=== PATIENT | male | born 1970 | race Caucasian/White ===

== ENCOUNTER 2020-05-23 10:49 | Inpatient (IN) | payer OTHER, SELFPAY ==
[2020-05-23] VITALS (24 sets, daily range): BP systolic 156–220; BP diastolic 112–150; PULSE 73–118; RESP 18–27; TEMP 35.9–36.8; O2SAT 90–99; BMI 27.8
--- NOTE | ~2020-05-23 | CT_ITS ---
EXAMINATION: CTA chest abdomen pelvis EXAM DATE: 05/23/2020 12:04 INDICATION: Shortness of breath for 7 months. Chest pain. TECHNIQUE: Spiral CTA of the chest (pulmonary arteries) was performed with 100 cc Omnipaque 350 intr avenous contrast injection. Images were acquired during the pulmonary arterial phase. Coronal maxi mum intensity projection 3D-reconstructions were created by the technologist on dedicated workstation . Axial, coronal and sagittal reformatted images were reviewed. Spiral CT of the abdomen and pelvis was then performed with the same intravenous contrast injection. Axial, coronal and sagittal reform atted images were reviewed. The dose-length product (DLP) for this examination was 922.81 mGy-cm. T he exposure was tailored according to patient size (auto mA exposure control), and iterative reconst ruction (ASIR) was used as additional dose reduction technique. Comparison is made to prior examinati on from 08/12/2007. FINDINGS: No aortic aneurysm or dissection. CHEST: There are no pulmonary emboli in the 1st through 3rd order (central and interlobar) pulmonary arteries. Some loss of attenuation in the segmental pulmonary arteries due to respiratory motion, b ut no intraluminal filling defects suspected. No thoracic aortic dissection. The lungs are clear. Small right pleural effusion and small pericardial effusion. Tracheobronchial tree is patent. Th ere is no mediastinal, hilar or axillary lymphadenopathy. There is no pneumothorax. There is card iomegaly. No evidence of coronary arterial calcification. ABDOMEN PELVIS: There is mild retroperitoneal nonspecific fat stranding, does not appear to be center ed around the pancreas. There is edema in the presacral fat. Gallbladder is contracted without calci fied cholelithiasis. Indistinct gallbladder wall, most likely part of the generalized fat stranding. Portal and splenic veins are patent. Kidneys enhance symmetrically. There is no hydronephrosis. The prostate is unremarkable. The bladder is unremarkable. There is no retroperitoneal or pelvic ly mphadenopathy. Small to moderate right inguinal fat-containing hernia. Small umbilical fat-containi ng hernia, mild edema surrounding this. The appendix is normal. The stomach and small bowel are unremarkable. There is expected amount of c olonic stool. No free intraperitoneal gas. The bones are unremarkable. IMPRESSION: 1. Cardiomegaly, small pericardial and right pleural effusions. 2. Mild nonspecific gallbladder fossa, retroperitoneal, presacral edema. Probably not cholecystitis given scope of fat stranding, and that gallbladder is contracted. 3. Right inguinal, umbilical fat-containing hernias. Reviewed, dictated and finalized at location B. IMPRESSION: 1. Cardiomegaly, small pericardial and right pleural effusions. 2. Mild nonspecific gallbladder fossa, retroperitoneal, presacral edema. Proba erica not cholecystitis given scope of fat stranding, and that gallbladder is con tracted. 3. Right inguinal, umbilical fat-containing hernias.
--- NOTE | ~2020-05-23 | XR_ITS ---
EXAMINATION: XR chest 1V 05/23/2020 12:13 INDICATION: Shortness of breath for 2 months. History of smoking. PROCEDURE: AP view of the chest COMPARISON: No prior studies for comparison. FINDINGS: The lungs are clear. Moderate cardiomegaly. There are no pleural effusions. There is no pn eumothorax suspected. IMPRESSION: 1: NO ACUTE CARDIOPULMONARY DISEASE. Reviewed, dictated and finalized at location A.
--- NOTE | 2020-05-23 11:05 | ECG_ITS ---
Measurements Intervals [place] Rate: 100 P: 48 VT: 150 QRS: -41 QRSD: 111 T: 137 QT: 370 QTc: 479 Interpretive Statements SINUS TACHYCARDIA ATRIAL AND VENTRICULAR PREMATURE COMPLEXES LEFT AXIS DEVIATION INTRAVENTRICULAR CONDUCTION DELAY DELAYED PRECORDIAL R/S TRANSITION LEFT VENTRICULAR HYPERTROPHY AND ST-T CHANGE ST-T WAVE ABNORMALITY IN LATERAL LEADS- CONSIDER ISCHEMIA BASELINE ARTIFACT- I, III, AVR, AVL, AVF, V1 ABNORMAL ECG Electronically Signed On 05-23-2020 12:09:16 CDT by Jun Clifford D.O.
[2020-05-23] MEDS: SODIUM CHLORIDE 0.9% IV 500 ML 999 ML IV CONT (11:13)
[2020-05-23] MEDS: FAMOTIDINE 20 MG/2 ML VIAL IV PUSH (11:13)
[2020-05-23] MEDS: METOPROLOL TARTRATE INJ 5 MG/5 ML VIAL IV PUSH (11:13)
--- NOTE | 2020-05-23 11:20 | ED.ABDPAIN ---
HPI - Abdominal Pain General Chief Complaint: Shortness of Breath/Dyspnea <Raymond Conrad PA-C Last Filed: 05/23/20 12:50> Stated Complaint: CP, SOB <Raymond Conrad PA-C Last Filed: 05/23/20 12:50> Time Seen by Provider: 05/23/20 11:01 <Raymond Conrad PA-C Last Filed: 05/23/20 12:50> Source: patient and family <KYAW Blanchard Last Filed: 05/23/20 12:50> Mode of arrival: ambulatory <KYAW Blanchard Last Filed: 05/23/20 12:50> Limitations: no limitations <Raymond Conrad PA-C Last Filed: 05/23/20 12:50> History of Present Illness HPI narrative: Patient is a 49-year-old male who presents to emergency department for evaluation of epigastric chest pain that occurs every day for the last 3 weeks patient notes aching pain and pressure states that last night the pain intensified and also noted swelling of the face patient has not taken anything for his symptoms nor is he been seen for this complaint. Patient presents per private vehicle in no distress. <Raymodn Conrad PA-C Last Filed: 05/23/20 12:50> Related Data Home Medications: Home Medications Medication Instructions Recorded Confirmed No Home Medications 05/23/20 05/23/20 <Raymond Conrad PA-C Last Filed: 05/23/20 12:50> Allergies/Adverse Reactions: Allergies Allergy/AdvReac Type Severity Reaction Status Date / Time No Known Allergies Allergy Verified 05/23/20 11:01 <Raymond Conrad PA-C Last Filed: 05/23/20 12:50> Review of Systems Review of Systems: All systems reviewed & are unremarkable except as noted in HPI and below <Raymond Conrad PA-C Last Filed: 05/23/20 12:50> [facility] Past Medical History Medical History: Medical History (Updated 05/23/20 @ 16:32 by Sanna Galvez NP) Myocardial infarction Tobacco abuse <KYAW Blanchard Last Filed: 05/23/20 12:50> Surgical History Surgical History: Surgical History (Updated 05/23/20 @ 16:32 by Sanna Galvez NP) H/O toe surgery The great toe on the right had been amputated 3 times and reattached. History of mandibular surgery <Raymond Conrad PA-C - Last Filed: 05/23/20 12:50> Family History Family History: Family History (Updated 05/23/20 @ 14:28 by Ayanna Clancy RN) Father Acute myocardial infarction Hypertension Mother Cerebrovascular accident <Raymond Conrad PA-C - Last Filed: 05/23/20 12:50> Social History Social History: Social History (Updated 05/23/20 @ 16:34 by Sanna Galvez NP) Social History: The patient stated that he quit smoking October 14, 2019. He does not use any alcohol but does occasionally smoke marijuana. No illicit drugs. He is is with his and 2 kids. His children are healthy. 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 Smoking packs per day: 1.5 Smoking cigarettes per day: 30.0 Years smoked: 30 Smoking pack-years: 45.00 Smoking status: Former smoker Tobacco type: cigarettes Additional smoking assessment comments: quit Sep 2019 Alcohol intake: never Substance use type: marijuana Gender identity (if verbalized by the patient): Male Spiritual care concerns: No <KYAW Blanchard Last Filed: 05/23/20 12:50> Exam Narrative: Exam Narrative: GENERAL: Well-appearing, well-nourished, and in no acute distress. HEAD: Normocephalic, atraumatic. EYES: PERRLA and EOMI. ENT: Nares clear, no rhinorrhea or epistaxis. Mucous membranes moist. Oropharynx without tonsillar hypertrophy exudate or other lesions. NECK: Supple. No adenopathy or masses. CHEST: Clear to auscultation. No respiratory distress. No wheezes rales or rhonchi HEART: Regular rate and rhythm. No murmur heard. Normal peripheral pulses. ABDOMEN: Soft, epigastric tenderness to palpation, nondistended EXTREMITIES: Normal range of mot
[2020-05-23 11:23] LABS: Basophils Percent Auto 0.3 % (0.2-1.2); Eosinophils Absolute Auto 0.1 K/mm3 (0-0.3); Eosinophils Percent Auto 0.6 % (0-4.4); Hematocrit 38.2 % (42.0-52.0); Hemoglobin 12.9 g/dL (14.0-18.0); Immature Granulocyte Absolute 0.03 K/mm3 (0.00-0.031); Immature Granulocyte Percent A 0.3 % (0-0.5); Lymphocytes Absolute Auto 1.35 K/mm3 (0.9-3.2); Lymphocytes Percent Auto 14.4 % (18.3-44.2); Mean Corpuscular HGB Conc 33.8 g/dl (32-36); Mean Corpuscular Hemoglobin 31.2 pg (26-34); Mean Corpuscular Volume 92.5 fl (80-100); Mean Platelet Volume 10.6 fl (7.4-10.4); Monocytes Absolute Auto 0.8 K/mm3 (0.1-0.6); Monocytes Percent Auto 8.6 % (2.6-8.5); Neutrophils Absolute Auto 7.1 K/mm3 (1.3-6.7); Neutrophils Percent Auto 75.8 % (45.5-73.1); Platelet Count Result 259 k/mm3 (150-375); Red Blood Count 4.13 M/mm3 (4.6-6.20); Red Cell Distribution Width 14.2 % (11.5-14.5); White Blood Count 9.4 K/mm3 (4.5-10.0)
[2020-05-23 11:36] LABS: Alanine Aminotransferase 46 U/L (4-50); Albumin Level 3.9 g/dL (3.5-5.1); Alkaline Phosphatase 148 U/L (38-126); Aspartate Amino Transferase 60 U/L (17-59); Bilirubin,Total 1.6 mg/dL (0.2-1.3); Blood Urea Nitrogen 32 mg/dL (9-20); Calcium 8.8 mg/dL (8.4-10.2); Carbon Dioxide 28 mmol/L (22-30); Chloride 101 mmol/L (98-107); Estimated CRCL calculation 44 ml/min; Estimated Glomerular Filt Rate 38; Glucose 227 mg/dL (75-110); INR 1.2; Lipase 173 U/L (23-300); Potassium 2.9 mmol/L (3.4-5.0); Prothrombin Time 14.5 Seconds (11.1-14.7); Sodium 139 mmol/L (137-145)
[2020-05-23 11:37] LABS: Partial Thromboplastin Time 27.5 SECONDS (22.3-36.8)
[2020-05-23 11:37] LABS: Lactic Acid Reflex 0.9 mmol/L (0.7-2.1)
[2020-05-23 11:39] LABS: D Dimer 2.04 ug/mL (<0.48)
[2020-05-23] MEDS: NITROGLYCERIN OINTMENT 1 INCH DOSE 0.5 INCH TRANSDERM (11:50)
[2020-05-23 11:51] LABS: NT Pro B Type Natriuretic Pept 16500 PG/ML (5-100); Troponin I 0.085 ng/mL (0.000-0.034)
[2020-05-23 11:54] LABS: Alveolar/Arterial O2 Gradient 36.4 mmHg; Fractional Inspired Oxygen 21 %; HCO3 ABG 23.3 mEq/l (22.0-26.0); Methemoglobin ABG 0.4 %THb (0-1.5); Oxygen Content ABG 17.9 %vol (16.0-22.0); Oxygen Saturation ABG 95.4 % (95.0-100.0); Oxyhemoglobin 92.7 % THb (90.0-100.0); PCO2 ABG 33.9 mmHg (35.0-45.0); PO2 ABG 72.7 mmHg (80.0-100.0); PO2 FiO2 Ratio Arterial Blood 3.46 %; Reduced Hemoglobin 5.9 %THb (0-5.0); Total Hemoglobin 13.7 g/dL (12.0-18.0); pH ABG 7.455 (7.350-7.450)
[2020-05-23 11:55] LABS: Modified Allen's Test Pass; Site Drawn LEFT RADIAL
[2020-05-23 12:40] LABS: Add Urine Microscopic? YES; Appearance Urine Clear (Clear); Bacteria Urine Trace /hpf; Bilirubin Urine Negative (Negative); Blood Urine 1+ (Negative); Color Urine Yellow (Yellow); Glucose Urine UA Negative (Negative); Ketones Urine Negative (Negative); Leukocyte Esterase Ur Negative LEU/UL (Negative); Mucus Urine Rare /lpf; Nitrate Urine Negative (Negative); Protein Urine 2+ mg/dL (Negative); RBC Urine 0-2 /hpf (0-2); Squamous Epithelial Cell Urine Rare /hpf (Few); Urobilinogen Urine Negative mg/dL (<2.0)
[2020-05-23] MEDS: MORPHINE SULFATE 2 MG/ML INJ IV PUSH (13:11)
[2020-05-23] MEDS: hydroCHLOROthiazide 25 MG TABLET PO (13:11)
[2020-05-23] MEDS: AMLODIPINE BESYLATE 5 MG TABLET 10 MG PO (13:11)
[2020-05-23] MEDS: ASPIRIN 81 MG CHEWABLE TABLET 324 MG PO (13:11)
[2020-05-23 13:14] LABS: Barbiturate Screen Urine Negative (Negative); Benzodiazepines Screen Urine Negative (Negative)
[2020-05-23 13:20] LABS: Hemoglobin A1C 6.4 % (<5.7)
[2020-05-23 13:25] LABS: Cannabinoid Screen Urine Negative (Negative); Cocaine Screen Urine Negative (Negative); Methadone Screen Urine Negative (Negative); Opiate Screen Urine Negative (Negative); Phencyclidine Screen Urine Negative (Negative)
[2020-05-23 13:30] LABS: Cholesterol 148 mg/dL (0-200); HDL Direct 31 mg/dL; Triglycerides 85 mg/dL (<150)
[2020-05-23 13:40] LABS: LDL Cholesterol Direct 105 mg/dL
[2020-05-23 13:40] LABS: Amphetamine Screen Urine Positive (Negative)
[2020-05-23 14:36] LABS: Troponin I 0.081 ng/mL (0.000-0.034)
--- NOTE | 2020-05-23 15:53 | ECG_ITS ---
Measurements Intervals [place] Rate: 81 P: 37 [place]: 144 QRS: -39 QRSD: 107 T: 158 QT: 410 QTc: 476 Interpretive Statements SINUS RHYTHM ATRIAL PREMATURE COMPLEX LEFT AXIS DEVIATION INTRAVENTRICULAR CONDUCTION DELAY LEFT VENTRICULAR HYPERTROPHY AND ST-T CHANGE DELAYED PRECORDIAL R/S TRANSITION ST-T WAVE ABNORMALITY IN LATERAL LEADS- CONSIDER ISCHEMIA ABNORMAL ECG Electronically Signed On 05-23-2020 13:59:17 CDT by Jun Clifford D.O.
--- NOTE | 2020-05-23 16:19 | PM.IMHP ---
H&P: HPI History of Present Illness Chief complaint: Hypertensive emergency/elevated troponin/acute kid Narrative: Gopi Viramontes is a 49 year old male who has a history of having myocardial infarction in the past. The patient stated that he did not have any cardiac catheterization or any interventions after his heart attack. That he has been having chest pain for about 3 months now. The patient stated that he has been short of breath as well. The patient stated that he has been remodeling a home since November. He stated his shortness of breath started this November when he was remarkably without a mask. He believes he was exposed to asbestos. He has not had any previous history of any congestive heart failure. The patient stated that his chest pain got worse last night. Said it was more of a pressure. He was also short of breath with this. Did not radiate anywhere in the patient has not become diaphoretic. He has had no fever or chills. The patient came to the emergency room for private vehicle the patient stated he is also feeling achy. Patient's blood pressure was noted to be 220/144. He was given nitro paste, morphine, Norvasc, hydralazine, aspirin, and normal saline IV fluids. Noted to be 0.085 and then 0.081. Potassium was found to be 2.9. I did order for him to have 40 mEq of potassium. Patient does not currently have any chest pain at this time. Was read as atrial premature complex left axis deviation and intraventricular conduction delay left ventricular hypertrophy and ST-T changes delayed precordial RS transition ST T-wave abnormality in lateral leads consider ischemia abnormal EKG. Cardiology has been consulted and an echo has been ordered. Date of service 05/23/2020 Review of Systems Review of Systems: All systems reviewed & are unremarkable except as noted in HPI and below Constitutional: Constitutional: Reports as per HPI and Reports no additional constitutional complaints Eyes: Eyes: Reports as per HPI and Reports no additional eye complaints ENT: Reports system reviewed and no additional complaints, except as documented and Reports Normal hearing present Cardiovascular: Cardiovascular: Reports no additional cardiovascular complaints Respiratory: Respiratory: Reports no additional respiratory complaints and Reports no additional respiratory complaints Gastrointestinal: Gastrointestinal: Reports as per HPI and Reports no additional gastrointestinal complaints Musculoskeletal: Musculoskeletal: Reports no additional musculoskeletal complaints Integumentary/Breasts: Skin/Breast: Reports system reviewed and no additional complaints, except as docu and Reports as per HPI Neurologic: Reports system reviewed and no additional complaints, except as documented, Reports as per HPI and Reports Normal hearing present Psychiatric: Psychiatric: Reports no additional psychiatric complaints and Reports as per HPI Endocrine: Endocrine: Reports no additional endocrine complaints Hematologic/Lymphatic: Hematologic/Lymphatic: Reports no additional hematologic/lymphatic complaints Allergic/Immunologic: Allergic/Immunologic: Reports no additional allergic/immunologic complaints PMFSH Past Medical History Medical History (Updated 05/23/20 @ 16:32 by Sanna Galvez NP) Myocardial infarction Tobacco abuse Surgical History Surgical History (Updated 05/23/20 @ 16:32 by Sanna Galvez NP) H/O toe surgery The great toe on the right had been amputated 3 times and reattached. History of mandibular surgery Family History Family History (Updated 05/23/20 @ 14:28 by Ayanna Clancy RN) Father Acute myocardial infarction Hypertension Mother Cerebrovascular accident Social History Social History (Updated 05/23/20 @ 16:34 by Sanna Galvez NP) Social History: The patient stated that he quit smoking October 14, 2019. He does not use any alcohol but does occasionally smoke marijuana. No illicit drugs. He is
[2020-05-23 17:03] LABS: Glucose Point of Care 124 (65-105)
[2020-05-23] MEDS: POTASSIUM CHLORIDE 20 MEQ PACKET (FOR LIQUID) 40 MEQ PO (17:15)
[2020-05-23 17:36] LABS: Troponin I 0.092 ng/mL (0.000-0.034)
--- NOTE | 2020-05-23 18:53 | ECG_ITS ---
Measurements Intervals [place] Rate: 62 P: -71 VA: 128 QRS: -40 QRSD: 110 T: 205 QT: 423 QTc: 430 Interpretive Statements ECTOPIC ATRIAL RHYTHM LEFT AXIS DEVIATION INTRAVENTRICULAR CONDUCTION DELAY DELAYED PRECORDIAL R/S TRANSITION ST-T WAVE ABNORMALITY IN LATERAL LEADS- CONSIDER ISCHEMIA BASELINE ARTIFACT- I, III, AVL, AVF, V4 ABNORMAL ECG Electronically Signed On 05-23-2020 20:07:33 CDT by Jun Clifford D.O.
[2020-05-23] MEDS: hydrALAZINE HCL 20 MG/ML VIAL 10 MG IV PUSH (18:57)
[2020-05-23] MEDS: METOPROLOL TARTRATE 12.5 MG TABLET PO (21:24)
[2020-05-23 21:33] LABS: Glucose Point of Care 81 (65-105)
[2020-05-24] VITALS (15 sets, daily range): BP systolic 142–166; BP diastolic 84–120; PULSE 69–98; RESP 14–16; TEMP 35.7–36.3; O2SAT 96–100
[2020-05-24 00:02] LABS: Blood Urea Nitrogen 33 mg/dL (9-20); Carbon Dioxide 32 mmol/L (22-30); Chloride 100 mmol/L (98-107); Estimated CRCL calculation 49 ml/min; Estimated Glomerular Filt Rate 43; Glucose 114 mg/dL (75-110); Potassium 2.9 mmol/L (3.4-5.0); Sodium 140 mmol/L (137-145)
[2020-05-24] MEDS: hydrALAZINE HCL 20 MG/ML VIAL 10 MG IV PUSH (05:08)
--- NOTE | 2020-05-24 06:00 | ECHO_ITS ---
Patient Info Name: Gopi Viramontse Age: 49 years : 1970 Gender: Male Ht: 70 in Wt: 194 lbs BSA: 2.10 m2 HR: 68 bpm BP: 151 / 84 mmHg Heart Rhythm: Sinus Rhythm Technical Quality: Good Exam Date: 05/24/2020 7:55 AM Exam Location: [facility] Pulmonary Exam Room: 231 Patient Status: Inpatient Admit Date: 05/24/2020 Staff Ordering Physician: Raymond Conrad PA-C Mail Opener: Cris Gonzalez RDCS Attending Provider: Josefina Pablo PA-C Referring Physician: Houston LAWSON; Exam Type: CA echo doppler color flow Study Info Indications - SOB WATTS CP ELEVATED TROPONINS Complete two-dimensional, color flow and Doppler transthoracic echocardiogram is performed. Summary 1. Left ventricular systolic function is low normal, estimated EF is 45-50%. 2. There is borderline increased left ventricular wall thickness. 3. Right ventricular systolic function is normal. 4. Left atrial chamber dimension is mildly enlarged. 5. There is mild aortic valve sclerosis. 6. There is no aortic valve stenosis. 7. There is trace mitral valve regurgitation. 8. There is mild tricuspid valve regurgitation. 9. Mild pulmonary hypertension, estimated pulmonary arterial systolic pressure is 45 mmHg. 10. There is trivial pericardial effusion. 11. Inferior vena cava is top normal in size and does not collpase by >50% upon inspiration. Left Ventricle Left ventricular chamber dimension is normal. Left ventricular systolic function is low normal, estimated EF is 45-50%. There is borderline increased left ventricular wall thickness. Left ventricular septal wall motion is normal. The left ventricular diastolic function is normal. Right Ventricle Right ventricular chamber dimension is normal. Right ventricular systolic function is normal. Left Atria Left atrial chamber dimension is mildly enlarged. Right Atria Right atrial chamber dimension is normal. Aortic Valve The aortic valve is trileaflet. There is mild aortic valve sclerosis. There is no aortic valve stenosis. There is no aortic valve regurgitation. Pulmonic Valve The pulmonic valve is normal. There is no pulmonic valve stenosis. There is no pulmonic regurgitation. Mitral Valve The mitral valve has thickened leaflets. There is no mitral valve stenosis. There is trace mitral valve regurgitation. Tricuspid Valve The tricuspid valve leaflets are normal. There is no significant tricuspid valve stenosis. There is mild tricuspid valve regurgitation. Mild pulmonary hypertension, estimated pulmonary arterial systolic pressure is 45 mmHg. Pericardium/Pleural The pericardium appears normal. There is trivial pericardial effusion. Inferior Vena Cava Inferior vena cava is top normal in size and does not collpase by >50% upon inspiration. Aorta The aortic root size at the sinus of Valsalva is normal. The prox ascending aorta size is normal. Left Ventricular Outflow Tract Name Value Normal LVOT 2D LVOT Diameter 2.0 cm LVOT Doppler LVOT Peak Gradient 8 mmHg LVOT Mean Gradient 5 mmHg
[2020-05-24 07:16] LABS: Basophils Percent Auto 0.3 % (0.2-1.2); Eosinophils Absolute Auto 0.1 K/mm3 (0-0.3); Eosinophils Percent Auto 0.8 % (0-4.4); Hematocrit 42.1 % (42.0-52.0); Hemoglobin 14.4 g/dL (14.0-18.0); Immature Granulocyte Absolute 0.03 K/mm3 (0.00-0.031); Immature Granulocyte Percent A 0.3 % (0-0.5); Mean Corpuscular HGB Conc 34.2 g/dl (32-36); Mean Corpuscular Hemoglobin 31.6 pg (26-34); Mean Corpuscular Volume 92.5 fl (80-100); Mean Platelet Volume 10.1 fl (7.4-10.4); Monocytes Absolute Auto 0.8 K/mm3 (0.1-0.6); Monocytes Percent Auto 7.9 % (2.6-8.5); Neutrophils Absolute Auto 7.4 K/mm3 (1.3-6.7); Neutrophils Percent Auto 73.7 % (45.5-73.1); Platelet Count Result 270 k/mm3 (150-375); Red Blood Count 4.55 M/mm3 (4.6-6.20); Red Cell Distribution Width 14.5 % (11.5-14.5)
[2020-05-24 07:35] LABS: Alanine Aminotransferase 56 U/L (4-50); Alkaline Phosphatase 149 U/L (38-126); Aspartate Amino Transferase 61 U/L (17-59); Bilirubin,Total 2.7 mg/dL (0.2-1.3); Blood Urea Nitrogen 25 mg/dL (9-20); Calcium 8.8 mg/dL (8.4-10.2); Carbon Dioxide 31 mmol/L (22-30); Chloride 98 mmol/L (98-107); Estimated CRCL calculation 59 ml/min; Estimated Glomerular Filt Rate 54; Glucose 113 mg/dL (75-110); Lipase 190 U/L (23-300); Magnesium 1.5 mg/dL (1.6-2.3); Phosphorus 3.2 mg/dL (2.5-4.5); Potassium 2.7 mmol/L (3.4-5.0); Sodium 138 mmol/L (137-145)
[2020-05-24 07:44] LABS: Troponin I 0.074 ng/mL (0.000-0.034)
[2020-05-24 08:08] LABS: Glucose Point of Care 106 (65-105)
[2020-05-24 08:12] LABS: Cholesterol 164 mg/dL (0-200); HDL Direct 36 mg/dL; Triglycerides 97 mg/dL (<150)
--- NOTE | 2020-05-24 08:15 | PM.CNCAR ---
Assessment and Plan Assessment and plan (1) Hypertensive emergency: Code(s): I16.1 - Hypertensive emergency Status: Acute Assessment and Plan: 49 y/o with no medical follow up for years who presented with SOB, chest pain in the setting of HTN emergency He has HTN emergency with evidence of end organ damage suggested by TABITHA and elevated troponin. His symptoms has improved since BP better controlled His echocardiogram shows low normal LV systolic function with EF ~45-50%. Will continue HCTZ started yesterday. Will d/c AMlodipine. Start Metoprolol given borderline LV dysfunction. Will plan starting MARY if creatinine continues to improve. (2) Elevated troponin: Code(s): R79.89 - Other specified abnormal findings of blood chemistry Status: Acute Assessment and Plan: Likely due to type II myocardial infarction in the setting of HTN emergency and amphetamine use echo with no regional wall motion changes rather global low normal systolic function. He has multiple cardiovascular risk factors including untreated HTN, DM for unknown time as well as prior tobacco abuse. He would benefit from ischemic evaluation at somepoint. Will consider that in outpatient settings once assure creatinine stable and BP well controlled. (3) Acute kidney injury: Code(s): N17.9 - Acute kidney failure, unspecified Status: Acute Assessment and Plan: Creatinine improving. Will start MARY tomorrow if creatinine remains stable (4) Chest pain: Code(s): R07.9 - Chest pain, unspecified Status: Acute Assessment and Plan: In the setting of HTN emergency. Chest pain resolved since BP better controlled. EKG with LVH and repolarization changes. Indeterminate trop elevation noted likely type II [place]. Stress testing not feasible due to holiday schedule (25 of May). Not ideal time for cath given TABITHA. Will plan ischemic evaluation in outpatient settings. History of Present Illness History of Present Illness Consult date/time: 05/24/20 08:15 49 year old male with no recent medical follow up who presented with chest pain and shortness of breath. He reports having symptoms for few months, started with dyspnea on exertion that gradually got worse and eventually started develoing chest pain. He had episode of chest pain that felt like elephant setting on his chest so decided to seek medical attention. In ER he was noted have BP as high as 220/145. Troponin was very mildly elevated and peaked at less than 0.1. He feels better since BP came down. He received HCTZ and Amlodipine. He also received nitro in ER. EKG showed normal sinus rhythm with LVH and repolarization changes. PACs also noted. Labs shows creatinine of 1.9, K of 2.9. He was also found to be diabetic and his HgA1c is 6.4. Urine toxicology is positive for amphetamine. He states that he had heart attack about 8 years ago and was in local hospital in [place] for few days but never had heart catheterization or never followed with cardiology. he has not been taking ASA or any meds. father of [place] in his late 60s. Reason For Visit: Hypertensive emergency/elevated troponin/acute kid Review of Systems Review of Systems: All systems reviewed & are unremarkable except as noted in HPI and below Constitutional: Constitutional: Denies fatigue and Denies headache(s) Eyes: Eyes: Denies blurry vision ENT: Reports Normal hearing present and Denies headache(s) Cardiovascular: Cardiovascular: Denies chest pain, Denies diaphoresis, Denies pedal edema, Denies leg edema, Denies lightheadedness, Denies palpitations and Denies dyspnea Respiratory: Respiratory: Denies cough and Denies dyspnea Gastrointestinal: Gastrointestinal: Denies abdominal pain Musculoskeletal: Musculoskeletal: Denies back pain Neurologic: Reports Normal hearing present and Denies headache(s) Psychiatric: Psychiatric: Denies anxiety Endocrine: Endocrine: Denies fatigue an
[2020-05-24 08:22] LABS: LDL Cholesterol Direct 115 mg/dL
[2020-05-24] MEDS: MAGNESIUM SULFATE 3GM/D5W100ML 3 GM/100 ML BAG IVPB (08:51)
[2020-05-24] MEDS: METOPROLOL TARTRATE 12.5 MG TABLET PO ×2 (08:52→23:28)
[2020-05-24] MEDS: PANTOPRAZOLE 40 MG TABLET PO (08:52)
[2020-05-24] MEDS: ASPIRIN 81 MG CHEWABLE TABLET PO (08:55)
[2020-05-24] MEDS: POTASSIUM CHLORIDE 20 MEQ TABLET 60 MEQ PO (08:55)
[2020-05-24] MEDS: lisinopriL 5 MG TABLET PO (09:31)
[2020-05-24] MEDS: hydroCHLOROthiazide 25 MG TABLET PO (09:31)
--- NOTE | 2020-05-24 10:13 | PM.IMPN ---
Progress Note: A&P Assessment and Plan (1) Hypertensive emergency: Code(s): I16.1 - Hypertensive emergency Status: Acute Assessment and Plan: Patient with poor medical follow up presents with chest pain x months and headaches; BP 220/144 on arrival, Cr 1.9. He was given Norvasc, HCTZ, Lopressor, and nitro in the ED. BPs now much improved, last 151/84. Today he remains on Lopressor, lisinopril, and HCTZ with PRN IV hydralazine if needed. Appreciate cardiology recommendations. Discussed case with Dr Michaels. Cardiology will plan for outpatient ischemic evaluation with stress testing and cath on an outpatient basis. Unable to perform stress echo today due to the holiday weekend. 2D echo report pending but Dr Michaels notes reduced LV function on his read. (2) Chest pain: Qualifiers: Chest pain type: unspecified Qualified Code(s): R07.9 - Chest pain, unspecified Code(s): R07.9 - Chest pain, unspecified Status: Acute Assessment and Plan: Now resolved with correction of BP. (3) Elevated troponin: Code(s): R79.89 - Other specified abnormal findings of blood chemistry Status: Acute Assessment and Plan: Minimally elevated flat troponin. 0.085 - 0.081 - 0.092 - 0.074. Likely type 2 [place] related to hypertensive emergency. Amphetamine use may contribute. See above. (4) Hypokalemia: Code(s): E87.6 - Hypokalemia Status: Acute Assessment and Plan: K still low at 2.7 this AM despite replacement yesterday. Correct hypomagnesemia and continue replacing potassium. Will monitor. (5) Acute kidney injury: Code(s): N17.9 - Acute kidney failure, unspecified Status: Acute Assessment and Plan: Cr 1.9 on arrival now improved to 1.4; unsure of chronicity with no previous labs for comparison. Will avoid nephrotoxic agents and monitor renal function. (6) Substance use disorder: Code(s): F19.90 - Other psychoactive substance use, unspecified, uncomplicated Status: Acute Assessment and Plan: Patient reports snorting methamphetamine on Wednesday over the weekend. He reports he does not use amphetamines on a regular basis. We discussed the importance of abstaining from drug use. (7) Acute hyperglycemia: Code(s): R73.9 - Hyperglycemia, unspecified Status: Acute Assessment and Plan: A1c 6.4. Continue to monitor Accu-cheks and cover with SSI. (8) Anemia: Qualifiers: Anemia type: unspecified type Qualified Code(s): D64.9 - Anemia, unspecified Code(s): D64.9 - Anemia, unspecified Status: Acute Assessment and Plan: Unsure of chronicity. H&H stable today. No evidence of acute bleeding. (9) Transaminitis: Code(s): R74.0 - Nonspecific elevation of levels of transaminase and lactic acid dehydrogenase [LDH] Status: Acute Assessment and Plan: Mild. Bili 2.7. No abdominal pain. CT abdomen reviewed. Trend hepatic function panel and consider RUQ US in AM or on outpatient basis. Subjective Date/time seen: 05/24/20 0950 Interval history: Mr. Viramontes is a 49 yo M admitted with hypertensive emergency. He reports feeling better this morning and was able to sleep well last night. He reports having intermittent chest pain over the last few months that became more persistent in the last few days. He is not having any chest pain this morning. He reports shortness of breath worse with lying flat at night and worse with exertion. He is not having shortness of breath resting in bed currently. He reports headaches lately and had one last night but this, too, has resolved this morning. He was able to tolerate some breakfast wit
[2020-05-24 10:30] LABS: Free T4 Free Thyroxine Reflex 1.46 ng/dL (0.78-2.19)
--- NOTE | 2020-05-24 13:40 | PC.NURSE ---
This patient, Gopi Viramontes, was transferred to [facility] on 05/24/20 at 1328. Personal belongings sent with patient.Report given to Kenzie. Appropriate documentation sent with patient.
[2020-05-24 16:29] LABS: Glucose Point of Care 124 (65-105)
[2020-05-24 17:13] LABS: Blood Urea Nitrogen 28 mg/dL (9-20); Calcium 8.3 mg/dL (8.4-10.2); Carbon Dioxide 30 mmol/L (22-30); Chloride 98 mmol/L (98-107); Estimated CRCL calculation 52 ml/min; Estimated Glomerular Filt Rate 46; Glucose 157 mg/dL (75-110); Magnesium 2.2 mg/dL (1.6-2.3); Potassium 3.7 mmol/L (3.4-5.0); Sodium 136 mmol/L (137-145)
[2020-05-24 23:44] LABS: Glucose Point of Care 134 (65-105)
[2020-05-25] VITALS (15 sets, daily range): BP systolic 150–164; BP diastolic 84–116; PULSE 65–97; RESP 14–18; TEMP 36.2–36.8; O2SAT 97–99
[2020-05-25 06:42] LABS: Basophils Percent Auto 0.3 % (0.2-1.2); Eosinophils Absolute Auto 0.1 K/mm3 (0-0.3); Eosinophils Percent Auto 1.1 % (0-4.4); Hematocrit 39.6 % (42.0-52.0); Hemoglobin 13.3 g/dL (14.0-18.0); Immature Granulocyte Absolute 0.05 K/mm3 (0.00-0.031); Immature Granulocyte Percent A 0.5 % (0-0.5); Lymphocytes Absolute Auto 1.82 K/mm3 (0.9-3.2); Lymphocytes Percent Auto 16.7 % (18.3-44.2); Mean Corpuscular HGB Conc 33.6 g/dl (32-36); Mean Corpuscular Hemoglobin 31.6 pg (26-34); Mean Corpuscular Volume 94.1 fl (80-100); Mean Platelet Volume 10.2 fl (7.4-10.4); Monocytes Percent Auto 9.2 % (2.6-8.5); Neutrophils Absolute Auto 7.9 K/mm3 (1.3-6.7); Neutrophils Percent Auto 72.2 % (45.5-73.1); Platelet Count Result 267 k/mm3 (150-375); Red Blood Count 4.21 M/mm3 (4.6-6.20); Red Cell Distribution Width 14.6 % (11.5-14.5); White Blood Count 10.9 K/mm3 (4.5-10.0)
[2020-05-25 06:54] LABS: Alanine Aminotransferase 41 U/L (4-50); Albumin Level 3.5 g/dL (3.5-5.1); Alkaline Phosphatase 119 U/L (38-126); Aspartate Amino Transferase 38 U/L (17-59); Blood Urea Nitrogen 36 mg/dL (9-20); Calcium 8.3 mg/dL (8.4-10.2); Carbon Dioxide 33 mmol/L (22-30); Chloride 98 mmol/L (98-107); Estimated CRCL calculation 52 ml/min; Estimated Glomerular Filt Rate 46; Glucose 120 mg/dL (75-110); Magnesium 1.9 mg/dL (1.6-2.3); Sodium 137 mmol/L (137-145)
[2020-05-25] MEDS: hydrALAZINE HCL 20 MG/ML VIAL 10 MG IV PUSH ×2 (07:42→16:48)
[2020-05-25 07:52] LABS: Glucose Point of Care 106 (65-105)
[2020-05-25] MEDS: METOPROLOL TARTRATE 12.5 MG TABLET PO (08:21)
[2020-05-25] MEDS: hydroCHLOROthiazide 25 MG TABLET PO (08:22)
[2020-05-25] MEDS: PANTOPRAZOLE 40 MG TABLET PO (08:22)
[2020-05-25] MEDS: lisinopriL 5 MG TABLET PO ×2 (08:22→12:24)
[2020-05-25] MEDS: ASPIRIN 81 MG CHEWABLE TABLET PO (09:29)
[2020-05-25] MEDS: POTASSIUM CHLORIDE 20 MEQ TABLET 60 MEQ PO (09:30)
--- NOTE | 2020-05-25 11:43 | PM.PNCARD ---
Progress Note: A&P Assessment and Plan (1) Hypertensive emergency: Code(s): I16.1 - Hypertensive emergency Status: Acute Assessment and Plan: 49 y/o with no medical follow up for years who presented with SOB, chest pain in the setting of HTN emergency He has HTN emergency with evidence of end organ damage suggested by TABITHA and mildly elevated troponin. His symptoms has improved since BP better controlled His echocardiogram shows low normal LV systolic function with EF ~45-50%. BP still elevated. Will increase Metoprolol dose to 50 mg daily. Increase Lisinopril dose to 10 mg daily. Will continue HCTZ . (2) Elevated troponin: Code(s): R79.89 - Other specified abnormal findings of blood chemistry Status: Acute Assessment and Plan: Likely due to type II myocardial infarction in the setting of HTN emergency and amphetamine use. Creatinine peaked at 0.09 echo with no regional wall motion changes rather global low normal systolic function. He has multiple cardiovascular risk factors including untreated HTN, DM for unknown time as well as prior tobacco abuse. He would benefit from ischemic evaluation at some point. Will plan that in outpatient settings once assure creatinine stable and BP well controlled.(creatinine 1.6 today) (3) Acute kidney injury: Code(s): N17.9 - Acute kidney failure, unspecified Status: Acute Assessment and Plan: Creatinine stable. Increase Lisinopril dose given mild LV dysfunction. (4) Chest pain: Qualifiers: Chest pain type: unspecified Qualified Code(s): R07.9 - Chest pain, unspecified Code(s): R07.9 - Chest pain, unspecified Status: Acute Assessment and Plan: In the setting of HTN emergency. Chest pain resolved since BP better controlled. EKG with LVH and repolarization changes. Indeterminate trop elevation noted likely type II CA. Stress testing not feasible due to holiday schedule (25 of May). Not ideal time for cath given TABITHA. Will plan ischemic evaluation in outpatient settings. Subjective Date/time seen: 05/25/20 11:43 He feels much better compared to . Tele reviewed. He has frequent PACs Review of Systems Review of Systems: All systems reviewed & are unremarkable except as noted in HPI and below Constitutional: Constitutional: Denies fatigue and Denies headache(s) Eyes: Eyes: Denies blurry vision ENT: Reports Normal hearing present and Denies headache(s) Cardiovascular: Cardiovascular: Denies chest pain, Denies diaphoresis, Denies pedal edema, Denies leg edema, Denies lightheadedness, Denies palpitations and Denies dyspnea Respiratory: Respiratory: Denies cough and Denies dyspnea Gastrointestinal: Gastrointestinal: Denies abdominal pain Musculoskeletal: Musculoskeletal: Denies back pain Neurologic: Reports Normal hearing present and Denies headache(s) Psychiatric: Psychiatric: Denies anxiety Endocrine: Endocrine: Denies fatigue and Denies palpitations Exam Const: General: no acute distress Eyes: Sclera: sclerae normal Neck: Neck: no JVD Carotids: no bruits Resp: Effort & Inspection: normal respiratory effort Auscultation: clear to auscultation bilaterally Cardio: Rate: regular rate and not tachycardic Rhythm: regular rhythm Heart sounds: no gallops, no murmurs and no rubs Skin: General skin exam: normal color Neuro: Cranial nerves: Yes Normal hearing present Speech: normal speech Extrem: General: normal to inspection and no edema Psych: Affect: normal affect Objective Data Vital Signs Vital Signs: Vital Signs - 24 hr 05/24/20 12:00 05/24/20 12:44 05/24/20 13:45 Temperature 35.7 C L 36.0 C L Pulse Rate 71 74 72 Respiratory Rate 16 16 Blood Pressure 166/99 H 142/92 H Pulse Oximetry 97 98 05/24/20 16:00 05/24/20 19:45 05/24/20 20:00 Temperature Pulse Rate 82 89 Respiratory Rate Blood Pressure Pulse Oximetry 99 07/
[2020-05-25 12:01] LABS: Glucose Point of Care 109 (65-105)
[2020-05-25] MEDS: METOPROLOL SUCCINATE EXT REL 12.5 MG, METOPROLOL SUCCINATE EXT REL 25 MG 37.5 MG PO (12:24)
--- NOTE | 2020-05-25 13:56 | PM.IMPN ---
Progress Note: A&P Assessment and Plan (1) Hypertensive emergency: Code(s): I16.1 - Hypertensive emergency Status: Acute Assessment and Plan: Patient with poor medical follow up presents with chest pain x months and headaches; BP 220/144 on arrival, with evidence end-organ damage by elevated creatinine and elevated troponins. BPs now improved. Today he remains on Lopressor, lisinopril, and HCTZ with PRN IV hydralazine if needed. Appreciate cardiology recommendations. Discussed case with Dr Michaels. Cardiology will plan for outpatient ischemic evaluation with stress testing and cath on an outpatient basis. Unable to perform stress echo inpatient due to the holiday weekend. 2D echo shows reduced LV funtion EF 40-45%. (2) Chest pain: Qualifiers: Chest pain type: unspecified Qualified Code(s): R07.9 - Chest pain, unspecified Code(s): R07.9 - Chest pain, unspecified Status: Acute Assessment and Plan: Now resolved with correction of BP. (3) Elevated troponin: Code(s): R79.89 - Other specified abnormal findings of blood chemistry Status: Acute Assessment and Plan: Minimally elevated flat troponin. 0.085 - 0.081 - 0.092 - 0.074. Likely type 2 NH related to hypertensive emergency. Amphetamine use may contribute. See above. (4) Hypokalemia: Code(s): E87.6 - Hypokalemia Status: Acute Assessment and Plan: K 3.0 this AM and replaced. Monitor K and magnesium, replace as needed. (5) Acute kidney injury: Code(s): N17.9 - Acute kidney failure, unspecified Status: Acute Assessment and Plan: Cr 1.9 on arrival now improved to 1.6; unsure of chronicity with no previous labs for comparison. Will avoid nephrotoxic agents and monitor renal function in AM. (6) Substance use disorder: Code(s): F19.90 - Other psychoactive substance use, unspecified, uncomplicated Status: Acute Assessment and Plan: Patient reports snorting methamphetamine on Wednesday over the weekend. He reports he does not use amphetamines on a regular basis. We discussed the importance of abstaining from drug use. (7) Acute hyperglycemia: Code(s): R73.9 - Hyperglycemia, unspecified Status: Acute Assessment and Plan: A1c 6.4. Continue to monitor Accu-cheks and cover with SSI. (8) Anemia: Qualifiers: Anemia type: unspecified type Qualified Code(s): D64.9 - Anemia, unspecified Code(s): D64.9 - Anemia, unspecified Status: Acute Assessment and Plan: Unsure of chronicity. H&H stable today. No evidence of acute bleeding. (9) Transaminitis: Code(s): R74.0 - Nonspecific elevation of levels of transaminase and lactic acid dehydrogenase [LDH] Status: Resolved Assessment and Plan: Mild and now resolved. LFTs and Bili within normal limits today. No abdominal pain. CT abdomen reviewed. Subjective Date/time seen: 05/25/20 1300 Interval history: Mr. Viramontes is a 49 yo M admitted with hypertensive emergency. He reports feeling better today. He still experiences shortness of breath with lying flat and some mild SOB walking to the restroom. He denies chest pain today. He has tolerated oral intake without nausea or vomiting. Denies abdominal pain. Headache resolved. Review of Systems Review of Systems: Narrative: Twelve systems were reviewed with pertinent positives and negatives as per HPI. Exam Narrative: Exam Narrative: General: Male resting supine in bed in no acute distress. HEENT: Normocephalic, EOMI, oral mucosa tacky, poor dentition. Cardiovascular: Rate and rhythm are regular. Telemetry review shows some bradycardia ov
[2020-05-25 16:41] LABS: Glucose Point of Care 88 (65-105)
[2020-05-25 21:46] LABS: Glucose Point of Care 96 (65-105)
[2020-05-26] VITALS (19 sets, daily range): BP systolic 138–167; BP diastolic 72–109; PULSE 61–94; RESP 16–20; TEMP 36.1–36.5; O2SAT 96–100
[2020-05-26] MEDS: hydrALAZINE HCL 20 MG/ML VIAL 10 MG IV PUSH ×2 (05:59→17:16)
[2020-05-26 06:37] LABS: Blood Urea Nitrogen 28 mg/dL (9-20); Calcium 8.3 mg/dL (8.4-10.2); Carbon Dioxide 30 mmol/L (22-30); Chloride 100 mmol/L (98-107); Estimated CRCL calculation 63 ml/min; Estimated Glomerular Filt Rate 58; Glucose 93 mg/dL (75-110); Magnesium 1.8 mg/dL (1.6-2.3); Sodium 137 mmol/L (137-145)
[2020-05-26 07:59] LABS: Glucose Point of Care 94 (65-105)
[2020-05-26] MEDS: PANTOPRAZOLE 40 MG TABLET PO (08:06)
[2020-05-26] MEDS: ASPIRIN 81 MG CHEWABLE TABLET PO (08:07)
[2020-05-26] MEDS: METOPROLOL SUCCINATE EXT REL 50 MG TABCR PO (08:07)
[2020-05-26] MEDS: lisinopriL 10 MG TABLET PO ×2 (08:08→10:54)
[2020-05-26] MEDS: hydroCHLOROthiazide 25 MG TABLET PO (08:08)
[2020-05-26] MEDS: MAGNESIUM OXIDE 400 MG TABLET PO (09:14)
[2020-05-26] MEDS: POTASSIUM CHLORIDE 20 MEQ TABLET 40 MEQ PO (09:14)
--- NOTE | 2020-05-26 09:58 | PM.PNCARD ---
Progress Note: A&P Assessment and Plan (1) Hypertensive emergency: Code(s): I16.1 - Hypertensive emergency Status: Acute Assessment and Plan: 49 y/o with no medical follow up for years who presented with SOB, chest pain in the setting of HTN emergency He has HTN emergency with evidence of end organ damage suggested by TABITHA and mildly elevated troponin. His symptoms has improved since BP better controlled His echocardiogram shows low normal LV systolic function with EF ~45-50%. BP still elevated. increased Metoprolol dose to 50 mg daily. Increase Lisinopril dose to 20 mg daily. Will continue HCTZ . (2) Elevated troponin: Code(s): R79.89 - Other specified abnormal findings of blood chemistry Status: Acute Assessment and Plan: Likely due to type II myocardial infarction in the setting of HTN emergency and amphetamine use. peaked at 0.09 echo with no regional wall motion changes rather global low normal systolic function. He has multiple cardiovascular risk factors including untreated HTN, DM for unknown time as well as prior tobacco abuse. He would benefit from ischemic evaluation at some point. Will plan cardiac catheterization at some point when he is otherwise stable (3) Acute kidney injury: Code(s): N17.9 - Acute kidney failure, unspecified Status: Acute Assessment and Plan: Creatinine stable. Increase Lisinopril dose given mild LV dysfunction. (4) Chest pain: Qualifiers: Chest pain type: unspecified Qualified Code(s): R07.9 - Chest pain, unspecified Code(s): R07.9 - Chest pain, unspecified Status: Acute Assessment and Plan: In the setting of HTN emergency. Chest pain resolved since BP better controlled. EKG with LVH and repolarization changes. Indeterminate trop elevation noted likely type II NH. Will plan cardiac catheterization whenever he is otherwise stable Subjective Date/time seen: 05/26/20 09:58 He feels somewhat better today no chest pain no significant shortness of breath Exam Const: General: no acute distress Eyes: Sclera: sclerae normal Neck: Neck: no JVD Carotids: no bruits Resp: Effort & Inspection: normal respiratory effort Auscultation: clear to auscultation bilaterally Cardio: Rate: regular rate and not tachycardic Rhythm: regular rhythm Heart sounds: no gallops, no murmurs and no rubs Skin: General skin exam: normal color Neuro: Cranial nerves: Yes Normal hearing present Speech: normal speech Extrem: General: normal to inspection and no edema Psych: Affect: normal affect Objective Data Vital Signs Vital Signs: Vital Signs - 24 hr 05/25/20 12:00 05/25/20 12:24 05/25/20 14:00 Temperature 36.8 C Pulse Rate 76 78 72 Respiratory Rate 14 Blood Pressure 162/84 H Pulse Oximetry 98 05/25/20 16:00 05/25/20 16:44 05/25/20 20:00 Temperature 36.3 C L Pulse Rate 68 65 79 Respiratory Rate 18 Blood Pressure 150/98 H Pulse Oximetry 97 05/25/20 21:12 05/25/20 23:25 05/26/20 00:00 Temperature 36.8 C Pulse Rate 75 84 Respiratory Rate 16 Blood Pressure 152/99 H Pulse Oximetry 99 98 05/26/20 04:00 05/26/20 05:57 05/26/20 06:46 Temperature 36.5 C Pulse Rate 82 65 68 Respiratory Rate 16 Blood Pressure 167/93 H 154/96 H Pulse Oximetry 96 05/26/20 08:00 05/26/20 08:07 05/26/20 09:14 Temperature Pulse Rate 94 83 84 Respiratory Rate 16 Blood Pressure Pulse Oximetry 96 Intake/Output Intake/Output: Intake & Output 05/23/20 05/24/20 05/25/20 05/26/20 23:59 23:59 23:59 23:59 Intake Total 1460 1980 2662 540 Output Total 8370 3703 6218 Balance -420 946 586 540 Meds/Results Medications: Active Medications Generic Name Dose Route Start Last Admin Trade Name Ezekielq PRN Reason Stop Dose Admin Acetaminophen 650 mg 05/23/20 12:53 Tylenol Tablet PO Q4H PRN Mild Pain (1-3) Al Hydrox/Mg Hydrox/Simethi
--- NOTE | 2020-05-26 10:29 | PM.IMPN ---
Progress Note: A&P Assessment and Plan (1) Hypertensive emergency: Code(s): I16.1 - Hypertensive emergency Status: Acute Assessment and Plan: Patient with poor medical follow up presents with chest pain x months and headaches; BP 220/144 on arrival, with evidence end-organ damage by elevated creatinine and elevated troponins. BPs now improved. Today he remains on Lopressor, lisinopril, and HCTZ with PRN IV hydralazine if needed. Appreciate cardiology recommendations. Discussed case with Dr Richardson. Plan is for cardiac catheterization tomorrow. 2D echo shows reduced LV funtion EF 40-45%. (2) Chest pain: Qualifiers: Chest pain type: unspecified Qualified Code(s): R07.9 - Chest pain, unspecified Code(s): R07.9 - Chest pain, unspecified Status: Acute Assessment and Plan: Now resolved with correction of BP. (3) Elevated troponin: Code(s): R79.89 - Other specified abnormal findings of blood chemistry Status: Acute Assessment and Plan: Minimally elevated flat troponin. 0.085 - 0.081 - 0.092 - 0.074. Likely type 2 [place] related to hypertensive emergency. Amphetamine use may contribute. See above. (4) Hypokalemia: Code(s): E87.6 - Hypokalemia Status: Acute Assessment and Plan: K 3.0 this AM and replaced. Monitor K and magnesium, replace as needed. (5) Acute kidney injury: Code(s): N17.9 - Acute kidney failure, unspecified Status: Acute Assessment and Plan: Cr 1.9 on arrival now improved to 1.3; unsure of chronicity with no previous labs for comparison. Will avoid nephrotoxic agents and monitor renal function. (6) Substance use disorder: Code(s): F19.90 - Other psychoactive substance use, unspecified, uncomplicated Status: Acute Assessment and Plan: Patient reports snorting methamphetamine on Wednesday over the weekend. He reports he does not use amphetamines on a regular basis. We discussed the importance of abstaining from drug use. (7) Acute hyperglycemia: Code(s): R73.9 - Hyperglycemia, unspecified Status: Acute Assessment and Plan: A1c 6.4. Continue to monitor Accu-cheks and cover with SSI. (8) Anemia: Qualifiers: Anemia type: unspecified type Qualified Code(s): D64.9 - Anemia, unspecified Code(s): D64.9 - Anemia, unspecified Status: Acute Assessment and Plan: Unsure of chronicity. No evidence of acute bleeding. (9) Transaminitis: Code(s): R74.0 - Nonspecific elevation of levels of transaminase and lactic acid dehydrogenase [LDH] Status: Resolved Assessment and Plan: Mild and now resolved. LFTs and Bili within normal limits /. No abdominal pain. CT abdomen reviewed. Subjective Date/time seen: 05/26/20 10:00 Interval history: Mr. Viramontes is a 49 yo M admitted with hypertensive emergency. He reports feeling a bit better today. No acute events overnight. He still experiences shortness of breath with lying flat and some mild SOB walking to the restroom. He denies chest pain today. He has tolerated oral intake without nausea or vomiting. Denies abdominal pain. Headache resolved. Review of Systems Review of Systems: Narrative: Twelve systems were reviewed with pertinent positives and negatives as per HPI. Exam Narrative: Exam Narrative: General: Male resting supine in bed in no acute distress. HEENT: Normocephalic, EOMI, oral mucosa tacky, poor dentition. Cardiovascular: Rate and rhythm are regular. Telemetry review shows some bradycardia overnight and frequent PACs, inverted T waves HR 72 at time of my encounter. Respiratory: Lungs clear to auscultation al
[2020-05-26 11:49] LABS: Glucose Point of Care 172 (65-105)
[2020-05-26 16:37] LABS: Glucose Point of Care 88 (65-105)
[2020-05-26] MEDS: NITROGLYCERIN SL 0.4 MG TABLET SUBLINGUAL ×2 (18:19→19:45)
--- NOTE | 2020-05-26 18:32 | ECG_ITS ---
Measurements Intervals [place] Rate: 68 P: [place]: 0 QRS: -45 QRSD: 108 T: 206 QT: 473 QTc: 505 Interpretive Statements SINUS RHYTHM ATRIAL PREMATURE COMPLEX LEFT ANTERIOR FASCICULAR BLOCK POSSIBLE LEFT VENTRICULAR HYPERTROPHY CANNOT RULE OUT SEPTAL INFARCT, AGE INDETERMINATE T WAVE ABNORMALITY IN ANTEROLATERAL LEADS- CONSIDER ISCHEMIA ABNORMAL ECG Electronically Signed On 05-26-2020 20:45:20 CDT by Jun Clifford D.O.
--- NOTE | 2020-05-26 19:38 | PM.EVENT ---
Event Note Event Note Event Note: I was called by nursing staff that the patient was having chest pain at around 6:30 pm. I ordered an EKG and I spoke with doctor Dr. hare read the EKG. I ordered serial troponins. Cardiology recommended nitro paste.
--- NOTE | 2020-05-26 19:59 | PC.NURSE ---
This patient, Gopi Viramontes, was transferred to [ IMU] on 05/26/20 at 2000. Personal belongings sent with patient. Belongings list checked and signed with receiving [ [id number]]. Report given to [ Antonietta]. Appropriate documentation sent with patient.
[2020-05-26 20:25] LABS: Glucose Point of Care 114 (65-105)
[2020-05-26 21:10] LABS: Basophils Percent Auto 0.3 % (0.2-1.2); Eosinophils Absolute Auto 0.1 K/mm3 (0-0.3); Hematocrit 41.3 % (42.0-52.0); Hemoglobin 13.6 g/dL (14.0-18.0); Immature Granulocyte Absolute 0.02 K/mm3 (0.00-0.031); Immature Granulocyte Percent A 0.3 % (0-0.5); Lymphocytes Absolute Auto 1.45 K/mm3 (0.9-3.2); Lymphocytes Percent Auto 18.1 % (18.3-44.2); Mean Corpuscular HGB Conc 32.9 g/dl (32-36); Mean Corpuscular Hemoglobin 31.9 pg (26-34); Mean Corpuscular Volume 96.7 fl (80-100); Mean Platelet Volume 10.3 fl (7.4-10.4); Monocytes Absolute Auto 0.8 K/mm3 (0.1-0.6); Monocytes Percent Auto 10.4 % (2.6-8.5); Neutrophils Absolute Auto 5.6 K/mm3 (1.3-6.7); Neutrophils Percent Auto 69.9 % (45.5-73.1); Platelet Count Result 271 k/mm3 (150-375); Red Blood Count 4.27 M/mm3 (4.6-6.20); Red Cell Distribution Width 14.7 % (11.5-14.5)
[2020-05-26] MEDS: HEPARIN SODIUM 5,000 UNITS/ML VIAL 4000 UNITS IV PUSH (21:18)
[2020-05-26] MEDS: HEPARIN SOD/D5W 100 UNITS/ML 25,000 UNITS/250 ML BAG 9 UNITS IV CONT (21:19)
[2020-05-26 21:20] LABS: INR 1.2; Prothrombin Time 14.5 Seconds (11.1-14.7)
[2020-05-26 21:21] LABS: Partial Thromboplastin Time 26.9 SECONDS (22.3-36.8)
[2020-05-26 21:39] LABS: Troponin I 0.044 ng/mL (0.000-0.034)
--- NOTE | 2020-05-26 21:54 | PC.NURSE ---
This patient, Gopi Viramontes, was received from [[id number] ] on 05/26/20 at 2017. Personal belongings list checked and signed. Patient/family oriented to unit policies and routines. Currently denies chest pain. Vital signs stable, NSR on the monitor without ectopy. Report received from Ewa SHEFFIELD.
--- NOTE | 2020-05-26 23:17 | ECG_ITS ---
Measurements Intervals [place] Rate: 68 P: 20 [place]: 148 QRS: -48 QRSD: 107 T: 171 QT: 427 QTc: 455 Interpretive Statements SINUS RHYTHM LEFT ANTERIOR FASCICULAR BLOCK LEFT VENTRICULAR HYPERTROPHY AND ST-T CHANGE CANNOT RULE OUT SEPTAL INFARCT, AGE INDETERMINATE T WAVE ABNORMALITY IN LATERAL LEADS- CONSIDER ISCHEMIA BASELINE ARTIFACT- II, III, AVF ABNORMAL ECG Electronically Signed On 05-27-2020 7:12:54 CDT by Jun Clifford D.O.
--- NOTE | 2020-05-26 23:33 | PC.NURSE ---
PATIENT C/O ONSET OF CHEST PRESSURE RATED 4-5/10 WITH SHORTNESS OF BREATH. DENIES PAIN RADIATION. SL NTG X 1 GIVEN WITH RELIEF IN PRESSURE AND SOB IN APPROX. 5 MINUTES. B/P 148/96. HEPARIN DRIP CONTINUES AT 900U/HR. EKG DONE AND EXAMINED BY JOY JACKSON WHO IS HERE TO SEE THE PATIENT. WILL CONTINUE TO FOLLOW CLOSELY.
--- NOTE | 2020-05-26 23:53 | PC.NURSE ---
05/26/[address] CARROLL HERE. ADVISED OF PATIENT HAVING CHEST PRESSURE WITH SOB, -03/31, RELIEVED WTH ONE NTG SL. WILL CALL AND UPDATE DR PIERRE.
--- NOTE | 2020-05-26 23:55 | PC.NURSE ---
05/26/[address] PIERRE NOTIFIED OF CHEST PRESSURE. RATED 4-5/10 WITH ASSOCIATED SHORTNESS OF BREATH, RELIEVED WITH ONE SL NTG. WILL APPLY NTG PASTE. PATIENT IS NPO FOR CARDIAC CATH IN THE AM.
[2020-05-27] VITALS (27 sets, daily range): BP systolic 140–167; BP diastolic 77–112; PULSE 58–87; RESP 14–22; TEMP 35.6–37.1; O2SAT 93–100
[2020-05-27] MEDS: NITROGLYCERIN OINTMENT 1 INCH DOSE TRANSDERM ×3 (00:09→12:08)
[2020-05-27 01:50] LABS: Troponin I 0.047 ng/mL (0.000-0.034)
[2020-05-27] MEDS: ACETAMINOPHEN 325 MG TABLET 650 MG PO ×2 (03:22→10:52)
[2020-05-27 03:36] LABS: Basophils Percent Auto 0.2 % (0.2-1.2); Eosinophils Absolute Auto 0.1 K/mm3 (0-0.3); Hematocrit 38.9 % (42.0-52.0); Hemoglobin 12.8 g/dL (14.0-18.0); Immature Granulocyte Absolute 0.03 K/mm3 (0.00-0.031); Immature Granulocyte Percent A 0.3 % (0-0.5); Lymphocytes Absolute Auto 1.64 K/mm3 (0.9-3.2); Lymphocytes Percent Auto 18.2 % (18.3-44.2); Mean Corpuscular HGB Conc 32.9 g/dl (32-36); Mean Corpuscular Hemoglobin 31.8 pg (26-34); Mean Corpuscular Volume 96.5 fl (80-100); Mean Platelet Volume 10.2 fl (7.4-10.4); Monocytes Absolute Auto 0.7 K/mm3 (0.1-0.6); Monocytes Percent Auto 8.1 % (2.6-8.5); Neutrophils Absolute Auto 6.5 K/mm3 (1.3-6.7); Neutrophils Percent Auto 72.2 % (45.5-73.1); Platelet Count Result 264 k/mm3 (150-375); Red Blood Count 4.03 M/mm3 (4.6-6.20); Red Cell Distribution Width 14.4 % (11.5-14.5)
[2020-05-27 03:47] LABS: Blood Urea Nitrogen 29 mg/dL (9-20); Calcium 8.5 mg/dL (8.4-10.2); Carbon Dioxide 30 mmol/L (22-30); Chloride 99 mmol/L (98-107); Estimated CRCL calculation 59 ml/min; Estimated Glomerular Filt Rate 54; Glucose 113 mg/dL (75-110); Magnesium 1.8 mg/dL (1.6-2.3); Potassium 3.6 mmol/L (3.4-5.0); Sodium 136 mmol/L (137-145)
[2020-05-27 03:52] LABS: INR 1.2; Prothrombin Time 15.1 Seconds (11.1-14.7)
[2020-05-27 03:53] LABS: Partial Thromboplastin Time 39.6 SECONDS (22.3-36.8)
[2020-05-27] MEDS: HEPARIN SODIUM 5,000 UNITS/ML VIAL 4000 UNITS IV PUSH (04:01)
[2020-05-27 07:51] LABS: Glucose Point of Care 95 (65-105)
--- NOTE | 2020-05-27 08:17 | PM.PNCARD ---
Progress Note: A&P Assessment and Plan (1) Elevated troponin: Code(s): R79.89 - Other specified abnormal findings of blood chemistry Status: Acute Assessment and Plan: 49 y/o with no medical follow up for years who presented with SOB, chest pain in the setting of HTN emergency. Due to ACS vs type II myocardial infarction in the setting of HTN emergency and amphetamine use Has more chest pain last night and trop still mildly elevated at 0.04 EKG with lateral T wave inversions echo with no regional wall motion changes rather global low normal systolic function. He has multiple cardiovascular risk factors including untreated HTN, DM (newly diagnosed this admission) for unknown time as well as prior tobacco abuse. Will plan [facility] this afternoon. Patient may have light breakfast. I explained procedure in details to the patient. He understands risks and benefits. He understands possibility of stent placement. He is willing to proceed. Creatinine 1.4, stable. Would not do LVgram with cath. (2) Hypertensive emergency: Code(s): I16.1 - Hypertensive emergency Status: Acute Assessment and Plan: He has HTN emergency with evidence of end organ damage suggested by TABITHA and mildly elevated troponin. His echocardiogram shows low normal LV systolic function with EF ~45-50%. BP better overall. Lisinopril dose was increased yesterday. He is also on Metoprolol and HCTZ. Will continue to monitor. He may need further up titration of his antihypertensives . (3) Acute kidney injury: Code(s): N17.9 - Acute kidney failure, unspecified Status: Acute Assessment and Plan: Creatinine stable. Increase Lisinopril dose given mild LV dysfunction. Will continue to monitor. Would avoid LV gram with cath today. (4) Chest pain: Qualifiers: Chest pain type: unspecified Qualified Code(s): R07.9 - Chest pain, unspecified Code(s): R07.9 - Chest pain, unspecified Status: Acute Assessment and Plan: In the setting of HTN emergency. Mildly elevated troponin Has recurrent episode yesterday with nitro responsiveness. Will plan cardiac catheterization today Subjective Date/time seen: 05/27/20 08:17 Event of chest pain last evening noted. He was transferred to [facility] unit. has nitro paste on. He feels better this morning. Denies chest pain or dyspnea. Review of Systems Review of Systems: All systems reviewed & are unremarkable except as noted in HPI and below Constitutional: Constitutional: Denies fatigue and Denies headache(s) Eyes: Eyes: Denies blurry vision ENT: Reports Normal hearing present and Denies headache(s) Cardiovascular: Cardiovascular: Denies chest pain, Denies diaphoresis, Denies pedal edema, Denies leg edema, Denies lightheadedness, Denies palpitations and Denies dyspnea Respiratory: Respiratory: Denies cough and Denies dyspnea Gastrointestinal: Gastrointestinal: Denies abdominal pain Musculoskeletal: Musculoskeletal: Denies back pain Neurologic: Reports Normal hearing present and Denies headache(s) Psychiatric: Psychiatric: Denies anxiety Endocrine: Endocrine: Denies fatigue and Denies palpitations Exam Const: General: no acute distress Eyes: Sclera: sclerae normal Neck: Neck: no JVD Carotids: no bruits Resp: Effort & Inspection: normal respiratory effort Auscultation: clear to auscultation bilaterally Cardio: Rate: regular rate and not tachycardic Rhythm: regular rhythm Heart sounds: no gallops, no murmurs and no rubs Skin: General skin exam: normal color Neuro: Cranial nerves: Yes Normal hearing present Speech: normal speech Extrem: General: normal to inspection and no edema Psych: Affect: normal affect Objective Data Vital Signs Vital Signs: Vital Signs - 24 hr 05/26/20 09:14 05/26/20 12:00 05/26/20 14:00 Temperature 36.4 C L Pulse Rate 84 64 61 Respiratory Rate 16 20 Blood Pressure 142/83 H Pulse
[2020-05-27] MEDS: MAGNESIUM OXIDE 400 MG TABLET PO (08:34)
[2020-05-27] MEDS: METOPROLOL SUCCINATE EXT REL 50 MG TABCR PO (08:34)
[2020-05-27] MEDS: hydroCHLOROthiazide 25 MG TABLET PO (08:34)
[2020-05-27] MEDS: ASPIRIN 81 MG CHEWABLE TABLET PO (08:34)
[2020-05-27] MEDS: lisinopriL 20 MG TABLET PO (08:34)
[2020-05-27] MEDS: PANTOPRAZOLE 40 MG TABLET PO (08:34)
--- NOTE | 2020-05-27 09:26 | PM.IMPN ---
Progress Note: A&P Assessment and Plan (1) Hypertensive emergency: Code(s): I16.1 - Hypertensive emergency Status: Acute Assessment and Plan: Patient with poor medical follow up presents with chest pain x months and headaches; BP 220/144 on arrival, with end-organ damage evident by elevated creatinine and elevated troponins. 2D echo shows reduced LV funtion EF 40-45%. Today he remains on Lopressor, lisinopril, and HCTZ with PRN IV hydralazine if needed. (2) Chest pain: Qualifiers: Chest pain type: unspecified Qualified Code(s): R07.9 - Chest pain, unspecified Code(s): R07.9 - Chest pain, unspecified Status: Acute Assessment and Plan: Recurrence of chest pain last night with mildly elevated flat trops. Heparin was initiated overnight. May be type 2 SC related to hypertensive emergency, recurrence of chest pain last night concerning for ACS. Multiple risk factors include HTN, A1c 6.4, tobacco and amphetamine use. Appreciate cardiology recommendations. Discussed case with Dr Michaels. Plan is for cardiac catheterization this afternoon. (3) Elevated troponin: Code(s): R79.89 - Other specified abnormal findings of blood chemistry Status: Acute Assessment and Plan: Minimally elevated flat troponin. 0.085 - 0.081 - 0.092 - 0.074. See above. (4) Hypokalemia: Code(s): E87.6 - Hypokalemia Status: Acute Assessment and Plan: K 3.6 this AM. Monitor K and magnesium, replace as needed. (5) Acute kidney injury: Code(s): N17.9 - Acute kidney failure, unspecified Status: Acute Assessment and Plan: Cr 1.9 on arrival now improved to 1.4; unsure of chronicity with no previous labs for comparison. Will avoid nephrotoxic agents and monitor renal function. (6) Substance use disorder: Code(s): F19.90 - Other psychoactive substance use, unspecified, uncomplicated Status: Acute Assessment and Plan: Patient reports snorting methamphetamine on Wednesday over the weekend. He reports he does not use amphetamines on a regular basis. We discussed the importance of abstaining from drug use. (7) Acute hyperglycemia: Code(s): R73.9 - Hyperglycemia, unspecified Status: Acute Assessment and Plan: A1c 6.4. Continue to monitor Accu-cheks and cover with SSI. Discussed lifestyle modifications and follow up with PCP. (8) Anemia: Qualifiers: Anemia type: unspecified type Qualified Code(s): D64.9 - Anemia, unspecified Code(s): D64.9 - Anemia, unspecified Status: Acute Assessment and Plan: Unsure of chronicity. No evidence of acute bleeding. Subjective Date/time seen: 05/27/20 0845 Interval history: Mr. Viramontes is a 49 yo M admitted with hypertensive emergency and chest pain. He had some chest pain again last night that he notes resolved with the nitro. He described being short of breath during the episode last night, denies diaphoresis or nausea. No chest pain this morning. Did not get much sleep. Ate a light breakfast with plans for cardiac cath later this afternoon. Review of Systems Review of Systems: Narrative: Twelve systems were reviewed with pertinent positives and negatives as per HPI. Exam Narrative: Exam Narrative: General: Male resting supine in bed in no acute distress. HEENT: Normocephalic, EOMI, oral mucosa tacky, poor dentition. Cardiovascular: Rate and rhythm are regular. Telemetry review shows some bradycardia overnight and frequent PACs, T wave inversion HR 82 at time of my encounter. Respiratory: Lungs clear to auscultation all avalos. Respirations even and nonlabored, tolerating room air. Abdomen: Soft, non-tender, non-distend
[2020-05-27] MEDS: hydrALAZINE HCL 20 MG/ML VIAL 10 MG IV PUSH (12:21)
[2020-05-27 13:04] LABS: Glucose Point of Care 120 (65-105)
--- NOTE | 2020-05-27 14:24 | WPDMODSED ---
Moderate Sedation Note-Pt Data Patient Data Allergies Allergy/AdvReac Type Severity Reaction Status Date / Time No Known Allergies Allergy Verified 05/23/20 11:01 Home Medications Medication Instructions Recorded Confirmed Type No Home Medications 05/23/20 05/23/20 History Current Medications: Active Medications Acetaminophen (Tylenol Tablet) 650 mg PO Q4H PRN PRN Reason: Mild Pain (1-3) Last Admin: 05/27/20 10:52 Dose: 650 mg Documented by: Al Hydrox/Mg Hydrox/Simethicone (Mylanta) 30 ml PO Q6H PRN PRN Reason: Indigestion Aspirin (Aspirin Chewable) 81 mg PO DAILY@0800 [facility] Last Admin: 05/27/20 08:34 Dose: 81 mg Documented by: Dextrose (Dextrose 50% Syringe) 12.5 gm IV PUSH PRN PRN; Protocol PRN Reason: Hypoglycemia Glucagon (Glucagon For Inj) 1 mg IM PRN PRN; Protocol PRN Reason: Hypoglycemia Glucose (Glutose 15) 15 gm PO PRN PRN; Protocol PRN Reason: Hypoglycemia Heparin Sodium (Porcine) (Heparin Sodium) 4,000 units IV PUSH PRN PRN PRN Reason: aPTT less than 55 seconds Last Admin: 05/27/20 04:01 Dose: 4,000 units Documented by: Heparin Sodium (Porcine) (Heparin Sodium) 3,000 units IV PUSH PRN PRN PRN Reason: aPTT 55 - 70 seconds Hydralazine HCl (Apresoline Hcl Inj) 10 mg IV PUSH Q8H PRN PRN Reason: Blood Pressure - High Last Admin: 05/27/20 12:21 Dose: 10 mg Documented by: Hydrochlorothiazide (Hydrochlorothiazide) 25 mg PO QAM [facility] Last Admin: 05/27/20 08:34 Dose: 25 mg Documented by: Dextrose (Dextrose 5% 1,000 Ml) 1,000 mls @ 100 mls/hr IVPB PRN PRN; Protocol PRN Reason: Hypoglycemia Heparin Sodium/Dextrose (Heparin Sodium/D5w 100 Units/Ml) 25,000 units in 250 mls @ 12 mls/hr IV CONT .[id number] [facility]; Protocol Last Titration: 05/27/20 10:06 Dose: 1,200 units/hr, 12 mls/hr Documented by: Insulin Aspart (Novolog) 2 - 5 units SUB-Q TIDWM [facility]; Protocol Last Admin: 05/27/20 12:10 Dose: Not Given Documented by: Lisinopril (Prinivil) 20 mg PO [facility] Last Admin: 05/27/20 08:34 Dose: 20 mg Documented by: Magnesium Oxide (Mag-Ox) 400 mg PO [facility] Last Admin: 05/27/20 08:34 Dose: 400 mg Documented by: Metoprolol Succinate (Toprol Xl) 50 mg PO [facility] Last Admin: 05/27/20 08:34 Dose: 50 mg Documented by: Morphine Sulfate (Morphine Sulfate Inj) 2 mg IV PUSH Q4H PRN PRN Reason: Pain Rated 7-10 Nitroglycerin (Nitrostat Subl 0.4 Mg (1/150)) 0.4 mg SUBLINGUAL Q5MIN PRN PRN Reason: Chest Pain Last Admin: 05/26/20 19:45 Dose: 0.4 mg Documented by: Nitroglycerin (Nitroglycerin Oint 1 Inch) 1 inch TRANSDERM Q6HR [facility] Last Admin: 05/27/20 12:08 Dose: 1 inch Documented by: Ondansetron HCl (Zofran Inj) 4 mg IV PUSH Q6H PRN PRN Reason: Nausea And Vomiting Pantoprazole Sodium (Protonix) 40 mg PO [facility] Last Admin: 05/27/20 08:34 Dose: 40 mg Documented by: Sedation/Anesthesia: No previous sedation/anesthesia problems (including family history). [facility] Past Medical History Medical History (Updated 05/25/20 @ 15:36 by Josefina Pablo PA-C) Myocardial infarction Tobacco abuse Surgical History Surgical History (Updated 05/23/20 @ 16:32 by Sanna Galvez NP) H/O toe surgery The great toe on the right had been amputated 3 times and reattached. History of mandibular surgery Family History Family History (Updated 05/23/20 @ 14:28 by Ayanna Clancy RN) Father Acute myocardial infarction Hypertension Mother Cerebrovascular accident Social History Social History (Updated 05/23/20 @ 16:34 by Sanna Galvez NP) Social History: The patient stated that he quit smoking October 14, 2019. He does not use any alcohol but does occasionally smoke marijuana. No illicit drugs. He is is with his and 2 kids. His children are healthy. He desires to be full code and his is the durable power tax attorney for healthcare. 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 Smoking packs per day: 1.5 Smoking cigarettes per day: 30.0 Years
--- NOTE | 2020-05-27 15:15 | PC.NURSE ---
Patient to cardiac laboratory mechanic helper. Report given to YOHANNES Saucedo.
--- NOTE | 2020-05-27 15:56 | P.PCNCC_ITS ---
Cardiac Cath Procedure Note Date of procedure:: 05/27/20 Performing physician:: Bobby Richardson MD Procedure: 1. Left heart catheterization, selective coronary angiogram. 2. Left ventricular angiogram. 3. Angio-Seal device for arterial hemostasis 4. Conscious sedation. using 2 mg of Versed 25 micro crown fentanyl starting time is 3:31 p.m. ending is 15:50 Psychiatric Technician Assistant: Dr. Bobby Richardson Complications: None. Sedation: Conscious sedation, local anesthesia, using 1 mg of Versed said, 25 mcg of fentanyl, and using 1% lidocaine for local anesthesia. Technique: After informed consent was obtained from patient, was brought to the woodworking shop laborer, put in the woodworking shop laborer table, prepped and draped in usual sterile fashion. Five Malawian sheath was inserted into the right common femoral artery, through the sheath 5 Malawian JL4 catheter inserted, advanced to the left coronary artery, left coronary artery angiogram was obtained. The catheter was exchanged over guidewire into a 5 [place]awian JR4 catheter, advanced to the right coronary artery, right coronary artery angiogram was obtained. The catheter then was exchanged over guidewire into this 5 [place]awian pigtail catheter, advanced to left ventricle, left ventricular angiogram was obtained. The catheter then was pulled, the sheath was pulled applying manual pressure for arterial hemostasis. Patient tolerated the procedure no complication, taken from the woodworking shop laborer to his room in stable condition stable vital signs. Hemodynamics: aortic pressure 124/60 . LV pressure 124/04 with LVEDP of 24 mmHg Angiographic findings: Left main: Medium size artery no significant disease or stenosis. Lad medium size artery showed mid LAD 40% narrowing followed by 50% narrowing in the mid section. Left circumflex artery, medium size artery, no significant disease or stenosis. RCA: Dominant vessel, showed mid RCA significant irregularity with a 75 % disease. right at the takeoff of large acute marginal LV: dilated left ventricle with severe left ventricular systolic dysfunction global hypokinesis. Summary: severe left ventricular systolic dysfunction with single-vessel coronary disease Recommendation: Maximum medical treatment. he would benefit from medical treatment improve his LV function and then subsequently consider angioplasty to the RCA when his LV function improves. For the time being with his LV size systolic dysfunction, makes it very high risk procedure with not much added benefit at this time
[2020-05-27 16:30] LABS: Partial Thromboplastin Time 41.6 SECONDS (22.3-36.8)
--- NOTE | 2020-05-27 17:15 | PC.NURSE ---
Patient returned to room following cardiac cath. Report received from YOHANNES Rodriguez.
[2020-05-27 17:43] LABS: Glucose Point of Care 115 (65-105)
[2020-05-27 20:52] LABS: Glucose Point of Care 183 (65-105)
[2020-05-28] VITALS (9 sets, daily range): BP systolic 146–148; BP diastolic 78–103; PULSE 64–90; RESP 14–20; TEMP 36.3–36.6; O2SAT 93–100
[2020-05-28 05:12] LABS: Hemoglobin 13.2 g/dL (14.0-18.0)
[2020-05-28 05:29] LABS: Blood Urea Nitrogen 25 mg/dL (9-20); Calcium 8.6 mg/dL (8.4-10.2); Carbon Dioxide 30 mmol/L (22-30); Chloride 99 mmol/L (98-107); Estimated CRCL calculation 59 ml/min; Estimated Glomerular Filt Rate 54; Glucose 100 mg/dL (75-110); Magnesium 1.8 mg/dL (1.6-2.3); Potassium 3.5 mmol/L (3.4-5.0); Sodium 137 mmol/L (137-145)
[2020-05-28 08:32] LABS: Glucose Point of Care 89 (65-105)
--- NOTE | 2020-05-28 08:39 | PM.PNCARD ---
Progress Note: A&P Assessment and Plan (1) Elevated troponin: Code(s): R79.89 - Other specified abnormal findings of blood chemistry Status: Acute Assessment and Plan: 49 y/o with no medical follow up for years who presented with SOB, chest pain in the setting of HTN emergency. Due to ACS vs type II myocardial infarction in the setting of HTN emergency and amphetamine use Underwent LHC yesterday with RCA disease with plan for medical therapy and potentially possibly PCI in outpatient settings (2) Cardiomyopathy: Code(s): I42.9 - Cardiomyopathy, unspecified Status: Acute Assessment and Plan: EF ~45% Mixed cardiomyopathy but likely mostly non ischemic due to amphetamine use (RCA disease is out of proportion to global LV dysfunction) Continue Metoprolol and Lisinopril. Will add Spironolactone for LV dysfunction, better BP control and persistent hypokalemia (3) Hypertensive emergency: Code(s): I16.1 - Hypertensive emergency Status: Acute Assessment and Plan: He has HTN emergency with evidence of end organ damage suggested by TABITHA and mildly elevated troponin. His echocardiogram shows low normal LV systolic function with EF ~45%. BP better compared to admission but still around 140s systolic. Continue HCTZ 25 , Metoprolol 50, Lisinopril 20 . WIll add Spironolactone 25 daily . (4) Acute kidney injury: Code(s): N17.9 - Acute kidney failure, unspecified Status: Acute Assessment and Plan: Creatinine stable ~ 1.4 (5) Chest pain: Qualifiers: Chest pain type: unspecified Qualified Code(s): R07.9 - Chest pain, unspecified Code(s): R07.9 - Chest pain, unspecified Status: Acute Assessment and Plan: LHC with LAD 40-50% disease, 75% RCA disease. COntinue Maximal medical therapy. Started on ASA and Atorvastatin Subjective Date/time seen: 05/28/20 08:39 He feels better. Tolerated LHC well yesterday. Review of Systems Review of Systems: All systems reviewed & are unremarkable except as noted in HPI and below Constitutional: Constitutional: Denies fatigue and Denies headache(s) Eyes: Eyes: Denies blurry vision ENT: Reports Normal hearing present and Denies headache(s) Cardiovascular: Cardiovascular: Denies chest pain, Denies diaphoresis, Denies pedal edema, Denies leg edema, Denies lightheadedness, Denies palpitations and Denies dyspnea Respiratory: Respiratory: Denies cough and Denies dyspnea Gastrointestinal: Gastrointestinal: Denies abdominal pain Musculoskeletal: Musculoskeletal: Denies back pain Neurologic: Reports Normal hearing present and Denies headache(s) Psychiatric: Psychiatric: Denies anxiety Endocrine: Endocrine: Denies fatigue and Denies palpitations Exam Const: General: no acute distress Eyes: Sclera: sclerae normal Neck: Neck: no JVD Carotids: no bruits Resp: Effort & Inspection: normal respiratory effort Auscultation: clear to auscultation bilaterally Cardio: Rate: regular rate and not tachycardic Rhythm: regular rhythm Heart sounds: no gallops, no murmurs and no rubs Skin: General skin exam: normal color Neuro: Cranial nerves: Yes Normal hearing present Speech: normal speech Extrem: General: normal to inspection and no edema Psych: Affect: normal affect Objective Data Vital Signs Vital Signs: Vital Signs - 24 hr 05/27/20 10:00 05/27/20 12:00 05/27/20 12:08 Temperature 35.7 C L Pulse Rate 81 66 58 L Respiratory Rate 22 H Blood Pressure 153/106 H Pulse Oximetry 98 05/27/20 14:00 05/27/20 15:55 05/27/20 16:15 Temperature 36.4 C L Pulse Rate 72 75 75 Respiratory Rate 18 15 Blood Pressure 158/78 H 145/104 H Pulse Oximetry 99 100 05/27/20 16:30 05/27/20 16:45 05/27/20 17:00 Temperature Pulse Rate 66 85 82 Respiratory Rate 14 14 14 Blood Pressure 159/112 H 167/106 H 156/109 H Pulse Oximetry 98 97 98 05/27/20 17:15
[2020-05-28] MEDS: PANTOPRAZOLE 40 MG TABLET PO (09:14)
[2020-05-28] MEDS: ASPIRIN 81 MG CHEWABLE TABLET PO (09:14)
[2020-05-28] MEDS: hydroCHLOROthiazide 25 MG TABLET PO (09:14)
[2020-05-28] MEDS: METOPROLOL SUCCINATE EXT REL 50 MG TABCR PO (09:14)
[2020-05-28] MEDS: ATORVASTATIN 20 MG TABLET PO (09:14)
[2020-05-28] MEDS: lisinopriL 20 MG TABLET PO (09:14)
[2020-05-28] MEDS: MAGNESIUM OXIDE 400 MG TABLET PO (09:15)
[2020-05-28] MEDS: SPIRONOLACTONE 25 MG TABLET PO (11:45)
--- NOTE | 2020-05-28 12:10 | PM.DS ---
DS: Admitting Diagnosis Admitting Diagnosis Admitting Diagnosis: Chest pain, unspecified DS: Discharge Diagnosis Discharge Diagnosis (1) NSTEMI (non-ST elevated myocardial infarction): Code(s): I21.4 - Non-ST elevation (NSTEMI) myocardial infarction Status: Acute Assessment and Plan: -----patient had chest pain x2 months and continued to have chest pain during hospitalization. He was given heparin and underwent a cardiac catheterization. Patient is going to be treated with medical management and follow-up with cardiology. See cath specifics below Angiographic findings: Left main: Medium size artery no significant disease or stenosis. Lad medium size artery showed mid LAD 40% narrowing followed by 50% narrowing in the mid section. Left circumflex artery, medium size artery, no significant disease or stenosis. RCA: Dominant vessel, showed mid RCA significant irregularity with a 75 % disease. right at the takeoff of large acute marginal LV: dilated left ventricle with severe left ventricular systolic dysfunction global hypokinesis. Summary: severe left ventricular systolic dysfunction with single-vessel coronary disease Recommendation: Maximum medical treatment. he would benefit from medical treatment improve his LV function and then subsequently consider angioplasty to the RCA when his LV function improves. For the time being with his LV size systolic dysfunction, makes it very high risk procedure with not much added benefit at this time (2) Hypertensive emergency: Code(s): I16.1 - Hypertensive emergency Status: Acute Assessment and Plan: Patient with poor medical follow up presents with chest pain x months and headaches; BP 220/144 on arrival, with end-organ damage evident by elevated creatinine and elevated troponins. 2D echo shows reduced LV funtion EF 40-45%. Discharged on Lopressor, lisinopril, spironolactone and HCTZ (3) Chest pain: Qualifiers: Chest pain type: unspecified Qualified Code(s): R07.9 - Chest pain, unspecified Code(s): R07.9 - Chest pain, unspecified Status: Acute (4) Elevated troponin: Code(s): R79.89 - Other specified abnormal findings of blood chemistry Status: Acute Assessment and Plan: Minimally elevated flat troponin. 0.085 - 0.081 - 0.092 - 0.074. See above. (5) Hypokalemia: Code(s): E87.6 - Hypokalemia Status: Acute Assessment and Plan: Resolved (6) Acute kidney injury: Code(s): N17.9 - Acute kidney failure, unspecified Status: Acute Assessment and Plan: Cr 1.9 on arrival now improved to 1.4; unsure of chronicity with no previous labs for comparison. Follow-up primary care physician (7) Substance use disorder: Code(s): F19.90 - Other psychoactive substance use, unspecified, uncomplicated Status: Acute Assessment and Plan: -----Patient reports snorting methamphetamine on Wednesday over the weekend. He reports he does not use amphetamines on a regular basis. We discussed the importance of abstaining from drug use including side effects such as . (8) Acute hyperglycemia: Code(s): R73.9 - Hyperglycemia, unspecified Status: Acute Assessment and Plan: A1c 6.4. Spoke with the patient about the findings. He states he would like to try diet control before medications. I believe this is resonable since the pt is unreliable and putting him on a glucose lowering medication can be risky because he would likely not check his glucose regularly. His Cr is boarderline and metformin may be a risk of causing acidosis as well. He should estabolish a primary care provider and follow with them. I had a long discussion with him about this and DM booklets provided. (9) Anemia: Qualifiers: Anemia type: unspecified type Qualified Code(s): D64.9 - Anemia, unspecified Code(s): D64.9 - Anemia, un
[2020-05-28 13:16] LABS: Glucose Point of Care 144 (65-105)
== END 2020-05-28 13:28 | disposition home or self-care (01) | DRG 192 ==
LOC: ANHED 12:50 → ANHIMU 13:33 → ANH3MED 05-25 22:36 → ANHIMU 05-27 07:19 → ANH3MED 05-30 13:14 → ANHIMU 05-30 13:14
PROVIDERS: Emergency Medicine Emergency Medical Services; Family Medicine; Internal Medicine; Physician Assistant; Specialist; Admitting Provider Internal Medicine; Emergency Provider General Practice; PCP Internal Medicine Infectious Disease; Visit Provider Nurse Practitioner
PROC: 4A023N7 Measurement of Cardiac Sampling and Pressure, Left Heart, Percutaneous Approach (ICD-10-PCS; CPT 93452; principal; 2020-05-27 14:30)
PROC: 4A023N7 Measurement of Cardiac Sampling and Pressure, Left Heart, Percutaneous Approach (ICD-10-PCS; 2020-05-27 14:30)
DX: I16.1 Hypertensive emergency (principal); I25.10 Atherosclerotic heart disease of native coronary artery without angina pectoris; I21.A1 Myocardial infarction type 2; F15.90 Other stimulant use, unspecified, uncomplicated; N17.9 Acute kidney failure, unspecified; I42.8 Other cardiomyopathies; R73.9 Hyperglycemia, unspecified; E87.6 Hypokalemia; D64.9 Anemia, unspecified; Z87.891 Personal history of nicotine dependence; I25.2 Old myocardial infarction
CPT/HCPCS: 36415; 36600; 71045; 71275; 74174; 80048; 80053; 80061; 80307; 81001; 82375; 82805; 83036; 83050; 83605; 83690; 83735; 83880; 84100; 84439; 84443; 84480; 84484; 85014; 85018; 85025; 85380; 85610; 85730; 87086; 93005; 93306; 93458; 94762; 96361; 96365; 96374; 96375; 99285; A9270; C1760; C1887; C1894; G0269; G0378; G0379; J0360; J1644; J2250; J2270; J3010; J3475; J3480; J7030; J7040; Q9967

== ENCOUNTER → 2021-05-19 02:01 | Outpatient (CLI) | payer OTHER, SELFPAY ==
[2021-05-19 18:16] LABS: SARS-CoV-2 RNA PCR Negative
== END ==
PROVIDERS: PCP Internal Medicine Infectious Disease; Visit Provider Internal Medicine Cardiovascular Disease
DX: Z01.812 Encounter for preprocedural laboratory examination (principal); Z20.822 Contact with and (suspected) exposure to COVID-19
CPT/HCPCS: C9803; U0003; U0005

== ENCOUNTER 2021-05-22 01:28 | Day surgery (SDC) | payer OTHER, SELFPAY ==
[2021-05-22] VITALS (15 sets, daily range): BP systolic 130–182; BP diastolic 50–115; PULSE 50–61; RESP 12–20; TEMP 36–36.6; O2SAT 98–100; BMI 26.7
[2021-05-22 08:45] LABS: Basophils Percent Auto 0.3 % (0.2-1.2); Eosinophils Absolute Auto 0.3 K/mm3 (0-0.3); Eosinophils Percent Auto 4.5 % (0-4.4); Hematocrit 38.6 % (42.0-52.0); Hemoglobin 13.2 g/dL (14.0-18.0); Immature Granulocyte Absolute 0.02 K/mm3 (0.00-0.031); Immature Granulocyte Percent A 0.3 % (0-0.5); Lymphocytes Absolute Auto 1.83 K/mm3 (0.9-3.2); Lymphocytes Percent Auto 25.5 % (18.3-44.2); Mean Corpuscular HGB Conc 34.2 g/dl (32-36); Mean Corpuscular Hemoglobin 31.3 pg (26-34); Mean Corpuscular Volume 91.5 fl (80-100); Monocytes Absolute Auto 0.8 K/mm3 (0.1-0.6); Monocytes Percent Auto 10.5 % (2.6-8.5); Neutrophils Absolute Auto 4.2 K/mm3 (1.3-6.7); Neutrophils Percent Auto 58.9 % (45.5-73.1); Platelet Count Result 232 k/mm3 (150-375); Red Blood Count 4.22 M/mm3 (4.6-6.20); White Blood Count 7.2 K/mm3 (4.5-10.0)
[2021-05-22 08:54] LABS: Anion Gap 10 mmol/L (8-16); Blood Urea Nitrogen 33 mg/dL (9-20); Calcium 9.1 mg/dL (8.4-10.2); Carbon Dioxide 27 mmol/L (22-30); Chloride 104 mmol/L (98-107); Estimated CRCL calculation 51 ml/min; Estimated Glomerular Filt Rate 46; Glucose 158 mg/dL (75-110); Potassium 3.2 mmol/L (3.4-5.0); Sodium 141 mmol/L (137-145)
--- NOTE | 2021-05-22 09:00 | WPDHPUPDATE1 ---
History and Physical Update Update Date/Time: 05/22/21 0900 am History and Physical has been reviewed, including an updated exam of the patient. There are NO changes in the patient's condition. Risks, benefits, and alternatives have been discussed and questions answered. Patient agrees to proceed with procedure.
--- NOTE | 2021-05-22 10:37 | WPDMODSED ---
Moderate Sedation Note-Pt Data Patient Data Allergies Allergy/AdvReac Type Severity Reaction Status Date / Time No Known Allergies Allergy Verified 05/22/21 08:43 Home Medications Medication Instructions Recorded Confirmed Type aspirin [Children's Aspirin] 81 mg PO DAILY@0800 #30 tablet 05/28/20 05/22/21 Rx atorvastatin 80 mg PO DAILY 05/22/21 05/22/21 History carvedilol 12.5 mg PO BID 05/22/21 05/22/21 History clonidine 0.1 mg TRANSDERMAL WEEKLY 05/22/21 05/22/21 History sennosides-docusate sodium [Senna 8.6 - 50 tab-cap PO BID 05/22/21 05/22/21 History with Docusate Sodium] Current Medications: Active Medications Sodium Chloride (Normal Saline Iv) 500 mls @ 100 mls/hr IV CONT .Q5H NOEMY Sedation/Anesthesia: No previous sedation/anesthesia problems (including family history). [facility] Past Medical History Medical History Myocardial infarction Tobacco abuse Surgical History Surgical History H/O toe surgery The great toe on the right had been amputated 3 times and reattached. History of mandibular surgery Family History Family History Father Acute myocardial infarction Hypertension Mother Cerebrovascular accident Social History Social History Social History: The patient stated that he quit smoking October 14, 2019. He does not use any alcohol but does occasionally smoke marijuana. No illicit drugs. He is is with his and 2 kids. His children are healthy. He desires to be full code and his is the durable power patent prosecution attorney for healthcare. 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 Smoking packs per day: 1.5 Smoking cigarettes per day: 30.0 Years smoked: 30 Smoking pack-years: 45.00 Smoking status: Former smoker Tobacco type: cigarettes Additional smoking assessment comments: quit Sep 2019 Alcohol intake: never Substance use type: marijuana Gender identity (if verbalized by the patient): Male Spiritual care concerns: No Mod Sed Physical Exam Physical Exam Pre Procedural Exam: Normal: Appearance, Eyes, Ears, Nose, Neck, Throat, Airway, Lungs, Heart Size, Heart Rate, Heart Rhythm, Neuro Exam, Abdomen, Liver, Kidneys, Spleen, Breasts, Genitalia, Extremities and Skin Hours since solid foods: 8 Hours since liquid intake: 8 Internal Medicine - PN: Obj Da Vital Signs Vital Signs: Vital Signs - 24 hr 05/22/21 08:50 Temperature 36.0 C L Pulse Rate 61 Respiratory Rate 18 Blood Pressure 161/103 H Pulse Oximetry 98 Meds/Results Medications: Active Medications Generic Name Dose Route Start Last Admin Trade Name Freq PRN Reason Stop Dose Admin Sodium Chloride 500 mls @ 100 mls/hr 05/22/21 08:20 Normal Saline Iv IV CONT .Q5H NOEMY Labs CBC & Chem 7: 05/22/21 08:27 05/22/21 08:27 Labs: Laboratory Results - last 24 hr 05/22/21 05/22/21 08:27 08:27 WBC 7.2 RBC 4.22 L Hgb 13.2 L Hct 38.6 L MCV 91.5 MCH 31.3 MCHC 34.2 RDW 13.0 Plt Count 232 MPV 10.0 Immature Gran % (Auto) 0.3 Neut % (Auto) 58.9 Lymph % (Auto) 25.5 Kemper % (Auto) 10.5 H Eos % (Auto) 4.5 H Baso % (Auto) 0.3 Lymph # (Auto) 1.83 Kemper # (Auto) 0.8 H Eos # (Auto) 0.3 Baso # (Auto) 0.0 Abs Immat Gran (auto) 0.02 Absolute Neuts (auto) 4.2 Absolute Nucleated RBC 0.0 Nucleated RBC % 0.0 Sodium 141 Potassium 3.2 L Chloride 104 Carbon Dioxide 27 Anion Gap 10 BUN 33 H Creatinine 1.60 H Estim Creat Clear Calc 51 Estimated GFR 46 L Glucose 158 H Calcium 9.1 ASA Classification/Sedation ASA Classification/Sedation ASA Class: I Emergent: No Risks: Risks, benefits and alternatives explained and patient/family accepted plan for sedation. Patient re-evaluated immedia
--- NOTE | 2021-05-22 10:38 | WPDCARDPROC ---
Cardiac Cath Procedure Note Date of procedure:: 05/22/21 Performing physician:: Nichelle Sherman MD Date of service 05/22/2021- Indication:: planned intervention for the right coronary artery. Brief clinical history:: this is 50-year-old patient who apparently was admitted to the hospital with shortness of breath and was found to have cardiomyopathy. at that time was taken to the dye lab technician that shows mid RCA 75%. He was managed medically with improvement of shortness of breath or CHF. He was brought in for elective intervention RCA. Procedure Procedure performed:: 1-Moderate sedation that started at 9:55 a.m. and ended at 1031using 2mg of Versed and 50mcg fentanyl. The registered nurse was lian harper. 2-Selective left and right coronary angiogram. 3-Left heart catheterization with measurement of LVEDP and measurement of gradient across aortic valve. 4- deployment of a drug-eluting stent ORSIRO 3.5x18 to mid right coronary artery. 5. LV angiogram 6-Right common femoral arterial angiogram. 7-Deployment of 6 Armenian Angio-Seal. Sedation/Medication given:: Moderate sedation. Access site:: Right common femoral artery. Estimated blood loss:: 10cc Procedure note:: After informed consent patient was brought in to dye lab technician with the was draped and prepped in usual manner. Moderate sedation was given and the right groin was infiltrated using 1% lidocaine. Five Armenian sheath was obtained using micropuncture needle and the modified Seldinger technique. Selective left coronary angiogram was done using JL4 catheter with the tip of the catheter placed in the left main coronary artery. Selective right coronary angiogram was done using JR4 catheter with the tip of the catheter placed to the right coronary artery. After that 5 Armenian pigtail catheter was advanced across the aortic valve into the left ventricle with measurement of LVEDP and measurement of gradient across aortic valve. LV angiogram was done . Right common femoral arterial angiogram was done. after the artery went and exchanged the right groin sheath for a 6 Armenian sheath. Then JR4 guide catheter was advanced over a wire And engaged the RCA but we know is dampening blood pressure. then we removed the guide catheter we took another guide catheter 6 Armenian JR4 with side holes. blood pressure was good. The coronary wire luge 0.014 was advanced to distal RCA. balloon angioplasty of the mid RCA done using 3 x 15 with inflation done on the 14 KARAN for 35 seconds. then deployed ORSIRO stent 3.5 x 18 to mid RCA mm pressure for 25 seconds. 6 [place] ANGIO-SEAL DEPLOYED Findings:: 1- left coronary artery is a large artery that divides into large LAD, large circumflex artery. Left main is FREE OF DISEASE. 2- left anterior descending artery is a large artery that runs and wraps around the apex. Has minimal irregularities. Large diagonal branch that has ostial 20%. 3- leftcircumflex artery is a large artery Has minimal irregularities. Large OM1 with minimal irregularities. 4- right coronary artery is Medium in size. Proximally and ostial the 40-50% and the mid segment 80% at the site were medium-size marginal branch takes off. 5- LVEDP was 10 mm Hg and no gradient across aortic valve. 6- LV angiogram shows ejection fraction 45-50%. 6- opening arterial pressure was 160/80and closing pressure was 130/80 7- right femoral artery angiogram shows no significant disease in the right common femoral artery. Conclusion:: successful stent to mid RCA. other minimal coronary irregularities. ejection fraction 45-50% Assessment and Plan Additional Plan 1- continue aspirin Brilinta . 2- continue risk factor modification for CAD
[2021-05-22] MEDS: hydrALAZINE HCL 20 MG/ML VIAL 10 MG IV PUSH (11:10)
--- NOTE | 2021-05-22 11:27 | ECG_ITS ---
Measurements Intervals [place] Rate: 54 P: 33 NE: 182 QRS: -31 QRSD: 120 T: 186 QT: 476 QTc: 452 Interpretive Statements SINUS BRADYCARDIA LEFT AXIS DEVIATION INTRAVENTRICULAR CONDUCTION DELAY LEFT VENTRICULAR HYPERTROPHY AND ST-T CHANGE BORDERLINE R WAVE PROGRESSION, ANTERIOR LEADS BORDERLINE ECG Electronically Signed On 05-22-2021 11:33:16 CDT by Jun Clifford D.O.
[2021-05-22] MEDS: SODIUM CHLORIDE 0.9% IV 1,000 ML 125 ML IV CONT (11:45)
--- NOTE | 2021-05-22 13:08 | SUR.PHASEII ---
Patient has been bradycardic with HR in 40s-50s throughout entire time in phase II recovery. Patient denies any pain, lightheadedness, or dizziness. TECTONOPHYSICIST Halley Gallego notified of patient's condition with no further orders at this time. Will continue to closely monitor patient.
--- NOTE | 2021-05-22 14:27 | ADMGEN ---
This patient, Gopi Viramontes, was admitted to IMU Room 210-01. Patient/family oriented to hospital policies and general routines including ID bracelet, bed and alarms, visiting hours, pain management, procedures, bathroom and other care routines, personal items, smoking policy, room service/diet, and visiting hours. Information on how to activate the Rapid Response Team has been discussed. Patient/Family are encouraged to report perceived risks to care and to ask questions if they do not understand what they are told or what they should do.
[2021-05-22 17:02] LABS: Glucose Point of Care 148 mg/dl (65-105)
[2021-05-22] MEDS: carvediloL 12.5 MG TABLET PO (17:31)
[2021-05-22] MEDS: TICAGRELOR 90 MG TABLET PO (19:57)
--- NOTE | 2021-05-22 20:32 | PC.NURSE ---
Spoke with Dr. Liu about pt BP being above 170. He currently has a clonidine patch on the left upper arm applied yesterday and good for 7 days. She said to leave patch and order a 1x dose of hydralazine po and prn IV Q6 for systolic above 170s
[2021-05-22] MEDS: hydrALAZINE HCL 25 MG TABLET PO (21:34)
[2021-05-23] VITALS (9 sets, daily range): BP systolic 131–162; BP diastolic 66–103; PULSE 49–67; RESP 12–18; TEMP 36.3–36.6; O2SAT 97–100
[2021-05-23 05:31] LABS: Anion Gap 7 mmol/L (8-16); Blood Urea Nitrogen 20 mg/dL (9-20); Calcium 8.7 mg/dL (8.4-10.2); Carbon Dioxide 27 mmol/L (22-30); Chloride 105 mmol/L (98-107); Estimated CRCL calculation 62 ml/min; Estimated Glomerular Filt Rate 58; Glucose 99 mg/dL (75-110); Sodium 139 mmol/L (137-145)
--- NOTE | 2021-05-23 07:00 | ECG_ITS ---
Measurements Intervals [place] Rate: 54 P: 23 [place]: 181 QRS: -40 QRSD: 115 T: 147 QT: 462 QTc: 438 Interpretive Statements SINUS BRADYCARDIA LEFT AXIS DEVIATION LEFT VENTRICULAR HYPERTROPHY AND ST-T CHANGE BASELINE ARTIFACT- I, II, AVR, AVL, AVF BORDERLINE ECG Electronically Signed On 05-23-2021 12:58:11 CDT by Jun Clifford D.O.
[2021-05-23] MEDS: ATORVASTATIN 40 MG TABLET 80 MG PO (08:07)
[2021-05-23] MEDS: ASPIRIN 81 MG CHEWABLE TABLET PO (08:07)
[2021-05-23] MEDS: carvediloL 12.5 MG TABLET PO (08:07)
[2021-05-23] MEDS: TICAGRELOR 90 MG TABLET PO (08:07)
--- NOTE | 2021-05-23 14:50 | PM.DS ---
DS: Admitting Diagnosis Admitting Diagnosis Admitting Diagnosis: Elective left heart catheterization/RCA stent placemet DS: Discharge Diagnosis Discharge Diagnosis (1) CAD (coronary artery disease): Code(s): I25.10 - Atherosclerotic heart disease of [place] coronary artery without angina pectoris Status: Acute Assessment and Plan: Patient was scheduled for an outpatient left heart catheterization yesterday during which a stent was placed in the mid RCA. All angiographic findings are below: 1- left coronary artery is a large artery that divides into large LAD, large circumflex artery. Left main is FREE OF DISEASE. 2- left anterior descending artery is a large artery that runs and wraps around the apex. Has minimal irregularities. Large diagonal branch that has ostial 20%. 3- left circumflex artery is a large artery Has minimal irregularities. Large OM1 with minimal irregularities. 4- right coronary artery is Medium in size. Proximally and ostial the 40-50% and the mid segment 80% at the site were medium-size marginal branch takes off. 5- LVEDP was 10 mm Hg and no gradient across aortic valve. 6- LV angiogram shows ejection fraction 45-50%. 7- opening arterial pressure was 160/80and closing pressure was 130/80 8- right femoral artery angiogram shows no significant disease in the right common femoral artery. Today, he is free of chest pain. He has been bradycardic since his procedure yesterday But does not have any symptoms. He states he has been out of bed and ambulating today and he did not experience any chest pain, shortness of breath, lightheadednes. he has been placed on appropriate medical therapy including aspirin, Brilinta, atorvastatin, carvedilol. DS: Summary Hospital Course Reason for hospitalization: Elective RCA intervention Hospital Course: This is a patient who is followed by Dr. Sherman as an outpatient who had an elective left heart catheterization for planned intervention of the RCA scheduled yesterday. Was found to have about 80% stenosis in mid RCA therefore a drug-eluting stent was placed. He was admitted for overnight observation. Following his procedure he developed some bradycardia but he remained asymptomatic. Today, he is feeling well status post PCI. He does not have any chest pain. His right groin left heart catheterization site is free from bleeding, hematoma, pain. Time Spent with Patient Time attestation: Total time spent providing and/or coordinating discharge services: Time spent: Greater than 30 minutes Exam Const: General: comfortable and no acute distress HENMT: Head: normal to inspection Eyes: General: appearance normal, both eyes and all related structures Pupils: Equal, round and reactive pupils present Neck: Neck: supple and no JVD Resp: Effort & Inspection: normal respiratory effort Auscultation: clear to auscultation bilaterally and diminished lung sounds (bases) bilateral Cardio: Rate: bradycardic Rhythm: regular rhythm GI: GI Palp: Yes Soft to palpation Auscultation: normal bowel sounds Skin: General skin exam: normal color Other: R groin [facility] site free from bleeding, hematoma, pain. No bruit. Neuro: General: patient oriented x3 Cognition (Neuro): normal cognition Extrem: General: normal to inspection, no edema and no pedal edema Psych: Mental Status: mental status grossly normal DS: Data Data Completed and Pending Labs on day of discharge: Labs from last 24 hours 05/23/21 05/22/21 04:52 16:13 Sodium 139 Potassium 3.0 L Chloride 105 Carbon Dioxide 27 Anion Gap 7 L BUN 20 D Creatinine 1.30 Estim Creat Clear Calc 62 Estimated GFR 58 L Glucose 99 POC Capillary Glucose 148 H Calcium 8.7 Discharge Plan Discharge Patient Disposition: Home, Self-Care Discharge Instructions: [facility]
== END 2021-05-23 16:26 | disposition home or self-care (01) ==
LOC: ANHCATHLAB 08:11 → ANHIMU 05-23 15:15
PROVIDERS: PCP Internal Medicine Infectious Disease; Visit Provider Internal Medicine Cardiovascular Disease
PROC: 4A023N7 Measurement of Cardiac Sampling and Pressure, Left Heart, Percutaneous Approach (ICD-10-PCS; CPT 93452; principal; 2021-05-22 09:00)
DX: I25.10 Atherosclerotic heart disease of native coronary artery without angina pectoris (principal); I42.9 Cardiomyopathy, unspecified; I25.2 Old myocardial infarction; Z79.82 Long term (current) use of aspirin; Z87.891 Personal history of nicotine dependence; F12.90 Cannabis use, unspecified, uncomplicated
CPT/HCPCS: 36415; 80048; 82948; 85025; 93005; 93458; A9270; C1725; C1760; C1769; C1874; C1887; C1894; C9600; G0269; J0360; J0461; J0583; J1644; J2250; J3010; J7030; J7040

== ENCOUNTER 2022-10-29 20:39 | Inpatient (IN) | payer OTHER, SELFPAY ==
[2022-10-29] VITALS (23 sets, daily range): BP systolic 150–188; BP diastolic 107–131; PULSE 92–162; RESP 13–35; TEMP 36.7–37.7; O2SAT 85–99
--- NOTE | ~2022-10-29 | XR_ITS ---
XR chest 1V portable 10/29/2022 21:15 Indication: Shortness of breath. A. fib. Hypertension. Procedure: AP portable chest Comparison: 05/23/2020 Findings: Cardiomegaly. Mild interstitial edema. No pleural effusion or pneumothorax. No acute osseou s abnormality. Impression: 1: Cardiomegaly with mild interstitial edema. Reviewed, dictated and finalized at location A. ATTACHER Impression: 1: Cardiomegaly with mild interstitial edema.
--- NOTE | 2022-10-29 20:41 | ECG_ITS ---
Measurements Intervals [place] Rate: 105 P: [place]: 0 QRS: -38 QRSD: 108 T: 137 QT: 367 QTc: 485 Interpretive Statements ATRIAL FIBRILLATION WITH RAPID VENTRICULAR RESPONSE MARKED LEFT AXIS DEVIATION [QRS AXIS < -30] ST DEVIATION AND MODERATE T-WAVE ABNORMALITY, CONSIDER LATERAL ISCHEMIA [-0.1+ mV T WAVE IN I/aVL/V5/V6] COMPARED TO ECG 05/23/2021 09:54:32 ATRIAL FIBRILLATION NOW PRESENT Electronically Signed On 10-30-2022 7:45:43 PSYCHIATRIC ARNP by Luis Miguel Molina M.D.
--- NOTE | 2022-10-29 20:57 | ED.SOB ---
HPI - SOB/Dyspnea General Chief Complaint: Shortness of Breath/Dyspnea <Hi Sanchez MD - Last Filed: 10/29/22 21:03> Stated Complaint: SOB, cough <Hi Sanchez MD - Last Filed: 10/29/22 21:03> Time Seen by Provider: 10/29/22 20:50 <Hi Sanchez MD - Last Filed: 10/29/22 21:03> Source: patient <Hi Sanchez MD - Last Filed: 10/29/22 21:03> Mode of arrival: ambulatory <Hi Sanchez MD - Last Filed: 10/29/22 21:03> Limitations: no limitations <Hi Sanchez MD - Last Filed: 10/29/22 21:03> History of Present Illness HPI Narrative: 52-year-old with a history of hypertension, hyperlipidemia, CAD s/p stents, AF on anticoagulation, diabetes here with complaints of shortness of breath for last 2 days. Also complains of chest pain on and off. Patient denies any fever or chills. Has occasional cough. Patient states he has been taking his medication as prescribed. He sees director on air at [facility] but he does not remember the name of the director on air. <Hi Sanchez MD - Last Filed: 10/29/22 21:03> MD elicited complaint: shortness of breath, cough and chest pain <Hi Sanchez MD - Last Filed: 10/29/22 21:03> Pertinent past history: diabetes <Hi Sanchez MD - Last Filed: 10/29/22 21:03> Onset (ago): day(s) (2) <Hi Sanchez MD - Last Filed: 10/29/22 21:03> Exacerbating factors: nothing <Hi Sanchez MD - Last Filed: 10/29/22 21:03> Relieving factors: nothing <Hi Sanchez MD - Last Filed: 10/29/22 21:03> Associated symptoms: denies other symptoms <Hi Sanchez MD - Last Filed: 10/29/22 21:03> Treatment prior to arrival: none <Hi Sanchez MD - Last Filed: 10/29/22 21:03> Related Data Home Medications: Home Medications Medication Instructions Recorded Confirmed atorvastatin 20 mg tablet 80 mg PO DAILY 05/22/21 05/22/21 carvedilol 12.5 mg tablet 12.5 mg PO BID 05/22/21 05/22/21 clonidine 0.1 mg/24 hr weekly 0.1 mg transdermal WEEKLY 05/22/21 05/22/21 transdermal patch sennosides 8.6 mg-docusate sodium 8.6 - 50 tab-cap PO BID 05/22/21 05/22/21 50 mg tablet (Senna with Docusate Sodium) <Hi Sanchez MD - Last Filed: 10/29/22 21:03> Allergies/Adverse Reactions: Allergies Allergy/AdvReac Type Severity Reaction Status Date / Time No Known Allergies Allergy Verified 05/22/21 08:43 <Hi Sanchez MD - Last Filed: 10/29/22 21:03> Review of Systems Review of Systems: All systems reviewed & are unremarkable except as noted in HPI and below <Hi Sanchez MD - Last Filed: 10/29/22 21:03> Constitutional: Constitutional: Reports no additional constitutional complaints <Hi Sanchez MD - Last Filed: 10/29/22 21:03> Eyes: Eyes: Reports no additional eye complaints <Hi Sanchez MD - Last Filed: 10/29/22 21:03> ENT: Reports system reviewed and no additional complaints, except as documented <Hi Sanchez MD - Last Filed: 10/29/22 21:03> Cardiovascular: Cardiovascular: Reports no additional cardiovascular complaints <Hi Sanchez MD - Last Filed: 10/29/22 21:03> Respiratory: Respiratory: Reports no additional respiratory complaints <Hi Sanchez MD - Last Filed: 10/29/22 21:03> Gastrointestinal: Gastrointestinal: Reports no additional gastrointestinal complaints <Hi Sanchez MD - Last Filed: 10/29/22 21:03> Musculoskeletal: Musculoskeletal: Reports no additional musculoskeletal complaints <Hi Sanchez MD - Last Filed: 10/29/22 21:03> PMFSH Past Medical History Medical History: Medical History Myocardial infarction Tobacco abuse <Hi Sanchez MD - Last Filed: 10/29/22 21:03> Surgical History Surgical History: Surgical History H/O toe surgery The great toe on the right had been amputated 3 times and reattached. His
[2022-10-29 21:03] LABS: Basophils Percent Auto 0.3 % (0.2-1.2); Eosinophils Absolute Auto 0.1 K/mm3 (0-0.3); Eosinophils Percent Auto 0.5 % (0-4.4); Hematocrit 34.5 % (42.0-52.0); Hemoglobin 11.6 g/dL (14.0-18.0); Immature Granulocyte Absolute 0.03 K/mm3 (0.00-0.031); Immature Granulocyte Percent A 0.3 % (0-0.5); Lymphocytes Absolute Auto 1.27 K/mm3 (0.9-3.2); Lymphocytes Percent Auto 13.8 % (18.3-44.2); Mean Corpuscular HGB Conc 33.6 g/dl (32-36); Mean Corpuscular Hemoglobin 32.1 pg (26-34); Mean Corpuscular Volume 95.6 fl (80-100); Mean Platelet Volume 10.2 fl (7.4-10.4); Monocytes Absolute Auto 0.9 K/mm3 (0.1-0.6); Monocytes Percent Auto 10.2 % (2.6-8.5); Neutrophils Absolute Auto 6.9 K/mm3 (1.3-6.7); Neutrophils Percent Auto 74.9 % (45.5-73.1); Platelet Count Result 268 k/mm3 (150-375); Red Blood Count 3.61 M/mm3 (4.6-6.20); Red Cell Distribution Width 14.1 % (11.5-14.5); White Blood Count 9.2 K/mm3 (4.5-10.0)
[2022-10-29] MEDS: SODIUM CHLORIDE 0.9% IV 1,000 ML 150 ML IV CONT (21:05)
[2022-10-29] MEDS: dilTIAZem HCl INJ 25 MG/5 ML VIAL 15 MG IV PUSH ×2 (21:06→22:24)
[2022-10-29] MEDS: dilTIAZem 100 MG/100 ML 100 MG/100 ML BAG IV CONT (21:09)
[2022-10-29 21:13] LABS: Alanine Aminotransferase 24 U/L (6-50); Albumin Level 3.9 g/dL (3.5-5.1); Alkaline Phosphatase 106 U/L (38-126); Anion Gap 6 mmol/L (8-16); Aspartate Amino Transferase 31 U/L (17-59); Bilirubin,Total 2.3 mg/dL (0.2-1.3); Blood Urea Nitrogen 27 mg/dL (9-20); Calcium 8.6 mg/dL (8.4-10.2); Carbon Dioxide 29 mmol/L (22-30); Chloride 104 mmol/L (98-107); Estimated CRCL calculation 57 ml/min; Estimated Glomerular Filt Rate 53; Glucose 142 mg/dL (65-110); Potassium 3.1 mmol/L (3.4-5.0); Sodium 139 mmol/L (137-145)
[2022-10-29 21:49] LABS: Influenza A QL RT-PCR Negative (Negative); Influenza B QL RT-PCR Negative (Negative); SARS-CoV-2 RNA PCR Negative
--- NOTE | 2022-10-29 22:36 | ECG_ITS ---
Measurements Intervals [place] Rate: 147 P: [place]: 0 QRS: -40 QRSD: 108 T: 145 QT: 300 QTc: 469 Interpretive Statements ATRIAL FIBRILLATION WITH RAPID VENTRICULAR RESPONSE MARKED LEFT AXIS DEVIATION [QRS AXIS < -30] ST DEVIATION AND MODERATE T-WAVE ABNORMALITY, CONSIDER LATERAL ISCHEMIA [-0.1+ mV T WAVE IN I/aVL/V5/V6] COMPARED TO ECG 05/23/2021 09:54:32 ATRIAL FIBRILLATION REPLACES SINUS RHYTHM Electronically Signed On 10-30-2022 17:12:08 ADMISSIONS CONSULTANT by Lusi Miguel Molina M.D.
[2022-10-30] VITALS (97 sets, daily range): BP systolic 93–173; BP diastolic 65–129; PULSE 47–126; RESP 11–28; TEMP 36.4–36.7; O2SAT 91–100; BMI 25.6; BMI 27.8
--- NOTE | 2022-10-30 | ECHO_ITS ---
Patient Info Name: Gopi Viramontes Age: 52 years : 1970 Gender: Male Ht: 70 in Wt: 178 lbs BSA: 2.01 m2 HR: 69 bpm BP: 96 / 68 mmHg Heart Rhythm: Atrial Fibrillation Technical Quality: Good Exam Date: 10/30/2022 2:50 PM Exam Location: [facility] Pulmonary Exam Room: ED1 Patient Status: Inpatient Admit Date: 10/29/2022 Staff Ordering Physician: Sergo Workman MD Inspecting Engineer: Cris Gonzalez RDCS Attending Provider: Isabel Carnes DO Exam Type: CA echo doppler color flow Study Info Indications - CHF AFIB RVR CAD STENTS Complete two-dimensional, color flow and Doppler transthoracic echocardiogram is performed. Summary 1. Complete two-dimensional, color flow and Doppler transthoracic echocardiogram is performed. 2. Left ventricular enlargement with severe global systolic dysfunction ejection fraction approximately 25%. 3. Biatrial dilation right greater than left. 4. Small amount of mitral regurgitation. 5. Moderate tricuspid insufficiency. 6. Atrial fibrillation. 7. Technically challenging exam with difficult patient cooperation. Left Ventricle Left ventricular chamber dimension is moderately enlarged. Left ventricular systolic function is severely reduced, estimated at 20-25%. The left ventricular diastolic function is grade I diastolic dysfunction. Right Ventricle Right ventricular chamber dimension is mildly enlarged. Left Atria Left atrial chamber dimension is moderately enlarged. Right Atria Right atrial chamber dimension is severely enlarged. Aortic Valve The aortic valve is normal. Pulmonic Valve The pulmonic valve is not well visualized. Mitral Valve The mitral valve has normal leaflets. There is trace mitral valve regurgitation. Tricuspid Valve The tricuspid valve leaflets are normal. There is moderate tricuspid valve regurgitation. Pericardium/Pleural The pericardium appears normal. Aorta The aortic root size at the sinus of Valsalva is normal. Left Ventricular Outflow Tract Name Value Normal LVOT 2D LVOT Diameter 2.1 cm LVOT Doppler LVOT Peak Gradient 4 mmHg LVOT Mean Gradient 3 mmHg LVOT VTI 17 cm LVOT VTI/AV VTI Ratio 0.8 LVOT Stroke Volume 58 ml LVOT CO 16.1 l/min LVOT CI 8.0 l/min/m2 Pulmonic Valve Name Value Normal PV Doppler PV Peak Gradient 1 mmHg Mitral Valve Name Value Normal MV Doppler MV Decel [place]
[2022-10-30] MEDS: POTASSIUM CHLORIDE 20 MEQ TABLET 40 MEQ PO ×2 (00:40→16:23)
[2022-10-30 01:36] LABS: Troponin I 0.077 ng/mL (0.000-0.034)
[2022-10-30] MEDS: FUROSEMIDE INJ 40 MG/4 ML VIAL IV PUSH ×2 (01:42→16:24)
[2022-10-30] MEDS: MAGNESIUM SULF 2 GM/WATER 50ML 2 GM/50 ML BAG IVPB (01:42)
[2022-10-30 05:59] LABS: Troponin I 0.074 ng/mL (0.000-0.034)
[2022-10-30] MEDS: dilTIAZem 100 MG/100 ML 100 MG/100 ML BAG 15 MG (07:22)
--- NOTE | 2022-10-30 07:27 | PC.NURSE ---
Report given to YOHANNES Farnsworth.
--- NOTE | 2022-10-30 09:36 | PC.NURSE ---
heart healthy breakfast tray ordered
[2022-10-30 11:59] LABS: Hematocrit 35.4 % (42.0-52.0); Hemoglobin 11.5 g/dL (14.0-18.0); Mean Corpuscular HGB Conc 32.5 g/dl (32-36); Mean Corpuscular Hemoglobin 31.5 pg (26-34); Mean Platelet Volume 11.1 fl (7.4-10.4); Platelet Count Result 282 k/mm3 (150-375); Red Blood Count 3.65 M/mm3 (4.6-6.20); Red Cell Distribution Width 13.9 % (11.5-14.5); White Blood Count 12.1 K/mm3 (4.5-10.0)
[2022-10-30 12:04] LABS: Anion Gap 8 mmol/L (8-16); Blood Urea Nitrogen 26 mg/dL (9-20); Calcium 8.6 mg/dL (8.4-10.2); Carbon Dioxide 30 mmol/L (22-30); Chloride 101 mmol/L (98-107); Estimated CRCL calculation 57 ml/min; Estimated Glomerular Filt Rate 53; Glucose 120 mg/dL (65-110); Potassium 3.1 mmol/L (3.4-5.0); Sodium 139 mmol/L (137-145)
--- NOTE | 2022-10-30 12:09 | PC.NURSE ---
Dr. Workman here to see pt. He states that he consulted with cardiology and they should be down to see pt. He states to keep pt on diltiazem until cardiology sees him
[2022-10-30] MEDS: TICAGRELOR 90 MG TABLET PO (12:42)
[2022-10-30] MEDS: carvediloL 12.5 MG TABLET PO ×2 (12:42→21:58)
[2022-10-30] MEDS: ASPIRIN 81 MG ENTERIC TABLET PO (12:42)
[2022-10-30] MEDS: dilTIAZem 100 MG/100 ML 100 MG/100 ML BAG 10 MG IV CONT (12:43)
--- NOTE | 2022-10-30 13:03 | PC.NURSE ---
standard heart healthy food tray ordered
--- NOTE | 2022-10-30 14:38 | PC.NURSE ---
Dr. Workman notified of Pt. stating feeling dizziness and lightheaded. Pt. HR is in between 55-70 on diltiazem. Diltiazem stopped via verbal order readback. Pt. BP is 98/[address] Workman is notified and aware. No new orders at this time. Per Dr. Workman via verbal order read back continue to monitor patient for improvement or change in condition at this time.
--- NOTE | 2022-10-30 15:15 | PC.NURSE ---
Dr. Workman notified of Pt. HR dropping into the 40s now. Dr. Workman notified Cardiology. Cardiology to see patient.
--- NOTE | 2022-10-30 15:37 | ECG_ITS ---
Measurements Intervals [place] Rate: 56 P: [place]: 0 QRS: -47 QRSD: 106 T: -75 QT: 491 QTc: 476 Interpretive Statements ATRIAL FIBRILLATION WITH SLOW VENTRICULAR RESPONSE LEFT ANTERIOR FASCICULAR BLOCK [QRS AXIS <= -45, QR IN I, RS IN II] ST DEVIATION AND MODERATE T-WAVE ABNORMALITY, CONSIDER LATERAL ISCHEMIA [-0.1+ mV T WAVE IN I/aVL/V5/V6] COMPARED TO ECG 10/29/2022 22:44:23 HEART RATE IS SIGNIFICANTLY REDUCED AND NONSPECIFIC PRECORDIAL T-WAVE ABNORMALITY IS SEEN Electronically Signed On 10-30-2022 17:26:19 FOLDING MACHINE OPERATOR by Luis Miguel Molina M.D.
--- NOTE | 2022-10-30 16:07 | PC.NURSE ---
heart healthy food tray ordered
--- NOTE | 2022-10-30 16:12 | PM.CNCAR ---
Assessment and Plan Assessment and plan (1) Atrial fibrillation with rapid ventricular response: Code(s): I48.91 - Unspecified atrial fibrillation Status: Acute (2) Congestive heart failure (CHF): Code(s): I50.9 - Heart failure, unspecified Status: Acute (3) CAD (coronary artery disease): Code(s): I25.10 - Atherosclerotic heart disease of [place] coronary artery without angina pectoris Status: Acute Plan this is a 52-year-old man we know has coronary artery disease with RCA intervention in May of 2021 at this hospital he also apparently has a history of atrial fibrillation. He presents to the hospital with shortness of breath and has a decompensation of left-sided heart failure. It is likely that he had a recurrence of atrial fibrillation within the last several days that resulted in this decompensation. We do know that he has some mild LV distal it dysfunction as well and his chest x-ray is consistent with that today. The patient needs to be anticoagulated with apixaban he does not need dual anti-platelet therapy which for some reason has been started earlier today. His PCI was year and half ago I will stop the Brilinta and start the apixaban. He is uncomfortable with CHF I will give him another dose of IV furosemide and start him on some oral amiodarone for his atrial fibrillation. His carvedilol and losartan are also appropriate for this and should be continued. We will follow him with you during this hospitalization. It would be better for this patient's care if he were seeking care where his physician practices rather than coming here however we will assist with his care while he is here at [facility] during this hospitalization Luis Miguel Molina MD [facility] History of Present Illness History of Present Illness Consult date/time: 10/30/22 16:12 Consult reason: atrial fibrillation and shortness of breath Reason For Visit: afib w/ rvr Narrative: This is a 52-year-old patient unknown to me prior to this encounter am seeing him in the emergency room because of atrial fibrillation and dyspnea. HisChart has been reviewed as in terms of what we have available here at [facility] and the patient has been seen in the ER. The patient has a history of coronary artery disease and atrial fibrillation and came to this hospital with a 2 day history of problematic shortness of breath as well as some chest discomfort. He describes the symptoms beginning about 2 or 3 days ago and despite the fact that his radiology therapist is not on staff at [facility] he came to this hospital for evaluation. The patient does have a history of coronary artery disease that we can see from reviewing [facility]'s chart. He was initially seen by another Cardiology practice here couple of years ago and underwent catheterization demonstrating significant stenosis in the right coronary artery that was treated medically. He then transitioned his care to our practice and my partner, Dr. Sherman treated the right coronary lesion here interventionally with PTCA and stenting using an [employer] Cuttersiro device May of 2021. He had an uncomplicated intervention and was discharged the following day. The patient following that has again switched his radiology therapist from our practice to the group in [place]. He states that the between then and now he has been found to have atrial fibrillation. He says he was placed on some medication for that but he can not tell me the identity of it. He says he is anticoagulated and has been compliant with his anticoagulation. he came into the hospital last evening he has been in the emergency room aborting following the decision to admit him to the hospital. He was placed on some intravenous diltiazem because his ventricular response was rapid earlier that has been stopped because his heart rate improved and he became more short of breath. His troponin levels are slightly elevated at 0.07 but flat. His ECG does not show any evidence o
--- NOTE | 2022-10-30 17:00 | PC.NURSE ---
Amiodarone dose not given at 1700 due to intermittent bradycardia
--- NOTE | 2022-10-30 17:51 | PM.IMHP ---
H&P: HPI History of Present Illness Date/Time: 10/30/22 17:51 Chief Complaint: shortness of breath palpitation Narrative: ED-HPI Narrative: ? ? ? 52-year-old with a history of hypertension, hyperlipidemia, CAD s/p stents, AF on anticoagulation, diabetes here with complaints of shortness of breath for last 2 days.? Also complains of chest pain on and off.? Patient denies any fever or chills.? Has occasional cough.? Patient states he has been taking his medication as prescribed.? He sees syrup mixer helper at [place] but he does not remember the name of the syrup mixer helper. upon arrival patient was found to be in atrial fibrillation with RVR and patient was started diltiazem drip and continue patient's home medication Coreg 12.5 mg b.i.d., patient with complaint of shortness breath and chest x-ray suspicious for pulmonary edema patient was given Lasix 40 mg IV, patient remains clinically stable will consult Cardiology for further recommendation. patient admitted as inpatient with a atrial fibrillation with RVR, STEMI patient will remain in the hospital for 2 midnights Review of Systems Constitutional: Constitutional: Reports no additional constitutional complaints PMFSH Past Medical History Medical History Myocardial infarction Tobacco abuse Surgical History Surgical History H/O toe surgery The great toe on the right had been amputated 3 times and reattached. History of mandibular surgery Family History Family History Father Acute myocardial infarction Hypertension Mother Cerebrovascular accident Social History Social History Social History: The patient stated that he quit smoking October 14, 2019. He does not use any alcohol but does occasionally smoke marijuana. No illicit drugs. He is is with his and 2 kids. His children are healthy. He desires to be full code and his is the durable power transactional attorney for healthcare. 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 Smoking packs per day: 1.5 Smoking cigarettes per day: 30.0 Years smoked: 30 Smoking pack-years: 45.00 Smoking status: Former smoker Tobacco type: cigarettes Smoking end date: 11/22/18 Additional smoking assessment comments: quit Sep 2019 Alcohol intake: never Substance use: former Substance use type: marijuana and crack/cocaine Other substance usage details: relapsed last week on cocaine when mother Last use: t-1 Lack of Transportation: No Lack of Food: Never True Current Housing: I Have Housing Concerned About Future Housing: No Difficulty Paying Gas/Electric Bills: No Difficulty Paying for Meds: No Currently Unemployed: No Education: Grade School Difficulty w/ Childcare or Family Care: No Gender identity (if verbalized by the patient): Male Spiritual care concerns: No Meds Home Medications and Allergies Home Medications Medication Instructions Recorded Confirmed Type aspirin 81 mg chewable tablet 81 mg PO DAILY@0800 #30 tabs 05/28/20 10/30/22 Rx ([facility] Aspirin) atorvastatin 20 mg tablet 80 mg PO DAILY 05/22/21 10/30/22 History carvedilol 12.5 mg tablet 12.5 mg PO BID 05/22/21 10/30/22 History apixaban 5 mg tablet (Eliquis) 5 mg PO DAILY 10/30/22 10/30/22 History bupropion HCl 100 mg tablet,12 hr 100 mg PO DAILY 10/30/22 10/30/22 History sustained-release clopidogrel 75 mg tablet 75 mg PO DAILY 10/30/22 10/30/22 History hydralazine 25 mg tablet 25 mg PO BID 10/30/22 10/30/22 History losartan 50 mg tablet 50 mg PO DAILY 10/30/22 10/30/22 History nifedipine 60 mg tablet,extended 60 mg PO DAILY 10/30/22 10/30/22 History release 24 hr sertraline 50 mg tablet 50 mg PO DAILY 10/30/22 10/30/22 History Allergies Allergy/AdvReac Type Severity Reaction Status Da
--- NOTE | 2022-10-30 18:08 | PC.NURSE ---
Dr. Workman notified about Pt. run of V tach and intermittent bradycardia. Dr. Workman advised consulting cardiology. Dr. Molina paged and notified. Per Dr. Molina via verbal order readback continue with 2100 dose of carvedilol and amiodarone.
--- NOTE | 2022-10-30 19:21 | PC.NURSE ---
Report received from YOHANNES Eid. Assumed care of patient at this time.
--- NOTE | 2022-10-30 20:21 | PC.NURSE ---
Patient stating he his having trouble breathing, hospitalist paged. Patient VS stable, informed him that have the hospitalist paged.
--- NOTE | 2022-10-30 20:42 | PC.NURSE ---
Deyvi, hospitalist calls back, states that need to contact cardiology.
--- NOTE | 2022-10-30 20:43 | PC.NURSE ---
Cardiology paged for patient, awaiting call back.
--- NOTE | 2022-10-30 21:14 | PC.NURSE ---
calls back, informed him of patients complaints of sob, cp and discomfort. Also informed him of patients HR dipping occassionally into the 40s, but does go back to afib in 80s. VORB to give ordered and prescribed amiodarone, apaxiban, and carvedilol. 2044 patients also calls back to get update, patient notified.
[2022-10-30] MEDS: AMIODARONE HCL 200 MG TABLET 400 MG PO (21:58)
[2022-10-30] MEDS: hydrALAZINE HCL 25 MG TABLET PO (21:59)
[2022-10-30] MEDS: APIXABAN 5 MG TABLET PO (22:29)
[2022-10-31] VITALS (13 sets, daily range): BP systolic 112–180; BP diastolic 84–92; PULSE 46–99; RESP 18–20; TEMP 35.9–36.2; O2SAT 93–100
[2022-10-31 07:48] LABS: Hematocrit 34.1 % (42.0-52.0); Hemoglobin 11.4 g/dL (14.0-18.0); Mean Corpuscular HGB Conc 33.4 g/dl (32-36); Mean Corpuscular Hemoglobin 31.7 pg (26-34); Mean Corpuscular Volume 94.7 fl (80-100); Mean Platelet Volume 10.8 fl (7.4-10.4); Platelet Count Result 266 k/mm3 (150-375); Red Cell Distribution Width 13.9 % (11.5-14.5); White Blood Count 9.9 K/mm3 (4.5-10.0)
[2022-10-31] MEDS: carvediloL 12.5 MG TABLET PO ×2 (08:11→21:17)
[2022-10-31] MEDS: buPROPion HCL SR (12HR) 100 MG TABCR PO (08:12)
[2022-10-31] MEDS: CLOPIDOGREL BISULFATE 75 MG TABLET PO (08:12)
[2022-10-31] MEDS: SERTRALINE HCL 50 MG TABLET PO (08:12)
[2022-10-31] MEDS: hydrALAZINE HCL 25 MG TABLET PO ×2 (08:12→21:17)
[2022-10-31] MEDS: AMIODARONE HCL 200 MG TABLET 400 MG PO ×2 (08:12→21:17)
[2022-10-31] MEDS: APIXABAN 5 MG TABLET PO ×2 (08:12→21:17)
[2022-10-31] MEDS: ATORVASTATIN 40 MG TABLET 80 MG PO (08:12)
[2022-10-31] MEDS: LOSARTAN POTASSIUM 50 MG TABLET PO (08:13)
[2022-10-31] MEDS: ASPIRIN 81 MG CHEWABLE TABLET PO (08:13)
[2022-10-31] MEDS: NIFEdipine 30 MG TAB.ER.24 60 MG PO (08:13)
[2022-10-31 08:25] LABS: Anion Gap 8 mmol/L (8-16); Blood Urea Nitrogen 38 mg/dL (9-20); Calcium 7.8 mg/dL (8.4-10.2); Carbon Dioxide 33 mmol/L (22-30); Chloride 99 mmol/L (98-107); Estimated CRCL calculation 46 ml/min; Estimated Glomerular Filt Rate 40; Glucose 108 mg/dL (65-110); Magnesium 1.9 mg/dL (1.6-2.3); Potassium 2.8 mmol/L (3.4-5.0); Sodium 140 mmol/L (137-145)
[2022-10-31] MEDS: POTASSIUM CHLORIDE 20 MEQ TABLET 40 MEQ PO (09:32)
[2022-10-31] MEDS: POTASSIUM CHLORIDE INJ 40 MEQ in SODIUM CHLORIDE 0.9% IV 500 ML 130 MEQ IVPB (09:32)
--- NOTE | 2022-10-31 12:28 | PM.IMPN ---
Progress Note: A&P Assessment and Plan (1) Atrial fibrillation with rapid ventricular response: Code(s): I48.91 - Unspecified atrial fibrillation Status: Acute Assessment and Plan: ED-HPI Narrative: ? ? ? 52-year-old with a history of hypertension, hyperlipidemia, CAD s/p stents, AF on anticoagulation, diabetes here with complaints of shortness of breath for last 2 days.? Also complains of chest pain on and off.? Patient denies any fever or chills.? Has occasional cough.? Patient states he has been taking his medication as prescribed.? He sees volunteer services coordinator at [facility] but he does not remember the name of the volunteer services coordinator. 10/31/2022 interval history: upon arrival patient was found to be in atrial fibrillation with RVR and patient was started diltiazem drip and continue patient's home medication Coreg 12.5 mg b.i.d., patient rate was trending down diltiazem drip was stopped and continued on Coreg 12.5 mg b.i.d. rate is controlled, patient with complaint of shortness breath and chest x-ray suspicious for pulmonary edema, cardiac echo was done it showed severe cardiomyopathy with ejection fraction of 25% and grade 1 diastolic dysfunction patient was given Lasix 40 mg IV, however patient BUN and creatinine is rising patient be seen by Cardiology and further recommendation to follow, patient will need life vest upon discharge, patient with elevated tropes flat, most likely demand ischemia due to exacerbation of CHF unlikely acute coronary sent patient be seen by volunteer services coordinator and further recommendation to follow, patient remains clinically stable, will have a PT OT evaluate the patient. (2) Congestive heart failure (CHF): Code(s): I50.9 - Heart failure, unspecified Status: Acute Assessment and Plan: to further evaluate patient will have a cardiac echo, continue to diurese and further recommendation to follow (3) Chest pain: Code(s): R07.9 - Chest pain, unspecified Status: Acute Assessment and Plan: patient with complaint of chest and elevated tropes patient is seen by volunteer services coordinator and further recommendation to (4) CAD (coronary artery disease): Code(s): I25.10 - Atherosclerotic heart disease of [place] coronary artery without angina pectoris Status: Acute (5) NSTEMI (non-ST elevated myocardial infarction): Code(s): I21.4 - Non-ST elevation (NSTEMI) myocardial infarction Status: Acute Assessment and Plan: patient with history of coronary artery disease with elevated troponin. patient be seen cardiology and further recommendation to Subjective Date/time seen: 10/31/22 12:28 ED-HPI Narrative: ? ? ? 52-year-old with a history of hypertension, hyperlipidemia, CAD s/p stents, AF on anticoagulation, diabetes here with complaints of shortness of breath for last 2 days.? Also complains of chest pain on and off.? Patient denies any fever or chills.? Has occasional cough.? Patient states he has been taking his medication as prescribed.? He sees volunteer services coordinator at [facility] but he does not remember the name of the volunteer services coordinator. 10/31/2022 interval history: upon arrival patient was found to be in atrial fibrillation with RVR and patient was started diltiazem drip and continue patient's home medication Coreg 12.5 mg b.i.d., patient rate was trending down diltiazem drip was stopped and continued on Coreg 12.5 mg b.i.d. rate is controlled, patient with complaint of shortness breath and chest x-ray suspicious for pulmonary edema, cardiac echo was done it showed severe cardiomyopathy with ejection fraction of 25% and grade 1 diastolic dysfunction patient was given Lasix 40 mg IV, however patient BUN and creatinine is rising patient be seen by Cardiology and further recommendation to follow, patient will need life vest upon discharge, patient with elevated tropes flat, most likely demand ischemia due to exacerbation of CHF unlikely acute coronary sent patient be se
--- NOTE | 2022-10-31 13:52 | PM.PNCARD ---
Progress Note: A&P Assessment and Plan (1) Congestive heart failure (CHF): Code(s): I50.9 - Heart failure, unspecified Status: Acute (2) Cardiomyopathy: Code(s): I42.9 - Cardiomyopathy, unspecified Status: Acute (3) Atrial fibrillation with rapid ventricular response: Code(s): I48.91 - Unspecified atrial fibrillation Status: Acute Plan 52-year-old man with coronary artery disease, status post revascularization of high-grade RCA lesion here by the year and a half ago. Been followed by Cardiology elsewhere since then. He now presents with some shortness of breath, decompensated heart failure and atrial fibrillation which appears to have begun recently and is persistent. Amiodarone has been started yesterday and hopefully this will convert him to sinus rhythm. He does not have significant volume overload at this time at least on physical exam. Will continue his current regimen and anticipate / consider DC cardioversion to try to restore sinus rhythm during this hospitalization. Luis Miguel Molina MD [facility] Subjective Date/time seen: date of service:10/31/22 13:52 Interval history: Follow-up visit in this 52-year-old man with: Coronary artery disease with previous PCI to his right coronary artery in the summer of 2020. He also has left ventricular systolic dysfunction and now his atrial fibrillation with decompensated CHF. Today the patient states that he does not feel much better than yesterday in the emergency room although he does not appear to be in any distress and his oxygenation objectively is normal. Discussed with the patient the echocardiographic findings which unfortunately demonstrate relatively severe systolic dysfunction. Possibly tachycardia mediated Exam Const: General: comfortable and no acute distress HENMT: Mouth: Yes moist mucous membranes Eyes: Sclera: sclerae normal Neck: Neck: supple Resp: Effort & Inspection: normal respiratory effort Auscultation: clear to auscultation bilaterally Other: breath sounds are diminished but essentially clear throughout I do not hear any pulmonary rales or wheezes at this time Cardio: Rhythm: abnormal rhythm irregularly irregular GI: GI Palp: Yes Soft to palpation Auscultation: normal bowel sounds Skin: General skin exam: normal color Neuro: Other: alert and oriented, blunted affect Extrem: Other: no pitting edema at this time Objective Data Vital Signs Vital Signs: Vital Signs - 24 hr 10/30/22 14:30 10/30/22 14:41 10/30/22 14:30 Temperature Pulse Rate 68 58 L 55 L Respiratory Rate 24 H Blood Pressure 136/72 99/68 L Pulse Oximetry 98 Oxygen Delivery 10/30/22 14:06 10/30/22 14:25 10/30/22 14:30 Temperature Pulse Rate 68 64 65 Respiratory Rate 12 19 14 Blood Pressure Pulse Oximetry 99 94 99 Oxygen Delivery 10/30/22 14:36 10/30/22 14:47 10/30/22 15:05 Temperature Pulse Rate 58 L 61 72 Respiratory Rate 12 18 15 Blood Pressure 98/65 L Pulse Oximetry 95 99 94 Oxygen Delivery 10/30/22 15:13 10/30/22 15:12 10/30/22 15:15 Temperature Pulse Rate 50 L 61 59 L Respiratory Rate 14 12 20 Blood Pressure 109/78 109/78 Pulse Oximetry 100 97 98 Oxygen Delivery 10/30/22 15:17 10/30/22 15:21 10/30/22 15:30 Temperature Pulse Rate 56 L 64 65 Respiratory Rate 20 13 20 Blood Pressure 108/92 H 95/84 L Pulse Oximetry 98 99 Oxygen Delivery 10/30/22 15:31 10/30/22 15:50 10/30/22 17:04 Temperature Pulse Rate 63 60 48 L Respiratory Rate 20 12 Blood Pressure 114/86 108/85 Pulse Oximetry 99 99 Oxygen Delivery 10/30/22 17:21 10/30/22 15:32 10/30/22 15:41 Temperature Pulse Rate 56 L 47 L Respiratory Rate 17 22 H Blood Pressure 108/85 Pulse Oximetry 98 97 Oxygen Delivery Room Air 10/30/22 15:45 10/30/22 15:51 10/30/22 16:01 Temperature Pulse Rate 63 61 63 Respiratory Rate 19 17 Blood Pressure 106/8
[2022-10-31] MEDS: ONDANSETRON INJ 4 MG/2 ML VIAL IV PUSH (15:41)
[2022-10-31 17:07] LABS: Potassium 3.6 mmol/L (3.4-5.0)
[2022-11-01] VITALS (12 sets, daily range): BP systolic 80–114; BP diastolic 60–90; PULSE 61–87; RESP 12–18; TEMP 36–36.1; O2SAT 95–100
[2022-11-01 07:53] LABS: Hematocrit 34.5 % (42.0-52.0); Hemoglobin 11.1 g/dL (14.0-18.0); Mean Corpuscular HGB Conc 32.2 g/dl (32-36); Mean Corpuscular Volume 99.4 fl (80-100); Mean Platelet Volume 10.6 fl (7.4-10.4); Platelet Count Result 277 k/mm3 (150-375); Red Blood Count 3.47 M/mm3 (4.6-6.20); Red Cell Distribution Width 13.9 % (11.5-14.5); White Blood Count 10.4 K/mm3 (4.5-10.0)
[2022-11-01 08:05] LABS: Anion Gap 7 mmol/L (8-16); Blood Urea Nitrogen 34 mg/dL (9-20); Calcium 8.1 mg/dL (8.4-10.2); Carbon Dioxide 28 mmol/L (22-30); Chloride 101 mmol/L (98-107); Estimated CRCL calculation 51 ml/min; Estimated Glomerular Filt Rate 45; Glucose 98 mg/dL (65-110); Potassium 3.3 mmol/L (3.4-5.0); Sodium 136 mmol/L (137-145)
[2022-11-01 08:16] LABS: Glucose Point of Care 107 mg/dl (65-105)
[2022-11-01] MEDS: buPROPion HCL SR (12HR) 100 MG TABCR PO (09:05)
[2022-11-01] MEDS: ATORVASTATIN 40 MG TABLET 80 MG PO (09:05)
[2022-11-01] MEDS: hydrALAZINE HCL 25 MG TABLET PO (09:05)
[2022-11-01] MEDS: LOSARTAN POTASSIUM 50 MG TABLET PO (09:05)
[2022-11-01] MEDS: ASPIRIN 81 MG CHEWABLE TABLET PO (09:05)
[2022-11-01] MEDS: carvediloL 12.5 MG TABLET PO ×2 (09:05→20:54)
[2022-11-01] MEDS: SERTRALINE HCL 50 MG TABLET PO (09:05)
[2022-11-01] MEDS: AMIODARONE HCL 200 MG TABLET 400 MG PO ×2 (09:05→20:53)
[2022-11-01] MEDS: NIFEdipine 30 MG TAB.ER.24 60 MG PO (09:05)
[2022-11-01] MEDS: APIXABAN 5 MG TABLET PO ×2 (09:05→20:53)
--- NOTE | 2022-11-01 10:54 | ECG_ITS ---
Measurements Intervals [place] Rate: 69 P: IA: 0 QRS: -50 QRSD: 116 T: 204 QT: 462 QTc: 497 Interpretive Statements ATRIAL FIBRILLATION LEFT ANTERIOR FASCICULAR BLOCK [QRS AXIS <= -45, QR IN I, RS IN II] ST DEVIATION AND MODERATE T-WAVE ABNORMALITY, CONSIDER LATERAL ISCHEMIA [-0.1+ mV T WAVE IN I/aVL/V5/V6] COMPARED TO ECG 10/30/2022 15:33:48 NO SIGNIFICANT CHANGES Electronically Signed On 11-02-2022 6:16:55 SALES CLERK [employer] by Luis Miguel Molina M.D.
--- NOTE | 2022-11-01 11:00 | PM.PNCARD ---
Progress Note: A&P Assessment and Plan (1) Atrial fibrillation with rapid ventricular response: Code(s): I48.91 - Unspecified atrial fibrillation Status: Acute (2) CAD (coronary artery disease): Code(s): I25.10 - Atherosclerotic heart disease of [place] coronary artery without angina pectoris Status: Acute (3) Cardiomyopathy: Code(s): I42.9 - Cardiomyopathy, unspecified Status: Acute Plan 52-year-old man with history of left ventricular systolic dysfunction, previous history of RCA intervention a year and a half ago. Presented with CHF decompensation coincident with going into a atrial fibrillation. He is on an oral loading dose of amiodarone. His heart rate is now very well controlled and he is symptomatic much improved. On some of the telemetry strips it looks like there might be some shallow P waves. To confirm persistence of atrial fib I am going to get a 12 lead ECG again this morning. If he converts medically he will be ready for discharge within the next 24-48 hours. If he persists in atrial fib I will try to get a DC cardioversion performed tomorrow. Luis Miguel Molina MD [facility] Subjective Date/time seen: date of service:11/01/22 11:00 Interval history: Follow-up visit in this 52-year-old man with coronary artery disease also significant left ventricular dysfunction with reduced ejection fraction. Presented to the hospital with shortness of breath some CHF decompensation and in that setting was found to be in atrial fibrillation. He says he is feeling much better this morning with diuresis his shortness of breath has essentially resolved he was resting /sleeping flat in bed when I entered the room to see him breath no distress breathing room air. Exam Const: General: comfortable and no acute distress HENMT: Mouth: Yes moist mucous membranes Eyes: Sclera: sclerae normal Neck: Neck: supple Resp: Effort & Inspection: normal respiratory effort Auscultation: clear to auscultation bilaterally Other: pulmonary rales have resolved Cardio: Rhythm: abnormal rhythm irregularly irregular GI: GI Palp: Yes Soft to palpation Auscultation: normal bowel sounds Skin: General skin exam: normal color Neuro: Other: alert and oriented Extrem: Other: no edema Objective Data Vital Signs Vital Signs: Vital Signs - 24 hr 10/31/22 12:00 10/31/22 12:00 10/31/22 14:45 Temperature 36.2 C L Pulse Rate 78 74 75 Respiratory Rate 18 Blood Pressure 112/84 Pulse Oximetry 98 99 Oxygen Delivery Room Air 10/31/22 16:00 10/31/22 16:00 10/31/22 21:17 Temperature Pulse Rate 46 L 99 Respiratory Rate Blood Pressure Pulse Oximetry Oxygen Delivery Room Air 10/31/22 21:17 10/31/22 20:00 10/31/22 22:00 Temperature 36.2 C L Pulse Rate 99 77 84 Respiratory Rate 18 Blood Pressure 115/92 H Pulse Oximetry 100 Oxygen Delivery 11/01/22 04:00 11/01/22 06:00 11/01/22 09:05 Temperature 36.1 C L Pulse Rate 87 75 86 Respiratory Rate 18 Blood Pressure 114/90 Pulse Oximetry 99 Oxygen Delivery 11/01/22 09:05 11/01/22 08:45 Temperature Pulse Rate 86 Respiratory Rate Blood Pressure Pulse Oximetry Oxygen Delivery Room Air Intake/Output Intake/Output: Intake & Output 10/29/22 10/30/22 10/31/22 11/01/22 23:59 23:59 23:59 23:59 Intake Total 1250 2330 Output Total 3800 Balance -2550 2330 Meds/Results Medications: Active Medications Generic Name Dose Route Start Last Admin Trade Name Ezekielq PRN Reason Stop Dose Admin Amiodarone HCl 400 mg 10/30/22 21:00 11/01/22 09:05 Amiodarone Hcl 200 Mg Tablet PO 400 mg Q12HR NOEMY Administration Apixaban 5 mg 10/30/22 21:00 11/01/22 09:05 Apixaban 5 Mg Tablet PO 5 mg Q12HR NOEMY Administration Aspirin 81 mg 10/31/22 08:00 11/01/22 09:05 Aspirin 81 Mg Chewable Tablet PO 81 mg DAILY@0800 NOEMY Administration Atorvas
[2022-11-01 12:03] LABS: Glucose Point of Care 302 mg/dl (65-105)
--- NOTE | 2022-11-01 12:03 | PM.IMPN ---
Progress Note: A&P Assessment and Plan (1) Atrial fibrillation with rapid ventricular response: Code(s): I48.91 - Unspecified atrial fibrillation Status: Acute Assessment and Plan: ED-HPI Narrative: ? ? ? 52-year-old with a history of hypertension, hyperlipidemia, CAD s/p stents, AF on anticoagulation, diabetes here with complaints of shortness of breath for last 2 days.? Also complains of chest pain on and off.? Patient denies any fever or chills.? Has occasional cough.? Patient states he has been taking his medication as prescribed.? He sees guide changer at [facility] but he does not remember the name of the guide changer. 11/01/2022 interval history: upon arrival patient was found to be in atrial fibrillation with RVR and patient was started diltiazem drip and continue patient's home medication Coreg 12.5 mg b.i.d., patient rate was trending down diltiazem drip was stopped and continued on Coreg 12.5 mg b.i.d. rate is controlled, cardiology added amiodarone 400 mg b.i.d. loading dose patient rate is trending patient will have EKG if AFib still persist patient may have cardioversion tomorrow, patient with complaint of shortness breath and chest x-ray suspicious for pulmonary edema, cardiac echo was done it showed severe cardiomyopathy with ejection fraction of 25% and grade 1 diastolic dysfunction patient was given Lasix 40 mg IV x1, however patient BUN and creatinine is rising patient was seen by Cardiology and further recommendation to follow, patient will need life vest upon discharge, patient with elevated tropes flat, most likely demand ischemia due to exacerbation of CHF AFib with RVR unlikely acute coronary sent patient is seen by guide changer and further recommendation to follow, patient remains clinically stable, today patient states is feeling much better compared to when he arrived, will have a PT OT evaluate the patient. (2) Congestive heart failure (CHF): Code(s): I50.9 - Heart failure, unspecified Status: Acute Assessment and Plan: to further evaluate patient will have a cardiac echo, continue to diurese and further recommendation to follow (3) Chest pain: Code(s): R07.9 - Chest pain, unspecified Status: Acute Assessment and Plan: patient with complaint of chest and elevated tropes patient is seen by guide changer and further recommendation to (4) CAD (coronary artery disease): Code(s): I25.10 - Atherosclerotic heart disease of [place] coronary artery without angina pectoris Status: Acute (5) NSTEMI (non-ST elevated myocardial infarction): Code(s): I21.4 - Non-ST elevation (NSTEMI) myocardial infarction Status: Acute Assessment and Plan: patient with history of coronary artery disease with elevated troponin. patient be seen cardiology and further recommendation to Subjective Date/time seen: 11/01/22 12:03 ED-HPI Narrative: ? ? ? 52-year-old with a history of hypertension, hyperlipidemia, CAD s/p stents, AF on anticoagulation, diabetes here with complaints of shortness of breath for last 2 days.? Also complains of chest pain on and off.? Patient denies any fever or chills.? Has occasional cough.? Patient states he has been taking his medication as prescribed.? He sees guide changer at [facility] but he does not remember the name of the guide changer. 11/01/2022 interval history: upon arrival patient was found to be in atrial fibrillation with RVR and patient was started diltiazem drip and continue patient's home medication Coreg 12.5 mg b.i.d., patient rate was trending down diltiazem drip was stopped and continued on Coreg 12.5 mg b.i.d. rate is controlled, cardiology added amiodarone 400 mg b.i.d. loading dose patient rate is trending patient will have EKG if AFib still persist patient may have cardioversion tomorrow, patient with complaint of shortness breath and chest x-ray suspicious for pulmonary edema, cardiac echo was done it
--- NOTE | 2022-11-01 14:12 | PC.NURSE ---
pt had c/o dizziness, nausea and weakness. fuel management handler was able to get vitals, with a manual blood pressure of 80/60. provider called, order for bolus of 250ml total for one time.
[2022-11-01] MEDS: SODIUM CHLORIDE 0.9% IV 250 ML 999 ML IV CONT (14:14)
[2022-11-02] VITALS (20 sets, daily range): BP systolic 84–121; BP diastolic 56–90; PULSE 46–92; RESP 14–22; TEMP 36.1–36.9; O2SAT 93–100
[2022-11-02 06:56] LABS: Hematocrit 34.1 % (42.0-52.0); Hemoglobin 11.2 g/dL (14.0-18.0); Mean Corpuscular HGB Conc 32.8 g/dl (32-36); Mean Corpuscular Hemoglobin 31.9 pg (26-34); Mean Corpuscular Volume 97.2 fl (80-100); Mean Platelet Volume 10.5 fl (7.4-10.4); Platelet Count Result 323 k/mm3 (150-375); Red Blood Count 3.51 M/mm3 (4.6-6.20); Red Cell Distribution Width 13.5 % (11.5-14.5); White Blood Count 10.5 K/mm3 (4.5-10.0)
[2022-11-02 07:01] LABS: Anion Gap 6 mmol/L (8-16); Blood Urea Nitrogen 45 mg/dL (9-20); Calcium 8.3 mg/dL (8.4-10.2); Carbon Dioxide 29 mmol/L (22-30); Chloride 99 mmol/L (98-107); Estimated CRCL calculation 35 ml/min; Estimated Glomerular Filt Rate 28; Glucose 98 mg/dL (65-110); Potassium 3.4 mmol/L (3.4-5.0); Sodium 134 mmol/L (137-145)
[2022-11-02] MEDS: ASPIRIN 81 MG CHEWABLE TABLET PO (08:24)
[2022-11-02] MEDS: APIXABAN 5 MG TABLET PO ×2 (08:24→21:09)
[2022-11-02] MEDS: POTASSIUM CHLORIDE 20 MEQ TABLET 40 MEQ PO (08:24)
[2022-11-02] MEDS: NIFEdipine 30 MG TAB.ER.24 60 MG PO (08:25)
[2022-11-02] MEDS: LOSARTAN POTASSIUM 50 MG TABLET PO (08:25)
[2022-11-02] MEDS: SERTRALINE HCL 50 MG TABLET PO (08:25)
[2022-11-02] MEDS: AMIODARONE HCL 200 MG TABLET 400 MG PO (08:25)
[2022-11-02] MEDS: buPROPion HCL SR (12HR) 100 MG TABCR PO (08:26)
[2022-11-02] MEDS: carvediloL 12.5 MG TABLET PO ×2 (08:26→21:09)
[2022-11-02] MEDS: ATORVASTATIN 40 MG TABLET 80 MG PO (08:26)
[2022-11-02] MEDS: hydrALAZINE HCL 25 MG TABLET PO ×2 (08:28→21:09)
--- NOTE | 2022-11-02 08:37 | ECG_ITS ---
Measurements Intervals [place] Rate: 47 P: 92 GA: 178 QRS: -36 QRSD: 116 T: 208 QT: 532 QTc: 472 Interpretive Statements SINUS BRADYCARDIA MARKED LEFT AXIS DEVIATION [QRS AXIS < -30] NONSPECIFIC T-WAVE ABNORMALITY ABNORMAL ECG COMPARED TO ECG 11/02/2022 08:50:36 COMPARED WITH EARLIER TODAY NORMAL SINUS RHYTHM HAS BEEN RESTORED T Electronically Signed On 11-02-2022 15:06:46 CERTIFIED ART THERAPIST by Luis Miguel Molina M.D.
--- NOTE | 2022-11-02 08:58 | WPDMODSED ---
Moderate Sedation Note-Pt Data Patient Data Diagnosis: Coronary artery disease with previous PCI to RCA cardiomyopathy out of proportion to CAD atrial fibrillation with CHF resulting from this. Persistent AFib despite amiodarone treatment Present Complaint: no complaints this more Procedure to be performed/Plan: DC cardioversion Allergies Allergy/AdvReac Type Severity Reaction Status Date / Time No Known Allergies Allergy Verified 10/30/22 16:01 Home Medications Medication Instructions Recorded Confirmed Type aspirin 81 mg chewable tablet 81 mg PO DAILY@0800 #30 tabs 05/28/20 10/30/22 Rx ([facility] Aspirin) atorvastatin 20 mg tablet 80 mg PO DAILY 05/22/21 10/30/22 History carvedilol 12.5 mg tablet 12.5 mg PO BID 05/22/21 10/30/22 History apixaban 5 mg tablet (Eliquis) 5 mg PO DAILY 10/30/22 10/30/22 History bupropion HCl 100 mg tablet,12 hr 100 mg PO DAILY 10/30/22 10/30/22 History sustained-release clopidogrel 75 mg tablet 75 mg PO DAILY 10/30/22 10/30/22 History hydralazine 25 mg tablet 25 mg PO BID 10/30/22 10/30/22 History losartan 50 mg tablet 50 mg PO DAILY 10/30/22 10/30/22 History nifedipine 60 mg tablet,extended 60 mg PO DAILY 10/30/22 10/30/22 History release 24 hr sertraline 50 mg tablet 50 mg PO DAILY 10/30/22 10/30/22 History Current Medications: Active Medications Amiodarone HCl (Amiodarone Hcl 200 Mg Tablet) 400 mg PO Q12HR [facility] Last Admin: 11/02/22 08:25 Dose: 400 mg Apixaban (Apixaban 5 Mg Tablet) 5 mg PO Q12HR [facility] Last Admin: 11/02/22 08:24 Dose: 5 mg Aspirin (Aspirin 81 Mg Chewable Tablet) 81 mg PO DAILY@0800 [facility] Last Admin: 11/02/22 08:24 Dose: 81 mg Atorvastatin Calcium (Atorvastatin 40 Mg Tablet) 80 mg PO DAILY [facility] Last Admin: 11/02/22 08:26 Dose: 80 mg Bupropion HCl (Bupropion Hcl Sr (12hr) 100 Mg Tabcr) 100 mg PO DAILY [facility] Last Admin: 11/02/22 08:26 Dose: 100 mg Carvedilol (Carvedilol 12.5 Mg Tablet) 12.5 mg PO Q12HR [facility] Last Admin: 11/02/22 08:26 Dose: 12.5 mg Hydralazine HCl (Hydralazine Hcl 25 Mg Tablet) 25 mg PO Q12HR [facility] Last Admin: 11/02/22 08:28 Dose: 25 mg Sodium Chloride (Normal Saline Iv) 1,000 mls @ 30 mls/hr IV CONT .Q24H [facility] Losartan Potassium (Losartan Potassium 50 Mg Tablet) 50 mg PO DAILY [facility] Last Admin: 11/02/22 08:25 Dose: 50 mg Nifedipine (Nifedipine 30 Mg Tab.Er.24) 60 mg PO DAILY [facility] Last Admin: 11/02/22 08:25 Dose: 60 mg Ondansetron HCl (Ondansetron Inj 4 Mg/2 Ml Vial) 4 mg IV PUSH Q6H PRN PRN Reason: nausea Last Admin: 10/31/22 15:41 Dose: 4 mg Sertraline HCl (Sertraline Hcl 50 Mg Tablet) 50 mg PO DAILY [facility] Last Admin: 11/02/22 08:25 Dose: 50 mg Sedation/Anesthesia: No previous sedation/anesthesia problems (including family history). [facility] Past Medical History Medical History Myocardial infarction Tobacco abuse Surgical History Surgical History H/O toe surgery The great toe on the right had been amputated 3 times and reattached. History of mandibular surgery Family History Family History Father Acute myocardial infarction Hypertension Mother Cerebrovascular accident Social History Social History Social History: The patient stated that he quit smoking October 14, 2019. He does not use any alcohol but does occasionally smoke marijuana. No illicit drugs. He is is with his and 2 kids. His children are healthy. He desires to be full code and his is the durable power banking attorney for healthcare. 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 Smoking packs per day: 1.5 Smoking cigarettes per day: 30.0 Years smoked: 30 Smoking pack-years: 45.00 Smoking status: Former smoker Tobacco type: cigarettes Smoking end date: 11/22/18 Additional smoking asse
--- NOTE | 2022-11-02 09:00 | ECG_ITS ---
Measurements Intervals [place] Rate: 83 P: MA: 0 QRS: -35 QRSD: 120 T: 141 QT: 444 QTc: 523 Interpretive Statements ATRIAL FIBRILLATION LEFT ANTERIOR SUPERIOR HEMIBLOCK NONSPECIFIC T-WAVE ABNORMALITY ABNORMAL ECG COMPARED TO ECG 11/01/2022 12:50:59 NO SIGNIFICANT DIFFERENCE Electronically Signed On 11-02-2022 15:05:49 MACHINE PRECISION ENGRAVER by Luis Miguel Molina M.D.
--- NOTE | 2022-11-02 09:15 | P.PCNCC_ITS ---
Cardiac Cath Procedure Note Date of procedure:: 11/02/22 Performing physician:: Luis Miguel Molina MD Indication:: persistent atrial fibrillation heart failure with reduced ejection fraction coronary disease with previous PCI Brief clinical history:: this is a 52-year-old gentleman with coronary artery disease previous PCI to the RCA and global left ventricular systolic dysfunction. He entered this [facility]ospi [facility] with decompensated heart failure coincident with developing atrial fibrillation. Despite amiodarone treatment he persists in AFib he is anticoagulated chronically with apixaban. Procedure Procedure performed:: DC cardioversion Sedation/Medication given:: intravenous propofol in aliquots total dosage of 70 mg Estimated blood loss:: no blood loss Procedure note:: patient was brought to the slab lifting engineer holding area in the postabsorptive state he had peripheral IV access placed in the right arm. Defibrillator patches were placed in the AP position. They were connected to the defibrillator synchronized 200 joules. He was sedated with propofol in aliquots total dosage is 70 mg provided excellent sedation. He was counter shocked with 200 joules in a synchronized fashion x1 shock restoring normal sinus rhythm/ sinus bradycardia Findings:: as above Conclusion:: successful uncomplicated DC cardioversion terminating atrial fibrillation restoring sinus rhythm / sinus bradycardia Luis Miguel Molina MD [facility]
--- NOTE | 2022-11-02 13:17 | PC.NURSE ---
Called Dr. Molina at 1315 about pt bp 88/62. Pt was cardioverted at 0930. recommended keeping and eye on pt especially when getting up. No orders at this time
--- NOTE | 2022-11-02 14:39 | PM.IMPN ---
Progress Note: A&P Assessment and Plan (1) Atrial fibrillation with rapid ventricular response: Code(s): I48.91 - Unspecified atrial fibrillation Status: Acute Assessment and Plan: ED-[facility] Narrative: ? ? ? 52-year-old with a history of hypertension, hyperlipidemia, CAD s/p stents, AF on anticoagulation, diabetes here with complaints of shortness of breath for last 2 days.? Also complains of chest pain on and off.? Patient denies any fever or chills.? Has occasional cough.? Patient states he has been taking his medication as prescribed.? He sees equal employment opportunity officer at [place] but he does not remember the name of the equal employment opportunity officer. 11/02/2022 interval history: upon arrival patient was found to be in atrial fibrillation with RVR and patient was started diltiazem drip and continue patient's home medication Coreg 12.5 mg b.i.d., patient rate was trending down diltiazem drip was stopped and continued on Coreg 12.5 mg b.i.d. rate is controlled, cardiology added amiodarone 400 mg b.i.d. loading dose patient rate is trending patient will have EKG if AFib still persist patient may have cardioversion, today patient is still in A. Fib, will have cardioversion later today, will follow up, patient with complaint of shortness breath and chest x-ray suspicious for pulmonary edema, cardiac echo was done it showed severe cardiomyopathy with ejection fraction of 25% and grade 1 diastolic dysfunction patient was given Lasix 40 mg IV x1, and blood pressure is soft, however patient BUN and creatinine is rising patient was seen by Cardiology and further recommendation to follow, patient will need life vest upon discharge, patient with elevated tropes flat, most likely demand ischemia due to exacerbation of CHF AFib with RVR unlikely acute coronary, patient is seen by equal employment opportunity officer and further recommendation to follow, patient remains clinically stable, today patient states is feeling much better compared to when he arrived, will have a PT OT evaluate the patient. (2) Congestive heart failure (CHF): Code(s): I50.9 - Heart failure, unspecified Status: Acute Assessment and Plan: to further evaluate patient will have a cardiac echo, continue to diurese and further recommendation to follow (3) Chest pain: Code(s): R07.9 - Chest pain, unspecified Status: Acute Assessment and Plan: patient with complaint of chest and elevated tropes patient is seen by equal employment opportunity officer and further recommendation to (4) CAD (coronary artery disease): Code(s): I25.10 - Atherosclerotic heart disease of [place] coronary artery without angina pectoris Status: Acute (5) NSTEMI (non-ST elevated myocardial infarction): Code(s): I21.4 - Non-ST elevation (NSTEMI) myocardial infarction Status: Acute Assessment and Plan: patient with history of coronary artery disease with elevated troponin. patient be seen cardiology and further recommendation to Subjective Date/time seen: 11/02/22 14:39 11/02/2022 interval history: upon arrival patient was found to be in atrial fibrillation with RVR and patient was started diltiazem drip and continue patient's home medication Coreg 12.5 mg b.i.d., patient rate was trending down diltiazem drip was stopped and continued on Coreg 12.5 mg b.i.d. rate is controlled, cardiology added amiodarone 400 mg b.i.d. loading dose patient rate is trending patient will have EKG if AFib still persist patient may have cardioversion, today patient is still in A. Fib, will have cardioversion later today, will follow up, patient with complaint of shortness breath and chest x-ray suspicious for pulmonary edema, cardiac echo was done it showed severe cardiomyopathy with ejection fraction of 25% and grade 1 diastolic dysfunction patient was given Lasix 40 mg IV x1, and blood pressure is soft, however patient BUN and creatinine is rising patient was seen by Cardiology and further recommendation to follow, p
[2022-11-03] VITALS (11 sets, daily range): BP systolic 91–135; BP diastolic 56–87; PULSE 45–58; RESP 14–20; TEMP 36–36.6; O2SAT 96–100
--- NOTE | 2022-11-03 03:55 | PCRCNOTE ---
pt refused to use our cpap it is in the room
[2022-11-03 06:43] LABS: Hematocrit 34.8 % (42.0-52.0); Hemoglobin 11.2 g/dL (14.0-18.0); Mean Corpuscular HGB Conc 32.2 g/dl (32-36); Mean Corpuscular Hemoglobin 31.5 pg (26-34); Mean Platelet Volume 10.4 fl (7.4-10.4); Platelet Count Result 311 k/mm3 (150-375); Red Blood Count 3.55 M/mm3 (4.6-6.20); Red Cell Distribution Width 13.7 % (11.5-14.5); White Blood Count 9.3 K/mm3 (4.5-10.0)
[2022-11-03 06:52] LABS: Anion Gap 7 mmol/L (8-16); Blood Urea Nitrogen 49 mg/dL (9-20); Calcium 8.2 mg/dL (8.4-10.2); Carbon Dioxide 28 mmol/L (22-30); Chloride 103 mmol/L (98-107); Estimated CRCL calculation 36 ml/min; Estimated Glomerular Filt Rate 30; Glucose 101 mg/dL (65-110); Magnesium 2.1 mg/dL (1.6-2.3); Potassium 3.3 mmol/L (3.4-5.0); Sodium 138 mmol/L (137-145)
[2022-11-03] MEDS: POTASSIUM CHLORIDE 20 MEQ TABLET 40 MEQ PO (07:59)
[2022-11-03] MEDS: SERTRALINE HCL 50 MG TABLET PO (08:01)
[2022-11-03] MEDS: NIFEdipine 30 MG TAB.ER.24 60 MG PO (08:01)
[2022-11-03] MEDS: ATORVASTATIN 40 MG TABLET 80 MG PO (08:02)
[2022-11-03] MEDS: APIXABAN 5 MG TABLET PO ×2 (08:02→20:36)
[2022-11-03] MEDS: buPROPion HCL SR (12HR) 100 MG TABCR PO (08:02)
[2022-11-03] MEDS: ASPIRIN 81 MG CHEWABLE TABLET PO (08:02)
[2022-11-03] MEDS: hydrALAZINE HCL 25 MG TABLET PO ×2 (08:02→20:36)
[2022-11-03] MEDS: AMIODARONE HCL 200 MG TABLET PO (08:03)
[2022-11-03] MEDS: carvediloL 12.5 MG TABLET PO (08:03)
[2022-11-03] MEDS: LOSARTAN POTASSIUM 50 MG TABLET PO (08:03)
--- NOTE | 2022-11-03 11:56 | PM.PNCARD ---
Progress Note: A&P Assessment and Plan (1) Acute systolic CHF (congestive heart failure): Code(s): I50.21 - Acute systolic (congestive) heart failure Status: Acute Assessment and Plan: patient presented with acute systolic CHF, a newly decline in heart function, and AFib RVR. Diuresed cardioverted improved hopefully home in the next 1-2 days, when the patient's renal function improves. (2) Cardiomyopathy: Code(s): I42.9 - Cardiomyopathy, unspecified Status: Acute Assessment and Plan: Worsening cardiomyopathy, EF 25% Due to AFib RVR superimposed on his mild cardiomyopathy. hopefully will improve over the next few weeks/ months on medical therapy, in sinus rhythm. continue carvedilol, hydralazine, losartan as blood pressure allows. Will hold nifedipine due to low blood pressure will reduce carvedilol from 12.5 to: 6.2 5 mg, due to low blood pressure and bradycardia. (3) Atrial fibrillation with rapid ventricular response: Code(s): I48.91 - Unspecified atrial fibrillation Status: Acute Assessment and Plan: Status post cardioversion on 11/02/2022, maintaining sinus rhythm continue Eliquis and amiodarone 200 mg daily. Carvedilol reduced due to bradycardia (4) Acute kidney injury: Code(s): N17.9 - Acute kidney failure, unspecified Status: Acute Assessment and Plan: Acute kidney injury noted, no recent diuretics given daily BMP (5) At risk for sudden cardiac : Code(s): Z91.89 - Other specified personal risk factors, not elsewhere classified Status: Acute Assessment and Plan: EF 25%, at risk for sudden cardiac . counseled patient about this risk. Discussed LifeVest patient interested in wearing a life vest until is left ventricular function improves. Will order (6) Hypokalemia: Code(s): E87.6 - Hypokalemia Status: Acute Assessment and Plan: Acute hypokalemia noted, will replete. (7) CAD (coronary artery disease): Code(s): I25.10 - Atherosclerotic heart disease of [place] coronary artery without angina pectoris Status: Acute Assessment and Plan: history of CAD and RCA stent in May 2021 stable, continue aspirin and atorvastatin. Subjective Date/time seen: 52-year-old male with a history of left ventricular systolic dysfunction and previous RCI intervention in May 2021 ( EF 45-50% at that time) , followed by Dr. Sherman. He presented 10/29/2022 with CHF, coincident with recurrent atrial fibrillation RVR. Chronically takes Eliquis, started on amiodarone. Diuresed. Patient was electrically cardioverted on 11/02/2022. Echo this admission shows his left ventricular function is 25%, mild MR, moderate TR. 11/03/22 11:56: Patient is feeling a lot better, near baseline, up about in his room, no distress. Telemetry shows sinus bradycardia heart rate in the upper 40s to low 50s. potassium 3.3, BUN up to 49, creatinine has increased from 1.4 now 2.3. Review of Systems Review of Systems: No WATTS, edema, lightheadedness, bleeding, stomach problems Exam Const: General: cooperative, healthy appearing and comfortable; No confusion Orientation/consciousness: oriented to person, patient oriented x3 and No confusion Other: looks a little tired but no distress Eyes: EOM: EOMs intact bilaterally Neck: Neck: supple Resp: Effort & Inspection: normal respiratory effort Auscultation: clear to auscultation bilaterally Cardio: Rate: regular rate Rhythm: regular rhythm Heart sounds: no murmurs GI: Inspection: normal to inspection GI Palp: No abdominal tenderness Skin: General skin exam: no rashes or lesions noted Neuro: General: oriented to person, patient oriented x3 and No confusion Extrem: Right lower extremity: no edema Left lower extremity: no edema Psych: Appearance: grossly normal Mental Status: mental sta
--- NOTE | 2022-11-03 14:02 | PM.IMPN ---
Progress Note: A&P Assessment and Plan (1) Atrial fibrillation with rapid ventricular response: Code(s): I48.91 - Unspecified atrial fibrillation Status: Acute Assessment and Plan: ED[facility] Narrative: ? ? ? 52-year-old with a history of hypertension, hyperlipidemia, CAD s/p stents, AF on anticoagulation, diabetes here with complaints of shortness of breath for last 2 days.? Also complains of chest pain on and off.? Patient denies any fever or chills.? Has occasional cough.? Patient states he has been taking his medication as prescribed.? He sees kayak maker at [place] but he does not remember the name of the kayak maker. 11/03/2022 interval history: upon arrival patient was found to be in atrial fibrillation with RVR and patient was started diltiazem drip and continue patient's home medication Coreg 12.5 mg b.i.d., patient rate was trending down diltiazem drip was stopped and continued on Coreg 12.5 mg b.i.d. rate is controlled, cardiology added amiodarone 400 mg b.i.d. loading dose patient rate is trending patient will have EKG if AFib still persist patient may have cardioversion, on 11/02 patient was still in A. Fib, and had cardioversion. patient with complaint of shortness breath and chest x-ray suspicious for pulmonary edema, cardiac echo was done it showed severe cardiomyopathy with ejection fraction of 25% and grade 1 diastolic dysfunction patient was given Lasix 40 mg IV x1, and blood pressure is soft, however patient BUN and creatinine is rising patient was seen by Cardiology and further recommendation to follow, patient will need life vest upon discharge, patient with elevated tropes flat, most likely demand ischemia due to exacerbation of CHF AFib with RVR unlikely acute coronary, patient is seen by kayak maker and further recommendation to follow, patient remains clinically stable, today patient states is feeling much better compared to when he arrived, will have a PT OT evaluate the patient. (2) Congestive heart failure (CHF): Code(s): I50.9 - Heart failure, unspecified Status: Acute Assessment and Plan: to further evaluate patient will have a cardiac echo, continue to diurese and further recommendation to follow (3) Chest pain: Code(s): R07.9 - Chest pain, unspecified Status: Acute Assessment and Plan: patient with complaint of chest and elevated tropes patient is seen by kayak maker and further recommendation to (4) CAD (coronary artery disease): Code(s): I25.10 - Atherosclerotic heart disease of [place] coronary artery without angina pectoris Status: Acute (5) NSTEMI (non-ST elevated myocardial infarction): Code(s): I21.4 - Non-ST elevation (NSTEMI) myocardial infarction Status: Acute Assessment and Plan: patient with history of coronary artery disease with elevated troponin. patient be seen cardiology and further recommendation to Subjective Date/time seen: 11/03/22 14:02 11/03/2022 interval history: upon arrival patient was found to be in atrial fibrillation with RVR and patient was started diltiazem drip and continue patient's home medication Coreg 12.5 mg b.i.d., patient rate was trending down diltiazem drip was stopped and continued on Coreg 12.5 mg b.i.d. rate is controlled, cardiology added amiodarone 400 mg b.i.d. loading dose patient rate is trending patient will have EKG if AFib still persist patient may have cardioversion, on 11/02 patient was still in A. Fib, and had cardioversion. patient with complaint of shortness breath and chest x-ray suspicious for pulmonary edema, cardiac echo was done it showed severe cardiomyopathy with ejection fraction of 25% and grade 1 diastolic dysfunction patient was given Lasix 40 mg IV x1, and blood pressure is soft, however patient BUN and creatinine is rising patient was seen by Cardiology and further recommendation to follow, patient will need life vest upon discharge, afshin
[2022-11-03 21:02] LABS: Glucose Point of Care 167 mg/dl (65-105)
[2022-11-04] VITALS (10 sets, daily range): BP systolic 111–127; BP diastolic 70–78; PULSE 44–61; RESP 14–20; TEMP 36.2–36.3; O2SAT 93–98
[2022-11-04 07:03] LABS: Hematocrit 35.6 % (42.0-52.0); Hemoglobin 11.5 g/dL (14.0-18.0); Mean Corpuscular HGB Conc 32.3 g/dl (32-36); Mean Corpuscular Hemoglobin 31.5 pg (26-34); Mean Corpuscular Volume 97.5 fl (80-100); Mean Platelet Volume 10.3 fl (7.4-10.4); Platelet Count Result 298 k/mm3 (150-375); Red Blood Count 3.65 M/mm3 (4.6-6.20); Red Cell Distribution Width 13.8 % (11.5-14.5)
[2022-11-04 07:20] LABS: Anion Gap 7 mmol/L (8-16); Blood Urea Nitrogen 41 mg/dL (9-20); Calcium 8.2 mg/dL (8.4-10.2); Carbon Dioxide 28 mmol/L (22-30); Chloride 101 mmol/L (98-107); Estimated CRCL calculation 41 ml/min; Estimated Glomerular Filt Rate 35; Glucose 93 mg/dL (65-110); Magnesium 2.1 mg/dL (1.6-2.3); Potassium 3.6 mmol/L (3.4-5.0); Sodium 136 mmol/L (137-145)
[2022-11-04] MEDS: APIXABAN 5 MG TABLET PO (08:43)
[2022-11-04] MEDS: buPROPion HCL SR (12HR) 100 MG TABCR PO (08:43)
[2022-11-04] MEDS: carvediloL 6.25 MG TABLET PO (08:43)
[2022-11-04] MEDS: SERTRALINE HCL 50 MG TABLET PO (08:43)
[2022-11-04] MEDS: ATORVASTATIN 40 MG TABLET 80 MG PO (08:43)
[2022-11-04] MEDS: hydrALAZINE HCL 25 MG TABLET PO (08:43)
[2022-11-04] MEDS: AMIODARONE HCL 200 MG TABLET PO (08:43)
[2022-11-04] MEDS: ASPIRIN 81 MG CHEWABLE TABLET PO (08:43)
[2022-11-04] MEDS: LOSARTAN POTASSIUM 50 MG TABLET PO (08:44)
--- NOTE | 2022-11-04 09:26 | PM.PNCARD ---
Progress Note: A&P Assessment and Plan (1) Acute systolic CHF (congestive heart failure): Code(s): I50.21 - Acute systolic (congestive) heart failure Status: Acute Assessment and Plan: patient presented with acute systolic CHF, a newly decline in heart function, and AFib RVR. Diuresed cardioverted improved hopefully home Today or tomorrow after being fitted for LifeVest. (2) Cardiomyopathy: Code(s): I42.9 - Cardiomyopathy, unspecified Status: Acute Assessment and Plan: Worsening cardiomyopathy, EF 25% Due to AFib RVR superimposed on his mild cardiomyopathy. hopefully will improve over the next few weeks/ months on medical therapy, in sinus rhythm. continue carvedilol, hydralazine, losartan as blood pressure allows. Discontinued nifedipine due to low blood pressure Reduced carvedilol from 12.5 to: 6.2 5 mg, due to low blood pressure and bradycardia, both improved. (3) Atrial fibrillation with rapid ventricular response: Code(s): I48.91 - Unspecified atrial fibrillation Status: Acute Assessment and Plan: Status post cardioversion on 11/02/2022, maintaining sinus rhythm continue Eliquis and amiodarone 200 mg daily. Carvedilol reduced due to bradycardia counseled patient about the long-term side effects of amiodarone and follow-up. (4) Acute kidney injury: Code(s): N17.9 - Acute kidney failure, unspecified Status: Acute Assessment and Plan: Acute kidney injury noted, no recent diuretics given daily BMP Improving (5) At risk for sudden cardiac : Code(s): Z91.89 - Other specified personal risk factors, not elsewhere classified Status: Acute Assessment and Plan: EF 25%, at risk for sudden cardiac . Reviewed risk, LifeVest Life Vest ordered (6) Hypokalemia: Code(s): E87.6 - Hypokalemia Status: Acute Assessment and Plan: Repleted. (7) CAD (coronary artery disease): Code(s): I25.10 - Atherosclerotic heart disease of [place] coronary artery without angina pectoris Status: Acute Assessment and Plan: history of CAD and RCA stent in May 2021 stable, continue aspirin and atorvastatin. Counseled patient regarding heart healthy diet and lifestyle, low sodium etc.. Subjective Date/time seen: 52-year-old male with a history of left ventricular systolic dysfunction and previous RCI intervention? in May 2021 ( EF 45-50% at that time) , followed by Dr. Sherman.? He presented 10/29/2022 with CHF, coincident with? recurrent atrial fibrillation RVR.? Chronically takes Eliquis, started on amiodarone.? Diuresed. Patient was electrically cardioverted on 11/02/2022. Echo this admission shows his left ventricular function is 25%, mild MR, moderate TR. 11/03/22? 11:56:? Patient is feeling a lot better, near baseline, up about in his room, no distress.? Carvedilol rate dose reduced to 6.25 mg b.i.d. and nifedipine held for low blood pressure. Patient interested in LifeVest. 11/04/22 09:26 Feels well, no shortness of breath when up and about in his room, no lightheadedness. Blood pressure better, in the 120s. Not yet fitted for the LifeVest. Renal function is improving. Telemetry shows heart rate is now in the upper 50s to low 60s on reduced carvedilol dose. Review of Systems Review of Systems: No shortness of breath, lightheadedness, chest pain, stomach problems, edema. Exam Const: General: cooperative, healthy appearing, comfortable, no acute distress and uncomfortable; No confusion Orientation/consciousness: oriented to person, patient oriented x3 and No confusion HENMT: Mouth: Yes moist mucous membranes Eyes: EOM: EOMs intact bilaterally Neck: Neck: supple Other: Resp: Effort & Inspection: normal respiratory effort Auscultation: clear to auscultation bilaterally Other: d Cardio: Rate: regular rate Rh
--- NOTE | 2022-11-04 10:19 | PM.IMPN ---
Progress Note: A&P Assessment and Plan (1) Atrial fibrillation with rapid ventricular response: Code(s): I48.91 - Unspecified atrial fibrillation Status: Acute Assessment and Plan: ED-HPI Narrative: ? ? ? 52-year-old with a history of hypertension, hyperlipidemia, CAD s/p stents, AF on anticoagulation, diabetes here with complaints of shortness of breath for last 2 days.? Also complains of chest pain on and off.? Patient denies any fever or chills.? Has occasional cough.? Patient states he has been taking his medication as prescribed.? He sees needle punch operator at [place] but he does not remember the name of the needle punch operator. 11/03/2022 interval history: upon arrival patient was found to be in atrial fibrillation with RVR and patient was started diltiazem drip and continue patient's home medication Coreg 12.5 mg b.i.d., patient rate was trending down diltiazem drip was stopped and continued on Coreg 12.5 mg b.i.d. rate is controlled, cardiology added amiodarone 400 mg b.i.d. loading dose patient rate is trending patient will have EKG if AFib still persist patient may have cardioversion, on 11/02 patient was still in A. Fib, and had cardioversion. patient with complaint of shortness breath and chest x-ray suspicious for pulmonary edema, cardiac echo was done it showed severe cardiomyopathy with ejection fraction of 25% and grade 1 diastolic dysfunction patient was given Lasix 40 mg IV x1, and blood pressure is soft, however patient BUN and creatinine is rising patient was seen by Cardiology and further recommendation to follow, patient will need life vest upon discharge, patient with elevated tropes flat, most likely demand ischemia due to exacerbation of CHF AFib with RVR unlikely acute coronary, patient is seen by needle punch operator and further recommendation to follow, patient remains clinically stable, today patient states is feeling much better compared to when he arrived, will have a PT OT evaluate the patient. 11/04/2022: Atrial fibrillation with rapid ventricular rate status post cardioversion. Started on amiodarone along with Coreg initially was on diltiazem drip which has now been stopped. Cardiology following Acute on chronic congestive heart failure ejection fraction noted to be at 25% grade 1 diastolic dysfunction. Chest x-ray with mild interstitial edema along with cardiomegaly. Diuresed with Lasix. Coreg hydralazine losartan suspected due to AFib with RVR treated for LifeVest was recommended Elevated troponin flat likely due to demand ischemia from CHF and AFib with RVR unlikely acute coronary syndrome TABITHA Cardiomyopathy ejection fraction 25% Coronary artery disease status post RCA stent in May 2021 on aspirin and atorvastatin. EF at that time was 45-50% Status post cardioversion 11/02/2022 Mild MR moderate TR Mild anemia TABITHA on CKD stage 3 baseline creatinine in mid 1s. Presented with creatinine 1.4 peaked to 2.4 now trending down. DVT prophylaxis # on apixaban (2) Congestive heart failure (CHF): Code(s): I50.9 - Heart failure, unspecified Status: Acute Assessment and Plan: to further evaluate patient will have a cardiac echo, continue to diurese and further recommendation to follow (3) Chest pain: Code(s): R07.9 - Chest pain, unspecified Status: Acute Assessment and Plan: patient with complaint of chest and elevated tropes patient is seen by needle punch operator and further recommendation to (4) CAD (coronary artery disease): Code(s): I25.10 - Atherosclerotic heart disease of [place] coronary artery without angina pectoris Status: Acute (5) NSTEMI (non-ST elevated myocardial infarction): Code(s): I21.4 - Non-ST elevation (NSTEMI) myocardial infarction Status: Acute Assessment and Plan: patient with history of coronary artery disease with elevated troponin. patient be seen cardiology and further recommendation to follow Subjective Date/time
--- NOTE | 2022-11-04 12:59 | PCPTNOTE ---
Addendum entered by Mili Caro, PT 11/04/22 13:00: both OK with discharge of therapy orders Original Note: Pt independent in the room per RN. Pt reports no therapy needs (PT or OT). Spoke with hospitalist and healthcare advisory services manager - both OK with discharge.
--- NOTE | 2022-11-04 13:06 | PCOTNOTE ---
Pt independent in the room per RN. Pt reports no therapy needs (PT or OT). Spoke with hospitalist and school child care attendant - both OK with discharge.
--- NOTE | 2022-11-04 18:24 | PM.DS ---
DS: Admitting Diagnosis Discharge Date 11/04/2022 Admitting Diagnosis chest pain DS: Discharge Diagnosis Discharge Diagnosis (1) Atrial fibrillation with rapid ventricular response: Code(s): I48.91 - Unspecified atrial fibrillation Status: Acute (2) Congestive heart failure (CHF): Code(s): I50.9 - Heart failure, unspecified Status: Acute (3) Chest pain: Code(s): R07.9 - Chest pain, unspecified Status: Acute (4) CAD (coronary artery disease): Code(s): I25.10 - Atherosclerotic heart disease of [place] coronary artery without angina pectoris Status: Acute (5) NSTEMI (non-ST elevated myocardial infarction): Code(s): I21.4 - Non-ST elevation (NSTEMI) myocardial infarction Status: Acute DS: Summary Hospital Course Hospital Course: # Atrial fibrillation with rapid ventricular response: initially treated with diltiazem drip which has subsequently been Stopped. status post cardioversion On 11/02/2022.? Started on amiodarone along with Coreg. Cardiology on board during the hospital stay. Remained in sinus rhythm post cardioversion. Follow-up with Cardiology on outpatient basis. #Acute on chronic congestive heart failure ejection fraction noted to be at 25% grade 1 diastolic dysfunction.? Chest x-ray with mild interstitial edema along with cardiomegaly.? Diuresed with Lasix.? Coreg hydralazine losartan suspected due to AFib with RVR treated for LifeVest was recommended and was fitted prior to the discharge #Elevated troponin flat likely due to demand ischemia from CHF and AFib with RVR unlikely acute coronary syndrome #Cardiomyopathy ejection fraction 25% #Coronary artery disease status post RCA stent in May 2021 on aspirin and atorvastatin.? EF at that time was 45-50% #Status post cardioversion 11/02/2022 #Mild MR moderate TR #Mild anemia #TABITHA on CKD stage 3 baseline creatinine in mid 1s.? Presented with creatinine 1.4 peaked to 2.4 now trending down. #DVT prophylaxis : on apixaban Time Spent with Patient Time attestation: Total time spent providing and/or coordinating discharge services: 45 minutes Exam Narrative: Patient is comfortable, NAD HEENT: eyes are clear and none icteric LUNGS: bilateral fair air entry with no crepts HEART: sinus bradycardia; S1; S2 ABD: BS+, Soft and nontender Lower extremities: no edema , cyanosis or clubbing SKIN: nonjaundiced Neuro: grossly intact. DS: Data Data Completed and Pending Completed studies during hospitalization: Exam Type: ? ? CA echo doppler color flow Study Info Indications ?? ? - CHF AFIB RVR CAD STENTS Complete two-dimensional, color flow and Doppler transthoracic echocardiogram is performed. Account #: ? ? [id number] Summary ? 1. Complete two-dimensional, color flow and Doppler transthoracic echocardiogram is performed. ? 2. Left ventricular enlargement with severe global systolic dysfunction ejection fraction approximately 25%. ? 3. Biatrial dilation right greater than left. ? 4. Small amount of mitral regurgitation. ? 5. Moderate tricuspid insufficiency. ? 6. Atrial fibrillation. ? 7. Technically challenging exam with difficult patient cooperation. Left Ventricle ? Left ventricular chamber dimension is moderately enlarged. ? Left ventricular systolic function is severely reduced, estimated at 20-25%. ? The left ventricular diastolic function is grade I diastolic dysfunction. Right Ventricle ? Right ventricular chamber dimension is mildly enlarged. Left Atria ? Left atrial chamber dimension is moderately enlarged. Right Atria ? Right atrial chamber dimension is severely enlarged. Aortic Valve ? The aortic valve is normal. Pulmonic Valve ? The pulmonic valve is not well visualized. Mitral Valve ? The mitral valve has normal leaflets. ? There is trace mitral valve regurgitation. Tricuspid Valve ? The tricuspid valve leaflets are normal. ? There is moderate tr
== END 2022-11-04 19:35 | disposition home or self-care (01) | DRG 201 ==
LOC: ANHED 22:58 → ANH3MEDSUR 10-30 16:33
PROVIDERS: Family Medicine; Internal Medicine Infectious Disease; Specialist; Admitting Provider Internal Medicine; Emergency Provider Emergency Medicine; Visit Provider Internal Medicine
PROC: 5A2204Z Restoration of Cardiac Rhythm, Single (ICD-10-PCS; principal; 2022-11-02 09:00)
DX: I48.20 Chronic atrial fibrillation, unspecified (principal); I50.43 Acute on chronic combined systolic (congestive) and diastolic (congestive) heart failure; N17.9 Acute kidney failure, unspecified; N18.30 Chronic kidney disease, stage 3 unspecified; E11.22 Type 2 diabetes mellitus with diabetic chronic kidney disease; I24.8 Other forms of acute ischemic heart disease; I13.0 Hypertensive heart and chronic kidney disease with heart failure and stage 1 through stage 4 chronic kidney disease, or unspecified chronic kidney disease; I42.9 Cardiomyopathy, unspecified; I25.10 Atherosclerotic heart disease of native coronary artery without angina pectoris; E87.6 Hypokalemia; E78.5 Hyperlipidemia, unspecified; Z20.822 Contact with and (suspected) exposure to COVID-19; I25.2 Old myocardial infarction; Z87.891 Personal history of nicotine dependence; Z79.01 Long term (current) use of anticoagulants
CPT/HCPCS: 36415; 71045; 80048; 80053; 82948; 83735; 84132; 84484; 85025; 85027; 87040; 87502; 92960; 93005; 93306; 96361; 96365; 96366; 96374; 96375; 99285; A9270; G0378; G0379; J1940; J2405; J2704; J3475; J3480; J7030; J7040; U0003; U0005

== ENCOUNTER 2023-10-30 10:48 | Observation (INO) | payer OTHER, SELFPAY ==
[2023-10-30] VITALS (18 sets, daily range): BP systolic 143–187; BP diastolic 63–114; PULSE 53–89; RESP 12–20; TEMP 36.6–36.8; O2SAT 90–100; BMI 28.9
--- NOTE | ~2023-10-30 | XR_ITS ---
EXAMINATION: XR chest 2V DATE: 10/30/2023 11:18 INDICATION: Chest pain and shortness of breath TECHNIQUE: AP and lateral views of the chest are obtained. COMPARISON: 10/29/2022 FINDINGS: There is a mild diffuse interstitial pattern. Cardiomegaly is noted. No pleural effusion or pneumothorax. There is mild thoracic spondylosis. IMPRESSION: 1. Cardiomegaly with probable mild pulmonary edema. Reviewed, dictated and finalized at location F. AREA NETWORK ENGINEER
--- NOTE | 2023-10-30 10:51 | ECG_ITS ---
Measurements Intervals [place] Rate: 85 P: 26 SD: 174 QRS: -38 QRSD: 124 T: 125 QT: 416 QTc: 496 Interpretive Statements SINUS RHYTHM WITH OCCASIONAL SUPRAVENTRICULAR PREMATURE COMPLEXES LEFT AXIS DEVIATION LEFT VENTRICULAR HYPERTROPHY AND ST-T CHANGE Electronically Signed On 10-31-2023 10:22:43 SURFACE LAY OUT TECHNICIAN by Nikita Mello M.D.
--- NOTE | 2023-10-30 10:54 | PC.NURSE ---
EMS gave patient 324 mg ASA HAND PRESSER.
[2023-10-30 11:12] LABS: Basophils Percent Auto 0.1 % (0.2-1.2); Eosinophils Absolute Auto 0.2 K/mm3 (0-0.3); Eosinophils Percent Auto 1.6 % (0-4.4); Hematocrit 34.3 % (42.0-52.0); Hemoglobin 11.2 g/dL (14.0-18.0); Immature Granulocyte Absolute 0.04 K/mm3 (0.00-0.031); Immature Granulocyte Percent A 0.4 % (0-0.5); Lymphocytes Absolute Auto 0.92 K/mm3 (0.9-3.2); Lymphocytes Percent Auto 9.5 % (18.3-44.2); Mean Corpuscular HGB Conc 32.7 g/dl (32-36); Mean Corpuscular Hemoglobin 31.8 pg (26-34); Mean Corpuscular Volume 97.4 fl (80-100); Mean Platelet Volume 10.1 fl (7.4-10.4); Monocytes Absolute Auto 0.9 K/mm3 (0.1-0.6); Neutrophils Absolute Auto 7.7 K/mm3 (1.3-6.7); Neutrophils Percent Auto 79.4 % (45.5-73.1); Platelet Count Result 254 k/mm3 (150-375); Red Blood Count 3.52 M/mm3 (4.6-6.20); Red Cell Distribution Width 14.4 % (11.5-14.5); White Blood Count 9.7 K/mm3 (4.5-10.0)
[2023-10-30 11:22] LABS: INR 1.2; Prothrombin Time 15.4 Seconds (11.1-14.7)
[2023-10-30 11:23] LABS: Partial Thromboplastin Time 36.6 SECONDS (22.3-36.8)
[2023-10-30 11:24] LABS: Alanine Aminotransferase 27 U/L (6-50); Albumin Level 3.9 g/dL (3.5-5.1); Alkaline Phosphatase 113 U/L (38-126); Anion Gap 10 mmol/L (8-16); Aspartate Amino Transferase 33 U/L (17-59); Bilirubin,Total 1.5 mg/dL (0.2-1.3); Blood Urea Nitrogen 19 mg/dL (9-20); Calcium 8.6 mg/dL (8.4-10.2); Carbon Dioxide 28 mmol/L (22-30); Chloride 101 mmol/L (98-107); Estimated CRCL calculation 60 ml/min; Estimated Glomerular Filt Rate 58; Glucose 138 mg/dL (65-110); Lipase 90 U/L (23-300); Potassium 2.9 mmol/L (3.4-5.0); Sodium 139 mmol/L (137-145)
[2023-10-30 11:46] LABS: Troponin I 0.066 ng/mL (0.000-0.034)
[2023-10-30 11:57] LABS: Influenza A QL RT-PCR Negative (Negative); Influenza B QL RT-PCR Negative (Negative); RSV RNA, RT-PCR Negative (Negative); SARS-CoV-2 RNA PCR Negative (Negative)
[2023-10-30] MEDS: MORPHINE SULFATE (*CRX) 4 MG/ML INJ IV PUSH (12:40)
--- NOTE | 2023-10-30 12:48 | ED.CHESTPAIN ---
HPI - Chest Pain General Chief Complaint: Chest Pain Stated Complaint: SOB/CP since Time Seen by Provider: 10/30/23 11:23 History of Present Illness HPI narrative: This is a 53-year-old male, with history of coronary artery disease status post stent in the 2021, who presents to the emergency department complaining of 10 days worth of midline chest pain, rated 8/10. The patient states this feels somewhat similar to previous episodes of chest pain. He denies aggravating alleviating factors aside from some cough. His cough has been productive of some mucus without blood. He denies abdominal melissa, shortness of breath or lower extremity swelling. Related Data Home Medications Medication Instructions Recorded Confirmed hydralazine 50 mg tablet 50 mg PO TID 10/30/23 10/30/23 losartan 100 mg tablet 100 mg PO DAILY 10/30/23 10/30/23 Allergies Allergy/AdvReac Type Severity Reaction Status Date / Time No Known Allergies Allergy Verified 10/30/22 16:01 Review of Systems Review of Systems: CONSTITUTIONAL: Denies fever, chills, or sweats. CARDIOVASCULAR: Chest pain Denies chest pain, palpitations, or edema. RESPIRATORY: cough productive of nobloody sputum Denies cough or dyspnea. GASTROINTESTINAL: Denies abdominal pain, nausea, vomiting, or diarrhea. GENITOURINARY: Denies dysuria or hematuria. SKIN: Denies rash or itching. MUSCULOSKELETAL: Denies back pain, joint pain, or myalgia. NEUROLOGIC: Denies headache, numbness, dizziness, or weakness. PSYCHIATRIC: Denies anxiety or depression. [facility] Past Medical History Medical History Anemia Atrial fibrillation with rapid ventricular response CAD (coronary artery disease) Congestive heart failure (CHF) Myocardial infarction Tobacco abuse Surgical History Surgical History H/O toe surgery The great toe on the right had been amputated 3 times and reattached. History of mandibular surgery Family History Family History Father Acute myocardial infarction Hypertension Mother Cerebrovascular accident Social History Social History Social History: The patient stated that he quit smoking October 14, 2019. He does not use any alcohol but does occasionally smoke marijuana. No illicit drugs. He is is with his and 2 kids. His children are healthy. He desires to be full code and his is the durable power workers compensation attorney for healthcare. 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 Smoking packs per day: 1.5 Smoking cigarettes per day: 30.0 Years smoked: 30 Smoking pack-years: 45.00 Smoking status: Never smoker Tobacco type: cigarettes Smoking end date: 11/22/18 Additional smoking assessment comments: quit Sep 2019 Alcohol intake: never Substance use: former Substance use type: marijuana and crack/cocaine Other substance usage details: relapsed last week on cocaine when mother Last use: t-1 Lack of Transportation: No Lack of Food: Never True Current Housing: I Have Housing Concerned About Future Housing: No Difficulty Paying Gas/Electric Bills: No Difficulty Paying for Meds: No Currently Unemployed: No Education: High School Diploma/GED Difficulty w/ Childcare or Family Care: No Living arrangements: with family Gender identity (if verbalized by the patient): Male Spiritual care concerns: No Exam Narrative: GENERAL: Well-appearing, well-nourished, and in no acute distress. HEAD: Normocephalic, atraumatic. EYES: PERRLA and EOMI. NECK: Supple. No adenopathy or masses. No carotid bruits or JVD CHEST: Clear to auscultation. No respiratory distress. No wheezes rales or rhonchi HEART: irregularly irregular. No murmur heard. Normal peripheral pulses. ABDOMEN: Soft, nontender, nondistended, nor
[2023-10-30] MEDS: POTASSIUM CHLORIDE INJ 40 MEQ in SODIUM CHLORIDE 0.9% IV 500 ML 130 MEQ IVPB ×2 (13:21→22:11)
--- NOTE | 2023-10-30 13:59 | ECG_ITS ---
Measurements Intervals [place] Rate: 65 P: [place]: 0 QRS: -39 QRSD: 126 T: 123 QT: 463 QTc: 483 Interpretive Statements SINUS RHYTHM WITH SUPRAVENTRICULAR PREMATURE COMPLEXES LEFT AXIS DEVIATION LEFT VENTRICULAR HYPERTROPHY AND ST-T CHANGE Electronically Signed On 10-31-2023 10:24:59 WHIP SAWYER by Nikita Mello M.D.
--- NOTE | 2023-10-30 14:25 | PM.IMHP ---
H&P: HPI History of Present Illness Date/Time: 10/30/23 14:25 Chief Complaint: Chest Pain Narrative: 53 y/o M presents here with chest pain and SOB with PMH of CHF, AFib RVR, cardiomyopathy, cardiac stent placement x2, and he is a former smoker. Patient presented here midsternal, nonradiating, and constant chest pain. 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 He has not identified any alleviating or aggravating factors. In transport with EMS, nitropaste applied with partial resolution chest pain. Given additional sublingual nitro x2 in ED with full resolution of chest pain. Endorses associated dizziness and lightheadedness. No nausea or diaphoresis. Also developed productive cough on Friday 10/26. Denies history of chronic cough, former smoker (smoked for 30 years, 2 ppd, with cessation in 2019). Has also had ongoing shortness of breath that does occasionally worsened with activity, most prominent when patient is work. Denies any swelling to his lower extremities or abdomen. Reported today symptoms were similar to his previous presentation on 10/29/22, where he was admitted and found to have new AFib w/RVR requiring cardioversion, acute on chronic HF with EF of 25%, mild anemia, and TABITHA on CKD. Was discharged with Plavix, nifedipine, Eliquis, carvedilol and was fitted for a LifeVest. Patient reports that he was compliant with the life vest for approximately 3 months, thin unclear if patient stopped wearing it (non-compliance) or if it was discontinued, patient unsure. States he has not followed up his chipping machine operator at all in the last 6-7 months. No other complaints or concerns. Review of Systems Review of Systems: All systems reviewed & are unremarkable except as noted in HPI and below [facility] Past Medical History Medical History (Updated 10/30/23 @ 20:25 by Dbe Sanon APRN) Anemia Atrial fibrillation with rapid ventricular response CAD (coronary artery disease) Cardiomyopathy Chronic kidney disease, stage 3a Congestive heart failure (CHF) Hypertension NSTEMI (non-ST elevated myocardial infarction) Tobacco abuse Surgical History Surgical History H/O toe surgery The great toe on the right had been amputated 3 times and reattached. History of mandibular surgery Family History Family History Father Acute myocardial infarction Hypertension Mother Cerebrovascular accident Social History Social History Social History: The patient stated that he quit smoking October 14, 2019. He does not use any alcohol but does occasionally smoke marijuana. No illicit drugs. He is is with his and 2 kids. His children are healthy. He desires to be full code and his is the durable power consumer attorney for healthcare. 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 Smoking packs per day: 1.5 Smoking cigarettes per day: 30.0 Years smoked: 30 Smoking pack-years: 45.00 Smoking status: Never smoker Tobacco type: cigarettes Smoking end date: 11/22/18 Additional smoking assessment comments: quit Sep 2019 Alcohol intake: never Substance use: former Substance use type: marijuana and crack/cocaine Other substance usage details: relapsed last week on cocaine when mother Last use: t-1 Lack of Transportation: No Lack of Food: Never True Current Housing: I Have Housing Concerned About Future Housing: No Difficulty Paying Gas/Electric Bills: No Difficulty Paying for Meds: No Currently Unemployed: No Education: High School Diploma/GED Difficulty w/ Childcare or Family Care: No Living arrangements: with family Gender identity (if verbalized by the patient): Male Spiritual care concerns: No Meds Home Medications and Allergies Home Medications Medication Instructions R
[2023-10-30] MEDS: hydrALAZINE HCL 20 MG/ML VIAL 10 MG IV PUSH (14:54)
[2023-10-30 14:59] LABS: Troponin I 0.063 ng/mL (0.000-0.034)
--- NOTE | 2023-10-30 15:31 | ADMGEN ---
This patient, Gopi Viramontes, was admitted to IMU Room 211-01. Patient/family oriented to hospital policies and general routines including ID bracelet, bed and alarms, visiting hours, pain management, procedures, bathroom and other care routines, personal items, smoking policy, room service/diet, and visiting hours. Information on how to activate the Rapid Response Team has been discussed. Patient/Family are encouraged to report perceived risks to care and to ask questions if they do not understand what they are told or what they should do.
[2023-10-30 16:28] LABS: Glucose Point of Care 116 mg/dl (65-105)
[2023-10-30 19:47] LABS: Troponin I 0.054 ng/mL (0.000-0.034)
[2023-10-30] MEDS: IPRATROPIUM BR 0.02% INH SOLN 0.5 MG/2.5 ML VIAL INHALATION (20:28)
[2023-10-30] MEDS: ALBUTEROL SULFATE NEB 2.5 MG/3 ML INH INHALATION (20:29)
[2023-10-30 21:01] LABS: NT Pro B Type Natriuretic Pept 9280 pg/mL (19.9-100)
[2023-10-30 21:06] LABS: Anion Gap 4 mmol/L (8-16); Blood Urea Nitrogen 17 mg/dL (9-20); Calcium 8.4 mg/dL (8.4-10.2); Carbon Dioxide 32 mmol/L (22-30); Chloride 103 mmol/L (98-107); Estimated CRCL calculation 56 ml/min; Estimated Glomerular Filt Rate 53; Glucose 136 mg/dL (65-110); Magnesium 1.9 mg/dL (1.6-2.3); Potassium 2.8 mmol/L (3.4-5.0); Sodium 139 mmol/L (137-145)
[2023-10-30] MEDS: FUROSEMIDE INJ 40 MG/4 ML VIAL 20 MG IV PUSH (21:10)
[2023-10-30] MEDS: NITROGLYCERIN SL 0.4 MG TABLET SUBLINGUAL ×2 (21:11→21:18)
--- NOTE | 2023-10-30 21:19 | ECG_ITS ---
Measurements Intervals [place] Rate: 81 P: OR: 0 QRS: -39 QRSD: 125 T: 150 QT: 421 QTc: 491 Interpretive Statements ECTOPIC ATRIAL RHYTHM LEFT AXIS DEVIATION LEFT VENTRICULAR HYPERTROPHY AND ST-T CHANGE Electronically Signed On 10-31-2023 10:28:56 KNOCKER OUT by Nikita Mello M.D.
[2023-10-30] MEDS: POTASSIUM CHLORIDE 20 MEQ PACKET (FOR LIQUID) 40 MEQ PO (21:29)
[2023-10-31] VITALS (27 sets, daily range): BP systolic 157–202; BP diastolic 83–111; PULSE 64–94; RESP 16–28; TEMP 36.6–37.1; O2SAT 93–97
[2023-10-31] MEDS: MORPHINE SULFATE (*CRX) 2 MG/ML INJ IV PUSH (01:34)
[2023-10-31] MEDS: NITROGLYCERIN SL 0.4 MG TABLET SUBLINGUAL (01:35)
[2023-10-31] MEDS: IPRATROPIUM BR 0.02% INH SOLN 0.5 MG/2.5 ML VIAL INHALATION ×4 (02:07→20:19)
[2023-10-31] MEDS: ALBUTEROL SULFATE NEB 2.5 MG/3 ML INH INHALATION ×4 (02:08→20:07)
[2023-10-31 04:50] LABS: Free T4 Free Thyroxine Reflex 1.51 ng/dL (0.78-2.19)
[2023-10-31 05:33] LABS: Basophils Percent Auto 0.4 % (0.2-1.2); Eosinophils Absolute Auto 0.1 K/mm3 (0-0.3); Eosinophils Percent Auto 1.2 % (0-4.4); Hematocrit 34.3 % (42.0-52.0); Hemoglobin 11.1 g/dL (14.0-18.0); Immature Granulocyte Absolute 0.03 K/mm3 (0.00-0.031); Immature Granulocyte Percent A 0.4 % (0-0.5); Lymphocytes Absolute Auto 1.04 K/mm3 (0.9-3.2); Lymphocytes Percent Auto 12.6 % (18.3-44.2); Mean Corpuscular HGB Conc 32.4 g/dl (32-36); Mean Corpuscular Hemoglobin 31.5 pg (26-34); Mean Corpuscular Volume 97.4 fl (80-100); Mean Platelet Volume 10.1 fl (7.4-10.4); Monocytes Absolute Auto 0.9 K/mm3 (0.1-0.6); Monocytes Percent Auto 10.7 % (2.6-8.5); Neutrophils Absolute Auto 6.2 K/mm3 (1.3-6.7); Neutrophils Percent Auto 74.7 % (45.5-73.1); Platelet Count Result 270 k/mm3 (150-375); Red Blood Count 3.52 M/mm3 (4.6-6.20); Red Cell Distribution Width 14.3 % (11.5-14.5); White Blood Count 8.3 K/mm3 (4.5-10.0)
[2023-10-31 05:41] LABS: Hemoglobin A1C 5.3 % (<5.7)
[2023-10-31 05:45] LABS: Alanine Aminotransferase 25 U/L (6-50); Albumin Level 3.8 g/dL (3.5-5.1); Alkaline Phosphatase 112 U/L (38-126); Anion Gap 8 mmol/L (8-16); Aspartate Amino Transferase 31 U/L (17-59); Bilirubin,Total 1.3 mg/dL (0.2-1.3); Blood Urea Nitrogen 16 mg/dL (9-20); Calcium 8.7 mg/dL (8.4-10.2); Carbon Dioxide 27 mmol/L (22-30); Chloride 105 mmol/L (98-107); Cholesterol 161 mg/dL (0-200); Estimated CRCL calculation 56 ml/min; Estimated Glomerular Filt Rate 53; Glucose 113 mg/dL (65-110); HDL Direct 27 mg/dL; Potassium 3.2 mmol/L (3.4-5.0); Sodium 140 mmol/L (137-145); Triglycerides 77 mg/dL (<150)
[2023-10-31] MEDS: hydrALAZINE HCL 50 MG TABLET PO ×3 (05:50→20:47)
[2023-10-31 05:52] LABS: Total Triiodothyronine (T3) 1.95 NG/ML (0.97-1.69)
[2023-10-31 05:56] LABS: LDL Cholesterol Direct 107 mg/dL
[2023-10-31] MEDS: AMIODARONE HCL 200 MG TABLET PO (09:37)
[2023-10-31] MEDS: ASPIRIN 81 MG ENTERIC TABLET PO (09:37)
[2023-10-31] MEDS: ENOXAPARIN 40 MG/0.4 ML SYRINGE SUB-Q (09:37)
[2023-10-31] MEDS: FUROSEMIDE INJ 40 MG/4 ML VIAL 20 MG IV PUSH (09:37)
[2023-10-31] MEDS: LOSARTAN POTASSIUM 100 MG TABLET PO (09:37)
--- NOTE | 2023-10-31 09:42 | PM.IMPN ---
Progress Note: A&P Assessment and Plan (1) Hypertension: Qualifiers: Hypertension type: primary hypertension Qualified Code(s): I10 - Essential (primary) hypertension Code(s): I10 - Essential (primary) hypertension Status: Acute (2) Atrial fibrillation: Qualifiers: Atrial fibrillation type: unspecified Qualified Code(s): I48.91 - Unspecified atrial fibrillation Code(s): I48.91 - Unspecified atrial fibrillation Status: Acute (3) Congestive heart failure (CHF): Qualifiers: Heart failure type: systolic Heart failure chronicity: chronic Qualified Code(s): I50.22 - Chronic systolic (congestive) heart failure Code(s): I50.9 - Heart failure, unspecified Status: Acute (4) Shortness of breath: Code(s): R06.02 - Shortness of breath Status: Acute (5) Chronic kidney disease, stage 3a: Code(s): N18.31 - Chronic kidney disease, stage 3a Status: Acute (6) Elevated troponin: Code(s): R79.89 - Other specified abnormal findings of blood chemistry Status: Acute (7) Chest pain: Qualifiers: Chest pain type: chest pain due to myocardial ischemia Ischemic chest pain type: unstable angina pectoris Qualified Code(s): I20.0 - Unstable angina Code(s): R07.9 - Chest pain, unspecified Status: Acute Plan pt gets his cardiology care in [place], unsure of the barkeep's name. his med list includes only hydralazine, losartan and amiodarone, reporting he was taken off all other meds from his barkeep. unclear why although. will allow cardiology consult to dictate next steps. replace hypokalemia and recheck in am concerning his chest pain, he is asymptomatic now. although his pain could have been related to a fib and/or decompensated heart failure, it was typical, so will defer next steps to cardiology. for now, continue lasix daily. he was placed on aspirin by admitting nurse practitioner, will continue that. his last stent was placed in 2020 and per the patient has not had stress test or cath since then. lovenox prophylaxis full code. Subjective Date/time seen: 10/31/23 09:42 Interval history: naoe. patient is asymptomatic, sleepy in bed. he denies chest pain, only mild wheeze and cough which might have been improved after neb treatment Review of Systems Review of Systems: All systems reviewed & are unremarkable except as noted in HPI and below Exam Const: General: comfortable and no acute distress Other: A&Ox3 Eyes: Pupils: Equal, round and reactive pupils present Resp: Effort & Inspection: normal respiratory effort Auscultation: crackles (mild, up to mid lungs) Cardio: Rate: regular rate Rhythm: abnormal rhythm Heart sounds: no gallops, no murmurs and no rubs GI: GI Palp: Yes Soft to palpation and No Tenderness to palpation present (GI) Extrem: General: no edema Objective Data Vital Signs Vital Signs: Vital Signs - 24 hr 10/30/23 10:46 10/30/23 10:52 10/30/23 12:53 Temperature 98 F Pulse Rate 89 68 Respiratory Rate 16 Blood Pressure 187/114 H Pulse Oximetry 90 95 Oxygen Delivery Room Air Nasal Cannula Oxygen Flow Rate 2 10/30/23 12:53 10/30/23 12:30 10/30/23 12:31 Temperature Pulse Rate 73 69 Respiratory Rate 16 15 Blood Pressure 169/105 H 185/97 H Pulse Oximetry 99 97 95 Oxygen Delivery Nasal Cannula Oxygen Flow Rate 2 10/30/23 13:01 10/30/23 13:31 10/30/23 14:31 Temperature Pulse Rate 64 63 67 Respiratory Rate 15 12 14 Blood Pressure 169/100 H 172/89 H 151/91 H Pulse Oximetry 97 100 97 Oxygen Delivery Oxygen Flow Rate 10/30/23 14:52 10/30/23 16:00 10/30/23 16:00 Temperature 97.8 F Pulse Rate 67 53 L 60 Respiratory Rate 14 20 Blood Pressure 170/109 H 143/68 H Pulse Oximetry 99 99 Oxygen Delivery Oxygen Flow Rate 10/30/23 18:00 10/30/23 16:00 10/30/23 19:56 Temperature 98.2
--- NOTE | 2023-10-31 11:18 | PM.CNCAR ---
Assessment and Plan Assessment and plan (1) Elevated troponin: Code(s): R79.89 - Other specified abnormal findings of blood chemistry Status: Acute Assessment and Plan: 53-year-old male with known CAD, history of PCI/Biotronik ORSIRO 3.5 x 18 mm sirolimus eluting stent to mid right coronary artery on 05/22/2021; paroxysmal atrial fibrillation, CKD. Patient presents with about a 10 day history of substernal chest discomfort associated with worsening shortness of breath. He has also been experiencing cough with expectoration and worsening of chest discomfort with cough, however, patient reports that chest pain preceded his symptoms of cough. Troponins minimally elevated. EKG shows sinus rhythm, LVH with ST-T abnormality, possible ischemia. Troponins minimally elevated and essentially flat. Presentation consistent with CHF with possible non ST elevation OR. - echocardiogram with Doppler to reassess LV function and wall motion. - continue aspirin; add low-dose beta-suzi, statin. Start low-molecular weight heparin, last dose to be given tonight, in case patient goes to matlab developer tomorrow. Apixaban on hold. Patient reports last apixaban dose couple of days ago. - keep NPO from midnight -continue to monitor on telemetry (2) Congestive heart failure (CHF): Qualifiers: Heart failure type: systolic Heart failure chronicity: chronic Qualified Code(s): I50.22 - Chronic systolic (congestive) heart failure Code(s): I50.9 - Heart failure, unspecified Status: Acute Assessment and Plan: - diuresis with furosemide. On ARB and beta-suzi. - Echo with Doppler (3) PAF (paroxysmal atrial fibrillation): Code(s): I48.0 - Paroxysmal atrial fibrillation Status: Acute Assessment and Plan: currently in sinus rhythm. Patient has been on amiodarone. TSH is elevated. Hold amiodarone for now. Anticoagulation with apixaban on hold in anticipation for possible invasive ischemic workup. (4) Hypothyroidism: Code(s): E03.9 - Hypothyroidism, unspecified Status: Acute Assessment and Plan: Hypothyroidism in the setting of amiodarone use. TSH elevated at 13.3. Check free T4. Management as per primary team. Amiodarone put on hold. History of Present Illness History of Present Illness Consult date/time: 10/31/23 11:18 Requesting physician: Jayce Bains MD Reason For Visit: Unstable Angina Narrative: DATE OF CONSULT: 10/31/2023 REASON FOR CONSULT: Angina REQUESTING PHYSICIAN:MD Herson CHIEF COMPLAINT: Chest pain HPI: 53-year-old male with known CAD, history of PCI/Biotronik ORSIRO 3.5x18 mm sirolimus eluting stent to mid right coronary artery on 05/22/2021; paroxysmal atrial fibrillation, CKD. Patient presented to [facility] Emergency Room on 10/30/2023 with about 10 day history of chest discomfort. Features similar to prior angina.He states that he has been coughing with scanty expectoration and chest pain gets worse with coughing however, he states that his chest pain started prior to cough. Symptom associated with dyspnea on mild exertion. He has occasional orthostatic dizziness without syncope. Patient states that he follows up with a accounting assistant at [facility], [place], does not recall the name of the accounting assistant. He has been compliant with medical regimen. EKG on my personal interpretation shows sinus rhythm, LVH with ST-T abnormality. Troponin minimally elevated at 0.06 which is trending downwards and essentially flat. Chest x-ray shows Cardiomegaly with mild interstitial edema. On telemetry, he has been in sinus rhythm. Review of Systems Review of Systems: General: Negative for fever, chills, fatigue Psychological: Negative for anxiety, depression Ophthalmic: negative for loss of vision ENT: Negative for epistaxis, headaches Allergy and immunology: Negative for hives, nasal congestion Hematologic and lymphatic: Negat
[2023-10-31 14:12] LABS: Free T4 Free Thyroxine 1.27 ng/mL (0.78-2.19)
[2023-10-31] MEDS: ENOXAPARIN 60 MG/0.6 ML SYRINGE 50 MG SUB-Q (17:53)
[2023-10-31] MEDS: POTASSIUM CHLORIDE 20 MEQ ER TABLET 40 MEQ PO (17:53)
[2023-10-31] MEDS: carvediloL 3.125 MG TABLET PO (20:47)
[2023-10-31] MEDS: ENOXAPARIN 100 MG/ML SYRINGE 90 MG SUB-Q (20:47)
[2023-11-01] VITALS (21 sets, daily range): BP systolic 158–177; BP diastolic 80–95; PULSE 70–90; RESP 18–20; TEMP 36.7–37.2; O2SAT 95–97
--- NOTE | 2023-11-01 | ECHO_ITS ---
Patient Info Name: Gopi Viramontes Age: 53 years : 1970 Gender: Male Ht: 70 in Wt: 201 lbs BSA: 2.14 m2 HR: 90 bpm BP: 177 / 94 mmHg Heart Rhythm: Sinus Rhythm Technical Quality: Fair Exam Date: 11/01/2023 11:07 AM Exam Location: Echo Lab Patient Status: Inpatient Admit Date: 10/30/2023 Staff Ordering Physician: Nikita Mello MD Branch Billing Payroll Clerk: Josie Adkins RDCS Attending Provider: Hakan Gilmore MD Exam Type: CA echo dop color flow w con Study Info Indications - NSTEMI Complete two-dimensional, color flow and Doppler transthoracic echocardiogram is performed with contrast to opacify the left ventricle and to improve the deliniation of the left ventricle endocardial borders. Contrast/Agitated Saline Contrast/Ag. Saline: Definity Amount: 2.00 ml Administered By: Josie Adkins RDCS Existing IV Access: Yes IV Access Condition: patent with no signs of infiltration Summary 1. The anterolateral wall, inferolateral wall, basal inferior wall, mid inferior wall, basal anterior wall, mid anterior wall, basal anteroseptal, and mid anteroseptal are hypokinetic. 2. Left ventricular chamber dimension is mildly enlarged. 3. Left ventricular systolic function is moderately reduced, estimated at 40-45%. 4. There is mildly increased left ventricular wall thickness. 5. The left ventricular diastolic function is grade II diastolic dysfunction. 6. Left atrial chamber dimension is mildly enlarged. 7. There is mild mitral valve regurgitation. 8. The mitral valve has thickened leaflets. 9. There is mild tricuspid valve regurgitation. 10. Moderate pulmonary hypertension, estimated pulmonary arterial systolic pressure is 56 mmHg. Left Ventricle Left ventricular chamber dimension is mildly enlarged. Left ventricular systolic function is moderately reduced, estimated at 40-45%. There is mildly increased left ventricular wall thickness. The left ventricular diastolic function is grade II diastolic dysfunction. The anterolateral wall, inferolateral wall, basal inferior wall, mid inferior wall, basal anterior wall, mid anterior wall, basal anteroseptal, and mid anteroseptal are hypokinetic. All other rodríguez appear normal. Right Ventricle Right ventricular chamber dimension is normal. Right ventricular systolic function is normal. Left Atria Left atrial chamber dimension is mildly enlarged. Right Atria Right atrial chamber dimension is normal. Atrial Septum Intact interatrial septum visualized by color flow imaging. Aortic Valve The aortic valve is trileaflet. There is mild aortic valve sclerosis. There is no aortic valve stenosis. There is trace aortic valve regurgitation. Pulmonic Valve The pulmonic valve is normal. There is no pulmonic valve stenosis. There is trace pulmonic regurgitation. Mitral Valve The mitral valve has thickened leaflets. There is no mitral valve stenosis. There is mild mitral valve regurgitation. Tricuspid Valve The tricuspid valve leaflets are normal. There is no significant tricuspid valve stenosis. There is mild tricuspid valve regurgitation. Moderate pulmonary hypertension, estimated pulmonary arterial systolic pressure is 56 mmHg. Pericardium/Pleural The pericardium appears normal. There is no pericardial effusion. Inferior Vena Cava Normal inferior vena cava with >50% collapse upon inspiration consistent with normal right atrial pressure, 10 mmHg. Aorta The aortic root size at the sinus of Valsalva is normal. Left Ventricular Outflow Tract ----
[2023-11-01] MEDS: ALBUTEROL SULFATE NEB 2.5 MG/3 ML INH INHALATION ×2 (01:51→19:35)
[2023-11-01] MEDS: IPRATROPIUM BR 0.02% INH SOLN 0.5 MG/2.5 ML VIAL INHALATION ×2 (01:51→19:34)
[2023-11-01 04:44] LABS: Hemoglobin 11.9 g/dL (14.0-18.0); Mean Corpuscular HGB Conc 33.1 g/dl (32-36); Mean Corpuscular Hemoglobin 31.8 pg (26-34); Mean Corpuscular Volume 96.3 fl (80-100); Platelet Count Result 324 k/mm3 (150-375); Red Blood Count 3.74 M/mm3 (4.6-6.20); Red Cell Distribution Width 13.8 % (11.5-14.5); White Blood Count 9.6 K/mm3 (4.5-10.0)
[2023-11-01 05:00] LABS: Anion Gap 7 mmol/L (8-16); Blood Urea Nitrogen 19 mg/dL (9-20); Calcium 8.9 mg/dL (8.4-10.2); Carbon Dioxide 28 mmol/L (22-30); Chloride 103 mmol/L (98-107); Estimated CRCL calculation 60 ml/min; Estimated Glomerular Filt Rate 58; Glucose 102 mg/dL (65-110); Magnesium 1.8 mg/dL (1.6-2.3); Potassium 3.2 mmol/L (3.4-5.0); Sodium 138 mmol/L (137-145)
[2023-11-01] MEDS: hydrALAZINE HCL 50 MG TABLET PO ×3 (06:37→22:18)
[2023-11-01] MEDS: ASPIRIN 81 MG ENTERIC TABLET PO (08:38)
[2023-11-01] MEDS: ATORVASTATIN 40 MG TABLET PO (08:38)
[2023-11-01] MEDS: carvediloL 3.125 MG TABLET PO ×2 (08:38→22:18)
[2023-11-01] MEDS: LOSARTAN POTASSIUM 100 MG TABLET PO (08:39)
[2023-11-01] MEDS: FUROSEMIDE INJ 40 MG/4 ML VIAL 20 MG IV PUSH (08:39)
[2023-11-01] MEDS: POTASSIUM CHLORIDE 20 MEQ ER TABLET 40 MEQ PO (10:39)
[2023-11-01] MEDS: ACETAMINOPHEN 325 MG TABLET 650 MG PO (11:05)
[2023-11-01] MEDS: PERFLUTREN LIPID MICROSPHERES 1.5 ML VIAL DILUTED TO 10 ML TOTAL VOLUME IV PUSH (11:29)
--- NOTE | 2023-11-01 12:17 | IVDEFINITY ---
Prior to administration of IV Definity the patient was educated on the risks and benefits of the imaging enhancing agent including potential adverse side effects. The patient verbalized understanding. Allergies were verified. No exclusion criteria were identified and at least one of the following inclusion criteria were met: 1) physician request, 2) patient technically difficult to image (per the [place] [employer] Echocardi[employer] guidelines of two or more segments not discernable within the apical view), or 3) questionable left ventricular function. ?
--- NOTE | 2023-11-01 16:18 | PM.PNCARD ---
Progress Note: A&P Assessment and Plan (1) Shortness of breath: Code(s): R06.02 - Shortness of breath Status: Acute (2) Elevated troponin: Code(s): R79.89 - Other specified abnormal findings of blood chemistry Status: Acute (3) Chest pain: Qualifiers: Chest pain type: chest pain due to myocardial ischemia Ischemic chest pain type: unstable angina pectoris Qualified Code(s): I20.0 - Unstable angina Code(s): R07.9 - Chest pain, unspecified Status: Acute Plan 53-year-old man with ischemic heart disease treated with right coronary stenting in the past also history of paroxysmal AFib and mild left ventricular systolic dysfunction. He enters the hospital with a 5-6 day history of chest pain associated with coughing. This is highly atypical and in my opinion not suggestive of ACS. This pain going on for a number of days with trivial elevation in his troponin level does not raise great concern regarding ACS. I am going to stop his Lovenox at this point I will add spironolactone to his medical regimen and expect to resume apixaban tomorrow. The remainder of his medical regimen is appropriate and consists of both losartan as well as hydralazine for vasodilators and a modest dose of carvedilol. Luis Miguel Molina MD [facility] Subjective Date/time seen: Date of service: 11/01/23 16:18 Interval history: Follow-up visit in this 53-year-old man with: History of coronary artery disease treated with PCI to the right coronary artery couple of years ago also history of paroxysmal atrial fibrillation. He presents to the hospital with a 5-6 day history of constant unremitting chest pain as well as some shortness of breath. Despite this type of pain for 4-5 days prior to admission his troponin levels are minimally elevated and flat. Echocardiogram does demonstrate mild left ventricular systolic dysfunction and he is maintaining sinus rhythm with maintenance dose of amiodarone. Exam Const: General: comfortable and no acute distress Other: Well-developed well-nourished white male watching television no significant complaint at the time of entering his room HENMT: Mouth: Yes moist mucous membranes Eyes: Sclera: sclerae normal Neck: Neck: supple and no JVD Resp: Effort & Inspection: normal respiratory effort Other: Course the breath sounds throughout both lung avalos centrally. Cardio: Rate: regular rate Rhythm: regular rhythm Other: Frequent extrasystoles, GI: GI Palp: Yes Soft to palpation Auscultation: normal bowel sounds Skin: General skin exam: normal color Neuro: Other: Alert and oriented x3 Extrem: Other: There is no edema distal pulses are brisk Objective Data Vital Signs Vital Signs: Vital Signs - 24 hr 10/31/23 18:00 10/31/23 19:40 10/31/23 19:46 Temperature 36.8 C Pulse Rate 80 82 Respiratory Rate 22 H Blood Pressure 202/111 H 187/104 H Pulse Oximetry 96 Oxygen Delivery 10/31/23 20:47 10/31/23 20:35 10/31/23 20:19 Temperature Pulse Rate 84 86 92 Respiratory Rate 18 18 Blood Pressure Pulse Oximetry Oxygen Delivery 10/31/23 21:16 10/31/23 20:00 10/31/23 23:54 Temperature 36.6 C Pulse Rate 86 90 Respiratory Rate 18 18 Blood Pressure 164/102 H Pulse Oximetry 94 94 97 Oxygen Delivery Room Air Room Air 11/01/23 00:00 11/01/23 01:51 11/01/23 02:01 Temperature Pulse Rate 90 88 89 Respiratory Rate 18 20 18 Blood Pressure Pulse Oximetry 97 Oxygen Delivery Room Air 11/01/23 04:00 11/01/23 04:00 10/31/23 20:00 Temperature 37.2 C Pulse Rate 89 82 89 Respiratory Rate 18 18 Blood Pressure 177/94 H Pulse Oximetry 97 97 Oxygen Delivery Room Air 10/31/23 22:00 11/01/23 00:00 11/01/23 02:00 Temperature Pulse Rate 76 74 86 Respiratory Rate Blood Pressure Pulse Oximetry Oxygen Delivery 11/01/23 04:00 11/01/23 06:00 11/01/23 07:33
--- NOTE | 2023-11-01 17:21 | PM.IMPN ---
Progress Note: A&P Assessment and Plan (1) Hypothyroidism: Code(s): E03.9 - Hypothyroidism, unspecified Status: Acute (2) PAF (paroxysmal atrial fibrillation): Code(s): I48.0 - Paroxysmal atrial fibrillation Status: Acute (3) Hypertension: Qualifiers: Hypertension type: primary hypertension Qualified Code(s): I10 - Essential (primary) hypertension Code(s): I10 - Essential (primary) hypertension Status: Acute (4) Congestive heart failure (CHF): Qualifiers: Heart failure type: systolic Heart failure chronicity: chronic Qualified Code(s): I50.22 - Chronic systolic (congestive) heart failure Code(s): I50.9 - Heart failure, unspecified Status: Acute Plan cont tele monitor in light of a fib and acute chf. spironolactone added, to restart eliquis tomorrow. replaced potassium, recheck in AM with magnesium. amiodarone dc'ed. will need f/u labs for TSH, free t4 and total t3 as outpatient. cardiology recs appreciated. Subjective Date/time seen: 11/01/23 17:21 Interval history: pt chest pain free. he denies other symptoms as well. Review of Systems Review of Systems: All systems reviewed & are unremarkable except as noted in HPI and below (subjective) Exam Const: General: comfortable and no acute distress Eyes: Pupils: Equal, round and reactive pupils present Neck: Neck: supple Resp: Effort & Inspection: normal respiratory effort Auscultation: crackles Cardio: Rate: regular rate Rhythm: regular rhythm Heart sounds: no gallops, no murmurs and no rubs GI: GI Palp: Yes Soft to palpation and No Tenderness to palpation present (GI) Extrem: General: no edema Objective Data Vital Signs Vital Signs: Vital Signs - 24 hr 10/31/23 18:00 10/31/23 19:40 10/31/23 19:46 Temperature 98.3 F Pulse Rate 80 82 Respiratory Rate 22 H Blood Pressure 202/111 H 187/104 H Pulse Oximetry 96 Oxygen Delivery 10/31/23 20:47 10/31/23 20:35 10/31/23 20:19 Temperature Pulse Rate 84 86 92 Respiratory Rate 18 18 Blood Pressure Pulse Oximetry Oxygen Delivery 10/31/23 21:16 10/31/23 20:00 10/31/23 23:54 Temperature 98 F Pulse Rate 86 90 Respiratory Rate 18 18 Blood Pressure 164/102 H Pulse Oximetry 94 94 97 Oxygen Delivery Room Air Room Air 11/01/23 00:00 11/01/23 01:51 11/01/23 02:01 Temperature Pulse Rate 90 88 89 Respiratory Rate 18 20 18 Blood Pressure Pulse Oximetry 97 Oxygen Delivery Room Air 11/01/23 04:00 11/01/23 04:00 10/31/23 20:00 Temperature 98.9 F Pulse Rate 89 82 89 Respiratory Rate 18 18 Blood Pressure 177/94 H Pulse Oximetry 97 97 Oxygen Delivery Room Air 10/31/23 22:00 11/01/23 00:00 11/01/23 02:00 Temperature Pulse Rate 76 74 86 Respiratory Rate Blood Pressure Pulse Oximetry Oxygen Delivery 11/01/23 04:00 11/01/23 06:00 11/01/23 07:33 Temperature 98.4 F Pulse Rate 70 90 89 Respiratory Rate 20 Blood Pressure 161/82 H Pulse Oximetry 95 Oxygen Delivery 11/01/23 09:02 11/01/23 08:00 11/01/23 12:00 Temperature 98.4 F Pulse Rate 81 Respiratory Rate 20 Blood Pressure 158/95 H Pulse Oximetry 95 95 95 Oxygen Delivery Room Air Room Air 11/01/23 13:50 11/01/23 14:06 11/01/23 12:00 Temperature Pulse Rate 82 85 Respiratory Rate 18 18 Blood Pressure Pulse Oximetry 95 Oxygen Delivery Room Air 11/01/23 08:00 11/01/23 12:00 11/01/23 14:00 Temperature Pulse Rate 78 78 72 Respiratory Rate Blood Pressure Pulse Oximetry Oxygen Delivery 11/01/23 10:00 11/01/23 15:34 Temperature 98.0 F Pulse Rate 77 76 Respiratory Rate 20 Blood Pressure 158/91 H Pulse Oximetry 95 Oxygen Delivery Intake/Output Intake/Output: Intake & Output 10/29/23 10/30/23 10/31/23 11/01/23 23:59 23:59 23:59 23:59 Intake Total 960 1650 Output Total 1430 2520 Balance -470
[2023-11-02] VITALS (19 sets, daily range): BP systolic 133–193; BP diastolic 74–105; PULSE 68–125; RESP 16–22; TEMP 36.1–37; O2SAT 94–97
[2023-11-02] MEDS: ALBUTEROL SULFATE NEB 2.5 MG/3 ML INH INHALATION ×3 (01:56→14:23)
[2023-11-02] MEDS: IPRATROPIUM BR 0.02% INH SOLN 0.5 MG/2.5 ML VIAL INHALATION ×3 (01:56→14:23)
[2023-11-02 05:41] LABS: Hematocrit 38.8 % (42.0-52.0); Hemoglobin 12.5 g/dL (14.0-18.0); Mean Corpuscular HGB Conc 32.2 g/dl (32-36); Mean Corpuscular Hemoglobin 31.4 pg (26-34); Mean Corpuscular Volume 97.5 fl (80-100); Mean Platelet Volume 9.8 fl (7.4-10.4); Platelet Count Result 397 k/mm3 (150-375); Red Blood Count 3.98 M/mm3 (4.6-6.20); Red Cell Distribution Width 13.5 % (11.5-14.5); White Blood Count 10.7 K/mm3 (4.5-10.0)
[2023-11-02 05:56] LABS: Anion Gap 6 mmol/L (8-16); Blood Urea Nitrogen 33 mg/dL (9-20); Calcium 8.8 mg/dL (8.4-10.2); Carbon Dioxide 29 mmol/L (22-30); Chloride 102 mmol/L (98-107); Estimated CRCL calculation 46 ml/min; Estimated Glomerular Filt Rate 42; Glucose 121 mg/dL (65-110); Magnesium 2.1 mg/dL (1.6-2.3); Potassium 3.4 mmol/L (3.4-5.0); Sodium 137 mmol/L (137-145)
[2023-11-02] MEDS: hydrALAZINE HCL 50 MG TABLET PO ×2 (06:40→14:33)
[2023-11-02] MEDS: carvediloL 3.125 MG TABLET PO (09:00)
[2023-11-02] MEDS: LOSARTAN POTASSIUM 100 MG TABLET PO (09:00)
[2023-11-02] MEDS: SPIRONOLACTONE 25 MG TABLET PO (09:00)
[2023-11-02] MEDS: ASPIRIN 81 MG ENTERIC TABLET PO (09:00)
[2023-11-02] MEDS: FUROSEMIDE INJ 40 MG/4 ML VIAL 20 MG IV PUSH (09:00)
[2023-11-02] MEDS: ATORVASTATIN 40 MG TABLET PO (09:00)
--- NOTE | 2023-11-02 12:36 | PM.IMPN ---
Progress Note: A&P Assessment and Plan (1) PAF (paroxysmal atrial fibrillation): Code(s): I48.0 - Paroxysmal atrial fibrillation Status: Acute (2) Congestive heart failure (CHF): Qualifiers: Heart failure type: systolic Heart failure chronicity: chronic Qualified Code(s): I50.22 - Chronic systolic (congestive) heart failure Code(s): I50.9 - Heart failure, unspecified Status: Acute Plan first two days of admission pt was 1300cc net negative. yesterday he had 6+ unmeasured voids. he has a creatinine bump today and although he does have CKD, it is a large enough delta we should monitor him another day. he also has leukcytosis and we can check procal in the morning to help assess if an infection is beginning. hold lasix, although he already received his AM dose, and allow cardiology to continue adjusted meds based on GDMT. full code. resume apixaban today for p a fib. cont tele monitoring. Subjective Date/time seen: 11/02/23 12:36 Interval history: naoe. pt lies in bed comfortably, awaking from his nap. he denies any symptoms. not very talkative Review of Systems Review of Systems: All systems reviewed & are unremarkable except as noted in HPI and below (subjective) Exam Const: General: comfortable and no acute distress Eyes: Pupils: Equal, round and reactive pupils present Resp: Effort & Inspection: normal respiratory effort Auscultation: crackles (scant, improved from day prior) and diminished lung sounds Cardio: Rate: regular rate Rhythm: regular rhythm Heart sounds: no gallops, no murmurs and no rubs GI: GI Palp: Yes Soft to palpation and No Tenderness to palpation present (GI) Extrem: General: no edema Objective Data Vital Signs Vital Signs: Vital Signs - 24 hr 11/01/23 13:50 11/01/23 14:06 11/01/23 14:00 Temperature Pulse Rate 82 85 72 Respiratory Rate 18 18 Blood Pressure Pulse Oximetry Oxygen Delivery Fraction of Inspired Oxygen 11/01/23 15:34 11/01/23 14:00 11/01/23 16:00 Temperature 98.0 F Pulse Rate 76 82 78 Respiratory Rate 20 Blood Pressure 158/91 H Pulse Oximetry 95 Oxygen Delivery Fraction of Inspired Oxygen 11/01/23 16:00 11/01/23 18:00 11/01/23 19:35 Temperature Pulse Rate 83 88 Respiratory Rate 18 Blood Pressure Pulse Oximetry 95 Oxygen Delivery Room Air Fraction of Inspired Oxygen 11/01/23 20:05 11/01/23 20:00 11/01/23 20:00 Temperature 98.8 F Pulse Rate 87 85 87 Respiratory Rate 18 18 18 Blood Pressure 159/80 H Pulse Oximetry 97 97 Oxygen Delivery Room Air Fraction of Inspired Oxygen 11/02/23 00:00 11/02/23 01:56 11/02/23 02:19 Temperature 98.6 F Pulse Rate 78 84 85 Respiratory Rate 16 18 18 Blood Pressure 133/74 Pulse Oximetry 97 Oxygen Delivery Fraction of Inspired Oxygen 11/02/23 04:00 11/02/23 05:00 11/02/23 00:00 Temperature 98 F Pulse Rate 87 87 Respiratory Rate 18 18 Blood Pressure 193/105 H 176/88 H Pulse Oximetry 96 96 Oxygen Delivery Room Air Fraction of Inspired Oxygen 11/02/23 04:00 11/01/23 20:00 11/01/23 22:00 Temperature Pulse Rate 87 87 81 Respiratory Rate 18 Blood Pressure Pulse Oximetry 96 Oxygen Delivery Room Air Fraction of Inspired Oxygen 11/02/23 00:00 11/02/23 02:00 11/02/23 04:00 Temperature Pulse Rate 76 79 81 Respiratory Rate Blood Pressure Pulse Oximetry Oxygen Delivery Fraction of Inspired Oxygen 11/02/23 06:00 11/02/23 08:17 11/02/23 08:40 Temperature 97.5 F L Pulse Rate 80 68 Respiratory Rate 22 H Blood Pressure 144/75 H Pulse Oximetry 95 94 Oxygen Delivery Room Air Fraction of Inspired Oxygen 21 11/02/23 08:40 11/02/23 08:56 11/02/23 09:00 Temperature Pulse Rate 77 74 86 Respiratory Rate 18 18 Blood Pressure Pulse Oximetry Oxygen Delivery Fraction of Inspired Oxygen 11/02/23 11:57 Tem
--- NOTE | 2023-11-02 18:18 | PC.NURSE ---
1734-Gave report to YOHANNES Coello on med-surg. Patients granddaughter arrived at this time. The community health advocate came to me to tell me that she brought clothes for the patient because he thought he was going home. I went to talk to him to tell him that he was going to a new room and that the doctor was wanting to keep him tonight to monitor his kidney function. Patient stated that he didn't care, he wanted to go home. I told him that I would call the doctor and talk to him but if he wouldn't discharge him that he would have to sign out against medical advice. Doctor was on the floor at this time and was not willing to discharge patient due to his condition. Patient stated he would then sign out AMA. IV removed, heart monitored removed and papers signed. Patient and family walked out.
--- NOTE | 2023-11-03 07:57 | P.DS_ITS ---
DS: Admitting Diagnosis Discharge Date 11/02/23 Admitting Diagnosis chest pain DS: Discharge Diagnosis Discharge Diagnosis (1) PAF (paroxysmal atrial fibrillation): Code(s): I48.0 - Paroxysmal atrial fibrillation Status: Acute (2) Congestive heart failure (CHF): Qualifiers: Heart failure type: systolic Heart failure chronicity: chronic Qualified Code(s): I50.22 - Chronic systolic (congestive) heart failure Code(s): I50.9 - Heart failure, unspecified Status: Acute Plan Mr Viramontes presented with chest pain and shortness of breath. His symptoms resolved after treatment of acutely decompensated heart failure with reduced ejection fraction. He was undergoing further monitoring and adjust of medication when he decided to leave AMA. He was counseled about the risks of leaving abruptly, including and not limited to worsening of his condition and . He understood the risks. DS: Summary Hospital Course Hospital Course: Mr Viramontes presented with chest pain and shortness of breath. His symptoms resolved after treatment of acutely decompensated heart failure with reduced ejection fraction. He was undergoing further monitoring and adjust of medication when he decided to leave AMA. He was counseled about the risks of leaving abruptly, including and not limited to worsening of his condition and . He understood the risks. Time Spent with Patient Time attestation: Total time spent providing and/or coordinating discharge services: Exam 2 Const: General: comfortable and no acute distress Resp: Effort & Inspection: normal respiratory effort Auscultation: crackles Cardio: Rate: regular rate Rhythm: regular rhythm Extrem: General: no edema Discharge Plan Discharge Consulting providers: Nikita Mello; Nelson Tate; Deb Sanon Matthew A.; Luis Miguel Molina Patient Disposition: Left Against Medical Advice Follow-up/Referrals: Nichelle Sherman MD [Physician] - 6 Weeks Discharge Medications: No Action amiodarone [Pacerone] 200 mg Tablet 200 mg PO DAILY@0800 Qty: 30 0RF hydralazine 50 mg tablet 50 mg PO TID losartan 100 mg tablet 100 mg PO DAILY Date of admission: 10/30/23 12:55 Primary Care Provider: Ben,[place] Admitting Provider: Hakan Gilmore Attending physician on admission: Susie Brooks Condition: Serious
== END 2023-11-02 17:55 | disposition left against medical advice (07) ==
LOC: ANHED 12:55 → ANHIMU 10-31 16:36
PROVIDERS: Internal Medicine Cardiovascular Disease; Student in an Organized Health Care Education/Training Program; Admitting Provider Internal Medicine; Emergency Provider Preventive Medicine Aerospace Medicine; PCP Internal Medicine Infectious Disease; Visit Provider General Practice
DX: I48.0 Paroxysmal atrial fibrillation (principal); I13.0 Hypertensive heart and chronic kidney disease with heart failure and stage 1 through stage 4 chronic kidney disease, or unspecified chronic kidney disease; I50.22 Chronic systolic (congestive) heart failure; N18.31 Chronic kidney disease, stage 3a; I25.110 Atherosclerotic heart disease of native coronary artery with unstable angina pectoris; Z95.5 Presence of coronary angioplasty implant and graft; J81.0 Acute pulmonary edema; I42.9 Cardiomyopathy, unspecified; R79.89 Other specified abnormal findings of blood chemistry; D64.9 Anemia, unspecified; Z20.822 Contact with and (suspected) exposure to COVID-19; I08.1 Rheumatic disorders of both mitral and tricuspid valves; I27.20 Pulmonary hypertension, unspecified; R94.31 Abnormal electrocardiogram [ECG] [EKG]; E87.6 Hypokalemia; E03.9 Hypothyroidism, unspecified; I25.2 Old myocardial infarction; F12.90 Cannabis use, unspecified, uncomplicated; Z79.899 Other long term (current) drug therapy; Z87.891 Personal history of nicotine dependence; Z82.49 Family history of ischemic heart disease and other diseases of the circulatory system
CPT/HCPCS: 36415; 71046; 80048; 80053; 80061; 82948; 83036; 83690; 83735; 83880; 84439; 84443; 84480; 84484; 85025; 85027; 85610; 85730; 87637; 93005; 94640; 96365; 96366; 96372; 96374; 96375; 99285; A9270; C8929; G0378; G0379; J0360; J1650; J1940; J2270; J3480; J7040; Q9957

== ENCOUNTER 2024-01-15 22:08 | Inpatient (IN) | payer OTHER, SELFPAY ==
--- NOTE | ~2024-01-15 | XR_ITS ---
XR chest 2V 01/15/2024 22:30 Indication: Shortness of breath and chest pain. History of myocardial infarction. Procedure: 2 view chest Comparison: Comparison to multiple prior studies sequentially, with oldest reviewed study dated 08/12. Findings: Cardiomegaly. No focal air space disease, pulmonary edema, pleural effusion or suspected pn eumothorax. No acute osseous abnormality. Impression: 1: No acute cardiopulmonary disease. Reviewed, dictated and finalized at location A. [facility] Impression: 1: No acute cardiopulmonary disease.
--- NOTE | ~2024-01-15 | XR_ITS ---
EXAMINATION: XR abdomen/kub 1V DATE: 01/19/2024 10:17 INDICATION: Bowel obstruction. TECHNIQUE: A supine view of the abdomen on 2 radiographs was obtained. COMPARISON: CT abdomen and pelvis 05/23/2020 FINDINGS: There are dilated loops of small bowel. The colon is normal in caliber. There is a phleboli th in left pelvis. IMPRESSION: 1. Dilated small bowel, consistent with adynamic ileus versus small bowel obstruction. Reviewed, dictated and finalized at location A. STRINGER IMPRESSION: 1. Dilated small bowel, consistent with adynamic ileus versus small bowel obstr uction.
--- NOTE | ~2024-01-15 | US_ITS ---
EXAMINATION: US abdomen limited DATE: 01/20/2024 09:00 INDICATION: Right upper quadrant abdominal tenderness. TECHNIQUE: Multiple grayscale and Doppler ultrasound images of the abdomen were obtained. COMPARISON: CT abdomen and pelvis 05/23/2020 FINDINGS: The visualized portions of the head and body of the pancreas are normal. The liver is ernst l without focal lesion. There is biphasic flow in main portal vein. The gallbladder is normal in size . No visible gallstones. Gallbladder wall thickening is noted. There was no sonographic Lebron sign. The common duct is normal and measures 2 mm. IMPRESSION: 1. Gallbladder wall thickening again seen. This finding may be seen with interstitial edema or chroni c liver disease. 2. Biphasic flow in main portal vein, likely secondary to increased right heart pressure and/or tricu spid regurgitation. Reviewed, dictated and finalized at location A. MIDDLE SCHOOL TEACHER IMPRESSION: 1. Gallbladder wall thickening again seen. This finding may be seen with inters titial edema or chronic liver disease. 2. Biphasic flow in main portal vein, likely secondary to increased right heart pressure and/or tricuspid regurgitation.
[2024-01-15 22:13] VITALS: BP 121/71; PULSE 57; RESP 15; O2SAT 94
--- NOTE | 2024-01-15 22:13 | ECG_ITS ---
Measurements Intervals [place] Rate: 53 P: -72 [place]: 140 QRS: -37 QRSD: 117 T: 190 QT: 503 QTc: 475 Interpretive Statements ECTOPIC ATRIAL RHYTHM LEFT AXIS DEVIATION [QRS AXIS < -30] LEFT VENTRICULAR HYPERTROPHY AND ST-T CHANGE , CONSIDER MYOCARDIAL ISCHEMIA ABNORMAL ECG COMPARED TO ECG 10/30/2023 21:27:14 NO SIGNIFICANT CHANGES Electronically Signed On 01-16-2024 18:17:07 CARBONATION EQUIPMENT OPERATOR by Raffy Mahmood M.D.
[2024-01-15 22:21] VITALS: PULSE 57; RESP 16; O2SAT 91
[2024-01-15 22:26] LABS: Basophils Percent Auto 0.4 % (0.2-1.2); Eosinophils Absolute Auto 0.2 K/mm3 (0-0.3); Eosinophils Percent Auto 2.9 % (0-4.4); Hematocrit 34.6 % (42.0-52.0); Hemoglobin 11.7 g/dL (14.0-18.0); Immature Granulocyte Absolute 0.02 K/mm3 (0.00-0.031); Immature Granulocyte Percent A 0.2 % (0-0.5); Lymphocytes Absolute Auto 0.98 K/mm3 (0.9-3.2); Lymphocytes Percent Auto 11.7 % (18.3-44.2); Mean Corpuscular HGB Conc 33.8 g/dl (32-36); Mean Corpuscular Hemoglobin 30.2 pg (26-34); Mean Corpuscular Volume 89.4 fl (80-100); Monocytes Absolute Auto 0.8 K/mm3 (0.1-0.6); Neutrophils Absolute Auto 6.3 K/mm3 (1.3-6.7); Neutrophils Percent Auto 75.8 % (45.5-73.1); Platelet Count Result 348 k/mm3 (150-375); Red Blood Count 3.87 M/mm3 (4.6-6.20); Red Cell Distribution Width 13.1 % (11.5-14.5); White Blood Count 8.4 K/mm3 (4.5-10.0)
[2024-01-15 22:42] LABS: INR 1.3; Prothrombin Time 17.1 Seconds (11.1-14.7)
[2024-01-15 22:49] LABS: Alanine Aminotransferase 20 U/L (6-50); Albumin Level 3.6 g/dL (3.5-5.1); Alkaline Phosphatase 109 U/L (38-126); Anion Gap 4 mmol/L (8-16); Aspartate Amino Transferase 24 U/L (17-59); Bilirubin,Total 1.3 mg/dL (0.2-1.3); Blood Urea Nitrogen 20 mg/dL (9-20); Calcium 8.8 mg/dL (8.4-10.2); Carbon Dioxide 30 mmol/L (22-30); Chloride 105 mmol/L (98-107); Estimated CRCL calculation 65 ml/min; Estimated Glomerular Filt Rate > 60; Glucose 117 mg/dL (65-110); Lipase 63 U/L (23-300); Potassium 3.4 mmol/L (3.4-5.0); Sodium 139 mmol/L (137-145)
--- NOTE | 2024-01-15 22:49 | ED.CHESTPAIN ---
HPI - Chest Pain General Chief Complaint: Chest Pain Stated Complaint: CHEST PRESSURE Time Seen by Provider: 01/15/24 22:38 History of Present Illness HPI narrative: 53-year-old male with history of hypothyroidism, paroxysmal AFib, hypertension, CHF, CAD, s/p cardiac catheterization in 2021 reports via EMS from home for evaluation for chest pain. Patient states his chest pain started yesterday morning while he was sitting down. He reports it is intermittent and occurs when he is exerting himself and is associated with exertional dyspnea. States he is currently not having chest pain while he was at rest. He reports the chest pain is substernal and radiates to his left arm when it occurs. Reports a mild cough. Denies fever, nausea vomiting, diaphoresis, lower extremity edema. He does report some urinary frequency as well. Patient states he has been compliant with his medications including Eliquis. His fruit loader is Dr. Danny Andrew at [facility]. Per chart review, patient was admitted on 10/30/2023 for chest pain and elevated troponins. Troponins were flat on admission and were plans to take him to cardiac catheterization, however he left AMA. States he is not currently having chest pain. Related Data Home Medications Medication Instructions Recorded Confirmed hydralazine 50 mg tablet 50 mg PO TID 10/30/23 10/30/23 losartan 100 mg tablet 100 mg PO DAILY 10/30/23 10/30/23 Allergies Allergy/AdvReac Type Severity Reaction Status Date / Time No Known Allergies Allergy Verified 10/30/22 16:01 Review of Systems Review of Systems: CONSTITUTIONAL: Denies fever, chills, or sweats. EYES: Denies visual changes, redness, or discharge. ENT: Denies rhinorrhea, congestion, sore throat, or otalgia. CARDIOVASCULAR: See HPI RESPIRATORY: See HPI GASTROINTESTINAL: Denies abdominal pain, nausea, vomiting, or diarrhea. GENITOURINARY: Denies dysuria or hematuria. SKIN: Denies rash or itching. MUSCULOSKELETAL: Denies back pain, joint pain, or myalgia. NEUROLOGIC: Denies headache, numbness, or weakness. PSYCHIATRIC: Denies anxiety or depression. [facility] Past Medical History Medical History Anemia Atrial fibrillation with rapid ventricular response CAD (coronary artery disease) Cardiomyopathy Chronic kidney disease, stage 3a Congestive heart failure (CHF) Hypertension NSTEMI (non-ST elevated myocardial infarction) Tobacco abuse Surgical History Surgical History H/O toe surgery The great toe on the right had been amputated 3 times and reattached. History of mandibular surgery Family History Family History Father Acute myocardial infarction Hypertension Mother Cerebrovascular accident Social History Social History Social History: The patient stated that he quit smoking October 14, 2019. He does not use any alcohol but does occasionally smoke marijuana. No illicit drugs. He is is with his and 2 kids. His children are healthy. He desires to be full code and his is the durable power shot polisher for healthcare. 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 Smoking packs per day: 1.5 Smoking cigarettes per day: 30.0 Years smoked: 30 Smoking pack-years: 45.00 Smoking status: Never smoker Tobacco type: cigarettes Smoking end date: 11/22/18 Additional smoking assessment comments: quit Sep 2019 Alcohol intake: never Substance use: former Substance use type: marijuana and crack/cocaine Other substance usage details: relapsed last week on cocaine when mother Last use: t-1 Do You Feel Safe in your Home?: Yes Lack of Transportation: No Lack of Food: Never True Current Housing: I Have Housing Concerned About Future Housing: No Difficulty Paying Gas/Electric Bills
[2024-01-15 22:51] LABS: Partial Thromboplastin Time 37.4 SECONDS (22.3-36.8)
[2024-01-15 23:06] LABS: Troponin I 0.045 ng/mL (0.000-0.034)
[2024-01-15 23:41] LABS: NT Pro B Type Natriuretic Pept 9120 pg/mL (19.9-100)
[2024-01-15 23:44] VITALS: PULSE 59; RESP 15; O2SAT 95
[2024-01-15 23:45] VITALS: BP 135/91; PULSE 58; RESP 22; O2SAT 95
[2024-01-15 23:46] VITALS: PULSE 57; RESP 24; O2SAT 96
[2024-01-15 23:47] VITALS: BP 138/85; PULSE 57; RESP 23; O2SAT 95
[2024-01-15 23:59] LABS: Influenza A QL RT-PCR Negative (Negative); Influenza B QL RT-PCR Negative (Negative); RSV RNA, RT-PCR Negative (Negative); SARS-CoV-2 RNA PCR Negative (Negative)
[2024-01-16] VITALS (56 sets, daily range): BP systolic 114–174; BP diastolic 66–116; PULSE 53–80; RESP 10–26; TEMP 36.6–37.1; O2SAT 88–100; BMI 27.0
[2024-01-16] MEDS: FUROSEMIDE INJ 40 MG/4 ML VIAL IV PUSH (00:53)
--- NOTE | 2024-01-16 01:17 | PM.IMHP ---
H&P: HPI History of Present Illness Date/Time: 01/16/24 01:17 Chief Complaint: Chest pain. This is a 53-year-old male patient with a past medical history of hypothyroidism paroxysmal atrial fibrillation on Eliquis chronic hypertension congestive heart failure coronary artery disease status post get the right revision in 2021 came to the emergency room complaining of chest pain. Patient said that he started having chest pain yesterday while he was sitting down the pain was intermittent and occurs when he is exerting himself and is appreciated with exertional dyspnea. Pain was substernal and radiated to his left when it occurred. Also reported mild cough. Patient is awake alert not in acute distress. Patient denies any fever chills dizziness lightheadedness no blurry vision no nausea no vomiting no diarrhea no dysuria no muscle and joint pains. Vital signs in the emergency room was stable. EKG showed junctional bradycardia. Chest x-ray showed cardiomegaly mild pulmonary vascular congestion. Cbc was maintaining range. CMP showed sodium 139 potassium 3.4 chloride 105 carbon dioxide 30 BUN 20 creatinine 1.20. Glucose 117. Troponin 0.45. ProBNP 9120. Lipase 63. COVID influenza and RSV negative. Patient was given aspirin in the emergency room. Review of Systems Review of Systems: A 12 point review of system is done and is only positive what is dictated in the history of present illness. Constitutional: Comments: Patient is awake alert not in acute distress. Psychiatric: Comments: Mood and behavior normal. [facility] Past Medical History Medical History Anemia Atrial fibrillation with rapid ventricular response CAD (coronary artery disease) Cardiomyopathy Chronic kidney disease, stage 3a Congestive heart failure (CHF) Hypertension NSTEMI (non-ST elevated myocardial infarction) Tobacco abuse Surgical History Surgical History H/O toe surgery The great toe on the right had been amputated 3 times and reattached. History of mandibular surgery Family History Family History Father Acute myocardial infarction Hypertension Mother Cerebrovascular accident Social History Social History Social History: The patient stated that he quit smoking October 14, 2019. He does not use any alcohol but does occasionally smoke marijuana. No illicit drugs. He is is with his and 2 kids. His children are healthy. He desires to be full code and his is the durable power disability attorney for healthcare. 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 Smoking packs per day: 1.5 Smoking cigarettes per day: 30.0 Years smoked: 30 Smoking pack-years: 45.00 Smoking status: Never smoker Tobacco type: cigarettes Smoking end date: 11/22/18 Additional smoking assessment comments: quit Sep 2019 Alcohol intake: never Substance use: former Substance use type: marijuana and crack/cocaine Other substance usage details: relapsed last week on cocaine when mother Last use: t-1 Do You Feel Safe in your Home?: Yes Lack of Transportation: No Lack of Food: Never True Current Housing: I Have Housing Concerned About Future Housing: No Difficulty Paying Gas/Electric Bills: No Difficulty Paying for Meds: No Currently Unemployed: No Education: High School Diploma/GED Difficulty w/ Childcare or Family Care: No Living arrangements: with family Gender identity (if verbalized by the patient): Male Spiritual care concerns: No Meds Home Medications and Allergies Home Medications Medication Instructions Recorded Confirmed Type amiodarone 200 mg tablet (Pacerone) 200 mg PO DAILY@0800 #30 tabs 11/04/22 10/30/23 Rx hydralazine 50 mg tablet 50 mg PO TID 10/30/23 10/30/23
[2024-01-16 01:43] LABS: Basophils Percent Auto 0.5 % (0.2-1.2); Eosinophils Absolute Auto 0.2 K/mm3 (0-0.3); Eosinophils Percent Auto 1.9 % (0-4.4); Hematocrit 36.9 % (42.0-52.0); Immature Granulocyte Absolute 0.03 K/mm3 (0.00-0.031); Immature Granulocyte Percent A 0.4 % (0-0.5); Lymphocytes Absolute Auto 0.93 K/mm3 (0.9-3.2); Lymphocytes Percent Auto 12.1 % (18.3-44.2); Mean Corpuscular HGB Conc 32.5 g/dl (32-36); Mean Corpuscular Hemoglobin 29.7 pg (26-34); Mean Corpuscular Volume 91.3 fl (80-100); Mean Platelet Volume 10.1 fl (7.4-10.4); Monocytes Absolute Auto 0.6 K/mm3 (0.1-0.6); Monocytes Percent Auto 7.9 % (2.6-8.5); Neutrophils Percent Auto 77.2 % (45.5-73.1); Platelet Count Result 371 k/mm3 (150-375); Red Blood Count 4.04 M/mm3 (4.6-6.20); Red Cell Distribution Width 13.2 % (11.5-14.5); White Blood Count 7.7 K/mm3 (4.5-10.0)
[2024-01-16 01:46] LABS: Appearance Urine Clear (Clear); Bacteria Urine None Seen /hpf; Bilirubin Urine Negative (Negative); Blood Urine Negative (Negative); Color Urine Yellow (Yellow); Glucose Urine UA Negative (Negative); Ketones Urine Negative (Negative); Leukocyte Esterase Ur Negative LEU/UL (Negative); Nitrate Urine Negative (Negative); Protein Urine 1+ mg/dL (Negative); Specific Grav Ur 1.015 (1.001-1.035); Squamous Epithelial Cell Urine Occasional /hpf (Few); WBC Urine 0-5 /hpf; pH Urine 5.5 (5.0-9.0)
[2024-01-16 01:47] LABS: Add Urine Microscopic? YES
[2024-01-16 02:05] LABS: Alanine Aminotransferase 20 U/L (6-50); Albumin Level 3.8 g/dL (3.5-5.1); Alkaline Phosphatase 108 U/L (38-126); Anion Gap 8 mmol/L (8-16); Aspartate Amino Transferase 23 U/L (17-59); Bilirubin,Total 1.4 mg/dL (0.2-1.3); Blood Urea Nitrogen 23 mg/dL (9-20); Calcium 9.1 mg/dL (8.4-10.2); Carbon Dioxide 28 mmol/L (22-30); Chloride 103 mmol/L (98-107); Estimated CRCL calculation 60 ml/min; Estimated Glomerular Filt Rate 58; Glucose 113 mg/dL (65-110); Potassium 3.7 mmol/L (3.4-5.0); Sodium 139 mmol/L (137-145)
[2024-01-16 02:24] LABS: Troponin I 0.042 ng/mL (0.000-0.034)
--- NOTE | 2024-01-16 04:40 | PC.NURSE ---
Pt boarded status, no current needs. Will continue to leave pt on performance tester.
[2024-01-16 05:39] LABS: Troponin I 0.043 ng/mL (0.000-0.034)
--- NOTE | 2024-01-16 09:14 | ADMGEN ---
This patient, Gopi Viramontes, was admitted to Intensive Care Unit-7 on 01/16/24 at 0745. Patient/family oriented to hospital policies and general routines including ID bracelet, bed and alarms, visiting hours, pain management, procedures, bathroom and other care routines, personal items, smoking policy, room service/diet, and visiting hours. Information on how to activate the Rapid Response Team has been discussed. Patient/Family are encouraged to report perceived risks to care and to ask questions if they do not understand what they are told or what they should do.
--- NOTE | 2024-01-16 09:57 | PM.CNCAR ---
Assessment and Plan Assessment and plan (1) Elevated troponin: Code(s): R79.89 - Other specified abnormal findings of blood chemistry Status: Acute Assessment and Plan: Mildly elevated flat troponin elevation with a history of chronic troponin elevation previously most likely consistent with myocardial ischemia due to patient known history of CAD and complaints of progressive exertional angina assisted taking readmission. Patient is currently chest pain-free. Patient has now had 2 admissions with past several months for chest pain with elevated troponin. At length we discussed options including medical management and ischemic workup. I have recommended invasive angiography for definitive evaluation over noninvasive assessment. Patient verbalized understanding and states he wishes to proceed with invasive angiography as well. However, patient has been compliant with Eliquis and his last dose was Wednesday evening prior to presentation. Therefore, ideally would recommend 48 hour washout prior to proceed with angiography, hence Wednesday. Hold off on systemic anticoagulation for now, DVT prophylaxis beginning this evening. Repeat troponin for trend. Repeat 12 lead ECG. (2) CAD (coronary artery disease): Qualifiers: Coronary Disease-Associated Artery/Lesion type: nikolai artery [place] vs. transplanted heart: nikolai heart Associated angina: with unstable angina Qualified Code(s): I25.110 - Atherosclerotic heart disease of nikolai coronary artery with unstable angina pectoris Code(s): I25.10 - Atherosclerotic heart disease of nikolai coronary artery without angina pectoris Status: Acute Assessment and Plan: Known history of drug-eluting stent 3.5 x 18 mm to mid RCA 05/2021 followed by [facility] as an outpatient. Resume aspirin 81 mg daily. It is unclear why patient is not management with a statin. Will initiate atorvastatin 40 mg at bedtime. 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 Unfortunately, despite leaving is medical vice he still lost his job. He states he did not want to leave against medical advice but felt he had no choice. He is adamant that he would be compliant with any recommendation and medication advised particularly additional antiplatelet therapy if percutaneous intervention and stent implantation is warranted. ECG with ST abnormalities consistent with ischemia. Discussed including but not limited risks, benefits and alternatives to coronary angiography. Patient verbalized understanding and agreed with plan of care. Risks including but not limited to bleeding, infection, renal insufficiency, stroke, myocardial infarction, and or , arrhythmia. Further recommendations after coronary angiography. (3) Ischemic cardiomyopathy: Code(s): I25.5 - Ischemic cardiomyopathy Status: Acute Assessment and Plan: Patient compensated at this time but did receive IV Lasix x1 in the ER due to pulmonary vascular congestion elevated BNP similar to prior levels. By echo 10/2023, moderate LV dysfunction EF 40-45% with hypokinesis of anterolateral/inferolateral, basal inferior, mid inferior, basal and mid anterior wall and basal and mid anteroseptal rodríguez. Resume losartan 100 mg daily, hydralazine 50 mg 3 times daily. Given ectopic atrial rhythm for now will hold coreg 6.25 mg twice daily. Continue telemetry. monitor volume status. (4) PAF (paroxysmal atrial fibrillation): Code(s): I48.0 - Paroxysmal atrial fibrillation Status: Acute Assessment and Plan: . Patient was maintained on amiodarone 200 mg daily as an outpatient as well as carvedilol 6.25 mg twice daily. Resume home medical therapy. Eliquis 5 mg twice daily held since admission. (5) Ectopic atrial rhythm: Code(s): I49.1 - Atrial premature depolarization Status: Acute A
[2024-01-16 17:13] LABS: Troponin I 0.045 ng/mL (0.000-0.034)
[2024-01-16] MEDS: ENOXAPARIN 40 MG/0.4 ML SYRINGE SUB-Q (17:44)
[2024-01-16] MEDS: hydrALAZINE HCL 50 MG TABLET PO (17:44)
--- NOTE | 2024-01-16 18:29 | PM.IMPN ---
Progress Note: A&P Assessment and Plan (1) Chest pain: Qualifiers: Chest pain type: unspecified Qualified Code(s): R07.9 - Chest pain, unspecified Code(s): R07.9 - Chest pain, unspecified Status: Acute (2) CAD (coronary artery disease): Qualifiers: Coronary Disease-Associated Artery/Lesion type: beaver artery [place] vs. transplanted heart: beaver heart Associated angina: with unstable angina Qualified Code(s): I25.110 - Atherosclerotic heart disease of beaver coronary artery with unstable angina pectoris Code(s): I25.10 - Atherosclerotic heart disease of beaver coronary artery without angina pectoris Status: Acute (3) Ischemic cardiomyopathy: Code(s): I25.5 - Ischemic cardiomyopathy Status: Acute (4) Hyperlipidemia: Code(s): E78.5 - Hyperlipidemia, unspecified Status: Acute (5) Hypothyroidism: Code(s): E03.9 - Hypothyroidism, unspecified Status: Acute (6) PAF (paroxysmal atrial fibrillation): Code(s): I48.0 - Paroxysmal atrial fibrillation Status: Acute (7) Hypertension: Qualifiers: Hypertension type: primary hypertension Qualified Code(s): I10 - Essential (primary) hypertension Code(s): I10 - Essential (primary) hypertension Status: Acute Plan Continue with current medications Continue with continuous cardiopulmonary tele monitoring Patient has minimally elevated troponins which are flat Cardiology consult given for evaluation and further treatment recommendations Continue with home meds Patient has been chronically anticoagulated on Eliquis Follow-up with Cardiology for further treatment recommendations ? Patient seen and examined at bedside during my morning rounds ? Collaborated with patient's nurse at the bedside in detail and addressed all concerns ? Labs, electrolytes, radiology, investigations and test results reviewed ? Consult/Nursing/Ancilliary notes on the chart reviewed and appreciated ? Spoke with patient/family at the bedside and answered all the questions that they had Repeat labs in a.m. Electrolyte replacement as per protocol. Patient will be monitored very closely on the floor. Further recommendations as per the hospital course. Time Spent With Patient Time with patient: 15 - 25 minutes Subjective Date/time seen: 01/16/24 18:29 Interval history: Patient seen and evaluated at bedside. Chest pain has resolved. Awaiting Cardiology consultation Review of Systems Review of Systems: 14 systems were reviewed with pertinent positives and negatives per HPI. Except as documented in the HPI/progress notes, all other systems were reviewed and are negative. All systems reviewed & are unremarkable except as noted in HPI and below Exam Narrative: PHYSICAL EXAMINATION: Vital signs: Please see the chart General physical exam: Patient lying in bed, pleasant and cooperative with exam, appears in no acute distress Head/eyes: Atraumatic, EOMI, PERRLA ENT: Moist mucous membranes, nasal passages clear Neck: Supple, full range of motion, trachea midline CVS: S1 + S2, regular rate and rhythm, no murmurs Respiratory: Bilaterally fair air entry in both lung avalos, mild B/L crackles, symmetric chest expansion, no distress Abdomen: Soft, non-tender, bowel sounds +ve, no organomegaly Extremities: No clubbing, no cyanosis, no edema, no calf tenderness Musculoskeletal: Moves all, adequate range of motion, no muscle spasms Skin: Warm, dry, no jaundice, no cyanosis Neurological: Awake, alert, oriented x 3, cranial nerves II-XII intact, no focal neurological deficits Psychiatric: Normal mood, non suicidal Objective Data Vital Signs Vital Signs: Vital Signs - 24 hr 01/15/24 22:13 01/15/24 22:17 01/15/24 22:21 Temperature Pulse Rate 57 L 57 L Respiratory Rate 15 16 Blood Pressure 121/71 Pulse Oximetry 94 91 Oxygen Delivery Room Air Room Air 01/15/24 23:4
[2024-01-17] VITALS (20 sets, daily range): BP systolic 123–167; BP diastolic 70–100; PULSE 45–85; RESP 14–20; TEMP 36.7–37; O2SAT 92–100
[2024-01-17] MEDS: hydrALAZINE HCL 20 MG/ML VIAL 10 MG IV PUSH (02:13)
[2024-01-17 04:43] LABS: Basophils Percent Auto 0.5 % (0.2-1.2); Eosinophils Absolute Auto 0.2 K/mm3 (0-0.3); Eosinophils Percent Auto 2.9 % (0-4.4); Hematocrit 40.9 % (42.0-52.0); Hemoglobin 12.9 g/dL (14.0-18.0); Immature Granulocyte Absolute 0.01 K/mm3 (0.00-0.031); Immature Granulocyte Percent A 0.1 % (0-0.5); Lymphocytes Absolute Auto 1.18 K/mm3 (0.9-3.2); Lymphocytes Percent Auto 15.4 % (18.3-44.2); Mean Corpuscular HGB Conc 31.5 g/dl (32-36); Mean Corpuscular Hemoglobin 29.6 pg (26-34); Mean Corpuscular Volume 93.8 fl (80-100); Mean Platelet Volume 10.4 fl (7.4-10.4); Monocytes Absolute Auto 0.8 K/mm3 (0.1-0.6); Monocytes Percent Auto 10.5 % (2.6-8.5); Neutrophils Absolute Auto 5.4 K/mm3 (1.3-6.7); Neutrophils Percent Auto 70.6 % (45.5-73.1); Platelet Count Result 383 k/mm3 (150-375); Red Blood Count 4.36 M/mm3 (4.6-6.20); Red Cell Distribution Width 13.1 % (11.5-14.5); White Blood Count 7.6 K/mm3 (4.5-10.0)
[2024-01-17 05:03] LABS: Anion Gap 7 mmol/L (8-16); Blood Urea Nitrogen 29 mg/dL (9-20); Calcium 9.2 mg/dL (8.4-10.2); Carbon Dioxide 34 mmol/L (22-30); Chloride 100 mmol/L (98-107); Cholesterol 194 mg/dL (0-200); Estimated CRCL calculation 52 ml/min; Estimated Glomerular Filt Rate 49; Glucose 129 mg/dL (65-110); HDL Direct 23 mg/dL; Phosphorus 3.1 mg/dL (2.5-4.5); Sodium 141 mmol/L (137-145); Triglycerides 176 mg/dL (<150)
[2024-01-17 05:13] LABS: LDL Cholesterol Direct 125 mg/dL
[2024-01-17 05:24] LABS: Troponin I 0.043 ng/mL (0.000-0.034)
[2024-01-17 05:54] LABS: Potassium 3.1 mmol/L (3.4-5.0)
--- NOTE | 2024-01-17 08:00 | ECG_ITS ---
Measurements Intervals [place] Rate: 76 P: -86 [place]: 134 QRS: -38 QRSD: 121 T: 152 QT: 442 QTc: 499 Interpretive Statements ECTOPIC, NON SINUS ATRIAL RHYTHM WITH PACS MARKED LEFT AXIS DEVIATION [QRS AXIS < -30] LEFT VENTRICULAR HYPERTROPHY AND ST-T CHANGE [VOLTAGE CRITERIA PLUS ST/T ABNORMALITY] ABNORMAL ECG COMPARED TO ECG 01/15/2024 22:13:28 ATRIAL ECTOPICS ARE NOTED IN ADDITION TO THE NON SINUS ATRIAL Electronically Signed On 01-17-2024 18:20:42 FILTER CLEANER by Luis Miguel Molina M.D.
[2024-01-17] MEDS: SERTRALINE HCL 50 MG TABLET PO (08:11)
[2024-01-17] MEDS: LOSARTAN POTASSIUM 100 MG TABLET PO (08:11)
[2024-01-17] MEDS: hydrALAZINE HCL 50 MG TABLET PO ×3 (08:11→16:38)
[2024-01-17] MEDS: ASPIRIN 81 MG ENTERIC TABLET PO (08:12)
[2024-01-17] MEDS: ATORVASTATIN 40 MG TABLET PO (08:12)
--- NOTE | 2024-01-17 10:14 | PM.PNCARD ---
Progress Note: A&P Assessment and Plan (1) Elevated troponin: Code(s): R79.89 - Other specified abnormal findings of blood chemistry Status: Acute Assessment and Plan: Mildly elevated flat troponin elevation with a history of chronic troponin elevation previously most likely consistent with myocardial ischemia due to patient known history of CAD and complaints of progressive exertional angina. Patient has now had 2 admissions with past several months for chest pain with elevated troponin. At length we discussed options including medical management and ischemic workup. Invasive angiography for definitive evaluation over noninvasive assessment has been recommended and will be done tomorrow (48 hour washout for DOAC). Continues to deny chest pain at this time. (2) CAD (coronary artery disease): Qualifiers: Associated angina: with unstable angina Coronary Disease-Associated Artery/Lesion type: augustine artery [place] vs. transplanted heart: augustine heart Qualified Code(s): I25.110 - Atherosclerotic heart disease of augustine coronary artery with unstable angina pectoris Code(s): I25.10 - Atherosclerotic heart disease of augustine coronary artery without angina pectoris Status: Acute Assessment and Plan: Known history of drug-eluting stent 3.5 x 18 mm to mid RCA 05/2021 followed by [facility] as an outpatient. Resume aspirin 81 mg daily. It is unclear why patient is not management with a statin. Will initiate atorvastatin 40 mg at bedtime. 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 Unfortunately, despite leaving is medical vice he still lost his job. He states he did not want to leave against medical advice but felt he had no choice. He is adamant that he would be compliant with any recommendation and medication advised particularly additional antiplatelet therapy if percutaneous intervention and stent implantation is warranted. ECG with ST abnormalities consistent with ischemia. As above, plan for [facility] tomorrow. (3) Ischemic cardiomyopathy: Code(s): I25.5 - Ischemic cardiomyopathy Status: Acute Assessment and Plan: Patient compensated at this time but did receive IV Lasix x1 in the ER due to pulmonary vascular congestion elevated BNP similar to prior levels. By echo 10/2023, moderate LV dysfunction EF 40-45% with hypokinesis of anterolateral/inferolateral, basal inferior, mid inferior, basal and mid anterior wall and basal and mid anteroseptal rodríguez. Resume losartan 100 mg daily, hydralazine 50 mg 3 times daily, coreg 6.25mg b.i.d. (4) PAF (paroxysmal atrial fibrillation): Code(s): I48.0 - Paroxysmal atrial fibrillation Status: Acute Assessment and Plan: . Patient was maintained on amiodarone 200 mg daily as an outpatient as well as carvedilol 6.25 mg twice daily. Resume home medical therapy. Eliquis 5 mg twice daily held since admission. (5) Ectopic atrial rhythm: Code(s): I49.1 - Atrial premature depolarization Status: Acute Assessment and Plan: Given controlled ventricular response with ectopic rhythm. Asymptomatic. Hold AV elva blocking agents and amiodarone for now. Continue telemetry. (6) Hypertension: Qualifiers: Hypertension type: primary hypertension Qualified Code(s): I10 - Essential (primary) hypertension Code(s): I10 - Essential (primary) hypertension Status: Acute Assessment and Plan: Patient has significant hypertensive yet his home medications have not been resumed for unclear reasons. Resume hydralazine 50 mg 3 times daily, losartan 100 mg daily, carvedilol 6.25 mg twice daily. (7) Chronic kidney disease, stage 3a: Code(s): N18.31 - Chronic kidney disease, stage 3a Status: Acute Assessment and Plan: Creatinine essentially baseline 1.3. Continue monitor renal function
[2024-01-17] MEDS: SODIUM CHLORIDE 0.9% IV 1,000 ML 100 ML IV CONT ×2 (10:26→20:42)
[2024-01-17 11:32] LABS: Glucose Point of Care 161 mg/dl (65-105)
[2024-01-17] MEDS: POTASSIUM CHLORIDE 20 MEQ ER TABLET 40 MEQ PO ×2 (12:55→16:37)
[2024-01-17] MEDS: carvediloL 6.25 MG TABLET PO ×2 (12:55→20:43)
--- NOTE | 2024-01-17 15:36 | ECG_ITS ---
Measurements Intervals [place] Rate: 50 P: 40 [place]: 166 QRS: -47 QRSD: 129 T: 158 QT: 497 QTc: 455 Interpretive Statements SINUS BRADYCARDIA LEFT ANTERIOR FASCICULAR BLOCK [QRS AXIS <= -45, QR IN I, RS IN II] MODERATE T-WAVE ABNORMALITY, CONSIDER LATERAL ISCHEMIA [-0.1+ mV T WAVE IN I/aVL/V5/V6 ABNORMAL ECG ] COMPARED TO ECG 01/17/2024 09:36:17 HEART RATE IS REDUCED, NO OTHER SIGNIFICANT CHANGE Electronically Signed On 01-17-2024 18:39:30 ORCHARD SPRAYER by Luis Miguel Molina M.D.
[2024-01-17 16:22] LABS: Glucose Point of Care 119 mg/dl (65-105)
[2024-01-17] MEDS: NITROGLYCERIN SL 0.4 MG TABLET SUBLINGUAL ×2 (16:25→16:31)
[2024-01-17] MEDS: HEPARIN SOD/D5W 100 UNITS/ML 25,000 UNITS/250 ML BAG 10 UNITS IV CONT (16:32)
[2024-01-17 17:02] LABS: Basophils Percent Auto 0.4 % (0.2-1.2); Eosinophils Absolute Auto 0.2 K/mm3 (0-0.3); Eosinophils Percent Auto 2.5 % (0-4.4); Hematocrit 35.5 % (42.0-52.0); Hemoglobin 11.1 g/dL (14.0-18.0); Immature Granulocyte Absolute 0.02 K/mm3 (0.00-0.031); Immature Granulocyte Percent A 0.3 % (0-0.5); Lymphocytes Absolute Auto 0.91 K/mm3 (0.9-3.2); Lymphocytes Percent Auto 12.5 % (18.3-44.2); Mean Corpuscular HGB Conc 31.3 g/dl (32-36); Mean Corpuscular Hemoglobin 29.4 pg (26-34); Mean Corpuscular Volume 93.9 fl (80-100); Mean Platelet Volume 9.9 fl (7.4-10.4); Monocytes Absolute Auto 0.8 K/mm3 (0.1-0.6); Monocytes Percent Auto 10.8 % (2.6-8.5); Neutrophils Absolute Auto 5.4 K/mm3 (1.3-6.7); Neutrophils Percent Auto 73.5 % (45.5-73.1); Platelet Count Result 332 k/mm3 (150-375); Red Blood Count 3.78 M/mm3 (4.6-6.20); Red Cell Distribution Width 13.2 % (11.5-14.5); White Blood Count 7.3 K/mm3 (4.5-10.0)
[2024-01-17 17:30] LABS: INR 1.1; Partial Thromboplastin Time 33.3 SECONDS (22.3-36.8); Prothrombin Time 15.1 Seconds (11.1-14.7)
[2024-01-17] MEDS: ENOXAPARIN 40 MG/0.4 ML SYRINGE SUB-Q (18:32)
--- NOTE | 2024-01-17 19:01 | PM.IMPN ---
Progress Note: A&P Assessment and Plan (1) Chest pain: Qualifiers: Chest pain type: unspecified Qualified Code(s): R07.9 - Chest pain, unspecified Code(s): R07.9 - Chest pain, unspecified Status: Acute (2) CAD (coronary artery disease): Qualifiers: Coronary Disease-Associated Artery/Lesion type: [place] artery [place] vs. transplanted heart: [place] heart Associated angina: with unstable angina Qualified Code(s): I25.110 - Atherosclerotic heart disease of [place] coronary artery with unstable angina pectoris Code(s): I25.10 - Atherosclerotic heart disease of [place] coronary artery without angina pectoris Status: Acute (3) Ischemic cardiomyopathy: Code(s): I25.5 - Ischemic cardiomyopathy Status: Acute (4) Hyperlipidemia: Code(s): E78.5 - Hyperlipidemia, unspecified Status: Acute (5) Hypothyroidism: Code(s): E03.9 - Hypothyroidism, unspecified Status: Acute (6) PAF (paroxysmal atrial fibrillation): Code(s): I48.0 - Paroxysmal atrial fibrillation Status: Acute (7) Hypertension: Qualifiers: Hypertension type: primary hypertension Qualified Code(s): I10 - Essential (primary) hypertension Code(s): I10 - Essential (primary) hypertension Status: Acute Plan Continue with current medications Continue with continuous cardiopulmonary tele monitoring Patient has minimally elevated troponins which are flat Cardiology consult given for evaluation and further treatment recommendations Continue with home meds Patient has been chronically anticoagulated on Eliquis... Which has been held since admission Cardiology planning cardiac catheterization in am after 48 hour washout period for DOAC ? Patient seen and examined at bedside during my morning rounds ? Collaborated with patient's nurse at the bedside in detail and addressed all concerns ? Labs, electrolytes, radiology, investigations and test results reviewed ? Consult/Nursing/Ancilliary notes on the chart reviewed and appreciated ? Spoke with patient/family at the bedside and answered all the questions that they had Repeat labs in a.m. Electrolyte replacement as per protocol. Patient will be monitored very closely on the floor. Further recommendations as per the hospital course. Time Spent With Patient Time with patient: 15 - 25 minutes Subjective Date/time seen: 01/17/24 19:01 Interval history: Patient lying in bed during my morning rounds. Chest pain has improved. Going for cardiac catheterization in a.m.. Review of Systems Review of Systems: 14 systems were reviewed with pertinent positives and negatives per HPI. Except as documented in the HPI/progress notes, all other systems were reviewed and are negative. All systems reviewed & are unremarkable except as noted in HPI and below Exam Narrative: PHYSICAL EXAMINATION: Vital signs: Please see the chart General physical exam: Patient lying in bed, pleasant and cooperative with exam, appears in no acute distress Head/eyes: Atraumatic, EOMI, PERRLA ENT: Moist mucous membranes, nasal passages clear Neck: Supple, full range of motion, trachea midline CVS: S1 + S2, regular rate and rhythm, no murmurs Respiratory: Bilaterally fair air entry in both lung avalos, mild B/L crackles, symmetric chest expansion, no distress Abdomen: Soft, non-tender, bowel sounds +ve, no organomegaly Extremities: No clubbing, no cyanosis, no edema, no calf tenderness Musculoskeletal: Moves all, adequate range of motion, no muscle spasms Skin: Warm, dry, no jaundice, no cyanosis Neurological: Awake, alert, oriented x 3, cranial nerves II-XII intact, no focal neurological deficits Psychiatric: Normal mood, non suicidal Objective Data Vital Signs Vital Signs: Vital Signs - 24 hr 01/16/24 19:16 01/16/24 19:19 01/16/24 20:00 Temperature 37.1 C Pulse Rate 60 60 60 Respiratory Rate 18 16 Blood Pressure
[2024-01-17 22:53] LABS: Partial Thromboplastin Time 51.1 SECONDS (22.3-36.8)
[2024-01-17] MEDS: HEPARIN SODIUM 5,000 UNITS/ML VIAL 4000 UNITS IV PUSH (23:16)
[2024-01-18] VITALS (30 sets, daily range): BP systolic 133–195; BP diastolic 77–113; PULSE 45–78; RESP 12–23; TEMP 36.6–36.9; O2SAT 93–97
[2024-01-18 05:31] LABS: Basophils Percent Auto 0.3 % (0.2-1.2); Eosinophils Absolute Auto 0.1 K/mm3 (0-0.3); Eosinophils Percent Auto 1.9 % (0-4.4); Hematocrit 35.9 % (42.0-52.0); Hemoglobin 11.5 g/dL (14.0-18.0); Immature Granulocyte Absolute 0.01 K/mm3 (0.00-0.031); Immature Granulocyte Percent A 0.2 % (0-0.5); Lymphocytes Percent Auto 15.7 % (18.3-44.2); Mean Corpuscular Hemoglobin 30.1 pg (26-34); Mean Platelet Volume 9.9 fl (7.4-10.4); Monocytes Absolute Auto 0.7 K/mm3 (0.1-0.6); Monocytes Percent Auto 10.5 % (2.6-8.5); Neutrophils Absolute Auto 4.6 K/mm3 (1.3-6.7); Neutrophils Percent Auto 71.4 % (45.5-73.1); Platelet Count Result 307 k/mm3 (150-375); Red Blood Count 3.82 M/mm3 (4.6-6.20); Red Cell Distribution Width 13.4 % (11.5-14.5); White Blood Count 6.4 K/mm3 (4.5-10.0)
[2024-01-18 05:43] LABS: Partial Thromboplastin Time 76.9 SECONDS (22.3-36.8)
[2024-01-18 05:53] LABS: Anion Gap 6 mmol/L (8-16); Blood Urea Nitrogen 23 mg/dL (9-20); Calcium 8.9 mg/dL (8.4-10.2); Carbon Dioxide 25 mmol/L (22-30); Chloride 109 mmol/L (98-107); Estimated CRCL calculation 70 ml/min; Estimated Glomerular Filt Rate > 60; Glucose 106 mg/dL (65-110); Sodium 140 mmol/L (137-145)
[2024-01-18] MEDS: SODIUM CHLORIDE 0.9% IV 1,000 ML 100 ML IV CONT (06:44)
[2024-01-18] MEDS: POTASSIUM CHLORIDE 20 MEQ ER TABLET 40 MEQ PO ×2 (08:40→16:54)
[2024-01-18] MEDS: ATORVASTATIN 40 MG TABLET PO (08:41)
[2024-01-18] MEDS: LOSARTAN POTASSIUM 100 MG TABLET PO (08:41)
[2024-01-18] MEDS: hydrALAZINE HCL 50 MG TABLET PO ×3 (08:41→16:54)
[2024-01-18] MEDS: carvediloL 6.25 MG TABLET PO (08:41)
[2024-01-18] MEDS: ASPIRIN 81 MG ENTERIC TABLET PO (08:41)
[2024-01-18] MEDS: SERTRALINE HCL 50 MG TABLET PO (08:42)
[2024-01-18] MEDS: NITROGLYCERIN SL 0.4 MG TABLET SUBLINGUAL ×2 (10:11→10:37)
--- NOTE | 2024-01-18 10:38 | ECG_ITS ---
Measurements Intervals [place] Rate: 60 P: 267 UT: 134 QRS: -39 QRSD: 120 T: 171 QT: 464 QTc: 464 Interpretive Statements PROBABLE SINUS RHYTHM WITH OCCASIONAL SUPRAVENTRICULAR PREMATURE COMPLEXES MARKED LEFT AXIS DEVIATION [QRS AXIS < -30] LEFT VENTRICULAR HYPERTROPHY AND ST-T CHANGE [VOLTAGE CRITERIA PLUS ST/T ABNORMALITY] COMPARED TO ECG 01/17/2024 15:38:00 NO CHANGE Electronically Signed On 01-18-2024 12:46:08 CERTIFIED PROCEDURAL CODER by Debbie Nunez M.D.
[2024-01-18 11:31] LABS: Glucose Point of Care 104 mg/dl (65-105)
[2024-01-18 12:45] LABS: Partial Thromboplastin Time 47.1 SECONDS (22.3-36.8)
[2024-01-18] MEDS: HEPARIN SOD/D5W 100 UNITS/ML 25,000 UNITS/250 ML BAG 16 UNITS IV CONT (12:52)
[2024-01-18] MEDS: HEPARIN SODIUM 5,000 UNITS/ML VIAL 4000 UNITS IV PUSH (12:55)
--- NOTE | 2024-01-18 15:14 | WPDCARDPROC ---
Cardiac Cath Procedure Note Date of procedure:: 01/18/24 Performing physician:: Luis Miguel Molina MD Indication:: chest pain abnormal troponin previous stent to RCA reported history of paroxysmal AFib, currently in sinus rhythm versus ectopic atrial rhythm Brief clinical history:: this is a 53-year-old man with history of coronary disease having received a stent to a right coronary artery 3 years ago. He has been hospitalized here twice recently with chest pain and modest troponin elevation. In this setting a follow-up angiogram has been recommended. Procedure Procedure performed:: Left ventriculogram coronary angiography Angio-Seal to right femoral artery Sedation/Medication given:: fentanyl 50 mg verses 2 mg case start time 2:49 p.m. sedation provided Ree Rushing RN trained observer Access site:: right femoral artery Estimated blood loss:: 30 cc Procedure note:: patient was brought to the cardiac catheterization lab in the postabsorptive state where the right femoral triangle was prepared. Anesthesia was provided with 1% lidocaine infiltrated locally. Using the modified Seldinger technique a 5 [place] sheath was placed in right common femoral artery after this left heart catheterization was carried out. I used a 5 [place] angled pigtail catheter to measure left-sided hemodynamics and to inject the left ventriculogram in the 30 degree CISNEROS projection. Following this I engaged and injected the left coronary artery in multiple projections using a 5 [place] FL4 catheter. The right coronary artery was then engaged and injected in orthogonal projections using the 5 [place] JR4 catheter. Following this the cineangiograms were reviewed and the case was not terminated. An angiogram was then done of the femoral artery through the sheath after which a 6 [place] Angio-Seal device was used to secure hemostasis. At the end of the procedure he was stable there were no signs of any procedural complications and no evidence of groin hematoma. Findings:: Hemodynamics: Central aortic pressure is 126 over 66 left ventricle 126 over 12 end-diastolic 22 there is no gradient on pullback across the aortic valve. Left ventricle: The LV is moderately dilated. There is moderate global systolic hypokinesia. The visually estimated left ventricular ejection fraction is 35% the left main coronary artery is large caliber and widely patent the left anterior descending is a large caliber artery extending down to the apex, around the apex and providing significant perfusion in the inferior wall as well. The LAD and its branches are smooth and angiographically free of disease. The circumflex is a very large caliber artery with several large marginal branches and 3 posterior branches as well. The majority of the circumflex is angiographically normal. There is a discrete 70-80% stenosis in the last posterior branch which is the terminal branch of the large circumflex. This is an angiographically small vessel less than 2 mm in diameter at the end of this large circumflex which otherwise is normal. Right coronary artery is medium in caliber proximally but otherwise is small and terminates in a very small RPDA. RPDA is correspondingly small as described above the LAD provides a significant amount of inferior perfusion as well. There is visible stent material in the proximal RCA is widely patent with no loss of lumen. There are no stenotic lesions in the RCA. Conclusion:: 1. Codominant coronary artery circulation with previously deployed stent in the RCA from 2020 which remains nicely patent. 2. Moderate stenosis of 70-80% and a small terminal posterior branch of the circumflex. The remainder of the left coronary artery is free of disease. 3. Left ventricular enlargement with global systolic dysfunction out of proportion to the coronary artery disease that is present. Luis Miguel Molina MD [facility]
[2024-01-18] MEDS: SODIUM CHLORIDE 0.9% IV 1,000 ML 125 ML IV CONT (16:58)
[2024-01-18 17:02] LABS: Glucose Point of Care 139 mg/dl (65-105)
[2024-01-18] MEDS: ENOXAPARIN 40 MG/0.4 ML SYRINGE SUB-Q (17:54)
--- NOTE | 2024-01-18 18:32 | PM.IMPN ---
Progress Note: A&P Assessment and Plan (1) Chest pain: Qualifiers: Chest pain type: unspecified Qualified Code(s): R07.9 - Chest pain, unspecified Code(s): R07.9 - Chest pain, unspecified Status: Acute (2) CAD (coronary artery disease): Qualifiers: Coronary Disease-Associated Artery/Lesion type: [place] artery [place] vs. transplanted heart: [place] heart Associated angina: with unstable angina Qualified Code(s): I25.110 - Atherosclerotic heart disease of [place] coronary artery with unstable angina pectoris Code(s): I25.10 - Atherosclerotic heart disease of [place] coronary artery without angina pectoris Status: Acute (3) Ischemic cardiomyopathy: Code(s): I25.5 - Ischemic cardiomyopathy Status: Acute (4) Hyperlipidemia: Code(s): E78.5 - Hyperlipidemia, unspecified Status: Acute (5) Hypothyroidism: Code(s): E03.9 - Hypothyroidism, unspecified Status: Acute (6) PAF (paroxysmal atrial fibrillation): Code(s): I48.0 - Paroxysmal atrial fibrillation Status: Acute (7) Hypertension: Qualifiers: Hypertension type: primary hypertension Qualified Code(s): I10 - Essential (primary) hypertension Code(s): I10 - Essential (primary) hypertension Status: Acute Plan Continue with current medications Continue with continuous cardiopulmonary tele monitoring Patient has minimally elevated troponins which are flat Cardiology consult given for evaluation and further treatment recommendations Continue with home meds Patient has been chronically anticoagulated on Eliquis... Which has been held since admission Cardiology planning cardiac catheterization in am after 48 hour washout period for DOAC Patient underwent cardiac catheterization late today which showed global systolic dysfunction out of proportion to the coronary artery disease that is present No cardiac stents inserted during cardiac catheterization Continue with medical management for his CAD DC home in a.m. once cleared by Cardiology ? Patient seen and examined at bedside during my morning rounds ? Collaborated with patient's nurse at the bedside in detail and addressed all concerns ? Labs, electrolytes, radiology, investigations and test results reviewed ? Consult/Nursing/Ancilliary notes on the chart reviewed and appreciated ? Spoke with patient/family at the bedside and answered all the questions that they had Repeat labs in a.m. Electrolyte replacement as per protocol. Patient will be monitored very closely on the floor. Further recommendations as per the hospital course. Time Spent With Patient Time with patient: 15 - 25 minutes Subjective Date/time seen: 01/18/24 18:32 Interval history: Patient NPO during my morning rounds. Going for cardiac catheterization later on today. Review of Systems Review of Systems: 14 systems were reviewed with pertinent positives and negatives per HPI. Except as documented in the HPI/progress notes, all other systems were reviewed and are negative. All systems reviewed & are unremarkable except as noted in HPI and below Exam Narrative: PHYSICAL EXAMINATION: Vital signs: Please see the chart General physical exam: Patient lying in bed, pleasant and cooperative with exam, appears in no acute distress Head/eyes: Atraumatic, EOMI, PERRLA ENT: Moist mucous membranes, nasal passages clear Neck: Supple, full range of motion, trachea midline CVS: S1 + S2, regular rate and rhythm, no murmurs Respiratory: Bilaterally fair air entry in both lung avalos, mild B/L crackles, symmetric chest expansion, no distress Abdomen: Soft, non-tender, bowel sounds +ve, no organomegaly Extremities: No clubbing, no cyanosis, no edema, no calf tenderness Musculoskeletal: Moves all, adequate range of motion, no muscle spasms Skin: Warm, dry, no jaundice, no cyanosis Neurological: Awake, alert, oriented x 3, cranial nerves II-XII int
[2024-01-19] VITALS (16 sets, daily range): BP systolic 119–187; BP diastolic 73–117; PULSE 47–77; RESP 16–21; TEMP 36.6–36.8; O2SAT 93–98
--- NOTE | 2024-01-19 | ECHOL_ITS ---
Patient Info Name: Gopi Viramontes Age: 53 years : 1970 Gender: Male Ht: 70 in Wt: 189 lbs BSA: 2.07 m2 HR: 62 bpm BP: 187 / 117 mmHg Heart Rhythm: Sinus Rhythm Technical Quality: Fair Exam Date: 01/19/2024 9:57 AM Exam Location: Echo Lab Exam Room: ICU 7 Patient Status: Inpatient Admit Date: 01/17/2024 Staff Ordering Physician: Debbie Nunez MD Academic Services Coordinator: Cris Gonzalez RDCS Attending Provider: Juni Jackson MD Referring Physician: Mayra MEDINA; Exam Type: CA echo limited Study Info Indications - CARDIOMYOPATHY CHEST PAIN CAD S/P STENT Limited two-dimensional transthoracic echocardiogram is performed. Summary 1. Limited echo study to re-evaluate ejection fraction and LV function. 2. Mild left ventricular enlargement with moderate concentric hypertrophy. Moderate global hypokinesis, ejection fraction 41%. 3. Left atrial chamber dimension is mildly enlarged. 4. Normal sinus rhythm. Left Ventricle Left ventricular chamber dimension is mildly enlarged. Left ventricular systolic function is normal, estimated at Empty. There is mildly increased left ventricular wall thickness. Left ventricular septal wall motion is normal. The left ventricular diastolic function is normal. Right Ventricle Right ventricular chamber dimension is normal. Right ventricular systolic function is normal. Left Atria Left atrial chamber dimension is mildly enlarged. Right Atria Right atrial chamber dimension is normal. Aortic Valve The aortic valve is normal. There is no aortic valve sclerosis. There is no aortic valve stenosis. There is no aortic valve regurgitation. Pulmonic Valve The pulmonic valve is not well visualized. There is no pulmonic valve stenosis. There is no pulmonic regurgitation. Mitral Valve The mitral valve has normal leaflets. There is no mitral valve stenosis. There is no mitral valve regurgitation. Tricuspid Valve The tricuspid valve leaflets are not well visualized. There is no significant tricuspid valve stenosis. There is no tricuspid valve regurgitation. No pulmonary hypertension, estimated pulmonary arterial systolic pressure is Empty. Pericardium/Pleural The pericardium appears normal. There is no pericardial effusion. Inferior Vena Cava Not well visualized inferior vena cava with >50% collapse upon inspiration consistent with Empty right atrial pressure, Empty. Aorta The aortic root size at the sinus of Valsalva is normal. The prox ascending aorta size is normal. The aorta arch size is not well visualized measuring Empty. The abdominal aorta size is not well visualized. Ventricles Name Value Normal LV Dimensions 2D/MM IVS Diastolic Thickness (2D) 1.2 cm 0.6-1.0 LVID Diastole (2D) 5.7 cm 4.2-5.8 LVIW Diastolic Thickness (2D) 1.2 cm 0.6-1.0 LVID Systole (2D) 4.6 cm 2.5-4.0 LV Mass (2D Cubed) 287.21 g 88.00-224.00 LV Mass Index (2D Cubed) 139 g/m2 49-115 Relative Wall Thickness (2D) 0.42 LV Fractional Shortening/Ejection Fraction 2D/MM LV Fractional Shortening (2D) 21 % 25-43 LV EF (2D
[2024-01-19 03:54] LABS: Basophils Percent Auto 0.4 % (0.2-1.2); Eosinophils Absolute Auto 0.1 K/mm3 (0-0.3); Eosinophils Percent Auto 1.1 % (0-4.4); Hematocrit 37.2 % (42.0-52.0); Hemoglobin 11.6 g/dL (14.0-18.0); Immature Granulocyte Absolute 0.02 K/mm3 (0.00-0.031); Immature Granulocyte Percent A 0.3 % (0-0.5); Lymphocytes Absolute Auto 0.83 K/mm3 (0.9-3.2); Lymphocytes Percent Auto 11.8 % (18.3-44.2); Mean Corpuscular HGB Conc 31.2 g/dl (32-36); Mean Corpuscular Hemoglobin 29.9 pg (26-34); Mean Corpuscular Volume 95.9 fl (80-100); Monocytes Absolute Auto 0.5 K/mm3 (0.1-0.6); Monocytes Percent Auto 7.4 % (2.6-8.5); Neutrophils Absolute Auto 5.6 K/mm3 (1.3-6.7); Platelet Count Result 313 k/mm3 (150-375); Red Blood Count 3.88 M/mm3 (4.6-6.20); Red Cell Distribution Width 13.5 % (11.5-14.5)
[2024-01-19 04:08] LABS: Anion Gap 6 mmol/L (8-16); Blood Urea Nitrogen 19 mg/dL (9-20); Calcium 9.1 mg/dL (8.4-10.2); Carbon Dioxide 25 mmol/L (22-30); Chloride 109 mmol/L (98-107); Estimated CRCL calculation 70 ml/min; Estimated Glomerular Filt Rate > 60; Glucose 107 mg/dL (65-110); Potassium 4.2 mmol/L (3.4-5.0); Sodium 140 mmol/L (137-145)
[2024-01-19] MEDS: hydrALAZINE HCL 20 MG/ML VIAL 10 MG IV PUSH (05:18)
[2024-01-19] MEDS: NITROGLYCERIN SL 0.4 MG TABLET SUBLINGUAL ×3 (06:22→08:08)
--- NOTE | 2024-01-19 06:25 | PC.NURSE ---
pt c/o epigastric pain 6/10 given nitro pain decreased to 3/10
--- NOTE | 2024-01-19 06:25 | ECG_ITS ---
Measurements Intervals [place] Rate: 62 P: [place]: 0 QRS: -45 QRSD: 122 T: 152 QT: 440 QTc: 448 Interpretive Statements SINUS RHYTHM VS ECTOPIC ATRIAL RHYTHM WITH PREMATURE ATRIAL COMPLEXES LEFT ANTERIOR FASCICULAR BLOCK [QRS AXIS <= -45, QR IN I, RS IN II] MINIMAL VOLTAGE CRITERIA FOR LVH, CONSIDER NORMAL VARIANT [MEETS CRITERIA IN ONE OF: R(aVL), S(V1), R(V5), R(V5/V6)+S(V1)] SEPTAL MYOCARDIAL INFARCTION [40+ ms Q WAVE IN V1/V2], PROBABLY OLD MODERATE T-WAVE ABNORMALITY, CONSIDER LATERAL ISCHEMIA [-0.1+ mV T WAVE IN I/aVL/V5/V6] COMPARED TO ECG 01/18/2024 10:54:48 NO SIGNIFICANT CHANGES Electronically Signed On 01-19-2024 16:32:02 ECOMMERCE MARKETING SPECIALIST by Alon Johnson M.D.
[2024-01-19 07:44] LABS: Glucose Point of Care 139 mg/dl (65-105)
--- NOTE | 2024-01-19 08:00 | ECG_ITS ---
Measurements Intervals [place] Rate: 68 P: 73 [place]: 173 QRS: -28 QRSD: 120 T: 128 QT: 435 QTc: 465 Interpretive Statements SINUS RHYTHM WITH OCCASIONAL VENTRICULAR PREMATURE COMPLEXES WITH OCCASIONAL SUPRAVENTRICULAR PREMATURE COMPLEXES CANNOT RULE OUT SEPTAL INFARCT COMPARED TO ECG 01/19/2024 06:36:08 NO SIGNIFICANT CHANGES Electronically Signed On 01-19-2024 16:35:34 CONCIERGE by Alon Johnson M.D.
[2024-01-19] MEDS: carvediloL 6.25 MG TABLET PO ×2 (08:20→10:32)
[2024-01-19] MEDS: POTASSIUM CHLORIDE 20 MEQ ER TABLET 40 MEQ PO (08:21)
[2024-01-19] MEDS: hydrALAZINE HCL 50 MG TABLET PO (08:21)
[2024-01-19] MEDS: ATORVASTATIN 40 MG TABLET PO (08:21)
[2024-01-19] MEDS: ASPIRIN 81 MG ENTERIC TABLET PO (08:21)
[2024-01-19] MEDS: ONDANSETRON INJ 4 MG/2 ML VIAL IV PUSH (08:21)
[2024-01-19] MEDS: SERTRALINE HCL 50 MG TABLET PO (08:21)
[2024-01-19] MEDS: PANTOPRAZOLE 40 MG TABLET PO ×2 (08:23→19:55)
[2024-01-19] MEDS: LOSARTAN POTASSIUM 100 MG TABLET PO (08:23)
[2024-01-19] MEDS: HYDROcodone/acetaminophen (*CRX) 5-325 MG TABLET 1 TAB PO (08:23)
--- NOTE | 2024-01-19 09:06 | PM.PNCARD ---
Progress Note: A&P Assessment and Plan (1) Elevated troponin: Code(s): R79.89 - Other specified abnormal findings of blood chemistry Status: Acute Assessment and Plan: Mildly elevated flat troponin elevation with a history of chronic troponin elevation, history of CAD and complaints of progressive exertional angina. Patient has now had 2 admissions with past several months for chest pain with elevated troponin. Appears to have had a non-STEMI with lateral T-wave inversion. Cardiac catheterization showed 70-80% stenosis of a small terminal branch of the circumflex and medical therapy recommended. --EKG today: Read as acute lateral NV, but on my personal review shows he has NSR, left axis deviation, PVC, and nonspecific ST-T changes which actually have improved since admission. --I think the epigastric discomfort he experienced today was GI in origin not cardiac --continue medical therapy for CAD with aspirin, atorvastatin, carvedilol --Up and ambulate, prob discharge in a.m. (2) CAD (coronary artery disease): Qualifiers: Coronary Disease-Associated Artery/Lesion type: [place] artery [place] vs. transplanted heart: [place] heart Associated angina: with unstable angina Qualified Code(s): I25.110 - Atherosclerotic heart disease of [place] coronary artery with unstable angina pectoris Code(s): I25.10 - Atherosclerotic heart disease of [place] coronary artery without angina pectoris Status: Acute Assessment and Plan: Known history of drug-eluting stent 3.5 x 18 mm to mid RCA 05/2021 followed by [facility] as an outpatient. --continue aspirin, atorvastatin resumed. (3) Dilated cardiomyopathy: Code(s): I42.0 - Dilated cardiomyopathy Status: Acute Assessment and Plan: Patient compensated at this time but did receive IV Lasix x1 in the ER due to pulmonary vascular congestion elevated BNP similar to prior levels. By echo 10/2023, moderate LV dysfunction EF 40-45% with hypokinesis of anterolateral/inferolateral, basal inferior, mid inferior, basal and mid anterior wall and basal and mid anteroseptal rodríguez. EF by catheterization was about 35%. -- Resume losartan 100 mg daily, hydralazine 50 mg 3 times daily, --increase coreg to 12.5 mg mg b.i.d. --Add spironolactone --Limited echo to check EF (4) Hypertension: Qualifiers: Hypertension type: primary hypertension Qualified Code(s): I10 - Essential (primary) hypertension Code(s): I10 - Essential (primary) hypertension Status: Acute Assessment and Plan: BP has been significantly elevated this admission --continue losartan, --Increase hydralazine --increase carvedilol --add spironolactone for hypertension cardiomyopathy --PRN IV labetolol --Runs a low K+; wonder if he has been checked for hyperaldosteronism in the past? FU w/ PMD. (5) PAF (paroxysmal atrial fibrillation): Code(s): I48.0 - Paroxysmal atrial fibrillation Status: Acute Assessment and Plan: Patient was maintained on amiodarone 200 mg daily as an outpatient as well as carvedilol 6.25 mg twice daily. No AFib this admission. --Cont carvedilol; amio still on hold. --Eliquis 5 mg twice daily held since admission, resume prior to discharge. (6) Ectopic atrial rhythm: Code(s): I49.1 - Atrial premature depolarization Status: Acute Assessment and Plan: Given controlled ventricular response with ectopic rhythm. Asymptomatic. --Held amiodarone for now. Continue telemetry. (7) Chronic kidney disease, stage 3a: Code(s): N18.31 - Chronic kidney disease, stage 3a Status: Acute Assessment and Plan: Stable. continue monitor renal function closely. Monitor electrolytes. (8) Hyperlipidemia: Code(s): E78.5 - Hyperlipidemia, unspecified Status: Acute Assessment and Plan: Resume statin therapy given CAD, goal LDL less than 70. --Sta
[2024-01-19] MEDS: SPIRONOLACTONE 25 MG TABLET PO (10:31)
[2024-01-19 12:06] LABS: Glucose Point of Care 132 mg/dl (65-105)
[2024-01-19] MEDS: hydrALAZINE HCL 25 MG TABLET 75 MG PO ×2 (12:59→16:31)
--- NOTE | 2024-01-19 13:55 | PM.CNGS ---
Assessment and Plan Assessment and plan (1) Ileus: Code(s): K56.7 - Ileus, unspecified Status: Acute Assessment and Plan: Patient with an episode of epigastric pain, nausea, and vomiting this morning after having diarrhea yesterday and through the night. KUB done this morning and showed ileus versus small bowel obstruction. He has never had any previous abdominal surgeries. His epigastric pain and nausea had resolved by the time I saw the patient. No more vomiting after the one episode this morning. His abdomen is soft with only some mild RUQ tenderness. No diffuse peritoneal signs. No indication for any surgical intervention at this time. We will start stimulating his bowels with laxatives and advance his diet as tolerated. (2) Epigastric pain: Code(s): R10.13 - Epigastric pain Status: Acute Assessment and Plan: Patient is complaining of epigastric pain that started after admission and has been intermittent for the past few days. He reports that his pain is aggravated by meals and he is tender in the RUQ on exam. At this time, his abdominal pain has resolved and nausea improved. There is no recent imaging of his gallbladder in review of his chart, which is another possible etiology for his symptoms. Will order a RUQ abdominal ultrasound for tomorrow morning to further evaluate. If he has gallstones, then he could follow-up as an outpatient for further workup regarding his gallbladder. (3) NSTEMI (non-ST elevated myocardial infarction): Code(s): I21.4 - Non-ST elevation (NSTEMI) myocardial infarction Status: Acute (4) Dilated cardiomyopathy: Code(s): I42.0 - Dilated cardiomyopathy Status: Acute (5) CAD (coronary artery disease): Qualifiers: Coronary Disease-Associated Artery/Lesion type: [place] artery [place] vs. transplanted heart: [place] heart Associated angina: with unstable angina Qualified Code(s): I25.110 - Atherosclerotic heart disease of [place] coronary artery with unstable angina pectoris Code(s): I25.10 - Atherosclerotic heart disease of [place] coronary artery without angina pectoris Status: Acute (6) PAF (paroxysmal atrial fibrillation): Code(s): I48.0 - Paroxysmal atrial fibrillation Status: Acute (7) Chronic kidney disease, stage 3a: Code(s): N18.31 - Chronic kidney disease, stage 3a Status: Acute (8) Ectopic atrial rhythm: Code(s): I49.1 - Atrial premature depolarization Status: Acute (9) Hypertension: Qualifiers: Hypertension type: primary hypertension Qualified Code(s): I10 - Essential (primary) hypertension Code(s): I10 - Essential (primary) hypertension Status: Acute Plan I have discussed the patient's case and plan of care with Dr. Dockery. Thank you for allowing us to see the patient in consultation and we will continue to follow along with you. History of Present Illness Consult details Consult date: 01/19/24 Reason for consult: other (Ileus vs small bowel obstruction) Requesting physician: Juni Jackson MD Narrative: This is a 53-year-old man with a history of coronary artery disease s/p cardiac stent placement in 2020, ischemic cardiomyopathy, paroxysmal atrial fibrillation, and other medical problems, who presented to the ER on 01/15/24 for complaints of substernal chest pain. His pain was intermittent and occurred when exerting himself, and he had exertional dyspnea. He also had a recent hospitalization in October 2023 for chest pain and elevated troponins as well. Workup in the ER revealed mildly elevated troponin and he was admitted for Cardiology evaluation. He underwent cardiac catheterization yesterday that showed a patent stent in the RCA and 70-80% stenosis of a terminal branch of the circumflex. Medical therapy was recommended. He then had an episode of epigastric pain, nausea, and one episode of vomiting early this morning that prompted a KUB, which showed dila
--- NOTE | 2024-01-19 14:27 | PM.IMPN ---
Progress Note: A&P Assessment and Plan (1) Chest pain: Qualifiers: Chest pain type: unspecified Qualified Code(s): R07.9 - Chest pain, unspecified Code(s): R07.9 - Chest pain, unspecified Status: Acute (2) CAD (coronary artery disease): Qualifiers: Coronary Disease-Associated Artery/Lesion type: [place] artery [place] vs. transplanted heart: [place] heart Associated angina: with unstable angina Qualified Code(s): I25.110 - Atherosclerotic heart disease of [place] coronary artery with unstable angina pectoris Code(s): I25.10 - Atherosclerotic heart disease of [place] coronary artery without angina pectoris Status: Acute (3) Ischemic cardiomyopathy: Code(s): I25.5 - Ischemic cardiomyopathy Status: Acute (4) Hyperlipidemia: Code(s): E78.5 - Hyperlipidemia, unspecified Status: Acute (5) Hypothyroidism: Code(s): E03.9 - Hypothyroidism, unspecified Status: Acute (6) PAF (paroxysmal atrial fibrillation): Code(s): I48.0 - Paroxysmal atrial fibrillation Status: Acute (7) Hypertension: Qualifiers: Hypertension type: primary hypertension Qualified Code(s): I10 - Essential (primary) hypertension Code(s): I10 - Essential (primary) hypertension Status: Acute Plan Continue with current medications Continue with continuous cardiopulmonary tele monitoring Patient has minimally elevated troponins which are flat Patient has been chronically anticoagulated on Eliquis... Which was held on admission Cardiology planning cardiac catheterization in am after 48 hour washout period for DOAC 01/18/2024: Patient underwent cardiac catheterization late today which showed global systolic dysfunction out of proportion to the coronary artery disease that is present No cardiac stents inserted during cardiac catheterization Continue with medical management for his CAD Adjust cardiac meds for elevated blood pressure as per Cardiology KUB ordered for patient's abdominal distension which showed dilated small bowel consistent with adynamic Ileus versus small-bowel obstruction Patient NPO except meds General surgery consult ordered for evaluation and further recommendations Would restart Eliquis upon discharge once we are reassured patient would not need any surgical intervention DC home in a.m. once cleared by Cardiology and General surgery ? Patient seen and examined at bedside during my morning rounds ? Collaborated with patient's nurse at the bedside in detail and addressed all concerns ? Labs, electrolytes, radiology, investigations and test results reviewed ? Consult/Nursing/Ancilliary notes on the chart reviewed and appreciated ? Spoke with patient/family at the bedside and answered all the questions that they had Repeat labs in a.m. Electrolyte replacement as per protocol. Patient will be monitored very closely on the floor. Further recommendations as per the hospital course. Time Spent With Patient Time with patient: 25 - 35 minutes Subjective Date/time seen: 01/19/24 14:27 Interval history: Patient seen and evaluated at bedside. Complains of abdominal distension with mild abdominal pain. His systolic blood pressure remained above 160 overnight. Review of Systems Review of Systems: 14 systems were reviewed with pertinent positives and negatives per HPI. Except as documented in the HPI/progress notes, all other systems were reviewed and are negative. All systems reviewed & are unremarkable except as noted in HPI and below Exam Narrative: PHYSICAL EXAMINATION: Vital signs: Please see the chart General physical exam: Patient lying in bed, pleasant and cooperative with exam, appears in no acute distress Head/eyes: Atraumatic, EOMI, PERRLA ENT: Moist mucous membranes, nasal passages clear Neck: Supple, full range of motion, trachea midline CVS: S1 + S2, regular rate and rhythm, no murmurs Respiratory: Bilaterall
[2024-01-19] MEDS: polyethylene glycoL 3350 17 GM POWD.PACK PO (16:31)
[2024-01-19] MEDS: BISACODYL 10 MG SUPPOSITORY RECTAL (16:31)
[2024-01-19 16:50] LABS: Glucose Point of Care 156 mg/dl (65-105)
[2024-01-19] MEDS: ENOXAPARIN 40 MG/0.4 ML SYRINGE SUB-Q (17:13)
[2024-01-19 19:57] LABS: Glucose Point of Care 182 mg/dl (65-105)
[2024-01-20] VITALS (10 sets, daily range): BP systolic 133–178; BP diastolic 77–103; PULSE 46–81; RESP 15–24; TEMP 36.8; O2SAT 93–98
[2024-01-20] MEDS: ASPIRIN 81 MG ENTERIC TABLET PO (07:31)
[2024-01-20] MEDS: LOSARTAN POTASSIUM 100 MG TABLET PO (07:31)
[2024-01-20] MEDS: ATORVASTATIN 40 MG TABLET PO (07:31)
[2024-01-20] MEDS: SERTRALINE HCL 50 MG TABLET PO (07:31)
[2024-01-20] MEDS: polyethylene glycoL 3350 17 GM POWD.PACK PO (07:31)
[2024-01-20] MEDS: PANTOPRAZOLE 40 MG TABLET PO (07:31)
[2024-01-20] MEDS: carvediloL 12.5 MG TABLET PO (07:32)
[2024-01-20] MEDS: hydrALAZINE HCL 25 MG TABLET 75 MG PO ×2 (07:32→12:16)
[2024-01-20] MEDS: SPIRONOLACTONE 25 MG TABLET PO (07:32)
[2024-01-20 07:41] LABS: Glucose Point of Care 99 mg/dl (65-105)
--- NOTE | 2024-01-20 08:00 | WPDPN ---
Progress Note: A&P Assessment and Plan (1) Epigastric pain: Code(s): R10.13 - Epigastric pain Status: Acute Assessment and Plan: Patient's epigastric pain could have been to his cardiac event however he is mildly tender in the right upper quadrant on initial evaluation and so a abdominal ultrasound to evaluate gallbladder to see if he has any cholelithiasis is being performed today. If he has gallstones and he can certainly be having symptoms from his gallstones. Today he is not have any symptoms and I think he could be discharged home for follow-up see me in the office in a couple weeks. (2) NSTEMI (non-ST elevated myocardial infarction): Code(s): I21.4 - Non-ST elevation (NSTEMI) myocardial infarction Status: Acute Assessment and Plan: Being treated and followed by the keysmith. No intervention at this time is planned. Subjective Date/time seen: 01/20/24 08:00 Interval history: Pretty well this morning. Denies any upper abdominal pain or any nausea. NPO this morning because is going to get an ultrasound today was gallbladder but otherwise would feel okay eating. No fever. No chest pain. Patient was given a suppository yesterday and some MiraLax. He had a small bowel movement this more which was partially formed. Exam Const: General: comfortable and no acute distress Eyes: General: appearance normal, both eyes and all related structures Sclera: sclerae normal Resp: Effort & Inspection: normal respiratory effort Auscultation: clear to auscultation bilaterally GI: Other: Abdomen is soft and obese. Minimal tenderness palpation epigastric right upper quadrant. No masses. No peritoneal signs. Skin: General skin exam: normal color and no rashes or lesions noted Neuro: Speech: normal speech Psych: Mental Status: mental status grossly normal Objective Data Vital Signs Vital Signs: Vital Signs - 24 hr 01/19/24 08:20 01/19/24 10:00 01/19/24 10:32 Temperature Pulse Rate 71 66 65 Pulse Rate [Bilateral Pedal (Dorsalis Pedis) Palpation] Respiratory Rate Blood Pressure Pulse Oximetry Oxygen Delivery 01/19/24 08:30 01/19/24 10:34 01/19/24 12:00 Temperature Pulse Rate 74 Pulse Rate [Bilateral Pedal (Dorsalis Pedis) Palpation] Respiratory Rate 17 Blood Pressure 167/103 H 149/96 H Pulse Oximetry 93 95 Oxygen Delivery Room Air 01/19/24 12:00 01/19/24 12:00 01/19/24 14:00 Temperature Pulse Rate 50 L 54 L Pulse Rate [Bilateral Pedal (Dorsalis Pedis) Palpation] 52 L Respiratory Rate Blood Pressure Pulse Oximetry Oxygen Delivery 01/19/24 14:00 01/19/24 16:00 01/19/24 12:00 Temperature Pulse Rate 54 L 50 L 56 L Pulse Rate [Bilateral Pedal (Dorsalis Pedis) Palpation] Respiratory Rate 21 H 17 Blood Pressure 121/73 149/88 H Pulse Oximetry 98 97 Oxygen Delivery 01/19/24 18:00 01/19/24 20:00 01/19/24 20:00 Temperature Pulse Rate 52 L 47 L Pulse Rate [Bilateral Pedal (Dorsalis Pedis) Palpation] Respiratory Rate Blood Pressure Pulse Oximetry Oxygen Delivery Room Air 01/19/24 20:00 01/19/24 23:48 01/20/24 00:00 Temperature 36.6 C 36.8 C Pulse Rate 47 L 64 Pulse Rate [Bilateral Pedal (Dorsalis Pedis) Palpation] Respiratory Rate 16 15 Blood Pressure 119/74 149/77 H Pulse Oximetry 93 94 Oxygen Delivery Room Air 01/20/24 00:00 01/20/24 04:00 01/20/24 04:00 Temperature Pulse Rate 46 L 47 L Pulse Rate [Bilateral Pedal (Dorsalis Pedis) Palpation] Respiratory Rate Blood Pressure Pulse Oximetry Oxygen Delivery Room Air 01/20/24 04:00 01/20/24 05:23 01/20/24 07:32 Temperature 36.8 C Pulse Rate 53 L 53 L 75 Pulse Rate [Bilateral Pedal (Dorsalis Pedis) Palpation] Respiratory Rate 16 Blood Pressure 166/91 H Pulse Oximetry 93 Oxygen Delivery 01/20/24 07:48 Temperature 36.8 C Pulse Rate 81 Pulse Rate [Bilateral
--- NOTE | 2024-01-20 10:34 | PM.PNCARD ---
Progress Note: A&P Assessment and Plan (1) Elevated troponin: Code(s): R79.89 - Other specified abnormal findings of blood chemistry Status: Acute Assessment and Plan: Mildly elevated flat troponin elevation with a history of chronic troponin elevation, history of CAD and complaints of progressive exertional angina. Patient has now had 2 admissions with past several months for chest pain with elevated troponin. Appears to have had a non-STEMI with lateral T-wave inversion. Cardiac catheterization showed 70-80% stenosis of a small terminal branch of the circumflex and medical therapy recommended. --No chest pain today --continue medical therapy for CAD with aspirin, atorvastatin, carvedilol --Ok for discharge from cardiac standpoint. He previously followed with a steward/stewardess dining room at [facility], but would like to be established with our practice. I will arrange for follow up. (2) CAD (coronary artery disease): Qualifiers: Associated angina: with unstable angina Coronary Disease-Associated Artery/Lesion type: [place] artery [place] vs. transplanted heart: [place] heart Qualified Code(s): I25.110 - Atherosclerotic heart disease of [place] coronary artery with unstable angina pectoris Code(s): I25.10 - Atherosclerotic heart disease of [place] coronary artery without angina pectoris Status: Acute Assessment and Plan: Known history of drug-eluting stent 3.5 x 18 mm to mid RCA 05/2021 followed by [facility] as an outpatient. --continue aspirin, atorvastatin resumed. (3) Dilated cardiomyopathy: Code(s): I42.0 - Dilated cardiomyopathy Status: Acute Assessment and Plan: Patient compensated at this time but did receive IV Lasix x1 in the ER due to pulmonary vascular congestion elevated BNP similar to prior levels. By echo 10/2023, moderate LV dysfunction EF 40-45% with hypokinesis of anterolateral/inferolateral, basal inferior, mid inferior, basal and mid anterior wall and basal and mid anteroseptal rodríguez. EF by catheterization was about 35%. --Resume losartan 100 mg daily, hydralazine 50 mg 3 times daily, --increase coreg to 12.5 mg mg b.i.d. --Add spironolactone --EF 41%, unchanged from previous echo in 2022. (4) Hypertension: Qualifiers: Hypertension type: primary hypertension Qualified Code(s): I10 - Essential (primary) hypertension Code(s): I10 - Essential (primary) hypertension Status: Acute Assessment and Plan: BP has been significantly elevated this admission --continue losartan --Increase hydralazine --increase carvedilol --add spironolactone for hypertension cardiomyopathy --Added amlodipine today as well - BP 153/88 following first administration and after receiving all the above. Outpatient adjustments. Recommend keping BP --Runs a low K+; wonder if he has been checked for hyperaldosteronism in the past? FU w/ PMD. (5) PAF (paroxysmal atrial fibrillation): Code(s): I48.0 - Paroxysmal atrial fibrillation Status: Acute Assessment and Plan: Patient was maintained on amiodarone 200 mg daily as an outpatient as well as carvedilol 6.25 mg twice daily. No AFib this admission. --Cont carvedilol; amio still on hold. --Eliquis 5 mg twice daily held since admission, resume prior to discharge. (6) Ectopic atrial rhythm: Code(s): I49.1 - Atrial premature depolarization Status: Acute Assessment and Plan: Given controlled ventricular response with ectopic rhythm. Asymptomatic. --Hold amiodarone (7) Chronic kidney disease, stage 3a: Code(s): N18.31 - Chronic kidney disease, stage 3a Status: Acute Assessment and Plan: Stable. continue monitor renal function closely. Monitor electrolytes. (8) Hyperlipidemia: Code(s): E78.5 - Hyperlipidemia, unspecified Status: Acute Assessment and Plan: Resume statin therapy given CAD, goal LDL less th
[2024-01-20] MEDS: amLODIPine BESYLATE 5 MG TABLET PO (11:26)
[2024-01-20 12:00] LABS: Glucose Point of Care 194 mg/dl (65-105)
--- NOTE | 2024-01-20 13:50 | PM.DS ---
DS: Admitting Diagnosis Discharge Date 01/20/2024: Admitting Diagnosis Chest pain Paroxysmal AFib DS: Summary Hospital Course Hospital Course: H&P: HPI History of Present Illness Date/Time: 01/16/24? 01:17 Chief Complaint: Chest pain. This is a 53-year-old male patient with a past medical history of hypothyroidism paroxysmal atrial fibrillation on Eliquis chronic hypertension congestive heart failure coronary artery disease status post get the right revision in 2021 came to the emergency room complaining of chest pain.? Patient said that he started having chest pain yesterday while he was sitting down the pain was intermittent and occurs when he is exerting himself and is appreciated with exertional dyspnea.? Pain was substernal and radiated to his left when it occurred.? Also reported mild cough.? Patient is awake alert not in acute distress.? Patient denies any fever chills dizziness lightheadedness no blurry vision no nausea no vomiting no diarrhea no dysuria no muscle and joint pains.? Vital signs in the emergency room was stable.? EKG showed junctional bradycardia.? Chest x-ray showed cardiomegaly mild pulmonary vascular congestion.? Cbc was maintaining range.? CMP showed sodium 139 potassium 3.4 chloride 105 carbon dioxide 30 BUN 20 creatinine 1.20.? Glucose 117.? Troponin 0.45.? ProBNP 9120.? Lipase 63.? COVID influenza and RSV negative.? Patient was given aspirin in the emergency room. HOSPITAL COURSE ... Date of Admission - 01/19/2024: (1) Chest pain: ?Qualifiers: ?Chest pain type:?unspecified? Qualified Code(s):?R07.9 - Chest pain, unspecified ?Code(s): R07.9 - Chest pain, unspecified ?Status:?Acute (2) CAD (coronary artery disease): ?Qualifiers: ?Coronary Disease-Associated Artery/Lesion type:?[place] artery??[place] vs. transplanted heart:?[place] heart??Associated angina:?with unstable angina? Qualified Code(s):?I25.110 - Atherosclerotic heart disease of [place] coronary artery with unstable angina pectoris ?Code(s): I25.10 - Atherosclerotic heart disease of [place] coronary artery without angina pectoris ?Status:?Acute (3) Ischemic cardiomyopathy: ?Code(s): I25.5 - Ischemic cardiomyopathy ?Status:?Acute (4) Hyperlipidemia: ?Code(s): E78.5 - Hyperlipidemia, unspecified ?Status:?Acute (5) Hypothyroidism: ?Code(s): E03.9 - Hypothyroidism, unspecified ?Status:?Acute (6) PAF (paroxysmal atrial fibrillation): ?Code(s): I48.0 - Paroxysmal atrial fibrillation ?Status:?Acute (7) Hypertension: ?Qualifiers: ?Hypertension type:?primary hypertension? Qualified Code(s):?I10 - Essential (primary) hypertension ?Code(s): I10 - Essential (primary) hypertension ?Status:?Acute Plan Continue with current medications Continue with continuous cardiopulmonary tele monitoring Patient has minimally elevated troponins which are flat Patient has been chronically anticoagulated on Eliquis...? Which was held on admission Cardiology planning cardiac catheterization in am after 48 hour washout period for DOAC 01/18/2024:? Patient underwent cardiac catheterization late today which showed?global systolic dysfunction out of proportion to the coronary artery disease that is present No cardiac stents inserted during cardiac catheterization Continue with medical management for his CAD Adjust cardiac meds for elevated blood pressure as per Cardiology KUB ordered for patient's abdominal distension which showed dilated small bowel consistent with adynamic Ileus versus small-bowel obstruction Patient NPO except meds General surgery consult ordered for evaluation and further recommendations Would restart Eliquis upon discharge once we are reassured patient would not need any surgical intervention DC home in a.m. once cleared by Cardiology and General surgery 01/20/2024: Patient is feeling better today. He had 2-3 small bowel movements since last night and his ab
== END 2024-01-20 14:31 | disposition home or self-care (01) | DRG 191 ==
LOC: ANHED 01-16 01:29 → ANH3MEDSUR 01-16 04:54 → ANHICU 01-16 06:59
PROVIDERS: Emergency Medicine; Internal Medicine Cardiovascular Disease; Nurse Practitioner; Specialist; Admitting Provider Internal Medicine Infectious Disease; Emergency Provider Physician Assistant; PCP Internal Medicine Infectious Disease; Visit Provider Family Medicine
PROC: 4A023N7 Measurement of Cardiac Sampling and Pressure, Left Heart, Percutaneous Approach (ICD-10-PCS; CPT 93452; principal; 2024-01-18 10:00)
PROC: 4A023N7 Measurement of Cardiac Sampling and Pressure, Left Heart, Percutaneous Approach (ICD-10-PCS; 2024-01-18 10:00)
DX: I25.110 Atherosclerotic heart disease of native coronary artery with unstable angina pectoris (principal); I50.23 Acute on chronic systolic (congestive) heart failure; I48.0 Paroxysmal atrial fibrillation; I13.0 Hypertensive heart and chronic kidney disease with heart failure and stage 1 through stage 4 chronic kidney disease, or unspecified chronic kidney disease; I25.5 Ischemic cardiomyopathy; I49.1 Atrial premature depolarization; N18.31 Chronic kidney disease, stage 3a; K56.7 Ileus, unspecified; E03.9 Hypothyroidism, unspecified; R79.89 Other specified abnormal findings of blood chemistry; I25.2 Old myocardial infarction; Z20.822 Contact with and (suspected) exposure to COVID-19; Z79.01 Long term (current) use of anticoagulants; Z95.5 Presence of coronary angioplasty implant and graft
CPT/HCPCS: 36415; 71046; 74018; 76705; 80048; 80053; 80061; 81001; 82948; 83690; 83880; 84100; 84484; 85025; 85610; 85730; 87637; 93005; 93308; 93458; 96372; 96374; 99285; A9270; C1760; C1887; C1894; G0269; G0378; G0379; J0360; J1644; J1650; J1940; J2250; J2405; J3010; J7030; J7040

== ENCOUNTER 2024-07-30 11:52 | Observation (INO) | payer OTHER, SELFPAY ==
[2024-07-30] VITALS (19 sets, daily range): BP systolic 124–157; BP diastolic 72–123; PULSE 87–127; RESP 18–25; TEMP 36.1–36.6; O2SAT 93–100; BMI 28.6
--- NOTE | ~2024-07-30 | US_ITS ---
EXAMINATION: US thyroid DATE: 07/31/2024 15:02 INDICATION: Subclinical hyperthyroidism, new diagnosis. TECHNIQUE: Multiple ultrasound images of the thyroid were obtained. COMPARISON: None. FINDINGS: The right thyroid lobe measures 5.0 x 2.5 x 2.3 cm. The left thyroid lobe measures 4.8 x 2.0 x 2.9 c m. There is a 4 mm nodule in right thyroid lobe. The thyroid demonstrates coarsened echotexture. Vas cularity is normal. IMPRESSION: 1. Coarsened echotexture of the thyroid, which may be seen with chronic lymphocytic (Ruth's) thy roiditis. Reviewed, dictated and finalized at location A. IMPRESSION: 1. Coarsened echotexture of the thyroid, which may be seen with chronic lymphoc ytic (Ruth's) thyroiditis.
--- NOTE | ~2024-07-30 | CT_ITS ---
EXAMINATION:CT diagnostic chest wo con DATE: 08/01/2024 10:04 INDICATION: Pneumonia. TECHNIQUE: Computed tomography (CT) of the chest was performed without intravenous contrast. Automate d exposure control and iterative reconstruction technique were employed. The dose-length product (DLP ) was 297.60 mGy-cm. COMPARISON: Chest CT 05/23/2020, chest 2 views 07/30/2024 FINDINGS: There is septal thickening lungs, consistent with mild pulmonary edema. There is mild emphy sema. No pleural effusion. There are nodules in the thyroid measuring up to 11 mm, likely not clinica lly significant. Cardiomegaly is noted. There are coronary artery calcifications. No pericardial effu junior. There is mild mediastinal lymphadenopathy, likely reactive. There is mild thoracic spondylosis. IMPRESSION: 1. Mild pulmonary edema. 2. Mild emphysema. 3. Cardiomegaly. 4. Mild mediastinal lymphadenopathy, likely reactive. Reviewed, dictated and finalized at location A.
--- NOTE | ~2024-07-30 | XR_ITS ---
Clinical Indication: Cough PA and lateral views of the chest: Comparison: 01/15/2024 Findings: The lungs are clear, without evidence of focal consolidation or pleural effusion. Cardiome diastinal silhouette is stable. Bones and soft tissues are unremarkable. Impression: Clear lungs. Reviewed, dictated and finalized at location . Impression: Clear lungs.
--- NOTE | 2024-07-30 11:57 | ECG_ITS ---
Test Date: 2024-07-30 11:59:27 Measurements Intervals [place] Rate: 116 P: 0 SC: 0 QRS: -36 QRSD: 121 T: 116 QT: 345 QTc: 480 Interpretive Statements ATRIAL FIBRILLATION WITH RAPID VENTRICULAR RESPONSE LEFT AXIS DEVIATION INTRAVENTRICULAR CONDUCTION DELAY ST-T WAVE ABNORMALITY IN HIGH LATERAL LEADS- CONSIDER ISCHEMIA BASELINE ARTIFACT- I, II No previous ECG available for comparison Electronically Signed On 07-30-2024 15:15:55 CDT by Jun Clifford D.O.
[2024-07-30 12:14] LABS: Basophils Percent Auto 0.2 % (0.2-1.2); Eosinophils Absolute Auto 0.1 K/mm3 (0-0.3); Eosinophils Percent Auto 0.8 % (0-4.4); Hematocrit 37.7 % (42.0-52.0); Hemoglobin 12.6 g/dL (14.0-18.0); Immature Granulocyte Absolute 0.06 K/mm3 (0.00-0.031); Immature Granulocyte Percent A 0.4 % (0-0.5); Lymphocytes Absolute Auto 0.76 K/mm3 (0.9-3.2); Lymphocytes Percent Auto 5.2 % (18.3-44.2); Mean Corpuscular HGB Conc 33.4 g/dl (32-36); Mean Corpuscular Hemoglobin 32.4 pg (26-34); Mean Corpuscular Volume 96.9 fl (80-100); Mean Platelet Volume 10.4 fl (7.4-10.4); Monocytes Percent Auto 6.7 % (2.6-8.5); Neutrophils Absolute Auto 12.8 K/mm3 (1.3-6.7); Neutrophils Percent Auto 86.7 % (45.5-73.1); Platelet Count Result 273 k/mm3 (150-375); Red Blood Count 3.89 M/mm3 (4.6-6.20); Red Cell Distribution Width 12.8 % (11.5-14.5); White Blood Count 14.7 K/mm3 (4.5-10.0)
[2024-07-30 12:23] LABS: INR 1.4; Prothrombin Time 17.9 Seconds (11.1-14.7)
[2024-07-30 12:24] LABS: Partial Thromboplastin Time 33.1 Seconds (22.3-36.8)
[2024-07-30 12:25] LABS: Alanine Aminotransferase 33 U/L (6-50); Albumin Level 4.1 g/dL (3.5-5.1); Alkaline Phosphatase 107 U/L (38-126); Anion Gap 10 mmol/L (4-12); Aspartate Amino Transferase 40 U/L (17-59); Bilirubin,Total 2.6 mg/dL (0.2-1.3); Blood Urea Nitrogen 37 mg/dL (9-20); Calcium 8.9 mg/dL (8.4-10.2); Carbon Dioxide 26 mmol/L (22-30); Chloride 102 mmol/L (98-107); Estimated Glomerular Filt Rate 42; Glucose 121 mg/dL (65-110); Lipase 64 U/L (23-300); Potassium 4.2 mmol/L (3.4-5.0); Sodium 138 mmol/L (137-145)
[2024-07-30 12:38] LABS: Troponin I 0.065 ng/mL (0.000-0.034)
--- NOTE | 2024-07-30 13:26 | ED.SOB ---
HPI - SOB/Dyspnea General Chief Complaint: Shortness of Breath/Dyspnea Stated Complaint: sob Time Seen by Provider: 07/30/24 12:45 Source: patient History of Present Illness HPI Narrative: Patient presents with shortness of breath of 4 days duration. Had recently been admitted at [facility] though he doesn't know why. Feels he is getting worse despite this. Presents with chest pain that is present currently and worse with cough. He has had a productive cough. No fever. Denies history of COPD. Has a history of atrial fibrillation, heart failure, HTN, and diabetes. He wears a LifeVest due to the severity of his heart failure. Medications include Elliquis, atorvastatin, losartan, and carvedilol. Possibly also on a diuretic but he doesn't know; he knows he was on one while hospitalized. Most recent cardiac catheterization was when he was hospitalized last week; right radial access for the procedure which was reportedly normal . Does not wear supplemental O2 at baseline. Has previously required BiPap but states he didn't tolerate it. Quit smoking 5-6 years ago. Lives with who is not sick. No lower extremity edema. Subjective fevers. 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 Related Data Home Medications Medication Instructions Recorded Confirmed apixaban 5 mg tablet (Eliquis) 5 mg PO Q12H 01/16/24 07/30/24 atorvastatin 40 mg tablet 80 mg PO DAILY 07/30/24 07/30/24 Allergies Allergy/AdvReac Type Severity Reaction Status Date / Time No Known Allergies Allergy Verified 01/16/24 09:38 [facility] Past Medical History Medical History (Updated 07/30/24 @ 23:58 by Debra Puentes MD) Chronic anemia Chronic anticoagulation Chronic kidney disease, stage 3a Coronary artery disease Dilated cardiomyopathy Heart failure with reduced ejection fraction Hyperlipidemia Hypertension Paroxysmal atrial fibrillation Tobacco abuse Type 2 diabetes mellitus Surgical History Surgical History (Updated 07/30/24 @ 23:50 by Debra Puentes MD) History of cardiac catheterization [facility] July 2024 History of coronary artery stent placement History of mandibular surgery Repair drop fracture. History of toe surgery Repair right great toe amputation. Family History Family History Father Acute myocardial infarction Hypertension Mother Cerebrovascular accident Social History Social History (Updated 07/30/24 @ 22:43 by Hiral Edouard PA-C) Social History: Surrogate medical decision maker: Kathy Viramontes, spouse. Code status: Full code. Smoking packs per day: 2 Smoking cigarettes per day: 40.0 Years smoked: 30 Smoking pack-years: 60.00 Smoking status: Former smoker Tobacco type: cigarettes Smoking end date: 10/14/18 Alcohol intake: never Substance use: current Substance use type: marijuana Other substance usage details: History cocaine use years ago. 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 Spiritual care concerns: Yes Exam Narrative: GENERAL: Well-appearing, well-nourished, and in no acute distress. HEAD: Normocephalic, atraumatic. EYES: Non injected, non icteric ENT: Nares clear, no rhinorrhea or epistaxis. Moist mucous membranes. NECK: Supple. CHEST: Increased work of breathing, labored. Expiratory wheezes. HEART: Irregularly IRegular rate and rhythm. . ABDOMEN: Soft, nondistended. EXTREMITIES: Normal range of motion. No lower extremity edema. SKIN: Warm,
[2024-07-30] MEDS: ALBUTEROL SULFATE NEB 2.5 MG/3 ML INH INHALATION ×2 (13:35→14:30)
[2024-07-30] MEDS: IPRATROPIUM 0.5 MG/ALBUTEROL SULFATE 2.5 MG AMPUL.NEB 3 ML INHALATION (13:35)
[2024-07-30] MEDS: ASPIRIN 81 MG CHEWABLE TABLET 324 MG PO (13:54)
[2024-07-30 14:01] LABS: D Dimer 0.31 ug/mL (<0.48)
[2024-07-30 14:16] LABS: Lactic Acid Reflex 1.2 mmol/L (0.7-2.0)
[2024-07-30 14:25] LABS: NT Pro B Type Natriuretic Pept 14900 pg/mL (19.9-100)
[2024-07-30] MEDS: predniSONE 20 MG TABLET 60 MG PO (14:33)
[2024-07-30] MEDS: MAGNESIUM SULF 1 GM/D5W 100 ML 1 GM/100 ML BAG IVPB (14:33)
[2024-07-30] MEDS: AZITHROMYCIN 250 MG TABLET 500 MG PO (14:33)
[2024-07-30 14:41] LABS: Influenza A QL RT-PCR Negative (Negative); Influenza B QL RT-PCR Negative (Negative); RSV RNA, RT-PCR Negative (Negative); SARS-CoV-2 RNA PCR Negative (Negative)
--- NOTE | 2024-07-30 14:55 | ECG_ITS ---
Test Date: 2024-07-30 15:00:51 Measurements Intervals [place] Rate: 110 P: 0 MA: 0 QRS: -44 QRSD: 119 T: 135 QT: 386 QTc: 522 Interpretive Statements ATRIAL FIBRILLATION WITH RAPID VENTRICULAR RESPONSE LEFT AXIS DEVIATION INTRAVENTRICULAR CONDUCTION DELAY LEFT VENTRICULAR HYPERTROPHY WITH ST-T CHANGE CANNOT R/O SEPTAL INFARCT, AGE INDETERMINATE ABNORMAL ECG Compared to ECG 07/30/2024 11:59:27 NO SIGNIFICANT CHANGE Electronically Signed On 07-30-2024 15:10:46 CDT by Jun Clifford D.O.
[2024-07-30 15:44] LABS: Troponin I 0.059 ng/mL (0.000-0.034)
[2024-07-30] MEDS: FUROSEMIDE INJ 40 MG/4 ML VIAL IV PUSH (16:01)
--- NOTE | 2024-07-30 16:15 | PM.IMHP ---
H&P: HPI History of Present Illness Date/Time: 07/30/24 16:35 Chief Complaint: Shortness of breath. Narrative: This is a pleasant 53-year-old male with history of coronary artery disease, ischemic cardiomyopathy on LifeVest, hypertension, atrial fibrillation on chronic anticoagulation, hyperlipidemia, chronic kidney disease, and anemia who presented to the emergency department via private vehicle for evaluation of shortness of breath. The patient provides the following history. He was discharged from [facility] 4 days ago after being admitted with chest pain. Cardiac catheterization at that time reportedly showed a patent stent which was placed several years ago with no significant coronary artery disease. His ejection fraction was significantly low at 15% and he was placed on a LifeVest. Since discharge he continues to have intermittent chest pain but he has also developed cough productive of occasionally thick creamy mucus, wheezing, mild sore throat, and shortness of breath. He admits that he has been fatigued and short of breath for awhile however the shortness of breath has been worse for a couple of days. He has had several episodes of posttussive emesis. He lives with his and family friends who have several grade school age children who have had some respiratory symptoms. He denies fever, sinus congestion, hemoptysis, orthopnea, nausea, diarrhea, lower extremity edema, and calf pain. In the ED: He was in rapid atrial fibrillation on arrival with a blood pressure of 154/123 and and SpO2 99% room air. Labs were significant for a WBC count of 14.7, hemoglobin 12.6, D-dimer 0.31, BUN 37, creatinine 1.70, lactic acid 1.2, total bilirubin 2.6, troponin 0.065, proBNP 51314. He tested negative for influenza, RSV, and COVID. Chest x-ray showed clear lungs. EKG showed rapid atrial fibrillation with left axis deviation, intraventricular conduction delay, and ST T-wave abnormalities in the high lateral leads. He was given a DuoNeb, furosemide 40 mg IV, magnesium sulfate 1 g IV, prednisone 60 mg p.o., aspirin 324 mg p.o., and azithromycin 500 mg p.o.. Initially he felt better after receiving the DuoNeb however on re-evaluation he was once again feeling increasingly short of breath and wheezing and he is being admitted in this setting. Review of Systems Review of Systems: 12 systems were reviewed and are negative except for as per HPI. [facility] Past Medical History Medical History (Updated 07/30/24 @ 22:45 by Hiral Edouard PA-C) Chronic anemia Chronic anticoagulation Chronic kidney disease, stage 3a Coronary artery disease Dilated cardiomyopathy Heart failure with reduced ejection fraction Hyperlipidemia Hypertension Paroxysmal atrial fibrillation Tobacco abuse Type 2 diabetes mellitus Surgical History Surgical History (Updated 07/30/24 @ 16:29 by Hiral Edouard PA-C) History of cardiac catheterization History of coronary artery stent placement History of mandibular surgery Repair drop fracture. History of toe surgery Repair right great toe amputation. Family History Family History Father Acute myocardial infarction Hypertension Mother Cerebrovascular accident Social History Social History (Updated 07/30/24 @ 22:43 by Hiral Edouard PA-C) Social History: Surrogate medical decision maker: Kathy Mckeonon, spouse. Code status: Full code. Smoking packs per day: 2 Smoking cigarettes per day: 40.0 Years smoked: 30 Smoking pack-years: 60.00 Smoking status: Former smoker Tobacco type: cigarettes Smoking end date: 10/14/18 Alcohol intake: never Substance use: current Substance use type: marijuana Other substance usage details: History cocaine use years ago. Do You Feel Safe in your Home?: Yes Lack of Transportation: No Lack of Food: Never True Current Housing: I Have Housing Concerned About Future [place]
--- NOTE | 2024-07-30 17:59 | ADMGEN ---
This patient, Gpoi Viramontes, was admitted to IMU Room 204-01. Patient/family oriented to hospital policies and general routines including ID bracelet, bed and alarms, visiting hours, pain management, procedures, bathroom and other care routines, personal items, smoking policy, room service/diet, and visiting hours. Information on how to activate the Rapid Response Team has been discussed. Patient/Family are encouraged to report perceived risks to care and to ask questions if they do not understand what they are told or what they should do.
[2024-07-30 19:25] LABS: Iron 46 ug/dL (49-181)
[2024-07-30 19:35] LABS: Percent Iron Saturation 15 % (20-50)
[2024-07-30 19:58] LABS: Thyroid Stimulating Hormone Reflex 0.409 uIU/mL (0.465-4.68)
[2024-07-30 21:53] LABS: Bilirubin Indirect 2.5 mg/dL (0-1.1)
[2024-07-30] MEDS: HYDROcodone/acetaminophen (*CRX) 5-325 MG TABLET 1 TAB PO (22:06)
[2024-07-30] MEDS: IPRATROPIUM BR 0.02% INH SOLN 0.5 MG/2.5 ML VIAL INHALATION (22:32)
[2024-07-30] MEDS: LEVALBUTEROL NEB 1.25 MG/3 ML INHALATION (22:32)
[2024-07-30] MEDS: APIXABAN 5 MG TABLET PO (23:29)
[2024-07-30] MEDS: DOXYCYCLINE HYCLATE 100 MG TABLET PO (23:29)
[2024-07-30] MEDS: carvediloL 12.5 MG TABLET PO (23:32)
[2024-07-31] VITALS (26 sets, daily range): BP systolic 100–149; BP diastolic 72–98; PULSE 63–128; RESP 16–20; TEMP 36.4–36.9; O2SAT 94–100
[2024-07-31] MEDS: IPRATROPIUM BR 0.02% INH SOLN 0.5 MG/2.5 ML VIAL INHALATION ×4 (02:25→20:15)
[2024-07-31] MEDS: LEVALBUTEROL NEB 1.25 MG/3 ML INHALATION ×4 (02:25→20:15)
[2024-07-31 03:17] LABS: Free T4 Free Thyroxine Reflex 1.73 ng/dL (0.78-2.19)
[2024-07-31 04:15] LABS: Total Triiodothyronine (T3) 1.44 NG/ML (0.97-1.69)
[2024-07-31 05:12] LABS: Basophils Percent Auto 0.1 % (0.2-1.2); Hematocrit 38.1 % (42.0-52.0); Hemoglobin 12.5 g/dL (14.0-18.0); Immature Granulocyte Absolute 0.02 K/mm3 (0.00-0.031); Immature Granulocyte Percent A 0.3 % (0-0.5); Lymphocytes Percent Auto 5.7 % (18.3-44.2); Mean Corpuscular HGB Conc 32.8 g/dl (32-36); Mean Corpuscular Volume 97.4 fl (80-100); Mean Platelet Volume 10.9 fl (7.4-10.4); Monocytes Absolute Auto 0.5 K/mm3 (0.1-0.6); Monocytes Percent Auto 7.2 % (2.6-8.5); Neutrophils Absolute Auto 6.1 K/mm3 (1.3-6.7); Neutrophils Percent Auto 86.7 % (45.5-73.1); Platelet Count Result 285 k/mm3 (150-375); Red Blood Count 3.91 M/mm3 (4.6-6.20); Red Cell Distribution Width 12.4 % (11.5-14.5); White Blood Count 7.1 K/mm3 (4.5-10.0)
[2024-07-31 05:23] LABS: Alanine Aminotransferase 32 U/L (6-50); Albumin Level 4.1 g/dL (3.5-5.1); Alkaline Phosphatase 103 U/L (38-126); Anion Gap 13 mmol/L (4-12); Aspartate Amino Transferase 34 U/L (17-59); Bilirubin,Total 1.5 mg/dL (0.2-1.3); Blood Urea Nitrogen 43 mg/dL (9-20); Calcium 8.6 mg/dL (8.4-10.2); Carbon Dioxide 24 mmol/L (22-30); Chloride 98 mmol/L (98-107); Estimated CRCL calculation 40 ml/min; Estimated Glomerular Filt Rate 35; Glucose 268 mg/dL (65-110); Magnesium 2.3 mg/dL (1.6-2.3); Potassium 4.1 mmol/L (3.4-5.0); Sodium 135 mmol/L (137-145)
[2024-07-31] MEDS: DOXYCYCLINE HYCLATE 100 MG TABLET PO (08:19)
[2024-07-31] MEDS: amLODIPine BESYLATE 5 MG TABLET PO (08:19)
[2024-07-31] MEDS: APIXABAN 5 MG TABLET PO ×2 (08:19→20:43)
[2024-07-31] MEDS: ATORVASTATIN 40 MG TABLET 80 MG PO (08:19)
[2024-07-31] MEDS: carvediloL 12.5 MG TABLET PO (08:19)
[2024-07-31] MEDS: guaiFENesin 12 HR 600 MG TABCR 1200 MG PO ×2 (08:19→20:43)
[2024-07-31] MEDS: LOSARTAN POTASSIUM 100 MG TABLET PO (08:19)
--- NOTE | 2024-07-31 09:19 | PM.CNCAR ---
Assessment and Plan Assessment and plan (1) Dilated cardiomyopathy: Code(s): I42.0 - Dilated cardiomyopathy Status: Acute Assessment and Plan: Reportedly severely dilated. Will request records from [facility] regarding most recent echocardiogram which reportedly showed an ejection fraction of 15%. Continue carvedilol. Would like to transition to Entresto if cost effective. In the meantime continue losartan. Discontinue amlodipine. (2) CAD (coronary artery disease): Qualifiers: Coronary Disease-Associated Artery/Lesion type: [place] artery [place] vs. transplanted heart: viejas heart Associated angina: with unstable angina Qualified Code(s): I25.110 - Atherosclerotic heart disease of [place] coronary artery with unstable angina pectoris Code(s): I25.10 - Atherosclerotic heart disease of [place] coronary artery without angina pectoris Status: Acute Assessment and Plan: No obstructive disease. Will request most recent angiogram from [facility]. Continue statin no other medical regimen (3) Paroxysmal atrial fibrillation: Code(s): I48.0 - Paroxysmal atrial fibrillation Status: Acute Assessment and Plan: Continue carvedilol and Eliquis. Monitor heart rate control. May need to add amiodarone for rate control (4) Chronic anticoagulation: Code(s): Z79.01 - [facility] (current) use of anticoagulants Status: Acute Assessment and Plan: Continue Eliquis (5) Elevated troponin: Code(s): R79.89 - Other specified abnormal findings of blood chemistry Status: Acute Assessment and Plan: Not related you acute coronary syndrome. This is secondary to heart and renal failure (6) Acute on chronic systolic (congestive) heart failure: Code(s): I50.23 - Acute on chronic systolic (congestive) heart failure Status: Acute Assessment and Plan: Probably worsened by AFib with RVR. Continue carvedilol, losartan. Start furosemide 40 mg p.o. daily and follow renal function History of Present Illness History of Present Illness Consult date/time: 07/31/24 09:19 Requesting physician: Debra Puentes MD Consult reason: atrial fibrillation, congestive heart failure and Other (Non-STEMI) Reason For Visit: intermittent hypoxia,nstemi Narrative: Date of service 07/31/2024 Reason for consultation ?non-STEMI ?CHF Requesting provider: Dr. Puentes History patient is a 53-year-old male who has a known history of cardiomyopathy. Also has known CAD via catheterization performed earlier this year showed branch vessel disease but no interventions performed. Was recently hospitalized at [facility]. Primary cardiologists is Dr. Andrew. Will patient states that he had another coronary angiogram performed moderate [facility] in no stents were placed. He went to the hospital because of worsening shortness of breath and chest pain. He states that his ejection fraction was 15% and was discharged home with a Life Vest. He states he was compliant with his medications. He states though that since being discharged she has been progressively more short of breath and did not feel that he get significantly better while at [facility]. He also had constant chest pain and decided to come to this hospital further workup and evaluation. Troponins were minimally elevated better chronically elevated without significant rise or fall. With diuresis and nebulizers, he feels much better today. He is in atrial fibrillation with rapid ventricular response. Currently denies any chest pain, syncope, presyncope, paroxysmal nocturnal dyspnea, orthopnea, edema or palpitations Review of Systems Review of Systems: All systems reviewed & are unremarkable except as noted in HPI and below Constitutional: Constitutional: Denies body ache(s) Eyes: Eyes: Denies blurry vision ENT: Reports Normal hearing present Cardiovascular: Cardiovascular: Reports chest pain Respiratory:
--- NOTE | 2024-07-31 10:44 | P.PNIM_ITS ---
Progress Note: A&P Assessment and Plan (1) Atrial fibrillation with rapid ventricular response: Code(s): I48.91 - Unspecified atrial fibrillation Status: Inactive Assessment and Plan: 07/31/24: * EKG showing AFib RVR * continue carvedilol and Eliquis * cardiology consulted (2) Elevated troponin: Code(s): R79.89 - Other specified abnormal findings of blood chemistry Status: Acute Assessment and Plan: 07/31/24: * likely demand ischemia * troponin 0.059< 0.050 (3) Bronchitis: Code(s): J40 - Bronchitis, not specified as acute or chronic Status: Acute Assessment and Plan: 07/31/24: * Will continue Azithromycin and Augmentin for 5 days, considering elevated WBC on admission and patient symptoms * CXR negative for pneumonia * Still reporting shortness of breath * Will get CT of chest now (4) Heart failure with reduced ejection fraction: Code(s): I50.20 - Unspecified systolic (congestive) heart failure Status: Acute Assessment and Plan: 07/31/24: * was recently at [facility] for chest pain and was found to have an ejection fraction of 15%. While there he did have a cardiac catheterization which shown a patent stent according to the patient. He was placed in a LifeVest * cardiology consulted * amlodipine discontinued * Lasix 40 mg p.o. daily ordered, however he has not made much urine since getting his 1st dose. We will hold for now considering his kidney function. * continue losartan * continuous telemetry monitoring * proBNP 14,900 * will keep in IMU for now (5) Hypertension: Qualifiers: Hypertension type: primary hypertension Qualified Code(s): I10 - Essential (primary) hypertension Code(s): I10 - Essential (primary) hypertension Status: Chronic Assessment and Plan: 07/31/24: * blood pressures ranging 129/85 to 150/117 * continue losartan (6) Chronic kidney disease, stage 3a: Code(s): N18.31 - Chronic kidney disease, stage 3a Status: Acute Assessment and Plan: 07/31/24: * initial creatinine 1.7 now up to 2.0 * EGFR 35 * baseline creatinine 1.1-1.3, baseline EGFR 49 to greater than 60 * continue to trend (7) Chronic anemia: Code(s): D64.9 - Anemia, unspecified Status: Acute Assessment and Plan: 07/31/24: * hemoglobin 12.5 * iron 46, ferritin 115 * Will continue to monitor (8) Elevated bilirubin: Code(s): R17 - Unspecified jaundice Status: Acute Assessment and Plan: 07/31/24: * total bilirubin 2.6 now down to 1.5 * will check hepatitis panel (9) Hyperthyroidism: Code(s): E05.90 - Thyrotoxicosis, unspecified without thyrotoxic crisis or storm Status: Acute Assessment and Plan: 07/31/24: * TSH 0.409, free T4 1.73, total T3 1.44, subclinical hyperthyroidism could be secondary to severe cardiomyopathy * will obtain thyroid ultrasound * start methimazole 10 mg daily Time Spent With Patient Time with patient: Greater than 35 minutes Subjective Date/time seen: 07/31/24 10:44 Interval history: Interval history: This is a 53-year-old male who presented to the hospital on 07/30/2024 with complaints of shortness a breath. He was recently discharged from [facility] 4 days ago after being admitted with chest pain. He had a cardiac catheterization at that time which shown a stent that was patent. His ejection fraction was significantly low at 15% and he was placed on
--- NOTE | 2024-07-31 10:44 | PM.IMPN ---
Progress Note: A&P Assessment and Plan (1) Atrial fibrillation with rapid ventricular response: Code(s): I48.91 - Unspecified atrial fibrillation Status: Inactive Assessment and Plan: 07/31/24: EKG showing AFib RVR continue carvedilol and Eliquis cardiology consulted (2) Elevated troponin: Code(s): R79.89 - Other specified abnormal findings of blood chemistry Status: Acute Assessment and Plan: 07/31/24: likely demand ischemia troponin 0.059< 0.050 (3) Bronchitis: Code(s): J40 - Bronchitis, not specified as acute or chronic Status: Acute Assessment and Plan: 07/31/24: Will continue Azithromycin and Augmentin for 5 days, considering elevated WBC on admission and patient symptoms CXR negative for pneumonia Still reporting shortness of breath Will get CT of chest now (4) Heart failure with reduced ejection fraction: Code(s): I50.20 - Unspecified systolic (congestive) heart failure Status: Acute Assessment and Plan: 07/31/24: was recently at [facility] for chest pain and was found to have an ejection fraction of 15%. While there he did have a cardiac catheterization which shown a patent stent according to the patient. He was placed in a LifeVest cardiology consulted amlodipine discontinued Lasix 40 mg p.o. daily ordered, however he has not made much urine since getting his 1st dose. We will hold for now considering his kidney function. continue losartan continuous telemetry monitoring proBNP 14,900 will keep in IMU for now (5) Hypertension: Qualifiers: Hypertension type: primary hypertension Qualified Code(s): I10 - Essential (primary) hypertension Code(s): I10 - Essential (primary) hypertension Status: Chronic Assessment and Plan: 07/31/24: blood pressures ranging 129/85 to 150/117 continue losartan (6) Chronic kidney disease, stage 3a: Code(s): N18.31 - Chronic kidney disease, stage 3a Status: Acute Assessment and Plan: 07/31/24: initial creatinine 1.7 now up to 2.0 EGFR 35 baseline creatinine 1.1-1.3, baseline EGFR 49 to greater than 60 continue to trend (7) Chronic anemia: Code(s): D64.9 - Anemia, unspecified Status: Acute Assessment and Plan: 07/31/24: hemoglobin 12.5 iron 46, ferritin 115 Will continue to monitor (8) Elevated bilirubin: Code(s): R17 - Unspecified jaundice Status: Acute Assessment and Plan: 07/31/24: total bilirubin 2.6 now down to 1.5 will check hepatitis panel (9) Hyperthyroidism: Code(s): E05.90 - Thyrotoxicosis, unspecified without thyrotoxic crisis or storm Status: Acute Assessment and Plan: 07/31/24: TSH 0.409, free T4 1.73, total T3 1.44, subclinical hyperthyroidism could be secondary to severe cardiomyopathy will obtain thyroid ultrasound start methimazole 10 mg daily Time Spent With Patient Time with patient: Greater than 35 minutes Subjective Date/time seen: 07/31/24 10:44 Interval history: Interval history: This is a 53-year-old male who presented to the hospital on 07/30/2024 with complaints of shortness a breath. He was recently discharged from [facility] 4 days ago after being admitted with chest pain. He had a cardiac catheterization at that time which shown a stent that was patent. His ejection fraction was significantly low at 15% and he was placed on a LifeVest. since discharge he has been having intermittent chest pain but then started developing a cough with sputum production and wheezing. Workup in the hospital included a chest x-ray which was negative. Initial labs showed a white blood cell count of 14.7, RBC 3.89, hemoglobin 12.6, INR 1.4, creatinine 1.7, EGFR 42, lactic acid was normal at 1.2, total bili 2.6, iron 46, ferritin 115, indirect bili 2.5, troponin 0.059< 0.050, proBNP 94709, lipase was ernst
[2024-07-31] MEDS: FUROSEMIDE 40 MG TABLET PO (11:12)
[2024-07-31] MEDS: AZITHROMYCIN 250 MG TABLET 500 MG PO (11:12)
[2024-07-31] MEDS: CALCIUM CARBONATE (TUMS) 500 MG (200 MG ELEMENTAL) PO (11:39)
[2024-07-31] MEDS: PANTOPRAZOLE 40 MG TABLET PO ×2 (11:39→20:43)
[2024-07-31 11:57] LABS: Hepatitis B Surface Antigen Negative (Negative)
[2024-07-31 12:03] LABS: HAV RESULT Negative (Negative); Hepatitis B Core IgM Result Negative (Negative)
[2024-07-31 12:14] LABS: Hepatitis C Virus Antibody Negative (Negative)
--- NOTE | 2024-07-31 14:02 | PC.NURSE ---
Addendum entered by Vesta Cornell RN 07/31/24 14:09: Denies chest pain. Original Note: Pt reports I feel like I'm having a panic attack. I feel real restless when I lay down. RR 22, O2 94% on RA. HR 101. Lung sounds clear diminished. Sitting up on side of bed with life vest on. Respiratory therapist at bedside. Reports pt just received atrovent and Xopenex neb tx. JAKE Cruz made aware. Pt placed on 2L NC for comfort. Nancy reports she will be in to assess pt.
[2024-07-31 16:10] LABS: Alanine Aminotransferase 29 U/L (6-50); Albumin Level 3.6 g/dL (3.5-5.1); Alkaline Phosphatase 82 U/L (38-126); Anion Gap 9 mmol/L (4-12); Aspartate Amino Transferase 30 U/L (17-59); Blood Urea Nitrogen 47 mg/dL (9-20); Calcium 8.7 mg/dL (8.4-10.2); Carbon Dioxide 28 mmol/L (22-30); Chloride 99 mmol/L (98-107); Estimated CRCL calculation 40 ml/min; Estimated Glomerular Filt Rate 35; Glucose 143 mg/dL (65-110); Potassium 3.5 mmol/L (3.4-5.0); Sodium 136 mmol/L (137-145)
--- NOTE | 2024-07-31 17:50 | PC.NURSE ---
Telemetry shows 5.75 second pause. Followed by a heart rate of 30 unsustained. BP 149/98. Cardiology paged.
--- NOTE | 2024-07-31 18:10 | PC.NURSE ---
Dr. Mello updated on pts status. Pt denies CP,palpitations, dizziness, or lightheadedness. Continues to have mild anxiety. Repeated episode of bradycardia with a unsustained HR of 27. Coreg placed on hold. Atropine to be placed at bedside. Life vest removed. JAKE Cruz also notified. Advised to place pacer pads on pt.
[2024-07-31 18:37] LABS: Magnesium 2.2 mg/dL (1.6-2.3)
--- NOTE | 2024-07-31 18:47 | PC.NURSE ---
Patient sleeping in bed with pacer pads on. No further episodes at this time.
[2024-07-31] MEDS: AMOXICILLIN/CLAVULANATE K 875-125 MG TAB 1 TABLET PO (20:43)
[2024-07-31] MEDS: ACETAMINOPHEN 325 MG TABLET 650 MG PO (22:41)
[2024-08-01] VITALS (23 sets, daily range): BP systolic 130–163; BP diastolic 90–128; PULSE 86–126; RESP 16–22; TEMP 36.1–36.9; O2SAT 93–100
--- NOTE | 2024-08-01 00:07 | PC.NURSE ---
This RN assumed care of patient 08/01 2026. Report recieved from Opal SHEFFIELD
[2024-08-01] MEDS: ACETAMINOPHEN 325 MG TABLET 650 MG PO (03:18)
[2024-08-01] MEDS: IPRATROPIUM BR 0.02% INH SOLN 0.5 MG/2.5 ML VIAL INHALATION ×3 (07:19→19:25)
[2024-08-01] MEDS: LEVALBUTEROL NEB 1.25 MG/3 ML INHALATION ×3 (07:20→19:26)
[2024-08-01] MEDS: APIXABAN 5 MG TABLET PO ×2 (08:14→20:02)
[2024-08-01] MEDS: AZITHROMYCIN 250 MG TABLET 500 MG PO (08:14)
[2024-08-01] MEDS: LOSARTAN POTASSIUM 100 MG TABLET PO (08:14)
[2024-08-01] MEDS: guaiFENesin 12 HR 600 MG TABCR 1200 MG PO ×2 (08:14→20:02)
[2024-08-01] MEDS: AMOXICILLIN/CLAVULANATE K 875-125 MG TAB 1 TABLET PO ×2 (08:14→20:02)
[2024-08-01] MEDS: ATORVASTATIN 40 MG TABLET 80 MG PO (08:14)
[2024-08-01] MEDS: HYDROcodone/acetaminophen (*CRX) 5-325 MG TABLET 1 TAB PO (08:15)
[2024-08-01] MEDS: PANTOPRAZOLE 40 MG TABLET PO ×2 (08:15→20:02)
[2024-08-01] MEDS: methiMAzole 10 MG TAB PO (08:15)
--- NOTE | 2024-08-01 09:41 | PM.PNCARD ---
Progress Note: A&P Assessment and Plan (1) Tachy-augie syndrome: Code(s): I49.5 - Sick sinus syndrome Status: Acute Assessment and Plan: Overnight, he was noted to have pauses of up to 5.5 seconds - 5.75 seconds (asymptomatic), heart rates would drop down to the 30s (again asymptomatic). His Coreg was placed on hold. He was given a one time dose of Atropine with improvement. He was on Coreg 12.5mg BID here, however, his pill bottles that he brought with him show Coreg 6.25mg BID. When he was recently at [facility], his Coreg was switched to Metoprolol. Patient tells me that he was not discharged with medications from [facility] and went back to taking his home medications that he was taking before he was admitted at [facility]. This morning, he is in AFIB with RVR. He may need to be considered for an ICD (given LVEF 15%). We do not do ICD placements here at this institution, so he would need to be transferred to another hospital. However, his UDS at [facility] a few days ago was positive for amphetamine which complicates the situation as he may not be a candidate for a device due to active drug use. He is also being treated for subclinical hyperthyroidism with Methimazole, which may be contributing to his arrhythmias as well (TSH level is low, however T3 and T4 are WNL). Given this tachy-augie syndrome, recommend Electrophysiology evaluation. Recommend transferring to 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 (2) Heart failure with reduced ejection fraction: Code(s): I50.20 - Unspecified systolic (congestive) heart failure Status: Acute Assessment and Plan: Echocardiogram 07/25/2024 showed: LVEF of 15% with mildly enlarged RV, moderate enlargement of left atrium, severe enlargement of right atrium, moderate MR, severe TR with an RVSP of 59mmHg He clinically appears euvolemic. Agree with holding Lasix given TABITHA on CKD. Continue Losartan. Off of beta blockers now due to tachy-augie syndrome. He was discharged from [facility] with a Life Vest. (3) Paroxysmal atrial fibrillation: Code(s): I48.0 - Paroxysmal atrial fibrillation Status: Acute Assessment and Plan: As above. (4) Chronic anticoagulation: Code(s): Z79.01 - [facility] (current) use of anticoagulants Status: Acute Assessment and Plan: On Eliquis. (5) Hyperlipidemia: Code(s): E78.5 - Hyperlipidemia, unspecified Status: Acute Assessment and Plan: Continue high intensity statin. (6) CAD (coronary artery disease): Code(s): I25.10 - Atherosclerotic heart disease of [place] coronary artery without angina pectoris Status: Acute Assessment and Plan: [facility] 07/27/2024 showed: 1. Patent stent in the RCA with a 30% stenosis beyond the stent 2. 70% stenosis at the distal end of the LCX before a small posterolateral branch 3. Normal LAD 4. Increased left ventricular end-diastolic pressure of 28mmHg Continue high intensity statin (7) Elevated troponin: Code(s): R79.89 - Other specified abnormal findings of blood chemistry Status: Acute Assessment and Plan: Not an acute coronary syndrome. 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 Check UDS here. Plan Recommendations and plan discussed with Hospitalist. Subjective Date/time seen: 08/01/24 09:41 Interval history: Reason for visit: Acute on chronic HFrEF, Elevated troponin HPI: Patient is a 53-year-old male who has a known history of cardiomyopathy. Also has known CAD via catheterization performed earlier this year showed branch vessel disease but no interventions performed. Was recently hospitalized at [facility]. 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 Andrew. The patient states that he had another coronary angiogram
[2024-08-01 11:33] LABS: Basophils Percent Auto 0.4 % (0.2-1.2); Eosinophils Absolute Auto 0.2 K/mm3 (0-0.3); Eosinophils Percent Auto 2.2 % (0-4.4); Hematocrit 35.7 % (42.0-52.0); Hemoglobin 12.1 g/dL (14.0-18.0); Immature Granulocyte Absolute 0.03 K/mm3 (0.00-0.031); Immature Granulocyte Percent A 0.4 % (0-0.5); Lymphocytes Absolute Auto 1.65 K/mm3 (0.9-3.2); Lymphocytes Percent Auto 19.5 % (18.3-44.2); Mean Corpuscular HGB Conc 33.9 g/dl (32-36); Mean Corpuscular Volume 97.3 fl (80-100); Mean Platelet Volume 10.2 fl (7.4-10.4); Monocytes Percent Auto 12.1 % (2.6-8.5); Neutrophils Absolute Auto 5.6 K/mm3 (1.3-6.7); Neutrophils Percent Auto 65.4 % (45.5-73.1); Platelet Count Result 292 k/mm3 (150-375); Red Blood Count 3.67 M/mm3 (4.6-6.20); Red Cell Distribution Width 12.9 % (11.5-14.5); White Blood Count 8.5 K/mm3 (4.5-10.0)
[2024-08-01 12:08] LABS: Alanine Aminotransferase 31 U/L (6-50); Albumin Level 3.8 g/dL (3.5-5.1); Alkaline Phosphatase 79 U/L (38-126); Anion Gap 10 mmol/L (4-12); Aspartate Amino Transferase 28 U/L (17-59); Bilirubin,Total 1.2 mg/dL (0.2-1.3); Blood Urea Nitrogen 43 mg/dL (9-20); Calcium 8.5 mg/dL (8.4-10.2); Carbon Dioxide 28 mmol/L (22-30); Chloride 100 mmol/L (98-107); Estimated CRCL calculation 40 ml/min; Estimated Glomerular Filt Rate 35; Glucose 150 mg/dL (65-110); Potassium 3.5 mmol/L (3.4-5.0); Sodium 138 mmol/L (137-145)
[2024-08-01 13:52] LABS: Amphetamine Screen Urine Negative (Negative); Barbiturate Screen Urine Negative (Negative); Benzodiazepines Screen Urine Negative (Negative); Cannabinoid Screen Urine Positive (Negative); Cocaine Screen Urine Negative (Negative); Methadone Screen Urine Negative (Negative); Opiate Screen Urine Positive (Negative); Phencyclidine Screen Urine Negative (Negative)
--- NOTE | 2024-08-01 17:29 | PM.TDS ---
Transfer Discharge Sum: Prov Provider Date of admission: 07/30/24 16:44 Primary care physician: Marietta FunesGénesis Admitting clinician: Jadiel Sarmiento MD Consults: 07/30/24 16:46 Consult to Physician Routine Comment: Consulting Provider: Alon Johnson Reason for consultation: NSTEMI (chronic); recent cath at [place] Has provider been notified: Yes Attending physician on discharge: Nancy Cadena Discharging clinician: Nancy Cadena Anticipated date of transfer: 08/01/24 Receiving physician/facility: [place] Dr. Brandon Gupta accepted DS: Admitting Diagnosis Discharge Date 07/30/24 Admitting Diagnosis Elevated troponin Atrial fibrillation with RVR Bronchitis Shortness of breath Heart failure with reduced EF Ischemic cardiomyopathy Hypertension Chronic kidney disease stage 3 a Chronic anemia Chronic anticoagulation DS: Discharge Diagnosis Discharge Diagnosis (1) Atrial fibrillation with rapid ventricular response: Code(s): I48.91 - Unspecified atrial fibrillation Status: Inactive (2) Elevated troponin: Code(s): R79.89 - Other specified abnormal findings of blood chemistry Status: Acute (3) Bronchitis: Code(s): J40 - Bronchitis, not specified as acute or chronic Status: Acute (4) Heart failure with reduced ejection fraction: Code(s): I50.20 - Unspecified systolic (congestive) heart failure Status: Acute (5) Hypertension: Qualifiers: Hypertension type: primary hypertension Qualified Code(s): I10 - Essential (primary) hypertension Code(s): I10 - Essential (primary) hypertension Status: Chronic (6) Chronic kidney disease, stage 3a: Code(s): N18.31 - Chronic kidney disease, stage 3a Status: Acute (7) Chronic anemia: Code(s): D64.9 - Anemia, unspecified Status: Acute (8) Elevated bilirubin: Code(s): R17 - Unspecified jaundice Status: Acute (9) Hyperthyroidism: Code(s): E05.90 - Thyrotoxicosis, unspecified without thyrotoxic crisis or storm Status: Acute Transfer Discharge Sum: Med Medications Active and Home Medications: Home Medications apixaban 5 mg tablet (Eliquis) 5 mg PO Q12H 01/16/24 [History Confirmed 07/30/24] amlodipine 5 mg tablet (Norvasc) 5 mg PO QAM #30 tabs 01/20/24 [Rx Confirmed 07/30/24] carvedilol 12.5 mg tablet (Coreg) 12.5 mg PO Q12HR #60 tabs 01/20/24 [Rx Confirmed 07/30/24] losartan 100 mg tablet 100 mg PO DAILY #30 tabs 01/20/24 [Rx Confirmed 07/30/24] nitroglycerin 0.4 mg sublingual tablet (Nitrostat) 0.4 mg sublingual Q5MIN PRN Chest Pain #25 tabs 01/20/24 [Rx Confirmed 07/30/24] atorvastatin 40 mg tablet 80 mg PO DAILY 07/30/24 [History Confirmed 07/30/24] Active Medications Acetaminophen (Acetaminophen 325 Mg Tablet) 650 mg PO Q4H PRN PRN Reason: Mild Pain (1-3) or Fever Last Admin: 08/01/24 03:18 Dose: 650 mg Hydrocodone Bitart/Acetaminophen (Hydrocodone/Acetaminophen (*Crx) 5-325 Mg Tablet) 1 tab PO Q6H PRN PRN Reason: Pain Rated 4-6 Last Admin: 08/01/24 08:15 Dose: 1 tab Amoxicillin/Clavulanate Potassium (Amoxicillin/Clavulanate K 875-125 Mg Tab) 1 tablet PO Q12HR [facility] Last Admin: 08/01/24 08:14 Dose: 1 tablet Apixaban (Apixaban 5 Mg Tablet) 5 mg PO Q12HR [facility] Last Admin: 08/01/24 08:14 Dose: 5 mg Atorvastatin Calcium (Atorvastatin 40 Mg Tablet) 80 mg PO DAILY [facility] Last Admin: 08/01/24 08:14 Dose: 80 mg Azithromycin (Azithromycin 250 Mg Tablet) 500 mg PO DAILY [facility] Last Admin: 08/01/24 08:14 Dose: 500 mg Calcium Carbonate (Calcium Carbonate (Tums) 500 Mg (200 Mg Elemental)) 200 mg PO Q6H PRN PRN Reason: Indigestion Last Admin: 07/31/24 11:39 Dose: 200 mg Furosemide (Furosemide 40 Mg Tablet) 40 mg PO DAILY [facility] Last Admin: 07/31/24 11:12 Dose: 40 mg Guaifenesin (Guaifenesin 12 Hr 600 Mg Tabcr) 1,200 mg PO Q12HR [facility] Last Admin: 08/01/24 08:14 Dose: 1,200 mg Ipratropium Bromi
[2024-08-02] VITALS: PULSE 96; O2SAT 97
[2024-08-02] MEDS: IPRATROPIUM BR 0.02% INH SOLN 0.5 MG/2.5 ML VIAL INHALATION (00:18)
[2024-08-02] MEDS: LEVALBUTEROL NEB 1.25 MG/3 ML INHALATION (00:21)
[2024-08-02 00:23] VITALS: PULSE 63; RESP 20
[2024-08-02] MEDS: hydrALAZINE HCL 20 MG/ML VIAL 10 MG IV PUSH (00:23)
[2024-08-02 00:24] VITALS: BP 167/112; PULSE 118; RESP 28; O2SAT 97
--- NOTE | 2024-08-02 00:33 | PC.NURSE ---
0005: Patient call light answered. Patient stated he woke up feeling short of breath. RN and CCT to bedside. Patients' pulse oximetry was 97% but was tachypneic and breathing was shallow. Upon further assessment the patient's lung sounds were more coarse than they were during his 1999 assessment. TICK INSPECTOR was called and administered the patients' 0200 breathing treatment early. After receiving treatment the patient stated he is feeling better. 0035: SpO2 100% RR 20 HR: 114 BP:146/106
[2024-08-02 00:35] VITALS: PULSE 115; RESP 20
[2024-08-02] MEDS: HYDROcodone/acetaminophen (*CRX) 5-325 MG TABLET 1 TAB PO (00:46)
[2024-08-02 00:53] VITALS: BP 151/89; PULSE 94; RESP 24; TEMP 36.5; O2SAT 95
--- NOTE | 2024-08-02 01:12 | PC.NURSE ---
0059: Report called to YOHANNES Delaney at [facility]
--- NOTE | 2024-08-02 01:42 | PC.NURSE ---
0142: Care transferred to [facility]. YOHANNES Delaney at [facility] notified of departure.
== END 2024-08-02 01:42 | disposition short-term general hospital (02) ==
LOC: ANHED 17:34 → ANHIMU 17:39
PROVIDERS: Emergency Medicine; Internal Medicine; Nurse Practitioner Acute Care; Physician Assistant; Admitting Provider Internal Medicine; Emergency Provider Student in an Organized Health Care Education/Training Program; PCP Internal Medicine Infectious Disease; Visit Provider Internal Medicine
DX: I49.5 Sick sinus syndrome (principal); I48.0 Paroxysmal atrial fibrillation; R06.02 Shortness of breath; R79.89 Other specified abnormal findings of blood chemistry; J40 Bronchitis, not specified as acute or chronic; R17 Unspecified jaundice; E05.90 Thyrotoxicosis, unspecified without thyrotoxic crisis or storm; I25.5 Ischemic cardiomyopathy; I13.0 Hypertensive heart and chronic kidney disease with heart failure and stage 1 through stage 4 chronic kidney disease, or unspecified chronic kidney disease; I50.20 Unspecified systolic (congestive) heart failure; E11.22 Type 2 diabetes mellitus with diabetic chronic kidney disease; N18.31 Chronic kidney disease, stage 3a; D64.9 Anemia, unspecified; I25.10 Atherosclerotic heart disease of native coronary artery without angina pectoris; I42.0 Dilated cardiomyopathy; E78.5 Hyperlipidemia, unspecified; Z79.01 Long term (current) use of anticoagulants; Z95.5 Presence of coronary angioplasty implant and graft; Z87.891 Personal history of nicotine dependence; F12.90 Cannabis use, unspecified, uncomplicated; F15.90 Other stimulant use, unspecified, uncomplicated; Z79.899 Other long term (current) drug therapy; Z20.822 Contact with and (suspected) exposure to COVID-19
CPT/HCPCS: 36415; 71046; 71250; 76536; 80053; 80074; 80307; 82248; 82607; 82728; 82746; 83540; 83550; 83605; 83690; 83735; 83880; 84439; 84443; 84480; 84484; 85025; 85380; 85610; 85730; 87040; 87637; 93005; 94640; 94667; 96365; 96374; 96375; 99285; A9270; G0378; J0360; J1940; J3475; J7512

== ENCOUNTER 2024-08-14 20:40 | Observation (INO) | payer OTHER, MEDICAID, SELFPAY ==
[2024-08-14] VITALS (11 sets, daily range): BP systolic 124–158; BP diastolic 85–98; PULSE 100–128; RESP 15–28; TEMP 36.8; O2SAT 92–97
--- NOTE | ~2024-08-14 | CT_ITS ---
EXAMINATION: CTA chest PE protocol DATE: 08/14/2024 22:55 INDICATION: Shortness of breath and rib pain. TECHNIQUE: Computed tomography (CT) pulmonary angiogram of the chest was performed with 100 mL Omnipa que-350 intravenous contrast. Additional 3D reconstructions utilizing coronal maximum intensity proje ction (MIP) were performed. Automated exposure control and iterative reconstruction technique were em ployed. The dose-length product was 612.59 mGy-cm. COMPARISON: 08/01/2024 FINDINGS: No pulmonary embolism. Evaluation mildly limited in the midlung zone due to prominent streak artifact from multiple echogenic devices external to the patient. Mild emphysema. No pneumonia, pulmonary sulaiman ma, pleural effusion or pneumothorax. Cardiomegaly. Atherosclerotic coronary artery calcification is. No pericardial effusion. Thoracic aorta is normal in caliber with no dissection. No interval change in mild recent lymphadenopathy which is likely reactive.. Visualized upper abdomen is unremarkable. M ild thoracic spondylosis. IMPRESSION: 1. No pulmonary embolism with evaluation mildly limited in the midlung zone due to streak artifact. 2. Cardiomegaly. 3. Mild emphysema. 4. Unchanged mild mediastinal lymphadenopathy which is likely reactive. Reviewed, dictated and finalized at location A.
--- NOTE | ~2024-08-14 | XR_ITS ---
EXAMINATION: XR chest 1V portable DATE: 08/14/2024 21:29 INDICATION: Shortness of breath and cough TECHNIQUE: frontal view of the chest was obtained. COMPARISON: Chest radiograph dated 08/09/24 FINDINGS: Cardiomegaly with pulmonary vascular congestion. No or airspace opacities, pulmonary edema, pleural e ffusion or pneumothorax. IMPRESSION: 1. Cardiomegaly with pulmonary vascular congestion but without jay pulmonary edema. Reviewed, dictated and finalized at location A.
--- NOTE | 2024-08-14 20:45 | ECG_ITS ---
Test Date: 2024-08-14 20:48:05 Measurements Intervals [place] Rate: 112 P: 0 NC: 0 QRS: -44 QRSD: 121 T: 121 QT: 366 QTc: 500 Interpretive Statements ATRIAL FIBRILLATION WITH RAPID VENTRICULAR RESPONSE LEFT AXIS DEVIATION INTRAVENTRICULAR CONDUCTION DELAY CANNOT R/O SEPTAL INFARCT, AGE INDETERMINATE ST-T WAVE ABNORMALITY IN HIGH LATERAL LEADS- CONSIDER ISCHEMIA BASELINE ARTIFACT- I, II, III, AVR, AVL, AVF, V4-V6 ABNORMAL ECG Compared to ECG 07/30/2024 15:00:51 ST-T WAVE ABNORMALITY NOW PRESENT Electronically Signed On 08-15-2024 06:24:41 CDT by Jun Clifford D.O.
[2024-08-14 20:54] LABS: Basophils Percent Auto 0.3 % (0.2-1.2); Eosinophils Absolute Auto 0.3 K/mm3 (0-0.3); Eosinophils Percent Auto 3.1 % (0-4.4); Hematocrit 36.4 % (42.0-52.0); Immature Granulocyte Absolute 0.02 K/mm3 (0.00-0.031); Immature Granulocyte Percent A 0.2 % (0-0.5); Lymphocytes Absolute Auto 0.77 K/mm3 (0.9-3.2); Lymphocytes Percent Auto 8.4 % (18.3-44.2); Mean Corpuscular Hemoglobin 32.6 pg (26-34); Mean Corpuscular Volume 98.9 fl (80-100); Mean Platelet Volume 9.9 fl (7.4-10.4); Monocytes Percent Auto 10.8 % (2.6-8.5); Neutrophils Absolute Auto 7.1 K/mm3 (1.3-6.7); Neutrophils Percent Auto 77.2 % (45.5-73.1); Platelet Count Result 270 k/mm3 (150-375); Red Blood Count 3.68 M/mm3 (4.6-6.20); White Blood Count 9.2 K/mm3 (4.5-10.0)
[2024-08-14 21:12] LABS: Alanine Aminotransferase 29 U/L (6-50); Albumin Level 4.3 g/dL (3.5-5.1); Alkaline Phosphatase 103 U/L (38-126); Anion Gap 9 mmol/L (4-12); Aspartate Amino Transferase 36 U/L (17-59); Bilirubin,Total 2.5 mg/dL (0.2-1.3); Blood Urea Nitrogen 25 mg/dL (9-20); Calcium 9.4 mg/dL (8.4-10.2); Carbon Dioxide 30 mmol/L (22-30); Chloride 103 mmol/L (98-107); Estimated CRCL calculation 56 ml/min; Estimated Glomerular Filt Rate 45; Glucose 116 mg/dL (65-110); Potassium 3.5 mmol/L (3.4-5.0); Sodium 142 mmol/L (137-145)
--- NOTE | 2024-08-14 21:13 | ED.SOB ---
HPI - SOB/Dyspnea General Chief Complaint: Shortness of Breath/Dyspnea <Yi Staples PA-C - Last Filed: 08/15/24 00:33> Stated Complaint: short of breath <Yi Staples PA-C - Last Filed: 08/15/24 00:33> Time Seen by Provider: 08/14/24 20:46 <Yi Staples PA-C - Last Filed: 08/15/24 00:33> History of Present Illness HPI Narrative: 53-year-old male with history of tachy-augie syndrome, hyperthyroidism, AFib chronically anticoagulated on Eliquis, type 2 diabetes, hyperlipidemia, COPD, CAD, CHF with an EF of 15% with a LifeVest in place presents to the ED for shortness of breath for couple days with a productive cough for the past 2 days. Patient states he is coughing up clear sputum which is new. States he is coughing so hard it is making him gag. He reports he has been told he has early stages of emphysema. He has not smoked for 6 years. He denies lower extremity edema, fever. He is reporting pain to his ribs from coughing. He states he has been taking his medications as directed. Per chart review, patient was recently transferred to [facility] on 08/01/2024 from our hospital for sick sinus syndrome with AFib with concerns that the patient when he had an AICD to control his AFib. Patient states while at [facility] they ?did not do much?. States he never had an AICD in place. He states he has been wearing his LifeVest as directed. His housing inspector is at [facility] He is unsure of his name. <Yi Staples PA-C - Last Filed: 08/15/24 00:33> Related Data Home Medications: Home Medications Medication Instructions Recorded Confirmed apixaban 5 mg tablet (Eliquis) 5 mg PO Q12H 01/16/24 07/30/24 atorvastatin 40 mg tablet 80 mg PO DAILY 07/30/24 07/30/24 <KYAW Howard Last Filed: 08/15/24 00:33> Allergies/Adverse Reactions: Allergies Allergy/AdvReac Type Severity Reaction Status Date / Time No Known Allergies Allergy Verified 08/14/24 20:52 <Yi Staples PA-C - Last Filed: 08/15/24 00:33> Review of Systems Review of Systems: All systems reviewed & are unremarkable except as noted in HPI and below <Yi Staples PA-C - Last Filed: 08/15/24 00:33> [facility] Past Medical History Medical History: Medical History Chronic anemia Chronic anticoagulation Chronic kidney disease, stage 3a Coronary artery disease Dilated cardiomyopathy Heart failure with reduced ejection fraction Hyperlipidemia Hypertension Paroxysmal atrial fibrillation Tobacco abuse Type 2 diabetes mellitus <Yi Staples PA-C - Last Filed: 08/15/24 00:33> Surgical History Surgical History: Surgical History History of cardiac catheterization [place] July 2024 History of coronary artery stent placement History of mandibular surgery Repair drop fracture. History of toe surgery Repair right great toe amputation. <Yi Staples PA-C - Last Filed: 08/15/24 00:33> Family History Family History: Family History Father Acute myocardial infarction Hypertension Mother Cerebrovascular accident <Yi Staples PA-C - Last Filed: 08/15/24 00:33> Social History Social History: Social History Social History: Surrogate medical decision maker: Kathy Viramontes, spouse. Code status: Full code. Smoking packs per day: 2 Smoking cigarettes per day: 40.0 Years smoked: 30 Smoking pack-years: 60.00 Smoking status: Former smoker Tobacco type: cigarettes Smoking end date: 10/14/18 Alcohol intake: never Substance use: current Substance use type: marijuana Other substance usage details: History cocaine use years ago. Do You Feel Safe in your Home?: Yes Lack of Transportation
[2024-08-14] MEDS: methylPREDNISolone SOD SUCC 125 MG VIAL IV PUSH (21:16)
[2024-08-14] MEDS: ONDANSETRON INJ 4 MG/2 ML VIAL IV PUSH (21:31)
[2024-08-14 21:33] LABS: INR 1.4; Partial Thromboplastin Time 33.6 Seconds (22.3-36.8); Prothrombin Time 17.3 Seconds (11.1-14.7)
[2024-08-14] MEDS: BENZONATATE 100 MG CAPSULE PO (21:35)
[2024-08-14 21:42] LABS: D Dimer 0.77 ug/mL (<0.48)
[2024-08-14] MEDS: IPRATROPIUM 0.5 MG/ALBUTEROL SULFATE 2.5 MG AMPUL.NEB 3 ML INHALATION ×3 (21:42→21:55)
[2024-08-14 21:48] LABS: NT Pro B Type Natriuretic Pept 7820 pg/mL (19.9-100); Troponin I 0.059 ng/mL (0.000-0.034)
[2024-08-14 21:48] LABS: Alveolar/Arterial O2 Gradient 44.7 mmHg; Base Excess ABG 3.2 mEq/l (+/-2.0); Fractional Inspired Oxygen 21 %; HCO3 ABG 26.9 mEq/l (22.0-26.0); Oxygen Content ABG 15.7 %vol (16.0-22.0); Oxygen Saturation ABG 92.4 % (95.0-100.0); Oxyhemoglobin 90.8 % THb (90.0-100.0); PCO2 ABG 37.9 mmHg (35.0-45.0); PO2 ABG 59.6 mmHg (80.0-100.0); PO2 FiO2 Ratio Arterial Blood 2.84 %; Total Hemoglobin 12.3 g/dL (12.0-18.0); pH ABG 7.469 (7.350-7.450)
[2024-08-14 21:49] LABS: Modified Allen's Test Pass; Site Drawn RIGHT RADIAL
[2024-08-14] MEDS: FUROSEMIDE INJ 40 MG/4 ML VIAL IV PUSH (21:52)
[2024-08-14 22:08] LABS: Influenza A QL RT-PCR Negative (Negative); Influenza B QL RT-PCR Negative (Negative); RSV RNA, RT-PCR Negative (Negative); SARS-CoV-2 RNA PCR Negative (Negative)
[2024-08-15] VITALS (22 sets, daily range): BP systolic 128–152; BP diastolic 79–102; PULSE 97–125; RESP 16–24; TEMP 36.3–37; O2SAT 91–98
[2024-08-15 00:14] LABS: Troponin I 0.053 ng/mL (0.000-0.034)
[2024-08-15] MEDS: AZITHROMYCIN 500 MG/NS 250 ML 500 MG/250 ML BAG 250 MG IVPB (00:38)
[2024-08-15] MEDS: ASPIRIN 81 MG CHEWABLE TABLET 324 MG PO (00:40)
--- NOTE | 2024-08-15 02:01 | ADMGEN ---
This patient, Gopi Viramontes, was admitted to IMU Room 212-01. Patient/family oriented to hospital policies and general routines including ID bracelet, bed and alarms, visiting hours, pain management, procedures, bathroom and other care routines, personal items, smoking policy, room service/diet, and visiting hours. Information on how to activate the Rapid Response Team has been discussed. Patient/Family are encouraged to report perceived risks to care and to ask questions if they do not understand what they are told or what they should do.
[2024-08-15] MEDS: HYDROcodone/acetaminophen (*CRX) 5-325 MG TABLET 1 TAB PO (02:21)
[2024-08-15 03:41] LABS: Troponin I 0.047 ng/mL (0.000-0.034)
[2024-08-15] MEDS: methylPREDNISolone SOD SUCC 125 MG VIAL 60 MG IV PUSH ×3 (05:29→17:05)
[2024-08-15] MEDS: IPRATROPIUM 0.5 MG/ALBUTEROL SULFATE 2.5 MG AMPUL.NEB 3 ML INHALATION ×3 (08:13→20:03)
--- NOTE | 2024-08-15 08:49 | PM.IMHP ---
H&P: HPI History of Present Illness Date/Time: 08/15/24 08:49 Chief Complaint: cough, shortness of breath Narrative: This is a 53-year-old male with a past medical history significant for coronary artery disease, ischemic cardiomyopathy on LifeVest, hypertension, atrial fibrillation on chronic anticoagulation, hyperlipidemia, chronic kidney disease, and anemia who presented to the emergency department with complaints of shortness of breath. The patient was recently transferred from this facility on 08/01 to [facility] for electrophysiology consult and consideration of AICD. He says he had a short stay at [facility] during which they started him on hydralazine. He says they did not think he was a good candidate for AICD because he does not follow-up with his doctor. Records have been requested from this recent admission. The patient states he came overnight to the emergency room with increased shortness of breath and expiratory wheeze. He has a productive cough of clear sputum. He denies fever, chills. He does have dizziness when he is coughing. He chronically has shortness of breath with exertion but it was worsened from baseline. He reports abdominal pain secondary to cough. He denies nausea, vomiting, constipation, or diarrhea. The patient states he does not use illicit street drugs other than marijuana. I question him regarding UDS positive for amphetamines which he says he sometimes gets his marijuana off of the streets and is unsure wanted is laced with. He denies amphetamine use. In the emergency room his labs actually looked better than when he was discharged on 08/01. White count was normal at 9.2, hemoglobin 12.0, PT 17.3, D-dimer 0.77, creatinine 1.6, T bili 2.5, and BNP 7820. Blood gas showed pH 7.46, pCO2 37.5, PO2 59.6, HC03 26.9 and oxyhemoglobin 90.8 on room air. Hemoglobin A1c was 6 3%. He did have an elevated troponin at 0.053 which down trended to 0.047. CTA showed no pulmonary embolism with cardiomegaly, mild emphysema, and mediastinal lymphadenopathy. EKG on admission showed atrial fibrillation with RVR rate 112. The patient was started on azithromycin, Rocephin, and IV steroids. He also receive aspirin 325 mg x 1, 40 of Lasix IV, and DuoNeb. He was admitted in this setting for further evaluation and workup of presumed COPD exacerbation. Review of Systems Review of Systems: All systems reviewed & are unremarkable except as noted in HPI and below PMFSH Past Medical History Medical History (Updated 08/15/24 @ 16:09 by Kaitlyn Parker APRN) Chronic anemia Chronic anticoagulation Chronic kidney disease, stage 3a Coronary artery disease Dilated cardiomyopathy EF 15%, life vest Heart failure with reduced ejection fraction Hyperlipidemia Hypertension Paroxysmal atrial fibrillation Tobacco abuse Type 2 diabetes mellitus Surgical History Surgical History History of cardiac catheterization [place] July 2024 History of coronary artery stent placement History of mandibular surgery Repair drop fracture. History of toe surgery Repair right great toe amputation. Family History Family History Father Acute myocardial infarction Hypertension Mother Cerebrovascular accident Social History Social History Social History: Surrogate medical decision maker: Kathy Mckeonon, spouse. Code status: Full code. Smoking packs per day: 2 Smoking cigarettes per day: 40.0 Years smoked: 30 Smoking pack-years: 60.00 Smoking status: Former smoker Alcohol intake: never Substance use: current Substance use type: marijuana Other substance usage details: History cocaine use years ago. Do You Feel Safe in your Home?: Yes Lack of Transportation: No Lack of Food: Never True Current Housing: I Have Housing Concerned About [facility]
[2024-08-15 10:47] LABS: Hemoglobin A1C 6.3 % (<5.7)
[2024-08-15 11:56] LABS: Glucose Point of Care 290 mg/dl (65-105)
[2024-08-15] MEDS: INSULIN ASPART (*BKC) 100 UNITS/ML SUB-Q ×2 (12:09→17:05)
[2024-08-15] MEDS: APIXABAN 5 MG TABLET PO ×2 (12:09→20:05)
[2024-08-15] MEDS: hydrALAZINE HCL 50 MG TABLET PO ×2 (12:09→17:05)
[2024-08-15] MEDS: amLODIPine BESYLATE 5 MG TABLET PO (12:09)
[2024-08-15] MEDS: ATORVASTATIN 40 MG TABLET 80 MG PO (12:09)
[2024-08-15 16:41] LABS: Glucose Point of Care 214 mg/dl (65-105)
[2024-08-15 18:35] LABS: T4 Thyroxine 7.81 ug/dL (5.53-11.0)
[2024-08-15 20:41] LABS: Glucose Point of Care 124 mg/dl (65-105)
[2024-08-16] VITALS (10 sets, daily range): BP systolic 132–138; BP diastolic 82–95; PULSE 97–129; RESP 18–24; TEMP 36.6; O2SAT 97–98
[2024-08-16] MEDS: methylPREDNISolone SOD SUCC 125 MG VIAL 60 MG IV PUSH ×2 (00:41→06:04)
[2024-08-16 05:52] LABS: Hematocrit 32.6 % (42.0-52.0); Hemoglobin 10.7 g/dL (14.0-18.0); Mean Corpuscular HGB Conc 32.8 g/dl (32-36); Mean Corpuscular Hemoglobin 31.9 pg (26-34); Mean Corpuscular Volume 97.3 fl (80-100); Mean Platelet Volume 9.8 fl (7.4-10.4); Platelet Count Result 232 k/mm3 (150-375); Red Blood Count 3.35 M/mm3 (4.6-6.20); Red Cell Distribution Width 12.8 % (11.5-14.5); White Blood Count 12.3 K/mm3 (4.5-10.0)
[2024-08-16 06:07] LABS: Alanine Aminotransferase 27 U/L (6-50); Alkaline Phosphatase 91 U/L (38-126); Anion Gap 12 mmol/L (4-12); Aspartate Amino Transferase 28 U/L (17-59); Bilirubin,Total 0.8 mg/dL (0.2-1.3); Blood Urea Nitrogen 38 mg/dL (9-20); Calcium 8.5 mg/dL (8.4-10.2); Carbon Dioxide 26 mmol/L (22-30); Chloride 98 mmol/L (98-107); Estimated CRCL calculation 46 ml/min; Estimated Glomerular Filt Rate 42; Glucose 188 mg/dL (65-110); Sodium 136 mmol/L (137-145)
--- NOTE | 2024-08-16 06:28 | PCRCNOTE ---
0200 neb tx was omitted due to oximetry study
[2024-08-16 06:34] LABS: Potassium 3.7 mmol/L (3.4-5.0)
[2024-08-16] MEDS: IPRATROPIUM 0.5 MG/ALBUTEROL SULFATE 2.5 MG AMPUL.NEB 3 ML INHALATION ×2 (07:01→12:51)
[2024-08-16 07:58] LABS: Glucose Point of Care 192 mg/dl (65-105)
[2024-08-16] MEDS: hydrALAZINE HCL 50 MG TABLET PO ×2 (08:07→11:41)
[2024-08-16] MEDS: ATORVASTATIN 40 MG TABLET 80 MG PO (08:07)
[2024-08-16] MEDS: APIXABAN 5 MG TABLET PO (08:07)
[2024-08-16] MEDS: amLODIPine BESYLATE 5 MG TABLET PO (08:07)
[2024-08-16] MEDS: AZITHROMYCIN 250 MG TABLET PO (08:07)
[2024-08-16 11:37] LABS: Glucose Point of Care 239 mg/dl (65-105)
[2024-08-16] MEDS: INSULIN ASPART (*BKC) 100 UNITS/ML SUB-Q (11:41)
[2024-08-16] MEDS: AMIODARONE HCL 200 MG TABLET 400 MG PO (12:30)
--- NOTE | 2024-08-16 13:32 | PM.DS ---
DS: Admitting Diagnosis Discharge Date 08/16/2024 Admitting Diagnosis Cardiomyopathy/COPD exacerbation DS: Discharge Diagnosis Discharge Diagnosis (1) Atrial fibrillation with RVR: Code(s): I48.91 - Unspecified atrial fibrillation Status: Acute (2) COPD exacerbation: Code(s): J44.1 - Chronic obstructive pulmonary disease with (acute) exacerbation Status: Acute (3) Acute on chronic systolic (congestive) heart failure: Code(s): I50.23 - Acute on chronic systolic (congestive) heart failure Status: Acute (4) Type 2 diabetes mellitus: Code(s): E11.9 - Type 2 diabetes mellitus without complications Status: Acute (5) Elevated troponin level: Code(s): R79.89 - Other specified abnormal findings of blood chemistry Status: Acute (6) Hyperthyroidism: Code(s): E05.90 - Thyrotoxicosis, unspecified without thyrotoxic crisis or storm Status: Acute DS: Summary Hospital Course Reason for hospitalization: Cardiomyopathy/COPD exacerbation Hospital Course: Admission: Medical Chart Patient was a 53-year-old male with a past medical history significant for coronary artery disease, ischemic cardiomyopathy on LifeVest, hypertension, atrial fibrillation on chronic anticoagulation, hyperlipidemia, chronic kidney disease, and anemia who presented to the emergency department with complaints of shortness of breath. The patient was recently transferred from this facility on 08/01 to [facility] for electrophysiology consult and consideration of AICD. He says he had a short stay at [facility] during which they started him on hydralazine. He says they did not think he was a good candidate for AICD because he does not follow-up with his doctor. Records have been requested from this recent admission. The patient states he came overnight to the emergency room with increased shortness of breath and expiratory wheeze. He has a productive cough of clear sputum. He denies fever, chills. He does have dizziness when he is coughing. He chronically has shortness of breath with exertion but it was worsened from baseline. He reports abdominal pain secondary to cough. He denies nausea, vomiting, constipation, or diarrhea. The patient states he does not use illicit street drugs other than marijuana. I question him regarding UDS positive for amphetamines which he says he sometimes gets his marijuana off of the streets and is unsure wanted is laced with. He denies amphetamine use. 08/16/24: DISCHARGED Patient was admitted to the medical unit and treated for COPD exacerbation as well as his heart failure was given steroids azithromycin, DuoNebs, Rocephin and 40 of Lasix IV x1. Patient with overall improvement the following day. Patient currently has lifevest due to EF of 15%, he reported they did not place a AICD due to his drug use and he would follow-up with his product controller. He had been started on amiodarone but never picked up the prescription resumed inpatient and educated pateint on the need of medication compliance. Patient was discharged to home and has scheduled follow-up with his Photographer [employer] Dr. Andrew to discuss options of AICD. Encourage immediate drug cessation. Status at Discharge Functional status at discharge: independent ambulation Overall status at discharge: patient is progressing back to baseline Time Spent with Patient Time attestation: Total time spent providing and/or coordinating discharge services: Exam Narrative: General: appears comfortable, in no acute distress Respiratory: breathing is unlabored with even chest rise/fall, lungs are clear + expiratory wheezing. No rhonchi, and crackles Cardiovascular: Rate and rhythm irregular, normal s1s2, no murmur Abdomen: Soft, round, non-tender, active bowel sounds Extremities: No cyanosis, edema, clubbing. Pulses 2/2 Neuro: A&O x 4, withdrawn Skin: Warm, dry, intact. Dry flaky skin. DS: Data Data Complete
[2024-08-17 05:29] LABS: T3 Free 2.7 pg/mL (2.3-4.2)
== END 2024-08-16 15:05 | disposition home or self-care (01) ==
LOC: ANHED 08-15 00:33 → ANHIMU 08-15 01:13
PROVIDERS: Emergency Medicine; Nurse Practitioner Acute Care; Admitting Provider Internal Medicine; Emergency Provider Physician Assistant; PCP Internal Medicine Infectious Disease; Visit Provider Nurse Practitioner Family
DX: J44.1 Chronic obstructive pulmonary disease with (acute) exacerbation (principal); J43.9 Emphysema, unspecified; I48.91 Unspecified atrial fibrillation; R79.89 Other specified abnormal findings of blood chemistry; I25.10 Atherosclerotic heart disease of native coronary artery without angina pectoris; E11.22 Type 2 diabetes mellitus with diabetic chronic kidney disease; I13.0 Hypertensive heart and chronic kidney disease with heart failure and stage 1 through stage 4 chronic kidney disease, or unspecified chronic kidney disease; N18.31 Chronic kidney disease, stage 3a; I50.23 Acute on chronic systolic (congestive) heart failure; I25.5 Ischemic cardiomyopathy; E05.90 Thyrotoxicosis, unspecified without thyrotoxic crisis or storm; E78.5 Hyperlipidemia, unspecified; F19.90 Other psychoactive substance use, unspecified, uncomplicated; D64.9 Anemia, unspecified; Z20.822 Contact with and (suspected) exposure to COVID-19; Z79.01 Long term (current) use of anticoagulants; Z87.891 Personal history of nicotine dependence; Z95.5 Presence of coronary angioplasty implant and graft
CPT/HCPCS: 36415; 36600; 71045; 71275; 80053; 82805; 82810; 82948; 83036; 83735; 83880; 84436; 84443; 84480; 84484; 85025; 85027; 85380; 85610; 85730; 87637; 93005; 94640; 94762; 96365; 96374; 96375; 96376; 99285; A9270; G0378; J0456; J0696; J1815; J1940; J2405; J2919; Q9967

== ENCOUNTER 2024-09-02 22:44 | Observation (INO) | payer MEDICAID, SELFPAY ==
--- NOTE | ~2024-09-02 | XR_ITS ---
EXAMINATION: XR chest 1V portable DATE: 09/03/2024 01:39 INDICATION: Congestive heart failure. TECHNIQUE: A single frontal view of the chest was obtained. COMPARISON: Chest single view 08/14/2024, chest CT 08/14/2024 FINDINGS: There is no pneumonia, pleural effusion, or pneumothorax. Cardiomegaly is noted. IMPRESSION: 1. Cardiomegaly. Reviewed, dictated and finalized at location A. IMPRESSION: 1. Cardiomegaly.
[2024-09-02 22:47] VITALS: BP 137/90; PULSE 94; RESP 20; TEMP 36.2; O2SAT 97
[2024-09-03] VITALS (13 sets, daily range): BP systolic 116–150; BP diastolic 70–104; PULSE 79–96; RESP 16–18; TEMP 36.5–36.6; O2SAT 97–100
--- NOTE | 2024-09-03 01:24 | ECG_ITS ---
Test Date: 2024-09-03 03:24:04 Measurements Intervals [place] Rate: 79 P: 0 RI: 0 QRS: -26 QRSD: 128 T: 148 QT: 431 QTc: 496 Interpretive Statements ATRIAL FIBRILLATION BORDERLINE LEFT AXIS DEVIATION [QRS AXIS < -20] INTRAVENTRICULAR CONDUCTION DELAY POSSIBLE LEFT VENTRICULAR HYPERTROPHY [VOLTAGE CRITERIA PLUS LAE OR QRS WIDENING] ST DEVIATION AND MODERATE T-WAVE ABNORMALITY, CONSIDER LATERAL ISCHEMIA [-0.1+ mV T WAVE IN I/aVL/V5/V6] Compared to ECG 08/14/2024 20:48:05 Myocardial infarct finding no longer present T-wave abnormality still present Possible ischemia still present Electronically Signed On 09-03-2024 10:56:52 CDT by Nichelle Sherman M.D.
--- NOTE | 2024-09-03 01:27 | ED.GENADULT ---
HPI - General Adult General Chief complaint: Unspecified Stated complaint: multiple complaints, leg swelling Time Seen by Provider: 09/03/24 01:05 History of Present Illness HPI narrative: 53-year-old male with a past medical history of extensive cardiac disease including ischemic cardiomyopathy with an EF of 10-15% presently on a LifeVest. He also has a history of hypertension, atrial fibrillation on chronic Eliquis, hyperlipidemia, CKD, anemia. He presents to the emergency room with chief complaint of bilateral leg swelling and mild shortness of breath. He states that he is not on any diuretic or water pill and has been having increased swelling in his legs over last few days. He was recently discharged from the hospital about 3 weeks prior from similar admission of difficulty breathing and CHF exacerbation. Reports he has otherwise been in his normal state of health except these last few days were his legs have been swelling up more. He states he is having decreased urinary output only gone to the bathroom several times in last 3 days in total. Denies any headache, vision changes, chest pain, nausea, vomiting, abdominal pain, back pain. States he has mild dyspnea at this time. States he follows up with his guard rail installer and states that he is getting an AICD placed at [facility] eventually. Related Data Home Medications Medication Instructions Recorded Confirmed apixaban 5 mg tablet (Eliquis) 5 mg PO Q12H 01/16/24 08/15/24 atorvastatin 40 mg tablet 80 mg PO DAILY 07/30/24 08/15/24 clopidogrel 75 mg tablet 75 mg PO DAILY 08/15/24 08/15/24 hydralazine 50 mg tablet 50 mg PO TID 08/15/24 08/15/24 Allergies Allergy/AdvReac Type Severity Reaction Status Date / Time No Known Allergies Allergy Verified 08/15/24 01:33 Review of Systems Review of Systems: as reviewed above in the HPI [facility] Past Medical History Medical History Chronic anemia Chronic anticoagulation Chronic kidney disease, stage 3a Coronary artery disease Dilated cardiomyopathy EF 15%, life vest Heart failure with reduced ejection fraction Hyperlipidemia Hypertension Paroxysmal atrial fibrillation Tobacco abuse Type 2 diabetes mellitus Surgical History Surgical History History of cardiac catheterization [place] July 2024 History of coronary artery stent placement History of mandibular surgery Repair drop fracture. History of toe surgery Repair right great toe amputation. Family History Family History Father Acute myocardial infarction Hypertension Mother Cerebrovascular accident Social History Social History Social History: Surrogate medical decision maker: Kathy Viramontes, spouse. Code status: Full code. Smoking packs per day: 2 Smoking cigarettes per day: 40.0 Years smoked: 30 Smoking pack-years: 60.00 Smoking status: Former smoker Alcohol intake: never Substance use: current Substance use type: marijuana Other substance usage details: History cocaine use years ago. 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 Spiritual care concerns: Yes Exam Narrative: GENERAL: Chronically ill-appearing, not in any acute distress, answering all my questions appropriately, awake alert oriented. HEAD: [Normocephalic, atra
[2024-09-03] MEDS: FUROSEMIDE INJ 40 MG/4 ML VIAL 60 MG IV PUSH (02:01)
[2024-09-03 02:09] LABS: Basophils Percent Auto 0.3 % (0.2-1.2); Eosinophils Absolute Auto 0.1 K/mm3 (0-0.3); Eosinophils Percent Auto 1.9 % (0-4.4); Hemoglobin 10.3 g/dL (14.0-18.0); Immature Granulocyte Absolute 0.01 K/mm3 (0.00-0.031); Immature Granulocyte Percent A 0.2 % (0-0.5); Lymphocytes Absolute Auto 1.17 K/mm3 (0.9-3.2); Mean Corpuscular HGB Conc 33.2 g/dl (32-36); Mean Corpuscular Hemoglobin 32.1 pg (26-34); Mean Corpuscular Volume 96.6 fl (80-100); Mean Platelet Volume 10.2 fl (7.4-10.4); Monocytes Absolute Auto 0.7 K/mm3 (0.1-0.6); Monocytes Percent Auto 12.5 % (2.6-8.5); Neutrophils Absolute Auto 3.8 K/mm3 (1.3-6.7); Neutrophils Percent Auto 65.1 % (45.5-73.1); Platelet Count Result 168 k/mm3 (150-375); Red Blood Count 3.21 M/mm3 (4.6-6.20); Red Cell Distribution Width 13.4 % (11.5-14.5); White Blood Count 5.8 K/mm3 (4.5-10.0)
[2024-09-03 02:20] LABS: INR 1.4
[2024-09-03 02:21] LABS: Partial Thromboplastin Time 33.6 Seconds (22.3-36.8)
[2024-09-03 02:26] LABS: Anion Gap 9 mmol/L (4-12); Blood Urea Nitrogen 33 mg/dL (9-20); Calcium 8.5 mg/dL (8.4-10.2); Carbon Dioxide 26 mmol/L (22-30); Chloride 103 mmol/L (98-107); Estimated CRCL calculation 43 ml/min; Estimated Glomerular Filt Rate 33; Glucose 98 mg/dL (65-110); Sodium 138 mmol/L (137-145)
[2024-09-03 02:40] LABS: NT Pro B Type Natriuretic Pept 4490 pg/mL (19.9-100); Troponin I 0.042 ng/mL (0.000-0.034)
[2024-09-03] MEDS: POTASSIUM CHLORIDE INJ 40 MEQ in SODIUM CHLORIDE 0.9% IV 500 ML 130 MEQ IVPB (04:09)
[2024-09-03] MEDS: POTASSIUM CHLORIDE 20 MEQ ER TABLET 40 MEQ PO ×3 (04:09→18:20)
--- NOTE | 2024-09-03 04:36 | ECG_ITS ---
Test Date: 2024-09-03 04:39:52 Measurements Intervals [place] Rate: 90 P: 0 [place]: 0 QRS: -48 QRSD: 134 T: 129 QT: 428 QTc: 526 Interpretive Statements ATRIAL FIBRILLATION WITH ABERRANT CONDUCTION OR VENTRICULAR PREMATURE COMPLEXES INTRAVENTRICULAR CONDUCTION DELAY [130+ ms QRS DURATION] POSSIBLE LEFT VENTRICULAR HYPERTROPHY [VOLTAGE CRITERIA PLUS LAE OR QRS WIDENING] ST DEVIATION AND MODERATE T-WAVE ABNORMALITY, CONSIDER LATERAL ISCHEMIA Compared to ECG 09/03/2024 03:24:04 Ventricular premature complex(es) now present Aberrant conduction of supraventricular beat(s) now present Possible ischemia no longer present Electronically Signed On 09-03-2024 10:58:02 CDT by Nichelle Sherman M.D.
[2024-09-03 05:05] LABS: Troponin I 0.034 ng/mL (0.000-0.034)
[2024-09-03 05:55] LABS: Magnesium 1.8 mg/dL (1.6-2.3)
[2024-09-03 07:28] LABS: Glucose Point of Care 89 mg/dl (65-105)
--- NOTE | 2024-09-03 07:45 | ADMGEN ---
This patient, Gopi Viramontes, was admitted to Medical Room 261-01. Patient/family oriented to hospital policies and general routines including ID bracelet, bed and alarms, visiting hours, pain management, procedures, bathroom and other care routines, personal items, smoking policy, room service/diet, and visiting hours. Information on how to activate the Rapid Response Team has been discussed. Patient/Family are encouraged to report perceived risks to care and to ask questions if they do not understand what they are told or what they should do.
[2024-09-03 08:10] LABS: Glucose Point of Care 97 mg/dl (65-105)
--- NOTE | 2024-09-03 09:59 | PM.IMHP ---
H&P: HPI History of Present Illness Date/Time: 09/03/24 09:59 Chief Complaint: 53-year-old male with a past medical history of extensive cardiac disease including ischemic cardiomyopathy with an EF of 10-15% presently on a LifeVest. He also has a history of hypertension, atrial fibrillation on chronic Eliquis, hyperlipidemia, CKD, anemia. He presents to the emergency room with chief complaint of bilateral leg swelling and mild shortness of breath. He states that he is not on any diuretic or water pill and has been having increased swelling in his legs over last few days. He was recently discharged from the hospital about 3 weeks prior from similar admission of difficulty breathing and CHF exacerbation. Reports he has otherwise been in his normal state of health except these last few days were his legs have been swelling up more. He states he is having decreased urinary output only gone to the bathroom several times in last 3 days in total. Denies any headache, vision changes, chest pain, nausea, vomiting, abdominal pain, back pain. States he has mild dyspnea at this time. States he follows up with his control clerk and states that he is getting an AICD placed at [facility] eventually. Patient denies chest pain, palpitations, headaches, or dizziness. Patient reports occasional shortness of breath. Patient reports that he sees [facility] Dr. Danny Andrew at [facility] in [place]. Chest X-ray showed Cardiomegaly. EKG showed Afib with rate of 90. Review of Systems Review of Systems: All systems reviewed & are unremarkable except as noted in HPI and below PMFSH Past Medical History Medical History Chronic anemia Chronic anticoagulation Chronic kidney disease, stage 3a Coronary artery disease Dilated cardiomyopathy EF 15%, life vest Heart failure with reduced ejection fraction Hyperlipidemia Hypertension Paroxysmal atrial fibrillation Tobacco abuse Type 2 diabetes mellitus Surgical History Surgical History History of cardiac catheterization [place] July 2024 History of coronary artery stent placement History of mandibular surgery Repair drop fracture. History of toe surgery Repair right great toe amputation. Family History Family History Father Acute myocardial infarction Hypertension Mother Cerebrovascular accident Social History Social History Social History: Surrogate medical decision maker: Kathy Viramontes, spouse. Code status: Full code. Smoking packs per day: 2 Smoking cigarettes per day: 40.0 Years smoked: 30 Smoking pack-years: 60.00 Smoking status: Former smoker Alcohol intake: former Substance use: current Substance use type: marijuana Other substance usage details: History cocaine use years ago. 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 Spiritual care concerns: No Meds Home Medications and Allergies Home Medications Medication Instructions Recorded Confirmed Type apixaban 5 mg tablet (Eliquis) 5 mg PO Q12H 01/16/24 09/03/24 History amlodipine 5 mg tablet (Norvasc) 5 mg PO QAM #30 tabs 01/20/24 09/03/24 Rx nitroglycerin 0.4 mg sublingual 0.4 mg sublingual Q5MIN PRN Chest 01/20/24 09/03/24 Rx tablet (Nitrostat) Pain #25 tabs atorvastatin 40 mg tablet 80
[2024-09-03] MEDS: EMPAGLIFLOZIN 10 MG TABLET PO (10:07)
[2024-09-03] MEDS: amLODIPine BESYLATE 5 MG TABLET PO (10:07)
[2024-09-03] MEDS: CLOPIDOGREL BISULFATE 75 MG TABLET PO (10:07)
[2024-09-03] MEDS: ATORVASTATIN 40 MG TABLET 80 MG PO (10:08)
[2024-09-03] MEDS: hydrALAZINE HCL 50 MG TABLET PO ×3 (10:08→18:20)
[2024-09-03] MEDS: APIXABAN 5 MG TABLET PO ×2 (10:08→20:46)
[2024-09-03] MEDS: AMIODARONE HCL 200 MG TABLET 400 MG PO (10:08)
[2024-09-03 11:53] LABS: Glucose Point of Care 170 mg/dl (65-105)
--- NOTE | 2024-09-03 12:19 | PM.CNCAR ---
Assessment and Plan Assessment and plan (1) CHF (congestive heart failure): Code(s): I50.9 - Heart failure, unspecified Status: Acute Plan Acute on chronic systolic heart failure ejection fraction 15% LifeVest in place Hypertension controlled Coronary artery disease with history of PCI to the RCA and MOLLY to left circumflex without evidence of ACS Proximal atrial fibrillation History of tachy-augie syndrome. CKD stage 3 with worsening kidney function possibly secondary to cardiorenal syndrome Plan Lasix 40 mg IV b.i.d. Amiodarone 400 mg daily Lipitor 80 mg daily Eliquis 5 mg b.i.d. Plavix 75 mg daily Jardiance 10 mg daily Amlodipine 5 mg daily Follow-up kidney function electrolytes History of Present Illness History of Present Illness Consult date/time: 09/03/24 12:19 Reason For Visit: Mild CHF, Mild hypokalemia Narrative: 53-year-old male patient presented to the hospital with progressive shortness of breath that was moderate to severe associated with bilateral lower extremity swelling. Patient with recent discharge from the hospital 3 days ago after admission with CHF exacerbation. He was discharged home without oral diuretic. He is known to have ischemic cardiomyopathy ejection fraction 10-15% awaiting LifeVest. Patient admits compliance with medication. He denied any chest pain Review of Systems Review of Systems: All systems reviewed & are unremarkable except as noted in HPI and below PMFSH Past Medical History Medical History Chronic anemia Chronic anticoagulation Chronic kidney disease, stage 3a Coronary artery disease Dilated cardiomyopathy EF 15%, life vest Heart failure with reduced ejection fraction Hyperlipidemia Hypertension Paroxysmal atrial fibrillation Tobacco abuse Type 2 diabetes mellitus Surgical History Surgical History History of cardiac catheterization [place] July 2024 History of coronary artery stent placement History of mandibular surgery Repair drop fracture. History of toe surgery Repair right great toe amputation. Family History Family History Father Acute myocardial infarction Hypertension Mother Cerebrovascular accident Social History Social History Social History: Surrogate medical decision maker: Kathy Viramontes, spouse. Code status: Full code. Smoking packs per day: 2 Smoking cigarettes per day: 40.0 Years smoked: 30 Smoking pack-years: 60.00 Smoking status: Former smoker Alcohol intake: former Substance use: current Substance use type: marijuana Other substance usage details: History cocaine use years ago. 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 Spiritual care concerns: No Meds Home Medications and Allergies Home Medications Medication Instructions Recorded Confirmed Type apixaban 5 mg tablet (Eliquis) 5 mg PO Q12H 01/16/24 09/03/24 History amlodipine 5 mg tablet (Norvasc) 5 mg PO QAM #30 tabs 01/20/24 09/03/24 Rx nitroglycerin 0.4 mg sublingual 0.4 mg sublingual Q5MIN PRN Chest 01/20/24 09/03/24 Rx tablet (Nitrostat) Pain #25 tabs atorvastatin 40 mg tablet 80 mg PO DAILY 07/30/24 09/03/24 History clopidogrel 75 mg tablet 75 mg PO DAILY 08/15/24 09/03/24 History hydralazine 50 mg tablet 50 mg PO
[2024-09-03 12:27] LABS: Anion Gap 9 mmol/L (4-12); Blood Urea Nitrogen 30 mg/dL (9-20); Calcium 8.6 mg/dL (8.4-10.2); Carbon Dioxide 29 mmol/L (22-30); Chloride 101 mmol/L (98-107); Estimated CRCL calculation 47 ml/min; Estimated Glomerular Filt Rate 37; Glucose 124 mg/dL (65-110); Sodium 139 mmol/L (137-145)
[2024-09-03 17:12] LABS: Glucose Point of Care 102 mg/dl (65-105)
[2024-09-03] MEDS: FUROSEMIDE INJ 40 MG/4 ML VIAL IV PUSH (18:20)
[2024-09-03 20:25] LABS: Glucose Point of Care 226 mg/dl (65-105)
[2024-09-03] MEDS: INSULIN ASPART (*BKC) 100 UNITS/ML SUB-Q (20:46)
[2024-09-03 21:04] LABS: Anion Gap 9 mmol/L (4-12); Blood Urea Nitrogen 28 mg/dL (9-20); Calcium 8.7 mg/dL (8.4-10.2); Carbon Dioxide 30 mmol/L (22-30); Chloride 102 mmol/L (98-107); Estimated CRCL calculation 47 ml/min; Estimated Glomerular Filt Rate 37; Glucose 210 mg/dL (65-110); Potassium 3.6 mmol/L (3.4-5.0); Sodium 141 mmol/L (137-145)
[2024-09-04] VITALS (8 sets, daily range): BP systolic 120–137; BP diastolic 75–88; PULSE 73–91; RESP 18–20; TEMP 36.2–36.8; O2SAT 99–100
[2024-09-04 06:30] LABS: Basophils Percent Auto 0.3 % (0.2-1.2); Eosinophils Absolute Auto 0.1 K/mm3 (0-0.3); Eosinophils Percent Auto 1.7 % (0-4.4); Hematocrit 32.2 % (42.0-52.0); Hemoglobin 10.6 g/dL (14.0-18.0); Immature Granulocyte Absolute 0.02 K/mm3 (0.00-0.031); Immature Granulocyte Percent A 0.3 % (0-0.5); Lymphocytes Absolute Auto 0.81 K/mm3 (0.9-3.2); Lymphocytes Percent Auto 12.6 % (18.3-44.2); Mean Corpuscular HGB Conc 32.9 g/dl (32-36); Mean Corpuscular Hemoglobin 32.3 pg (26-34); Mean Corpuscular Volume 98.2 fl (80-100); Mean Platelet Volume 10.1 fl (7.4-10.4); Monocytes Absolute Auto 0.6 K/mm3 (0.1-0.6); Monocytes Percent Auto 9.7 % (2.6-8.5); Neutrophils Absolute Auto 4.8 K/mm3 (1.3-6.7); Neutrophils Percent Auto 75.4 % (45.5-73.1); Platelet Count Result 182 k/mm3 (150-375); Red Blood Count 3.28 M/mm3 (4.6-6.20); Red Cell Distribution Width 13.3 % (11.5-14.5); White Blood Count 6.4 K/mm3 (4.5-10.0)
[2024-09-04 06:43] LABS: Alanine Aminotransferase 26 U/L (6-50); Albumin Level 3.7 g/dL (3.5-5.1); Alkaline Phosphatase 140 U/L (38-126); Anion Gap 9 mmol/L (4-12); Aspartate Amino Transferase 27 U/L (17-59); Bilirubin,Total 1.5 mg/dL (0.2-1.3); Blood Urea Nitrogen 23 mg/dL (9-20); Calcium 8.1 mg/dL (8.4-10.2); Carbon Dioxide 28 mmol/L (22-30); Chloride 103 mmol/L (98-107); Estimated CRCL calculation 52 ml/min; Estimated Glomerular Filt Rate 42; Glucose 95 mg/dL (65-110); Potassium 3.4 mmol/L (3.4-5.0); Sodium 140 mmol/L (137-145)
[2024-09-04 07:39] LABS: Glucose Point of Care 98 mg/dl (65-105)
--- NOTE | 2024-09-04 09:23 | P.PNIM_ITS ---
Progress Note: A&P Assessment and Plan (1) Heart failure with reduced ejection fraction: Code(s): I50.20 - Unspecified systolic (congestive) heart failure Status: Acute Assessment and Plan: * Received Furosemide 60 mg ivp x 1 in the ER. * Acute on chronic systolic heart failure ejection fraction 15% * LifeVest in place * Coronary artery disease with history of PCI to the RCA and MOLLY to left circumflex without evidence of ACS * History of tachy-augie syndrome. * Cardiology consulted, recs appreciated. * Lasix 40 mg IV b.i.d initially, switch to Lasix 40 mg PO daily. * Amiodarone 400 mg daily * Lipitor 80 mg daily * Eliquis 5 mg b.i.d. * Plavix 75 mg daily * Jardiance 10 mg daily * Amlodipine 5 mg daily (2) Paroxysmal atrial fibrillation: Code(s): I48.0 - Paroxysmal atrial fibrillation Status: Acute Assessment and Plan: * Amiodarone 400 mg PO daily. * Telemetry-Atrial fibrillation rate 87 (3) Uses LifeVest defibrillator: Code(s): Z95.810 - Presence of automatic (implantable) cardiac defibrillator Status: Acute Assessment and Plan: * Life vest in place. (4) Dilated cardiomyopathy: Code(s): I42.0 - Dilated cardiomyopathy Status: Acute Assessment and Plan: * Coronary artery disease with history of PCI to the RCA and MOLLY to left circumflex without evidence of ACS * Lasix 40 mg IV b.i.d, switch to Lasix 40 mg PO daily. * Amiodarone 400 mg daily * Lipitor 80 mg daily * Eliquis 5 mg b.i.d. * Plavix 75 mg daily * Jardiance 10 mg daily * Amlodipine 5 mg daily (5) Type 2 diabetes mellitus: Code(s): E11.9 - Type 2 diabetes mellitus without complications Status: Acute Assessment and Plan: * Jardiance 10 mg PO daily * Hypoglycemic protocol. (6) Hypokalemia: Code(s): E87.6 - Hypokalemia Status: Acute Assessment and Plan: * Potassium 3.4. Patient given an additional Potassium Chloride 40 meq PO x1. (7) CKD stage 3 due to type 2 diabetes mellitus: Code(s): E11.22 - Type 2 diabetes mellitus with diabetic chronic kidney disease; N18.30 - Chronic kidney disease, stage 3 unspecified Status: Acute Assessment and Plan: * CKD stage 3 with worsening kidney function possibly secondary to cardiorenal syndrome. * 09/03/24:BUN 33, Creatinine 2.10, and GFR 33. * 09/04/24:BUN 23, Creatinine 1.70, and GFR 42. (8) Hypertension: Qualifiers: Hypertension type: primary hypertension Qualified Code(s): I10 - Essential (primary) hypertension Code(s): I10 - Essential (primary) hypertension Status: Chronic Assessment and Plan: * Continue home meds. * Blood pressure 130/78. Subjective Date/time seen: 09/04/24 09:23 Interval history: Patient denies chest pain, palpitations, shortness of breath, headache, or dizziness. Reports that swelling has improved. Review of Systems Review of Systems: All systems reviewed & are unremarkable except as noted in HPI and below Exam Const: General: comfortable and no acute distress Neck: Neck: supple Resp: Effort & Inspection: normal respiratory effort Auscultation: clear to auscultation bilaterally Cardio: Rhythm: abnormal rhythm irregularly irregular Other: Afib 87. Life vest in place. GI: GI Palp: Yes Soft to palpation Auscultation: normal bowel sounds Other: Last BM 09/03/24 Skin: General
--- NOTE | 2024-09-04 09:23 | PM.IMPN ---
Progress Note: A&P Assessment and Plan (1) Heart failure with reduced ejection fraction: Code(s): I50.20 - Unspecified systolic (congestive) heart failure Status: Acute Assessment and Plan: Received Furosemide 60 mg ivp x 1 in the ER. Acute on chronic systolic heart failure ejection fraction 15% LifeVest in place Coronary artery disease with history of PCI to the RCA and MOLLY to left circumflex without evidence of ACS History of tachy-augie syndrome. Cardiology consulted, recs appreciated. Lasix 40 mg IV b.i.d initially, switch to Lasix 40 mg PO daily. Amiodarone 400 mg daily Lipitor 80 mg daily Eliquis 5 mg b.i.d. Plavix 75 mg daily Jardiance 10 mg daily Amlodipine 5 mg daily (2) Paroxysmal atrial fibrillation: Code(s): I48.0 - Paroxysmal atrial fibrillation Status: Acute Assessment and Plan: Amiodarone 400 mg PO daily. Telemetry-Atrial fibrillation rate 87 (3) Uses LifeVest defibrillator: Code(s): Z95.810 - Presence of automatic (implantable) cardiac defibrillator Status: Acute Assessment and Plan: Life vest in place. (4) Dilated cardiomyopathy: Code(s): I42.0 - Dilated cardiomyopathy Status: Acute Assessment and Plan: Coronary artery disease with history of PCI to the RCA and MOLLY to left circumflex without evidence of ACS Lasix 40 mg IV b.i.d, switch to Lasix 40 mg PO daily. Amiodarone 400 mg daily Lipitor 80 mg daily Eliquis 5 mg b.i.d. Plavix 75 mg daily Jardiance 10 mg daily Amlodipine 5 mg daily (5) Type 2 diabetes mellitus: Code(s): E11.9 - Type 2 diabetes mellitus without complications Status: Acute Assessment and Plan: Jardiance 10 mg PO daily Hypoglycemic protocol. (6) Hypokalemia: Code(s): E87.6 - Hypokalemia Status: Acute Assessment and Plan: Potassium 3.4. Patient given an additional Potassium Chloride 40 meq PO x1. (7) CKD stage 3 due to type 2 diabetes mellitus: Code(s): E11.22 - Type 2 diabetes mellitus with diabetic chronic kidney disease; N18.30 - Chronic kidney disease, stage 3 unspecified Status: Acute Assessment and Plan: CKD stage 3 with worsening kidney function possibly secondary to cardiorenal syndrome. 09/03/24:BUN 33, Creatinine 2.10, and GFR 33. 09/04/24:BUN 23, Creatinine 1.70, and GFR 42. (8) Hypertension: Qualifiers: Hypertension type: primary hypertension Qualified Code(s): I10 - Essential (primary) hypertension Code(s): I10 - Essential (primary) hypertension Status: Chronic Assessment and Plan: Continue home meds. Blood pressure 130/78. Subjective Date/time seen: 09/04/24 09:23 Interval history: Patient denies chest pain, palpitations, shortness of breath, headache, or dizziness. Reports that swelling has improved. Review of Systems Review of Systems: All systems reviewed & are unremarkable except as noted in HPI and below Exam Const: General: comfortable and no acute distress Neck: Neck: supple Resp: Effort & Inspection: normal respiratory effort Auscultation: clear to auscultation bilaterally Cardio: Rhythm: abnormal rhythm irregularly irregular Other: Afib 87. Life vest in place. GI: GI Palp: Yes Soft to palpation Auscultation: normal bowel sounds Other: Last BM 09/03/24 Skin: General skin exam: no rashes or lesions noted Neuro: Speech: normal speech Extrem: General: pedal edema bilaterally (trace) Psych: Affect: normal affect Objective Data Vital Signs Vital Signs: Vital Signs - 24 hr 09/03/24 10:08 09/03/24 09:30 09/03/24 14:00 Temperature 97.8 F Pulse Rate 88 90 Respiratory Rate 16 Blood Pressure 116/70 Pulse Oximetry 98 Oxygen Delivery Room Air Fraction of Inspired Oxygen 09/03/24 12:00 09/03/24 16:00 09/03/24 20:00 Temperature Pulse Rate 96 80 96 Respiratory Rate Blo
[2024-09-04] MEDS: EMPAGLIFLOZIN 10 MG TABLET PO (09:48)
[2024-09-04] MEDS: POTASSIUM CHLORIDE 20 MEQ ER TABLET 40 MEQ PO (09:48)
[2024-09-04] MEDS: ATORVASTATIN 40 MG TABLET 80 MG PO (09:48)
[2024-09-04] MEDS: amLODIPine BESYLATE 5 MG TABLET PO (09:48)
[2024-09-04] MEDS: APIXABAN 5 MG TABLET PO ×2 (09:49→21:29)
[2024-09-04] MEDS: CLOPIDOGREL BISULFATE 75 MG TABLET PO (09:49)
[2024-09-04] MEDS: hydrALAZINE HCL 50 MG TABLET PO ×3 (09:49→18:12)
[2024-09-04] MEDS: AMIODARONE HCL 200 MG TABLET 400 MG PO (09:49)
[2024-09-04] MEDS: FUROSEMIDE INJ 40 MG/4 ML VIAL IV PUSH (09:51)
--- NOTE | 2024-09-04 11:23 | PM.PNCARD ---
Progress Note: A&P Assessment and Plan (1) Acute on chronic systolic (congestive) heart failure: Code(s): I50.23 - Acute on chronic systolic (congestive) heart failure Status: Acute (2) Paroxysmal atrial fibrillation: Code(s): I48.0 - Paroxysmal atrial fibrillation Status: Acute (3) CAD (coronary artery disease): Qualifiers: Coronary Disease-Associated Artery/Lesion type: [place] artery [place] vs. transplanted heart: [place] heart Associated angina: with unstable angina Qualified Code(s): I25.110 - Atherosclerotic heart disease of [place] coronary artery with unstable angina pectoris Code(s): I25.10 - Atherosclerotic heart disease of [place] coronary artery without angina pectoris Status: Acute Plan 53 yo man with ischemic cardiomyopathy and CAD sp PCI is admitted for acute systolic heart failure exacerbation Acute on Chronic Systolic Heart Failure - he is compensated today and if he continues to do well, can discharge on lasix 40mg PO daily to follow up with his provider relations specialist outpatient - he is on jardiance and his renal function can be reassessed outpatient to determine addition of ARB Paroxysmal Atrial Fibrillation - he is on amiodarone 400mg PO daily which can be downtitrated in outpatient setting - continue eliquis 5mg PO BID given elevated CHADsVASC score CAD sp PCI - given that he is on eliquis already, will continue with just one antiplatelet agent - plavix 75mg PO daily - atorvastatin 80mg qhs - not on beta suzi given tachy-augie history Subjective Date/time seen: 09/04/24 11:23 Interval history: no dyspnea. no chest pain. Review of Systems Review of Systems: All systems reviewed & are unremarkable except as noted in HPI and below Exam Const: General: comfortable HENMT: Mouth: Yes moist mucous membranes Eyes: EOM: EOMs intact bilaterally Neck: Neck: no JVD Resp: Auscultation: clear to auscultation bilaterally Cardio: Rhythm: abnormal rhythm Other: life vest on GI: GI Palp: Yes Soft to palpation Neuro: Speech: normal speech Extrem: General: no edema Psych: Affect: normal affect Objective Data Vital Signs Vital Signs: Vital Signs - 24 hr 09/03/24 14:00 09/03/24 12:00 09/03/24 16:00 Temperature 36.6 C Pulse Rate 90 96 80 Respiratory Rate 16 Blood Pressure 116/70 Pulse Oximetry 98 Oxygen Delivery Fraction of Inspired Oxygen 09/03/24 20:00 09/03/24 21:09 09/03/24 20:00 Temperature 36.6 C Pulse Rate 96 79 79 Respiratory Rate 18 18 Blood Pressure 132/84 Pulse Oximetry 98 98 Oxygen Delivery Room Air Fraction of Inspired Oxygen 21 09/04/24 00:00 09/04/24 04:00 09/04/24 06:00 Temperature 36.2 C L Pulse Rate 90 88 91 Respiratory Rate 18 Blood Pressure 120/75 Pulse Oximetry 99 Oxygen Delivery Fraction of Inspired Oxygen 09/04/24 08:00 09/04/24 08:00 Temperature Pulse Rate 91 91 Respiratory Rate 18 Blood Pressure Pulse Oximetry 99 Oxygen Delivery Room Air Fraction of Inspired Oxygen 21 Intake/Output Intake/Output: Intake & Output 09/01/24 09/02/24 09/03/24 09/04/24 23:59 23:59 23:59 23:59 Intake Total 1580 590 Output Total 700 Balance 880 590 Meds/Results Medications: Active Medications Generic Name Dose Route Start Last Admin Trade Name Freq PRN Reason Stop Dose Admin Albuterol/Ipratropium 3 ml 09/03/24 09:53 Ipratropium 0.5 Mg/Albuterol Sulfate 2.5 Mg Ampul.Neb 3 Ml INHALATION Q6HRT PRN Shortness Of Breath Amiodarone HCl 400 mg 09/03/24 10:00 09/04/24 09:49 Amiodarone Hcl 200 Mg Tablet PO 400 mg DAILY@0800 NOEMY Administration Amlodipine Besylate 5 mg 09/03/24 10:00 09/04/24 09:48 Amlodipine Besylate 5 Mg Tablet PO 5 mg QAM NOEMY Administration Apixaban 5 mg 09/03/24 10:00 09/04/24 09:49 Apixaban 5 Mg Tablet PO 5 mg Q12HR NOEMY Administration Atorvastatin Calcium 80 mg
[2024-09-04 11:47] LABS: Glucose Point of Care 118 mg/dl (65-105)
[2024-09-04 16:39] LABS: Glucose Point of Care 94 mg/dl (65-105)
[2024-09-04 21:31] LABS: Glucose Point of Care 177 mg/dl (65-105)
[2024-09-05] VITALS: PULSE 86
[2024-09-05 04:00] VITALS: PULSE 86
[2024-09-05 04:24] VITALS: BP 139/90; PULSE 65; RESP 20; TEMP 36.5; O2SAT 97
[2024-09-05 05:17] LABS: Basophils Percent Auto 0.2 % (0.2-1.2); Eosinophils Absolute Auto 0.1 K/mm3 (0-0.3); Eosinophils Percent Auto 1.7 % (0-4.4); Hematocrit 33.9 % (42.0-52.0); Hemoglobin 10.7 g/dL (14.0-18.0); Immature Granulocyte Absolute 0.02 K/mm3 (0.00-0.031); Immature Granulocyte Percent A 0.3 % (0-0.5); Lymphocytes Absolute Auto 1.16 K/mm3 (0.9-3.2); Lymphocytes Percent Auto 18.4 % (18.3-44.2); Mean Corpuscular HGB Conc 31.6 g/dl (32-36); Mean Corpuscular Hemoglobin 31.2 pg (26-34); Mean Corpuscular Volume 98.8 fl (80-100); Mean Platelet Volume 10.2 fl (7.4-10.4); Monocytes Absolute Auto 0.7 K/mm3 (0.1-0.6); Neutrophils Absolute Auto 4.3 K/mm3 (1.3-6.7); Neutrophils Percent Auto 68.4 % (45.5-73.1); Platelet Count Result 190 k/mm3 (150-375); Red Blood Count 3.43 M/mm3 (4.6-6.20); Red Cell Distribution Width 13.4 % (11.5-14.5); White Blood Count 6.3 K/mm3 (4.5-10.0)
[2024-09-05 05:27] LABS: Alanine Aminotransferase 24 U/L (6-50); Albumin Level 3.7 g/dL (3.5-5.1); Alkaline Phosphatase 129 U/L (38-126); Anion Gap 6 mmol/L (4-12); Aspartate Amino Transferase 25 U/L (17-59); Bilirubin,Total 0.8 mg/dL (0.2-1.3); Blood Urea Nitrogen 26 mg/dL (9-20); Calcium 8.6 mg/dL (8.4-10.2); Carbon Dioxide 31 mmol/L (22-30); Chloride 103 mmol/L (98-107); Estimated CRCL calculation 50 ml/min; Estimated Glomerular Filt Rate 40; Glucose 106 mg/dL (65-110); Potassium 3.3 mmol/L (3.4-5.0); Sodium 140 mmol/L (137-145)
[2024-09-05 08:00] VITALS: PULSE 91
[2024-09-05 08:17] LABS: Glucose Point of Care 105 mg/dl (65-105)
[2024-09-05 08:34] VITALS: PULSE 88
[2024-09-05] MEDS: ATORVASTATIN 40 MG TABLET 80 MG PO (08:34)
[2024-09-05] MEDS: AMIODARONE HCL 200 MG TABLET 400 MG PO (08:34)
[2024-09-05] MEDS: APIXABAN 5 MG TABLET PO (08:35)
[2024-09-05] MEDS: hydrALAZINE HCL 50 MG TABLET PO (08:35)
[2024-09-05] MEDS: EMPAGLIFLOZIN 10 MG TABLET PO (08:35)
[2024-09-05] MEDS: CLOPIDOGREL BISULFATE 75 MG TABLET PO (08:35)
[2024-09-05] MEDS: POTASSIUM CHLORIDE 20 MEQ ER TABLET 40 MEQ PO (08:35)
[2024-09-05] MEDS: amLODIPine BESYLATE 5 MG TABLET PO (08:35)
[2024-09-05] MEDS: FUROSEMIDE 40 MG TABLET PO (08:35)
--- NOTE | 2024-09-05 11:15 | PM.DS ---
DS: Admitting Diagnosis Discharge Date 09/05/24 Admitting Diagnosis Leg swelling DS: Discharge Diagnosis Discharge Diagnosis (1) CHF (congestive heart failure): Code(s): I50.9 - Heart failure, unspecified Status: Acute (2) PAF (paroxysmal atrial fibrillation): Code(s): I48.0 - Paroxysmal atrial fibrillation Status: Acute (3) Uses LifeVest defibrillator: Code(s): Z95.810 - Presence of automatic (implantable) cardiac defibrillator Status: Acute (4) Dilated cardiomyopathy: Code(s): I42.0 - Dilated cardiomyopathy Status: Acute (5) Type 2 diabetes mellitus: Code(s): E11.9 - Type 2 diabetes mellitus without complications Status: Acute (6) Hypokalemia: Code(s): E87.6 - Hypokalemia Status: Acute DS: Summary Hospital Course Hospital Course: Per ER: 53-year-old male with a past medical history of extensive cardiac disease including ischemic cardiomyopathy with an EF of 10-15% presently on a LifeVest. He also has a history of hypertension, atrial fibrillation on chronic Eliquis, hyperlipidemia, CKD, anemia. He presents to the emergency room with chief complaint of bilateral leg swelling and mild shortness of breath. He states that he is not on any diuretic or water pill and has been having increased swelling in his legs over last few days. He was recently discharged from the hospital about 3 weeks prior from similar admission of difficulty breathing and CHF exacerbation. Reports he has otherwise been in his normal state of health except these last few days were his legs have been swelling up more. He states he is having decreased urinary output only gone to the bathroom several times in last 3 days in total. EKG Afib rate of 90. Chest X-ray: Cardiomegaly. Patient received Furosemide 60 mg ivp and then was ordered Furosemide 40 mg ivp BID. Patient transitioned to Furosemide 40 mg oral daily. Patient to follow up with Audit Director at discharge. Patient has a life vest in place and is getting an AICD at [facility] eventually. Patient is unable to be on a beta suzi due to history of tachy- augie syndrome. Status at Discharge Functional status at discharge: independent ambulation Overall status at discharge: patient is progressing back to baseline Time Spent with Patient Time attestation: Total time spent providing and/or coordinating discharge services: Time spent: Greater than 30 minutes Exam Const: General: comfortable and no acute distress Resp: Effort & Inspection: normal respiratory effort Auscultation: clear to auscultation bilaterally Cardio: Rhythm: abnormal rhythm irregularly irregular (Afib -93) Other: Life vest in place. GI: GI Palp: Yes Soft to palpation Auscultation: normal bowel sounds Skin: General skin exam: no rashes or lesions noted Extrem: General: normal to inspection Psych: Affect: normal affect DS: Data Data Completed and Pending Labs on day of discharge: Labs from last 24 hours 09/05/24 09/05/24 09/04/24 08:10 05:05 21:20 WBC 6.3 RBC 3.43 L Hgb 10.7 L Hct 33.9 L MCV 98.8 MCH 31.2 MCHC 31.6 L RDW 13.4 Plt Count 190 MPV 10.2 Immature Gran % (Auto) 0.3 Neut % (Auto) 68.4 Lymph % (Auto) 18.4 Mitchell % (Auto) 11.0 H Eos % (Auto) 1.7 Baso % (Auto) 0.2 Lymph # (Auto) 1.16 Mitchell # (Auto) 0.7 H Eos # (Auto) 0.1 Baso # (Auto) 0.0 Abs Immat Gran (auto) 0.02 Absolute Neuts (auto) 4.3 Absolute Nucleated RBC 0.000 Nucleated RBC % 0.0 Sodium 140 Potassium 3.3 L Chloride 103 Carbon Dioxide 31 H Anion Gap 6 BUN 26 H Creatinine 1.80 H Estim Creat Clear Calc 50 Estimated GFR 40 L Glucose 106 POC Capillary Glucose 105 177 H Calcium 8.6 Total Bilirubin 0.8 AST 25 ALT 24 Alkaline Phosphatase 129 H Total Protein 7.0 Albumin 3.7 09/04/24 09/04/24 16:36 11:44 WBC RBC Hgb
--- NOTE | 2024-09-05 11:52 | PC.NURSE ---
On 09/05/24, the student, [Collette Ledesma], provided care and completed [facility] documentation on this patient. I have reviewed the student's documentation and agree with the findings.
[2024-09-05 12:00] LABS: Glucose Point of Care 107 mg/dl (65-105)
== END 2024-09-05 12:40 | disposition home or self-care (01) ==
LOC: ANHED 09-03 01:12 → ANH2MED 09-03 07:43
PROVIDERS: Nurse Practitioner Family; Admitting Provider Internal Medicine; Emergency Provider Student in an Organized Health Care Education/Training Program; PCP Internal Medicine Infectious Disease; Visit Provider Student in an Organized Health Care Education/Training Program
DX: I13.0 Hypertensive heart and chronic kidney disease with heart failure and stage 1 through stage 4 chronic kidney disease, or unspecified chronic kidney disease (principal); E11.22 Type 2 diabetes mellitus with diabetic chronic kidney disease; N18.31 Chronic kidney disease, stage 3a; I50.23 Acute on chronic systolic (congestive) heart failure; I25.110 Atherosclerotic heart disease of native coronary artery with unstable angina pectoris; I48.0 Paroxysmal atrial fibrillation; I49.5 Sick sinus syndrome; I25.5 Ischemic cardiomyopathy; E78.5 Hyperlipidemia, unspecified; J44.9 Chronic obstructive pulmonary disease, unspecified; D64.9 Anemia, unspecified; E87.6 Hypokalemia; Z95.811 Presence of heart assist device; Z95.5 Presence of coronary angioplasty implant and graft; Z87.891 Personal history of nicotine dependence; Z79.01 Long term (current) use of anticoagulants; Z79.84 Long term (current) use of oral hypoglycemic drugs; Z79.51 Long term (current) use of inhaled steroids; Z79.899 Other long term (current) drug therapy
CPT/HCPCS: 36415; 71045; 80048; 80053; 82948; 83735; 83880; 84484; 85025; 85610; 85730; 93005; 96374; 96375; 99285; A9270; G0378; G0379; J1815; J1940; J3480; J7040